=== PATIENT | male | born 1985 | race Caucasian/White ===

== ENCOUNTER → 2017-02-15 17:05 | Emergency (ER) | payer SELFPAY ==
[~2017-02-15] VITALS: Ht 180.3 cm; Wt 103.0 kg
[~2017-02-15 17:05] MED LIST: CLIN-44 PO; CLIN30GE3 TP; OXYC-323 PO
[2017-02-15 17:09] VITALS: BP 146/97
--- NOTE | 2017-02-15 17:44 | PHYS DOC ---
Past Medical History Past Medical History: Other Additional Past Medical Histor: hidradenitis suppurativa Past Surgical History: Other Additional Past Surgical Histo: sx for hidradenitis suppurativa to L groin Smoking: Less than 1pk/day Alcohol Use: None Drug Use: None Adult General Chief Complaint Chief Complaint: GROIN PAIN HPI HPI Patient is a 31 year old male with history of hidradenitis suppurativa of the groin who presents with increased pain in the left groin for 5 days. He denies any fever. He had surgery on the left groin in September of last year for his hidradenitis. [facility]. He followed up with his surgeon last month and was told that it is normal for him to continue to have drainage from the wound. He was prescribed Bactrim at that time. He continues to have purulent drainage. He denies any fevers. His PCP is Dr. Juanita Parker. Review of Systems Review of Systems Constitutional: Denies fever or chills. [] Musculoskeletal: Denies back pain or joint pain. [] Integument: Denies rash or skin lesions. Reports abscess of left groin. Allergies Allergies Allergies Coded Allergies Type Severity Reaction Last Updated Verified ketorolac Allergy Intermediate 02/15/17 Yes naproxen Allergy Intermediate 02/15/17 Yes Physical Exam Physical Exam Constitutional: Well developed, well nourished, no acute distress, non-toxic appearance. [] HENT: Normocephalic, atraumatic, oropharynx moist. [] Eyes: PERRLA, EOMI, conjunctiva normal, no discharge. [] Skin: Warm, dry, no erythema, no rash. There is scar tissue in the left groin along the inferior margin of the scrotum. There appear to be tracts within the scar tissue, but there is no spontaneous purulent drainage and no drainage is expressed with palpation. There is no drainable abscess. There is a 2 cm area of induration at the most medial aspect of the scar tissue. There is no perirectal involvement. Extremities: No tenderness, ROM intact, no edema. Distal pulses equal bilaterally. [] Neurologic: Alert and oriented X 3, normal motor function, normal sensory function, no focal deficits noted. [] Psychologic: Affect normal, judgement normal, mood normal. [] Current Patient Data Vital Signs Vital Signs Date Time Temp Pulse Resp B/P Pulse Ox O2 Delivery O2 Flow Rate FiO2 02/15/17 17:09 98.1 97 18 97 Room Air 98.1 EKG EKG [] Radiology/Procedures Radiology/Procedures [] Course & Med Decision Making Course & Med Decision Making Pertinent Labs and Imaging studies reviewed. (See chart for details) [] Dragon Disclaimer Dragon Disclaimer This electronic medical record was generated, in whole or in part, using a voice recognition dictation system. Departure Departure Impression: Primary Impression: Hidradenitis suppurativa Disposition: HOME, SELF-CARE Condition: STABLE Patient Instructions: Hidradenitis Suppurativa, Sweat Gland Abscess Additional Instructions: Please complete all the prescribed antibiotic pills, even if you are feeling better. Please apply the prescribed antibiotic ointment to the affected area to help prevent infection from developing. Please take the prescribed pain medication as directed. Do not drive or operate heavy machinery while taking pain medication. Please follow-up with your surgeon as soon as possible. Return to the emergency department if you have any new or concerning symptoms. Scripts Oxycodone/Apap 5-325 (Percocet 5-325 Mg Tablet)1 Each Tablet1 Tab PO PRN Q6HRS PRN PAIN #20 TAB Ref 0 Prov:ABIODUN WEBB 02/15/17 Clindamycin Phosphate 30 Gm Gel..gram.1 Mirian TP BID #60 GM Prov:ABIODUN WEBB 02/15/17 Clindamycin Hcl 150 Mg Capsule2 Cap PO QID 10 Days Prov:ABIODUN WEBB 02/15/17 ABIODUN WEBB Feb 15, 2017 17:44
== END | disposition home or self-care (01) ==
LOC: ER 17:05
DX: L73.2 Hidradenitis suppurativa (principal); F17.200 Nicotine dependence, unspecified, uncomplicated
CPT/HCPCS: 99283

== ENCOUNTER 2017-02-23 17:48 | Emergency (ER) | payer SELFPAY ==
[~2017-02-23] VITALS: Ht 180.3 cm; Wt 103.0 kg
[2017-02-23] MEDS ORDERED: MORPHINE SULFATE 4 MG/ML DISP.SYRIN. IM ONE ×2 (19:00→20:45)
--- NOTE | 2017-02-23 19:29 | PHYS DOC ---
Past Medical History Past Medical History: Other Additional Past Medical Histor: hidradenitis suppurativa Past Surgical History: Other Additional Past Surgical Histo: sx for hidradenitis suppurativa to L groin Additional Information: 0.5 PPD Alcohol Use: None Drug Use: None Adult General Chief Complaint Chief Complaint: POST-OP PROBLEM HPI HPI Patient is a 31 year old male who presents with L groin pain. Patient reports h /o hidradenitis suppurativa for which he had surgery on his L groin this past September at . Since then he has had pain in the same location in his L groin. Patient presents tonight with c/o pain. He was seen at this hospital just over a week ago for same at which time he was prescribed abx and pain meds. Patient says he has taken ibuprofen and hydrocodone at home with insufficient pain relief. No fever, no drainage from site. He does have appt with the surgeon but not until March 07. Review of Systems Review of Systems Constitutional: Denies fever or chills Respiratory: Denies cough or shortness of breath Cardiovascular: Denies chest pain GI: Denies abdominal pain, nausea, vomiting, or diarrhea : L groin pain Musculoskeletal: Denies back pain or joint pain Neurologic: Denies headache, focal weakness or sensory changes Current Medications Current Medications Current Medications Medications (Trade) Dose Ordered Sig/Vanessa Start Time Stop Time Status Last Admin Dose Admin Morphine Sulfate 4 mg 1X ONCE 02/23/17 20:45 02/23/17 20:46 DC 02/23/17 20:45 4 MG Allergies Allergies Allergies Coded Allergies Type Severity Reaction Last Updated Verified ketorolac Allergy Intermediate 02/15/17 Yes naproxen Allergy Intermediate 02/15/17 Yes Physical Exam Physical Exam Constitutional: Well developed, well nourished, no acute distress, non-toxic appearance HENT: Normocephalic, atraumatic, bilateral external ears normal Eyes: EOMI, conjunctiva normal, no discharge Neck: Normal range of motion, no stridor Cardiovascular: Heart rate normal, regular rhythm, no murmur Lungs & Thorax: Bilateral breath sounds clear to auscultation Abdomen: Bowel sounds normal, soft, non-distended, no TTP : Scar tissue L groin from prior surgery c/d/i; no significant fluid collections, erythema, warmth to touch, or other acute abnormality noted; generally TTP along scar Skin: Warm, dry, no erythema, no rash Extremities: No obvious deformity, no edema Neurologic: Alert and oriented X 3, no gross deficits noted Current Patient Data Vital Signs Vital Signs Date Time Temp Pulse Resp B/P Pulse Ox O2 Delivery O2 Flow Rate FiO2 02/23/17 20:30 84 18 144/88 99 Room Air 02/23/17 17:54 98.1 98.1 Lab Values Laboratory Tests Test 02/23/17 19:24 White Blood Count 10.1x10^3/uL (4.0-11.0) Red Blood Count 4.95x10^6/uL (4.30-5.70) Hemoglobin 14.7g/dL (13.0-17.5) Hematocrit 44.4% (39.0-53.0) Mean Corpuscular Volume 90fL (79-100) Mean Corpuscular Hemoglobin 30pg (25-35) Mean Corpuscular Hemoglobin Concent 33g/dL (31-37) Red Cell Distribution Width 12.7% (11.5-14.5) Platelet Count 239x10^3/uL (140-400) Neutrophils (%) (Auto) 65% (31-73) Lymphocytes (%) (Auto) 29% (24-48) Monocytes (%) (Auto) 5% (0-9) Eosinophils (%) (Auto) 1% (0-3) Basophils (%) (Auto) 1% (0-3) Neutrophils # (Auto) 6.5x10^3uL (1.8-7.7) Lymphocytes # (Auto) 2.9x10^3/uL (1.0-4.8) Monocytes # (Auto) 0.5x10^3/uL (0.0-1.1) Eosinophils # (Auto) 0.1x10^3/uL (0.0-0.7) Basophils # (Auto) 0.1x10^3/uL (0.0-0.2) Sodium Level 138mmol/L (136-145) Potassium Level 4.5mmol/L (3.5-5.1) Chloride Level 102mmol/L (98-107) Carbon Dioxide Level 27mmol/L (21-32) Anion Gap 9 (6-14) Blood Urea Nitrogen 9mg/dL (8-26) Creatinine 0.9mg/dL (0.7-1.3) Estimated GFR (Cockcroft-Gault) 97.2 Glucose Level 90mg/dL (70-99) Calcium Level 9.3mg/dL (8.5-10.1) Laboratory Tests 02/23/17 19:24 Laboratory Tests 02/23/17 19:24 EKG EKG [] Radiology/Procedures Radiology/Procedures [] Course & Med Decision Making Course & Med Decision Making Pertinent Labs and Imaging studies reviewed. (See chart for details) Patient is 31 year old male who presents with L groin pain at site of prior surgery for hidradenitis. No concerning findings on physical exam. Will check basic labs to ensure no marked leukocytosis or other abnormality. IM pain meds for patient comfort. Blood work unremarkable. Discussed results with patient, who is feeling better. Will discharge with rx for pain meds, instructions for close follow up with surgeon, return precautions. Dragon Disclaimer Dragon Disclaimer This electronic medical record was generated, in whole or in part, using a voice recognition dictation system. Departure Departure Impression: Primary Impression: Hidradenitis suppurativa Disposition: HOME, SELF-CARE Condition: IMPROVED Referrals: UNKNOWN PCP NAME (PCP) Patient Instructions: Hidradenitis Suppurativa, Sweat Gland Abscess Additional Instructions: Thank you for allowing us to provide care today in the Emergency Department. Take the provided medication as directed. Use caution when taking this medication as it can make you drowsy. Schedule a follow up appointment with your surgeon as soon as possible. Return promptly to the Emergency Department if you develop any new or concerning symptoms. Scripts Oxycodone/Apap 5-325 (Percocet 5-325 Mg Tablet)1 Each Tablet1 Tab PO PRN Q6HRS PRN PAIN #20 TAB Ref 0 Prov:AINSLEY PARK MD 02/23/17 AINSLEY PARK MD Feb 23, 2017 19:28
[2017-02-23 19:46] LABS: BASO # 0.1 x10^3/uL (0.0-0.2); BASO % 1 % (0-3); EOS % 1 % (0-3); HEMATOCRIT 44.4 % (39.0-53.0); HEMOGLOBIN 14.7 g/dL (13.0-17.5); LYMPH # 2.9 x10^3/uL (1.0-4.8); LYMPH % 29 % (24-48); MEAN CORPUSCULAR HEMOGLOBIN 30 pg (25-35); MEAN CORPUSCULAR HGB CONC 33 g/dL (31-37); MEAN CORPUSCULAR VOLUME 90 fL (79-100); MONO % 5 % (0-9); NEUT % 65 % (31-73); PLATELET COUNT 239 x10^3/uL (140-400); RED BLOOD COUNT 4.95 x10^6/uL (4.30-5.70); RED CELL DISTRIBUTION WIDTH 12.7 % (11.5-14.5); WHITE BLOOD COUNT 10.1 x10^3/uL (4.0-11.0)
[2017-02-23 19:59] LABS: CALCIUM 9.3 mg/dL (8.5-10.1); CREATININE 0.9 mg/dL (0.7-1.3); GFR 97.2; POTASSIUM 4.5 mmol/L (3.5-5.1)
[2017-02-23 20:30] VITALS: BP 144/88
[2017-02-23] MEDS ORDERED: OXYC-323 PO (20:33)
== END 2017-02-23 21:00 | disposition home or self-care (01) ==
LOC: ER 17:48
DX: L73.2 Hidradenitis suppurativa (principal); F17.200 Nicotine dependence, unspecified, uncomplicated; Z88.6 Allergy status to analgesic agent
CPT/HCPCS: 36415; 80048; 85027; 96372; 99284; J2270

== ENCOUNTER 2017-03-22 12:14 | Emergency (ER) | payer SELFPAY ==
[2017-03-22] MEDS ORDERED: IV NORMAL SALINE 1000ML BAG 1,000 ML IV SCH (13:07)
--- NOTE | 2017-03-22 13:11 | PHYS DOC ---
Past Medical History Past Medical History: Other Additional Past Medical Histor: hidradenitis suppurativa Past Surgical History: Other Additional Past Surgical Histo: sx for hidradenitis suppurativa to L groin Alcohol Use: None Drug Use: None Adult General Chief Complaint Chief Complaint: FEVER HPI HPI Patient is a 31 year old male who presents with history of fever 2 days ago with worsening pain around his rectum. He states he's had a history of abscesses and has had surgery for these before. His last surgery was back in September and he states ever since September he's been having this area flareup he 's been on numerous antibiotics numerous times since September and 2 days ago his pain got a lot worse. He states it hurts when he has a bowel movement. He denies any nausea vomiting diarrhea. He's been taking tramadol for discomfort. He states he didn't know his fever 2 days ago at that time. He states his tetanus shot is up-to-date. Review of Systems Review of Systems Constitutional: Denies fever or chills [] Eyes: Denies change in visual acuity, redness, or eye pain [] HENT: Denies nasal congestion or sore throat [] Respiratory: Denies cough or shortness of breath [] Cardiovascular: No additional information not addressed in HPI [] GI: Denies abdominal pain, nausea, vomiting, bloody stools or diarrhea [] : Denies dysuria or hematuria [] Musculoskeletal: Denies back pain or joint pain [] Integument: Denies rash or skin lesions [] Neurologic: Denies headache, focal weakness or sensory changes [] Endocrine: Denies polyuria or polydipsia [] Current Medications Current Medications Current Medications Medications (Trade) Dose Ordered Sig/Vanessa Start Time Stop Time Status Last Admin Dose Admin Hydromorphone HCl 1 mg 1 mg PRN Q15MIN PRN 03/22/17 13:15 03/23/17 13:14 03/22/17 14:53 1 MG Info (Do NOT chart on this entry -- for MONITORING) 1 each PRN DAILY PRN 03/22/17 13:30 03/24/17 13:29 Iohexol (Omnipaque 300 Mg/ml) 75 ml 1X ONCE 03/22/17 13:30 03/22/17 13:31 DC 03/22/17 14:27 75 ML Ondansetron HCl (Zofran) 4 mg 1X ONCE 03/22/17 15:15 03/22/17 15:16 DC Sodium Chloride (Iv Sodium Chloride 0.9% 1000ml Bag) 1,000 ml @ 1,000 mls/hr Q1H 03/22/17 13:07 03/22/17 14:06 DC 03/22/17 13:35 1,000 MLS/HR Allergies Allergies Allergies Coded Allergies Type Severity Reaction Last Updated Verified morphine Allergy Severe RASH 03/22/17 Yes ketorolac Allergy Intermediate 02/15/17 Yes naproxen Allergy Intermediate 02/15/17 Yes Physical Exam Physical Exam Constitutional: Well developed, well nourished, no acute distress, non-toxic appearance. [] HENT: Normocephalic, atraumatic, bilateral external ears normal, oropharynx moist, no oral exudates, nose normal. [] Eyes: PERRLA, EOMI, conjunctiva normal, no discharge. [] Neck: Normal range of motion, no tenderness, supple, no stridor. [] Cardiovascular:Heart rate regular rhythm, no murmur [] Lungs & Thorax: Bilateral breath sounds clear to auscultation [] Abdomen/pelvis: Bowel sounds normal, soft, no tenderness throughout his abdomen , he is tender between his scrotum and anus without any obvious masses or fluctuance, he does have minimal erythema, no masses, no pulsatile masses. [] Skin: Warm, dry, no erythema, no rash. [] Back: No tenderness, no CVA tenderness. [] Extremities: No tenderness, no cyanosis, no clubbing, ROM intact, no edema. [] Neurologic: Alert and oriented X 3, normal motor function, normal sensory function, no focal deficits noted. [] Psychologic: Affect normal, judgement normal, mood normal. [] Current Patient Data Vital Signs Vital Signs Date Time Temp Pulse Resp B/P Pulse Ox O2 Delivery O2 Flow Rate FiO2 03/22/17 14:53 Room Air 03/22/17 12:45 97.7 87 18 142/83 98 97.7 Lab Values Laboratory Tests Test 03/22/17 13:40 03/22/17 14:55 White Blood Count 7.1x10^3/uL (4.0-11.0) Red Blood Count 4.83x10^6/uL (4.30-5.70) Hemoglobin 14.8g/dL (13.0-17.5) Hematocrit 43.4% (39.0-53.0) Mean Corpuscular Volume 90fL (79-100) Mean Corpuscular Hemoglobin 31pg (25-35) Mean Corpuscular Hemoglobin Concent 34g/dL (31-37) Red Cell Distribution Width 13.0% (11.5-14.5) Platelet Count 214x10^3/uL (140-400) Neutrophils (%) (Auto) 61% (31-73) Lymphocytes (%) (Auto) 30% (24-48) Monocytes (%) (Auto) 7% (0-9) Eosinophils (%) (Auto) 1% (0-3) Basophils (%) (Auto) 1% (0-3) Neutrophils # (Auto) 4.4x10^3uL (1.8-7.7) Lymphocytes # (Auto) 2.1x10^3/uL (1.0-4.8) Monocytes # (Auto) 0.5x10^3/uL (0.0-1.1) Eosinophils # (Auto) 0.1x10^3/uL (0.0-0.7) Basophils # (Auto) 0.1x10^3/uL (0.0-0.2) Prothrombin Time 12.6SEC (11.7-14.0) Prothrombin Time INR 1.0 (0.8-1.1) PTT 34SEC (24-38) Sodium Level 137mmol/L (136-145) Potassium Level 3.9mmol/L (3.5-5.1) Chloride Level 104mmol/L (98-107) Carbon Dioxide Level 29mmol/L (21-32) Anion Gap 4 (6-14) L Blood Urea Nitrogen 9mg/dL (8-26) Creatinine 0.9mg/dL (0.7-1.3) Estimated GFR (Cockcroft-Gault) 97.2 BUN/Creatinine Ratio 10 (6-20) Glucose Level 99mg/dL (70-99) Calcium Level 8.9mg/dL (8.5-10.1) Total Bilirubin 0.2mg/dL (0.2-1.0) Aspartate Amino Transferase (AST) 16U/L (15-37) Alanine Aminotransferase (ALT) 26U/L (16-63) Alkaline Phosphatase 113U/L (46-116) Total Protein 7.0g/dL (6.4-8.2) Albumin 3.4g/dL (3.4-5.0) Albumin/Globulin Ratio 0.9 (1.0-1.7) L Urine Collection Type Void Urine Color Yellow Urine Clarity Cloudy Urine pH 8.0 Urine Specific Mathews 1.025 Urine Protein Negativemg/dL (NEG-TRACE) Urine Glucose (UA) Negativemg/dL (NEG) Urine Ketones (Stick) Negativemg/dL (NEG) Urine Blood Negative (NEG) Urine Nitrite Negative (NEG) Urine Bilirubin Negative (NEG) Urine Urobilinogen Dipstick 0.2mg/dL (0.2 mg/dL) Urine Leukocyte Esterase Negative (NEG) Urine RBC 0/HPF (0-2) Urine WBC 0/HPF (0-4) Urine Squamous Epithelial Cells Occ/LPF Urine Amorphous Sediment Present/HPF Urine Bacteria 0/HPF (0-FEW) Urine Mucus Slight/LPF Laboratory Tests 03/22/17 13:40 Laboratory Tests 03/22/17 13:40 EKG EKG [] Radiology/Procedures Radiology/Procedures [facility] [address] [place], [place] [id number] IMAGING REPORT Signed PATIENT: ARIES CRUZ ACCOUNT: [id number] : 1985 LOCATION: ER AGE: 31 SEX: M EXAM STATUS: REG ER ORD. PHYSICIAN: GIULIA RODAS MD REASON: rectal abscess PROCEDURE: CT ABD PELV W/ IV CONTRST ONLY CT of the abdomen and pelvis with contrast, 03/22/2017: History: Rectal abscess, fever, pain Multidetector CT imaging was performed following an IV bolus injection of iodinated contrast material. No oral contrast material was administered for this study. No hepatic abnormality is detected. The gallbladder is unremarkable. The pancreas shows no abnormality. The spleen is of normal size. No renal or adrenal abnormality is detected. The abdominal aorta is unremarkable. No abdominal or pelvic adenopathy is seen. The bladder is unremarkable The bowel loops are not dilated. No rectal or perirectal abnormality no rectal abnormality is detected. No abnormal perirectal fluid collection or significant inflammatory process is seen. The bowel loops are not dilated. The appendix shows no abnormality. No free fluid or free air is evident in the abdomen or pelvis. IMPRESSION: No acute abdominal or pelvic abnormality is detected. PQRS Compliance Statement: One or more of the following individualized dose reduction techniques were utilized for this examination: 1. Automated exposure control 2. Adjustment of the mA and/or kV according to patient size 3. Use of iterative reconstruction technique DICTATED and SIGNED BY: MALIA JONES MD DATE: 03/22/17 1440 CC: GIULIA RODAS MD; UNKNOWN PCP NAME ~ Impressions: Cellulitis Course & Med Decision Making Course & Med Decision Making Pertinent Labs and Imaging studies reviewed. (See chart for details) Labs, CT scan abdomen pelvis did not show any acute abnormalities. I will discharge him with Bactrim and Percocet. He does have a follow-up appointment in [address] his surgeon Dr. Grimm at . He and his mom's agreeable Plan B discharged in stable condition at this time. I did offer him a rectal exam and he deferred it at this time since it would not change the outcome. He is instructed return back to ER if worsening pain, fevers or other concerns. He is on a stool softener every day and states his stools are formed and soft. Dragon Disclaimer Dragon Disclaimer This electronic medical record was generated, in whole or in part, using a voice recognition dictation system. Departure Departure Impression: Primary Impression: Cellulitis Disposition: 01 HOME, SELF-CARE Condition: STABLE Referrals: UNKNOWN PCP NAME (PCP) Patient Instructions: Cellulitis Additional Instructions: You did not have a fever while in the emergency department. Your labs do not show any elevation of the white blood cell count and her CAT scan did not show any abscesses or masses. Your being discharged home with 10 days of Bactrim please follow the instructions on the bottle. He also can take Percocet one to 2 tablets every 6 hours as needed for pain. Please continue your stool softeners. You'll need to follow-up with Dr. Grimm. Return ER for worsening pain , fevers, confusion, or any other concerns. Scripts Oxycodone/Apap 5-325 (Percocet 5-325 Mg Tablet)1 Each Tablet1-2 Tab PO Q6HRS # 20 TAB Prov:GIULIA RODAS MD 03/22/17 Sulfamethoxazole/Trimethoprim (Bactrim Ds Tablet)1 Each Tablet1 Tab PO BID #20 TAB Prov:GIULIA RODAS MD 03/22/17 Problem Qualifiers Primary Impression: Cellulitis Site of cellulitis: buttock Qualified Code: L03.317 - Cellulitis of buttock GIULIA RODAS MD Mar 22, 2017 13:11
[2017-03-22] MEDS ORDERED: IOHEXOL 300 MG/ML 75 ML VIAL IV ONE (13:30)
[2017-03-22] MEDS ORDERED: CONTRAST GIVEN MC PRN (13:30)
[2017-03-22] MEDS: HYDROmorphone 2 MG/ML VIAL IV/SQ PRN ×2 (13:44→14:53)
[2017-03-22 13:49] LABS: BASO # 0.1 x10^3/uL (0.0-0.2); BASO % 1 % (0-3); EOS % 1 % (0-3); HEMATOCRIT 43.4 % (39.0-53.0); HEMOGLOBIN 14.8 g/dL (13.0-17.5); LYMPH # 2.1 x10^3/uL (1.0-4.8); LYMPH % 30 % (24-48); MEAN CORPUSCULAR HEMOGLOBIN 31 pg (25-35); MEAN CORPUSCULAR HGB CONC 34 g/dL (31-37); MEAN CORPUSCULAR VOLUME 90 fL (79-100); MONO % 7 % (0-9); NEUT % 61 % (31-73); PLATELET COUNT 214 x10^3/uL (140-400); RED BLOOD COUNT 4.83 x10^6/uL (4.30-5.70); WHITE BLOOD COUNT 7.1 x10^3/uL (4.0-11.0)
[2017-03-22 13:59] LABS: PROTHROMBIN TIME PATIENT 12.6 SEC (11.7-14.0)
[2017-03-22 14:01] LABS: CALCIUM 8.9 mg/dL (8.5-10.1); CREATININE 0.9 mg/dL (0.7-1.3); GFR 97.2; POTASSIUM 3.9 mmol/L (3.5-5.1)
[2017-03-22 14:07] LABS: ALBUMIN 3.4 g/dL (3.4-5.0); ALBUMIN/GLOBULIN RATIO 0.9 (1.0-1.7); TOTAL BILIRUBIN 0.2 mg/dL (0.2-1.0)
--- NOTE | 2017-03-22 14:49 | RAD ---
CT of the abdomen and pelvis with contrast, 03/22/2017: History: Rectal abscess, fever, pain Multidetector CT imaging was performed following an IV bolus injection of iodinated contrast material. No oral contrast material was administered for this study. No hepatic abnormality is detected. The gallbladder is unremarkable. The pancreas shows no abnormality. The spleen is of normal size. No renal or adrenal abnormality is detected. The abdominal aorta is unremarkable. No abdominal or pelvic adenopathy is seen. The bladder is unremarkable The bowel loops are not dilated. No rectal or perirectal abnormality no rectal abnormality is detected. No abnormal perirectal fluid collection or significant inflammatory process is seen. The bowel loops are not dilated. The appendix shows no abnormality. No free fluid or free air is evident in the abdomen or pelvis. IMPRESSION: No acute abdominal or pelvic abnormality is detected. PQRS Compliance Statement: One or more of the following individualized dose reduction techniques were utilized for this examination: 1. Automated exposure control 2. Adjustment of the mA and/or kV according to patient size 3. Use of iterative reconstruction technique
[2017-03-22 15:01] LABS: BILIRUBIN,URINE NEGATIVE (NEG); GLUCOSE,URINE NEGATIVE (NEG); NITRITE,URINE NEGATIVE (NEG); PROTEIN,URINE NEGATIVE (NEG-TRACE); UROBILINOGEN,URINE 0.2 mg/dL (0.2 mg/dL)
[2017-03-22 15:07] LABS: BACTERIA,URINE 0 /HPF (0-FEW); RBC,URINE 0 /HPF (0-2); SQUAMOUS EPITHELIAL CELL,UR OCC /LPF; WBC,URINE 0 /HPF (0-4)
[2017-03-22] MEDS ORDERED: ONDANSETRON PF 4 MG/2 ML VIAL. IV ONE (15:15)
[2017-03-22 15:30] VITALS: BP 136/77
[2017-03-22] MEDS ORDERED: SULF1TAB24 PO (16:04)
[2017-03-22] MEDS ORDERED: OXYC-323 PO (16:04)
== END 2017-03-22 16:10 | disposition home or self-care (01) ==
LOC: ER 12:14
DX: K61.1 Rectal abscess (principal); R50.9 Fever, unspecified; Z88.5 Allergy status to narcotic agent; Z88.8 Allergy status to other drugs, medicaments and biological substances
CPT/HCPCS: 36415; 74177; 80053; 81001; 85027; 85610; 85730; 87040; 96361; 96374; 96376; 99285; J1170; J7030; Q9967

== ENCOUNTER 2017-04-15 13:58 | Emergency (ER) | payer SELFPAY ==
[~2017-04-15] VITALS: Ht 180.3 cm; Wt 107.5 kg
[~2017-04-15 13:58] MED LIST changes: +SULF1TAB24 PO
[2017-04-15] MEDS ORDERED: SULF1TAB24 PO (15:18)
--- NOTE | 2017-04-15 15:18 | PHYS DOC ---
Past Medical History Past Medical History: Other Additional Past Medical Histor: hidradenitis suppurativa in axilla and groin Past Surgical History: Other Additional Past Surgical Histo: sx for hidradenitis suppurativa to L groin Alcohol Use: Rarely Drug Use: None Adult General Chief Complaint Chief Complaint: GROIN PAIN HPI HPI Patient is a 31 year old male who presents with left groin pain and swelling typical of hidradenitis symptoms. States he is placed on Bactrim, as this is most affordable antibiotic. He is frequently on antibiotics. He follows with general surgeon at [facility]. He has plans to have procedure performed on right axilla seen. Notes his pain is achy, constant, severe. He denies discharge, fever or chills, testicular pain, scrotal pain, rectal pain, pain with bowel movements, penile discharge, dysuria. Review of Systems Review of Systems Constitutional: Denies fever or chills [] Eyes: Denies change in visual acuity, redness, or eye pain [] HENT: Denies nasal congestion or sore throat [] Respiratory: Denies cough or shortness of breath [] Cardiovascular: No additional information not addressed in HPI [] GI: Denies abdominal pain, nausea, vomiting, bloody stools or diarrhea [] : Denies dysuria or hematuria [] Musculoskeletal: Denies back pain or joint pain [] Integument: Denies rash [] Neurologic: Denies headache, focal weakness or sensory changes [] Endocrine: Denies polyuria or polydipsia [] Allergies Allergies Allergies Coded Allergies Type Severity Reaction Last Updated Verified morphine Allergy Severe RASH 03/22/17 Yes ketorolac Allergy Intermediate 02/15/17 Yes naproxen Allergy Intermediate 02/15/17 Yes Physical Exam Physical Exam Constitutional: Well developed, well nourished, no acute distress, non-toxic appearance. [] HENT: Normocephalic, atraumatic, bilateral external ears normal, oropharynx moist, nose normal. [] Eyes: PERRLA, EOMI. [] Neck: Normal range of motion, supple. [] Cardiovascular:Heart rate regular rhythm [] Lungs & Thorax: Bilateral breath sounds clear to auscultation [] Abdomen: Bowel sounds normal, soft, no tenderness. [] Genitourinary: No penile lesions or drip, scrotal nontender with no visual or palpable abnormality, has tender scarring to bilateral groin folds with few thickened areas suggestive of scarring versus cysts with minimal overlying rubor , no induration/crepitance/fluctuance, no perineal tenderness Skin: Warm, dry, no rash. [] Back: Normal range of motion. [] Extremities: No tenderness, ROM intact, no edema. [] Neurologic: Alert and oriented X 3, normal motor function, normal sensory function, no focal deficits noted. [] Psychologic: Affect normal, judgement normal, mood normal. [] Current Patient Data Vital Signs Vital Signs Date Time Temp Pulse Resp B/P (MAP) Pulse Ox O2 Delivery O2 Flow Rate FiO2 04/15/17 14:30 97.9 75 18 157/97 (117) 100 Room Air 97.9 Course & Med Decision Making Course & Med Decision Making Will place him on Bactrim for likely reactive hidradenitis. Discussed he should follow-up with his surgeon and primary care doctor. Return precautions given. He understands and agrees with plan. Dragon Disclaimer Dragon Disclaimer This electronic medical record was generated, in whole or in part, using a voice recognition dictation system. Departure Departure Impression: Primary Impression: Hidradenitis suppurativa Disposition: HOME, SELF-CARE Condition: STABLE Referrals: UNKNOWN PCP NAME (PCP) Patient Instructions: Hidradenitis Suppurativa, Sweat Gland Abscess Additional Instructions: Follow up with your surgeon and primary care doctor. Return for any concerns. Scripts Sulfamethoxazole/Trimethoprim (BACTRIM DS TABLET) 1 Each Tablet 1 TAB PO BID, #20 TAB Prov: Jc KING MD 04/15/17 Jc KING MD April 15, 2017 15:18
[2017-04-15 15:32] VITALS: BP 140/84
== END 2017-04-15 15:36 | disposition home or self-care (01) ==
LOC: ER 15:06
DX: L73.2 Hidradenitis suppurativa (principal); Z98.890 Other specified postprocedural states; Z88.6 Allergy status to analgesic agent
CPT/HCPCS: 99283

== ENCOUNTER 2017-05-16 16:51 | Emergency (ER) | payer SELFPAY ==
[~2017-05-16] VITALS: Ht 180.3 cm; Wt 107.5 kg
[~2017-05-16 16:51] MED LIST changes: -CLIN-44 PO; +CLIN150C14 PO
[2017-05-16] MEDS ORDERED: ONDANSETRON PF 4 MG/2 ML VIAL. IV ONE (17:30)
[2017-05-16] MEDS ORDERED: IV NORMAL SALINE 1000ML BAG 1,000 ML IV ONE (17:30)
[2017-05-16 17:58] LABS: BASO # 0.1 x10^3/uL (0.0-0.2); BASO % 1 % (0-3); EOS % 1 % (0-3); HEMATOCRIT 41.8 % (39.0-53.0); HEMOGLOBIN 14.1 g/dL (13.0-17.5); LYMPH # 2.8 x10^3/uL (1.0-4.8); LYMPH % 24 % (24-48); MEAN CORPUSCULAR HEMOGLOBIN 31 pg (25-35); MEAN CORPUSCULAR HGB CONC 34 g/dL (31-37); MEAN CORPUSCULAR VOLUME 91 fL (79-100); MONO % 4 % (0-9); NEUT % 69 % (31-73); PLATELET COUNT 230 x10^3/uL (140-400); RED BLOOD COUNT 4.57 x10^6/uL (4.30-5.70); RED CELL DISTRIBUTION WIDTH 14.2 % (11.5-14.5); WHITE BLOOD COUNT 11.6 x10^3/uL (4.0-11.0)
[2017-05-16 18:00] LABS: BILIRUBIN,URINE NEGATIVE (NEG); GLUCOSE,URINE NEGATIVE (NEG); NITRITE,URINE NEGATIVE (NEG); PROTEIN,URINE NEGATIVE (NEG-TRACE); UROBILINOGEN,URINE 0.2 mg/dL (0.2 mg/dL)
[2017-05-16 18:06] LABS: CALCIUM 9.1 mg/dL (8.5-10.1); CREATININE 0.8 mg/dL (0.7-1.3); GFR 111.3; POTASSIUM 3.9 mmol/L (3.5-5.1)
[2017-05-16 18:08] LABS: BACTERIA,URINE 0 /HPF (0-FEW); WBC,URINE 0 /HPF (0-4)
[2017-05-16 18:12] LABS: ALBUMIN 3.3 g/dL (3.4-5.0); ALBUMIN/GLOBULIN RATIO 0.9 (1.0-1.7); TOTAL BILIRUBIN 0.2 mg/dL (0.2-1.0); TOTAL PROTEIN 6.9 g/dL (6.4-8.2)
[2017-05-16 18:50] VITALS: BP 141/89
--- NOTE | 2017-05-16 19:14 | PHYS DOC ---
Past Medical History Past Medical History: Arthritis, Fibromyalgia, Other Additional Past Medical Histor: hidradenitis suppurativa in axilla and groin Past Surgical History: Other Additional Past Surgical Histo: sx for hidradenitis suppurativa to L groin Alcohol Use: Rarely Drug Use: None Adult General Chief Complaint Chief Complaint: POST-OP PROBLEM HPI HPI Patient is a 31 year old gentleman who presents here today complaining of postop pain. Patient reports he is status post a Hume adenitis severity of his surgery approximately one half weeks ago. Patient reports she was doing okay with the pain up until approximately 4-5 days ago and the pain started to increase. Patient reports that this morning he had episodes of nausea vomiting and diarrhea. Patient denies any fevers shakes chills. Patient has any cough or URI symptoms. Patient has any sore throat. Patient has a dysuria frequency or urgency. Patient reports his last by mouth intake was last night he ate fettuccine Kayden. He of hypertension or diabetes. Patient has no liver longer kidney problems. Patient does smoke he drinks no drugs. Patient is not allergic to anything. Patient has a history of febrile myalgia rheumatica, DJD, Patient's physical exam was significant for an abdominal exam is soft nondistended no rebound or guarding. Patient has mild tenderness diffusely to palpation. Patient has normal active bowel sounds. Patient does not present with any signs or symptoms of be consistent with an acute surgical abdomen. Patient's right axilla was clean and dry. The incision site was clean and dry no erythema and no purulence no fullness. There was some mild tenderness to palpation to the incision site but other than that there was no abnormality that I could detect. Patient's x-ray was obstruction series was unremarkable. Review of systems Constitutional: Denies fever or chills [] Eyes: Denies change in visual acuity, redness, or eye pain [] All other review systems are negative except as documented in the history of present illness portion. Physical exam Constitutional: Well developed, well nourished, no acute distress, non-toxic appearance. [] HENT: Normocephalic, atraumatic, bilateral external ears normal, oropharynx moist, no oral exudates, nose normal. [] Eyes: conjunctiva normal, no discharge. [] Neck: Normal range of motion, no tenderness, supple, no stridor. [] Cardiovascular:Heart rate regular rhythm, Lungs & Thorax: Bilateral breath sounds clear to auscultation [] Abdomen: Bowel sounds normal, soft, no tenderness, no masses, no pulsatile masses. [] Skin: Warm, dry, Back: No tenderness, Extremities: No tenderness, no cyanosis, Neurologic: Alert and oriented X 3, normal motor function, normal sensory function, no focal deficits noted. [] Psychologic: Affect normal, judgement normal, mood normal. [] Assessment and plan 31-year-old gentleman who presents here today with postop pain. Patient's clinically and hemodynamically stable. Patient's labs were unremarkable. Patient 's white count was not markedly elevated. I do not believe that the patient has a postop wound infection. Patient be discharged home with instructions to follow -up with his primary care surgeon in the morning for further evaluation. Patient reports that Dr. Grimm at [facility] is his surgeon is the procedure. Bowel pain: Patient is moving his bowels. Patient's abdomen is soft nontender no rebound or guarding. Patient does not have a surgical abdomen at this point. Patient is to follow-up with his primary care physician. Patient did eat out fishing [place] yesterday with and was tolerating it well. Current Medications Current Medications Current Medications Medications (Trade) Dose Ordered Sig/Vanessa Start Time Stop Time Status Last Admin Dose Admin Ondansetron HCl (Zofran) 4 mg 1X ONCE 05/16/17 17:30 05/16/17 17:33 DC 05/16/17 17:57 4 MG Sodium Chloride 1,000 ml @ 1,000 mls/hr 1X ONCE 05/16/17 17:30 05/16/17 18:29 DC 05/16/17 17:57 1,000 MLS/HR Allergies Allergies Allergies Coded Allergies Type Severity Reaction Last Updated Verified morphine Allergy Severe RASH 03/22/17 Yes fentanyl Allergy Intermediate Rash 05/16/17 Yes ketorolac Allergy Intermediate 02/15/17 Yes naproxen Allergy Intermediate 02/15/17 Yes Current Patient Data Vital Signs Vital Signs Date Time Temp Pulse Resp B/P (MAP) Pulse Ox O2 Delivery O2 Flow Rate FiO2 05/16/17 18:50 73 18 141/89 (106) 97 Room Air 05/16/17 17:00 98.6 98.6 Lab Values Laboratory Tests Test 05/16/17 17:45 05/16/17 17:50 Urine Collection Type Unknown Urine Color Yellow Urine Clarity Clear Urine pH 8.0 Urine Specific [place] 1.015 Urine Protein Negative mg/dL (NEG-TRACE) Urine Glucose (UA) Negative mg/dL (NEG) Urine Ketones (Stick) Negative mg/dL (NEG) Urine Blood Negative (NEG) Urine Nitrite Negative (NEG) Urine Bilirubin Negative (NEG) Urine Urobilinogen Dipstick 0.2 mg/dL (0.2 mg/dL) Urine Leukocyte Esterase Negative (NEG) Urine RBC 1-2 /HPF (0-2) Urine WBC 0 /HPF (0-4) Urine Bacteria 0 /HPF (0-FEW) Urine Mucus Slight /LPF White Blood Count 11.6 x10^3/uL (4.0-11.0) H Red Blood Count 4.57 x10^6/uL (4.30-5.70) Hemoglobin 14.1 g/dL (13.0-17.5) Hematocrit 41.8 % (39.0-53.0) Mean Corpuscular Volume 91 fL (79-100) Mean Corpuscular Hemoglobin 31 pg (25-35) Mean Corpuscular Hemoglobin Concent 34 g/dL (31-37) Red Cell Distribution Width 14.2 % (11.5-14.5) Platelet Count 230 x10^3/uL (140-400) Neutrophils (%) (Auto) 69 % (31-73) Lymphocytes (%) (Auto) 24 % (24-48) Monocytes (%) (Auto) 4 % (0-9) Eosinophils (%) (Auto) 1 % (0-3) Basophils (%) (Auto) 1 % (0-3) Neutrophils # (Auto) 8.0 x10^3uL (1.8-7.7) H Lymphocytes # (Auto) 2.8 x10^3/uL (1.0-4.8) Monocytes # (Auto) 0.5 x10^3/uL (0.0-1.1) Eosinophils # (Auto) 0.1 x10^3/uL (0.0-0.7) Basophils # (Auto) 0.1 x10^3/uL (0.0-0.2) Sodium Level 140 mmol/L (136-145) Potassium Level 3.9 mmol/L (3.5-5.1) Chloride Level 105 mmol/L (98-107) Carbon Dioxide Level 28 mmol/L (21-32) Anion Gap 7 (6-14) Blood Urea Nitrogen 10 mg/dL (8-26) Creatinine 0.8 mg/dL (0.7-1.3) Estimated GFR (Cockcroft-Gault) 111.3 BUN/Creatinine Ratio 13 (6-20) Glucose Level 94 mg/dL (70-99) Calcium Level 9.1 mg/dL (8.5-10.1) Total Bilirubin 0.2 mg/dL (0.2-1.0) Aspartate Amino Transferase (AST) 16 U/L (15-37) Alanine Aminotransferase (ALT) 24 U/L (16-63) Alkaline Phosphatase 113 U/L (46-116) Total Protein 6.9 g/dL (6.4-8.2) Albumin 3.3 g/dL (3.4-5.0) L Albumin/Globulin Ratio 0.9 (1.0-1.7) L Laboratory Tests 05/16/17 17:50 Laboratory Tests 05/16/17 17:50 EKG EKG [] Radiology/Procedures Radiology/Procedures [] Course & Med Decision Making Course & Med Decision Making Pertinent Labs and Imaging studies reviewed. (See chart for details) [] Dragon Disclaimer Dragon Disclaimer This electronic medical record was generated, in whole or in part, using a voice recognition dictation system. Departure Departure Impression: Primary Impression: Postoperative pain Additional Impression: Abdominal pain Disposition: 01 HOME, SELF-CARE Condition: IMPROVED Referrals: AR SALAMANCA (PCP) Patient Instructions: Abdominal Pain (Nonspecific), Wound Care, [id number] Additional Instructions: Follow-up with your doctor in the next 1-2 days for reevaluation of your wound your pain. Problem Qualifiers EDWARD VELASQUEZ MD May 16, 2017 19:14
--- NOTE | 2017-05-17 08:41 | RAD ---
Acute abdomen series with chest, 05/16/2017: History: Abdominal pain There is a small amount of gas in the GI tract in a nonspecific pattern. No free air is seen in the abdomen. There is no evidence of organomegaly or significant abnormal abdominal calcification. The heart size is normal. The lungs are clear. There is no evidence of pleural fluid. IMPRESSION: No acute abdominal abnormality is detected.
== END 2017-05-16 19:30 | disposition home or self-care (01) ==
LOC: ER 16:51
DX: G89.18 Other acute postprocedural pain (principal); R11.2 Nausea with vomiting, unspecified; R19.7 Diarrhea, unspecified; R10.9 Unspecified abdominal pain; M19.90 Unspecified osteoarthritis, unspecified site; M79.7 Fibromyalgia; Z88.5 Allergy status to narcotic agent; Z88.6 Allergy status to analgesic agent; Z88.4 Allergy status to anesthetic agent
CPT/HCPCS: 36415; 74022; 80053; 81001; 85027; 96361; 96374; 99285; J2405; J7030

== ENCOUNTER 2017-07-22 19:16 | Emergency (ER) | payer SELFPAY ==
[~2017-07-22] VITALS: Ht 180.3 cm; Wt 107.5 kg
[2017-07-22 19:26] VITALS: BP 166/118
--- NOTE | 2017-07-22 20:12 | PHYS DOC ---
Past Medical History Past Medical History: Arthritis, Fibromyalgia, Other Additional Past Medical Histor: hidradenitis suppurativa in axilla and groin Past Surgical History: Other Additional Past Surgical Histo: sx for hidradenitis suppurativa to L groin Alcohol Use: Rarely Drug Use: None Adult General Chief Complaint Chief Complaint: RECTAL BLEED [facility] HPI Patient is a 31 year old male who presents with [recurrent pain in the buttocks started 2 days ago no fever, bowel movements are normal, no explicit rectal pain, no rectal bleeding per the patient. Patient has a complex history of hydradenitis supportiva with multiple surgeries particularly in the rectal area and cleft of the buttocks and is currently scheduled for plastic surgery to definitively fix this problem. He frequently is placed on antibiotics including Bactrim, doxycycline, and clindamycin.] Review of Systems Review of Systems Constitutional: Denies fever or chills [] Eyes: Denies change in visual acuity, redness, or eye pain [] HENT: Denies nasal congestion or sore throat [] Respiratory: Denies cough or shortness of breath [] Cardiovascular: No additional information not addressed in HPI [] GI: Denies abdominal pain, nausea, vomiting, bloody stools or diarrhea [] : Denies dysuria or hematuria [] Musculoskeletal: Denies back pain or joint pain [] Integument: Denies rash or skin lesions [] Neurologic: Denies headache, focal weakness or sensory changes [] Endocrine: Denies polyuria or polydipsia [] Allergies Allergies Allergies Coded Allergies Type Severity Reaction Last Updated Verified morphine Allergy Severe RASH 03/22/17 Yes fentanyl Allergy Intermediate Rash 05/16/17 Yes ketorolac Allergy Intermediate 02/15/17 Yes naproxen Allergy Intermediate 02/15/17 Yes Physical Exam Physical Exam Constitutional: Well developed, well nourished, no acute distress, non-toxic appearance. [] HENT: Normocephalic, atraumatic, bilateral external ears normal, oropharynx moist, no oral exudates, nose normal. [] Eyes: PERRLA, EOMI, conjunctiva normal, no discharge. [] Neck: Normal range of motion, no tenderness, supple, no stridor. [] Cardiovascular:Heart rate regular rhythm, no murmur [] Lungs & Thorax: Bilateral breath sounds clear to auscultation [] Abdomen: Bowel sounds normal, soft, no tenderness, no masses, no pulsatile masses. [] Skin: Warm, dry, no erythema, no rash. [] Back: No tenderness, no CVA tenderness. Examination of buttocks reveals 2 small discreet areas of induration that are about 1 cm in diameter in the cleft of the buttocks inferiorly and in the right medial buttocks with no perirectal involvement. [] Extremities: No tenderness, no cyanosis, no clubbing, ROM intact, no edema. [] Neurologic: Alert and oriented X 3, normal motor function, normal sensory function, no focal deficits noted. [] Psychologic: Affect normal, judgement normal, mood normal. [] Current Patient Data Vital Signs Vital Signs Date Time Temp Pulse Resp B/P (MAP) Pulse Ox O2 Delivery O2 Flow Rate FiO2 07/22/17 19:26 98.2 116 20 166/118 (134) 97 Room Air 98.2 EKG EKG [] Radiology/Procedures Radiology/Procedures [] Course & Med Decision Making Course & Med Decision Making Pertinent Labs and Imaging studies reviewed. (See chart for details) Nodules are essentially 2 small related to be incised and drained at this point and I will recommend warm sitz baths and we'll start on antibiotics and recommended follow-up with plastic surgery this week. Dragon Disclaimer Dragon Disclaimer This electronic medical record was generated, in whole or in part, using a voice recognition dictation system. Departure Departure Impression: Primary Impression: Hidradenitis suppurativa Additional Impression: Cyst of buttocks Disposition: 01 HOME, SELF-CARE Condition: STABLE Referrals: AR SALAMANCA (PCP) Patient Instructions: Hidradenitis Suppurativa, Sweat Gland Abscess Scripts Clindamycin Hcl (CLINDAMYCIN HCL) 150 Mg Capsule 2 CAP PO QID for 7 Days, #56 CAP Prov: CHARITO MONSALVE MD 07/22/17 Oxycodone/Apap 5-325 (PERCOCET 5-325 MG TABLET) 1 Each Tablet 1 TAB PO PRN Q6HRS Y for PAIN, #14 TAB 0 Refills Prov: CHARITO MONSALVE MD 07/22/17 Problem Qualifiers CHARITO MONSALVE MD Jul 22, 2017 20:12
[2017-07-22] MEDS ORDERED: OXYC-323 PO (20:13)
[2017-07-22] MEDS ORDERED: CLIN150C14 PO (20:13)
== END 2017-07-22 20:20 | disposition home or self-care (01) ==
LOC: ER 19:16
DX: L73.2 Hidradenitis suppurativa (principal); L72.8 Other follicular cysts of the skin and subcutaneous tissue; M19.90 Unspecified osteoarthritis, unspecified site; M79.7 Fibromyalgia; Z88.5 Allergy status to narcotic agent; Z88.4 Allergy status to anesthetic agent; Z88.6 Allergy status to analgesic agent
CPT/HCPCS: 99283

== ENCOUNTER 2017-08-05 17:43 | Emergency (ER) | payer SELFPAY ==
[~2017-08-05] VITALS: Ht 180.3 cm; Wt 107.5 kg
[2017-08-05] MEDS ORDERED: CLIN150C14 PO (18:02)
[2017-08-05] MEDS ORDERED: OXYC-323 PO (18:02)
[2017-08-05 18:04] VITALS: BP 100/54
--- NOTE | 2017-08-05 18:04 | PHYS DOC ---
Past Medical History Past Medical History: Arthritis, Fibromyalgia, Other Additional Past Medical Histor: hidradenitis suppurativa in axilla and groin Past Surgical History: Other Additional Past Surgical Histo: sx for hidradenitis suppurativa to L groin Alcohol Use: Rarely Drug Use: None Adult General Chief Complaint Chief Complaint: ABSCESS HPI HPI Patient is a 31 year old male presents to the emergency department with recurrent abscess in the right axillary and buttock region. He has a complex history of Suppurative hydradenitis. She was evaluated July 22 in the emergency department for same complaint. He is percent clindamycin and hydrocodone. He states that he got better. He states he feels that these abscesses are beginning to redevelop and is here seeking a refill on his hydrocodone and clindamycin. Patient had an appointment with the plastic surgeon but had to reschedule for September 26 as he was abusing tobacco. The plastic surgeon recommended that he quit smoking prior to having surgery And has been tobacco free for 5 days. Review of Systems Review of Systems Constitutional: Denies fever or chills [] Eyes: Denies change in visual acuity, redness, or eye pain [] HENT: Denies nasal congestion or sore throat [] Respiratory: Denies cough or shortness of breath [] Cardiovascular: No additional information not addressed in HPI [] GI: Denies abdominal pain, nausea, vomiting, bloody stools or diarrhea [] : Denies dysuria or hematuria [] Musculoskeletal: Denies back pain or joint pain [] Integument: Abscess Neurologic: Denies headache, focal weakness or sensory changes [] Endocrine: Denies polyuria or polydipsia [] Allergies Allergies Allergies Coded Allergies Type Severity Reaction Last Updated Verified morphine Allergy Severe RASH 03/22/17 Yes fentanyl Allergy Intermediate Rash 05/16/17 Yes ketorolac Allergy Intermediate 02/15/17 Yes naproxen Allergy Intermediate 02/15/17 Yes Physical Exam Physical Exam Constitutional: Well developed, well nourished, no acute distress, non-toxic appearance. [] HENT: Normocephalic, atraumatic, bilateral external ears normal, oropharynx moist, no oral exudates, nose normal. [] Eyes: PERRLA, EOMI, conjunctiva normal, no discharge. [] Neck: Normal range of motion, no tenderness, supple, no stridor. [] Cardiovascular:Heart rate regular rhythm, no murmur [] Lungs & Thorax: Bilateral breath sounds clear to auscultation [] Abdomen: Bowel sounds normal, soft, no tenderness, no masses, no pulsatile masses. [] Skin: Warm, dry, right axillary region with chronic skin changes secondary to previous abscesses. He has a less than 1 cm single firm area beneath the skin, there is no surrounding erythema, no induration. It is mildly tender to palpate. He shouldn't has a single 1 cm indurated area at the cleft of the buttock without surrounding erythema. Mild tenderness. Back: No tenderness, no CVA tenderness. [] Extremities: No tenderness, no cyanosis, no clubbing, ROM intact, no edema. [] Neurologic: Alert and oriented X 3, normal motor function, normal sensory function, no focal deficits noted. [] Psychologic: Affect normal, judgement normal, mood normal. [] EKG EKG [] Radiology/Procedures Radiology/Procedures [] Course & Med Decision Making Course & Med Decision Making Pertinent Labs and Imaging studies reviewed. (See chart for details) [] Dragon Disclaimer Dragon Disclaimer This electronic medical record was generated, in whole or in part, using a voice recognition dictation system. Departure Departure Impression: Primary Impression: Hidradenitis suppurativa Disposition: 01 HOME, SELF-CARE Condition: STABLE Referrals: AR SALAMANCA (PCP) Patient Instructions: Hidradenitis Suppurativa, Sweat Gland Abscess Scripts Oxycodone/Apap 5-325 (PERCOCET 5-325 MG TABLET) 1 Each Tablet 1 TAB PO PRN Q6HRS Y for PAIN, #14 TAB 0 Refills Prov: FRANK GEORGES APRN 08/05/17 Clindamycin Hcl (CLINDAMYCIN HCL) 150 Mg Capsule 2 CAP PO QID for 10 Days, CAP Prov: FRANK GEORGES APRN 08/05/17 FRANK GEORGES APRN Aug 05, 2017 18:03
== END 2017-08-05 18:10 | disposition home or self-care (01) ==
LOC: ER 17:43
DX: L73.2 Hidradenitis suppurativa (principal); M79.7 Fibromyalgia; M19.90 Unspecified osteoarthritis, unspecified site; Z87.891 Personal history of nicotine dependence; Z88.5 Allergy status to narcotic agent; Z88.8 Allergy status to other drugs, medicaments and biological substances; Z88.4 Allergy status to anesthetic agent
CPT/HCPCS: 99283

== ENCOUNTER 2017-08-17 16:42 | Inpatient (IN) | payer SELFPAY ==
[~2017-08-17] VITALS: Ht 180.3 cm; Wt 107.0 kg
[2017-08-17] MEDS ORDERED: ONDANSETRON PF 4 MG/2 ML VIAL. IV ONE (17:15)
[2017-08-17] MEDS ORDERED: VANCOMYCIN 2 GM in IV NORMAL SALINE 500ML BAG 500 ML IV ONE (17:15)
--- NOTE | 2017-08-17 17:20 | PHYS DOC ---
Past Medical History Past Medical History: Arthritis, Fibromyalgia, Other Additional Past Medical Histor: hidradenitis suppurativa in axilla and groin Past Surgical History: Other Additional Past Surgical Histo: sx for hidradenitis suppurativa to L groin Alcohol Use: Rarely Drug Use: None Adult General Chief Complaint Chief Complaint: ABSCESS HPI HPI Patient is a 31 year old female presents emergency department stating that he' s had multiple visits here to the emergency department for what he calls hidradenitis suppurativa. Patient states that he was seen here on 08/05 and was placed on clindamycin and Percocet. He states that he has a few pills left of the clindamycin however the areas fell as though they are starting to come back. He area as he is insinuating as the right axilla area and the buttocks area. Patient states that he has seen a surgeon at in which she is supposed to have surgery on September 26. Patient states that the pain has become increasingly worse and is not taking care of with the Percocet. Patient continues to state he is almost out of the clindamycin. He denies any fever, chills or any nausea or vomiting. Patient states that the pain in the buttocks area has increased much that he is unable to sit down. Review of Systems Review of Systems Constitutional: Denies fever or chills [] Eyes: Denies change in visual acuity, redness, or eye pain [] HENT: Denies nasal congestion or sore throat [] Respiratory: Denies cough or shortness of breath [] Cardiovascular: No additional information not addressed in HPI [] GI: Denies abdominal pain, nausea, vomiting, bloody stools or diarrhea [] : Denies dysuria or hematuria [] Musculoskeletal: Denies back pain or joint pain [] Integument: Denies rash or skin lesions. Complaint of hidradenitis suppurativa in the right axilla, and buttocks Neurologic: Denies headache, focal weakness or sensory changes [] Endocrine: Denies polyuria or polydipsia [] Current Medications Current Medications Current Medications Medications (Trade) Dose Ordered Sig/Vanessa Start Time Stop Time Status Last Admin Dose Admin Acetaminophen (Tylenol) 650 mg PRN Q6HRS PRN 08/17/17 19:15 Docusate Sodium (Colace) 100 mg PRN DAILY PRN 08/17/17 19:15 Hydralazine HCl (Apresoline) 10 mg PRN Q4HRS PRN 08/17/17 19:15 Hydromorphone HCl (Dilaudid) 1 mg 1X ONCE 08/17/17 19:00 08/17/17 19:01 DC Ondansetron HCl (Zofran) 4 mg PRN Q6HRS PRN 08/17/17 19:15 Oxycodone/ Acetaminophen (Percocet 10/325) 1 tab PRN Q4HRS PRN 08/17/17 19:15 Tramadol HCl (Ultram) 50 mg PRN Q6HRS PRN 08/17/17 19:15 Vancomycin HCl (Vanco Per Pharmacy) 1 each PRN DAILY PRN 08/17/17 17:15 08/17/17 19:05 1 EACH Vancomycin HCl 2 gm/Sodium Chloride 500 ml @ 250 mls/hr 1X ONCE 08/17/17 17:15 08/17/17 19:14 DC 08/17/17 17:27 250 MLS/HR Allergies Allergies Allergies Coded Allergies Type Severity Reaction Last Updated Verified morphine Allergy Severe RASH 03/22/17 Yes fentanyl Allergy Intermediate Rash 05/16/17 Yes ketorolac Allergy Intermediate 02/15/17 Yes naproxen Allergy Intermediate 02/15/17 Yes Physical Exam Physical Exam Constitutional: Well developed, well nourished, no acute distress, non-toxic appearance. [] HENT: Normocephalic, atraumatic, bilateral external ears normal, oropharynx moist, no oral exudates, nose normal. [] Eyes: PERRLA, EOMI, conjunctiva normal, no discharge. [] Neck: Normal range of motion, no tenderness, supple, no stridor. [] Cardiovascular: [place] warm and dry Lungs & Thorax: No respiratory distress noted Skin: Warm, dry, no erythema, no rash. Patient with a dime size area on his right axilla that appears to be slightly red very tender to touch. No drainage or discharge noted. Patient also has an area to the buttocks that is very tender to touch with no redness noted. Back: No tenderness Extremities: No tenderness, no cyanosis, no clubbing, ROM intact, no edema. [] Neurologic: Alert and oriented X 3, normal motor function, normal sensory function, no focal deficits noted. [] Psychologic: Affect normal, judgement normal, mood normal. [] Current Patient Data Vital Signs Vital Signs Date Time Temp Pulse Resp B/P (MAP) Pulse Ox O2 Delivery O2 Flow Rate FiO2 08/17/17 19:21 86 18 162/94 (116) 97 Room Air 08/17/17 16:56 97.9 97.9 Lab Values Laboratory Tests Test 08/17/17 17:25 White Blood Count 10.0 x10^3/uL (4.0-11.0) Red Blood Count 5.06 x10^6/uL (4.30-5.70) Hemoglobin 15.8 g/dL (13.0-17.5) Hematocrit 45.3 % (39.0-53.0) Mean Corpuscular Volume 89 fL (79-100) Mean Corpuscular Hemoglobin 31 pg (25-35) Mean Corpuscular Hemoglobin Concent 35 g/dL (31-37) Red Cell Distribution Width 12.7 % (11.5-14.5) Platelet Count 242 x10^3/uL (140-400) Neutrophils (%) (Auto) 63 % (31-73) Lymphocytes (%) (Auto) 28 % (24-48) Monocytes (%) (Auto) 6 % (0-9) Eosinophils (%) (Auto) 2 % (0-3) Basophils (%) (Auto) 1 % (0-3) Neutrophils # (Auto) 6.4 x10^3uL (1.8-7.7) Lymphocytes # (Auto) 2.9 x10^3/uL (1.0-4.8) Monocytes # (Auto) 0.6 x10^3/uL (0.0-1.1) Eosinophils # (Auto) 0.2 x10^3/uL (0.0-0.7) Basophils # (Auto) 0.1 x10^3/uL (0.0-0.2) Sodium Level 141 mmol/L (136-145) Potassium Level 3.9 mmol/L (3.5-5.1) Chloride Level 105 mmol/L (98-107) Carbon Dioxide Level 29 mmol/L (21-32) Anion Gap 7 (6-14) Blood Urea Nitrogen 11 mg/dL (8-26) Creatinine 0.8 mg/dL (0.7-1.3) Estimated GFR (Cockcroft-Gault) 111.3 BUN/Creatinine Ratio 14 (6-20) Glucose Level 107 mg/dL (70-99) H Calcium Level 9.1 mg/dL (8.5-10.1) Total Bilirubin 0.3 mg/dL (0.2-1.0) Aspartate Amino Transferase (AST) 19 U/L (15-37) Alanine Aminotransferase (ALT) 32 U/L (16-63) Alkaline Phosphatase 135 U/L (46-116) H Total Protein 7.3 g/dL (6.4-8.2) Albumin 3.6 g/dL (3.4-5.0) Albumin/Globulin Ratio 1.0 (1.0-1.7) Laboratory Tests 08/17/17 17:25 Laboratory Tests 08/17/17 17:25 EKG EKG [] Radiology/Procedures Radiology/Procedures [] Course & Med Decision Making Course & Med Decision Making Pertinent Labs and Imaging studies reviewed. (See chart for details) Spoke with patient in regards to recently being on antibiotics with the areas coming back with increased pain and discomfort. Spoke with him in regards to being admitted into the hospital as to failure to outpatient antibiotics. Ultrasound is been ordered as well as blood and blood cultures. Patient will be placed on vancomycin here in the emergency department as well as Dilaudid for pain as the patient is allergic to fentanyl and morphine. Spoke with Dr Colón in regards to admission for this patient. She was informed that the patient and provided clindamycin here in the emergency department. Dr. Colón had asked for us to place a consult and for surgery. Patient will be admitted. Orders have been completed and the computer. [] Dragon Disclaimer Dragon Disclaimer This electronic medical record was generated, in whole or in part, using a voice recognition dictation system. Departure Departure Impression: Primary Impression: Abscess Disposition: ADMITTED INPATIENT Admitting Physician: Anthony Colón Condition: STABLE Referrals: AR SALAMANCA (PCP) FABIOLA LUI COMPRESSION MOLDING MACHINE SETTER Aug 17, 2017 17:20
[2017-08-17] MEDS: HYDROmorphone 2 MG/ML VIAL IV/SQ PRN ×4 (17:24→20:02)
[2017-08-17 17:44] LABS: BASO # 0.1 x10^3/uL (0.0-0.2); BASO % 1 % (0-3); EOS % 2 % (0-3); HEMATOCRIT 45.3 % (39.0-53.0); HEMOGLOBIN 15.8 g/dL (13.0-17.5); LYMPH # 2.9 x10^3/uL (1.0-4.8); LYMPH % 28 % (24-48); MEAN CORPUSCULAR HEMOGLOBIN 31 pg (25-35); MEAN CORPUSCULAR HGB CONC 35 g/dL (31-37); MEAN CORPUSCULAR VOLUME 89 fL (79-100); MONO % 6 % (0-9); NEUT % 63 % (31-73); PLATELET COUNT 242 x10^3/uL (140-400); RED BLOOD COUNT 5.06 x10^6/uL (4.30-5.70); RED CELL DISTRIBUTION WIDTH 12.7 % (11.5-14.5)
[2017-08-17 17:54] LABS: CALCIUM 9.1 mg/dL (8.5-10.1); CREATININE 0.8 mg/dL (0.7-1.3); GFR 111.3; POTASSIUM 3.9 mmol/L (3.5-5.1)
[2017-08-17 17:59] LABS: ALBUMIN 3.6 g/dL (3.4-5.0); TOTAL BILIRUBIN 0.3 mg/dL (0.2-1.0); TOTAL PROTEIN 7.3 g/dL (6.4-8.2)
--- NOTE | 2017-08-17 18:26 | RAD ---
Sonography of the buttock and right axilla Indications: Buttock and right axillary pain. Possible abscess. Right axilla: There is a subcutaneous hypoechoic area with sound through-transmission measuring 9 mm x 8 mm x 4 mm in size. No internal color Doppler flow is seen. This is consistent with a small subcutaneous abscess. Buttock: Sonography of the area of concern of the buttock just superior to the gluteal fold was performed. There is a hypoechoic area measuring 15 mm x 5 mm x 5 mm in size. There is some shadowing which may be secondary to air. Therefore, this could represent sinus tract or abscess cavity. Electronically signed by: Hilario Crowley MD (08/17/2017 6:23 PM) [facility]
[2017-08-17] MEDS ORDERED: ONDANSETRON PF 4 MG/2 ML VIAL. IV PRN ×2 (19:00→19:15)
[2017-08-17] MEDS ORDERED: HYDROmorphone 2 MG/ML VIAL IV ONE (19:00)
[2017-08-17] MEDS: VANCOMYCIN PER PHARMACY MC PRN (19:05)
--- NOTE | 2017-08-17 19:13 | PDOC1 ---
History and Physical Date of Admission Date of Admission 08/17/17 Identification/Chief Complaint Chief Complaint pain at right axillary and buttock Problems: Source Source: Chart review, Patient History of Present Illness History of Present Illness Patient is a 31 year old female presents emergency department stating that he' s had multiple visits here to the emergency department for hidradenitis suppurativa. pt started to have this problem a few years ago, originally got a lesion at right thigh post sx removal. He also got left groin lesion and right axillary lesions removed at by sx. He supposed to have a big sx to deep remove these lesions at on 09/26/17. However, the lesions at right axillary and buttock became very painful and he has been to our ER many times and was given clinda with and without bactrium. HE came today since the pain is too severe, 08/05, on percocet 5mg qid and not controlled. Denies fever, chills, N/V, diarrhea, chest pain, cough, sob. Patient states that the pain in the buttocks area has increased much that he is unable to sit down. morphine coz skin rash, ok with benadryl. Fentanyl coz htn. ok taking percocet and dilaudid wo side effects. US: Right axilla: There is a subcutaneous hypoechoic area with sound through- transmission measuring 9 mm x 8 mm x 4 mm in size. No internal color Doppler flow is seen. This is consistent with a small subcutaneous abscess. Buttock: Sonography of the area of concern of the buttock just superior to the gluteal fold was performed. There is a hypoechoic area measuring 15 mm x 5 mm x 5 mm in size. There is some shadowing which may be secondary to air. Therefore, this could represent sinus tract or abscess cavity. Past Medical History Past Medical History hidradenitis suppurativa. fibromyalgia oa spinal stenosis Past Surgical History Past Surgical History sx for hidradenitis suppurativa to L groin Family History Family History: Hypertension Social History Smoke: Quit ALCOHOL: occassional Drugs: None Current Medications Current Medications Current Medications Medications (Trade) Dose Ordered Sig/Vanessa Start Time Stop Time Status Last Admin Dose Admin Hydromorphone HCl (Dilaudid) 0.5 mg PRN Q15MIN PRN 08/17/17 17:15 08/18/17 17:14 08/17/17 18:56 0.5 MG Ondansetron HCl (Zofran) 4 mg 1X ONCE 08/17/17 17:15 08/17/17 17:16 DC 08/17/17 17:23 4 MG Vancomycin HCl (Vanco Per Pharmacy) 1 each PRN DAILY PRN 08/17/17 17:15 Vancomycin HCl 2 gm/Sodium Chloride 500 ml @ 250 mls/hr 1X ONCE 08/17/17 17:15 08/17/17 19:14 08/17/17 17:27 250 MLS/HR Allergies Allergies Allergies Coded Allergies Type Severity Reaction Last Updated Verified morphine Allergy Severe RASH 03/22/17 Yes fentanyl Allergy Intermediate Rash 05/16/17 Yes ketorolac Allergy Intermediate 02/15/17 Yes naproxen Allergy Intermediate 02/15/17 Yes ROS Review of System CONSTITUTIONAL: No fever or chills EYES: No recent changes SKIN: No rash or itching CARDIOVASCULAR: No chest pain, syncope, palpitations, or edema RESPIRATORY: No SOB or cough GASTROINTESTINAL: No nausea, vomiting or abdominal pain NEUROLOGICAL: No headaches or weakness ENDOCRINE: No cold or heat intolerance GENITOURINARY: No urgency or frequency of urination MUSCULOSKELETAL: No back pain or joint pain LYMPHATICS: No enlarged lymph nodes PSYCHIATRIC: No anxiety or depression Physical Exam Physical Exam GEN.: No apparent distress. Alert and oriented. HEENT: Head is normocephalic, atraumatic NECK: Supple. LUNGS: Clear to auscultation. HEART: RRR, S1, S2 present. Peripheral pulses intact ABDOMEN: Soft, nontender. Positive bowel sounds. EXTREMITIES: Without any cyanosis. NEUROLOGIC: Normal speech, normal tone PSYCHIATRIC: Normal affect, normal mood. SKIN: right axillary has 2 small healed wound from sx. 1cm mild erythematous lump, tender, no discharge gluteal fold is mild red, with a small lump, also very tender, no discharge. Vitals Vitals Vital Signs Date Time Temp Pulse Resp B/P (MAP) Pulse Ox O2 Delivery O2 Flow Rate FiO2 08/17/17 18:56 22 98 Room Air 08/17/17 16:56 97.9 115 97.9 Labs Labs Laboratory Tests Test 08/17/17 17:25 White Blood Count 10.0 x10^3/uL (4.0-11.0) Red Blood Count 5.06 x10^6/uL (4.30-5.70) Hemoglobin 15.8 g/dL (13.0-17.5) Hematocrit 45.3 % (39.0-53.0) Mean Corpuscular Volume 89 fL (79-100) Mean Corpuscular Hemoglobin 31 pg (25-35) Mean Corpuscular Hemoglobin Concent 35 g/dL (31-37) Red Cell Distribution Width 12.7 % (11.5-14.5) Platelet Count 242 x10^3/uL (140-400) Neutrophils (%) (Auto) 63 % (31-73) Lymphocytes (%) (Auto) 28 % (24-48) Monocytes (%) (Auto) 6 % (0-9) Eosinophils (%) (Auto) 2 % (0-3) Basophils (%) (Auto) 1 % (0-3) Neutrophils # (Auto) 6.4 x10^3uL (1.8-7.7) Lymphocytes # (Auto) 2.9 x10^3/uL (1.0-4.8) Monocytes # (Auto) 0.6 x10^3/uL (0.0-1.1) Eosinophils # (Auto) 0.2 x10^3/uL (0.0-0.7) Basophils # (Auto) 0.1 x10^3/uL (0.0-0.2) Sodium Level 141 mmol/L (136-145) Potassium Level 3.9 mmol/L (3.5-5.1) Chloride Level 105 mmol/L (98-107) Carbon Dioxide Level 29 mmol/L (21-32) Anion Gap 7 (6-14) Blood Urea Nitrogen 11 mg/dL (8-26) Creatinine 0.8 mg/dL (0.7-1.3) Estimated GFR (Cockcroft-Gault) 111.3 BUN/Creatinine Ratio 14 (6-20) Glucose Level 107 mg/dL (70-99) Calcium Level 9.1 mg/dL (8.5-10.1) Total Bilirubin 0.3 mg/dL (0.2-1.0) Aspartate Amino Transf (AST/SGOT) 19 U/L (15-37) Alanine Aminotransferase (ALT/SGPT) 32 U/L (16-63) Alkaline Phosphatase 135 U/L (46-116) Total Protein 7.3 g/dL (6.4-8.2) Albumin 3.6 g/dL (3.4-5.0) Albumin/Globulin Ratio 1.0 (1.0-1.7) Laboratory Tests Test 08/17/17 17:25 White Blood Count 10.0 x10^3/uL (4.0-11.0) Red Blood Count 5.06 x10^6/uL (4.30-5.70) Hemoglobin 15.8 g/dL (13.0-17.5) Hematocrit 45.3 % (39.0-53.0) Mean Corpuscular Volume 89 fL (79-100) Mean Corpuscular Hemoglobin 31 pg (25-35) Mean Corpuscular Hemoglobin Concent 35 g/dL (31-37) Red Cell Distribution Width 12.7 % (11.5-14.5) Platelet Count 242 x10^3/uL (140-400) Neutrophils (%) (Auto) 63 % (31-73) Lymphocytes (%) (Auto) 28 % (24-48) Monocytes (%) (Auto) 6 % (0-9) Eosinophils (%) (Auto) 2 % (0-3) Basophils (%) (Auto) 1 % (0-3) Neutrophils # (Auto) 6.4 x10^3uL (1.8-7.7) Lymphocytes # (Auto) 2.9 x10^3/uL (1.0-4.8) Monocytes # (Auto) 0.6 x10^3/uL (0.0-1.1) Eosinophils # (Auto) 0.2 x10^3/uL (0.0-0.7) Basophils # (Auto) 0.1 x10^3/uL (0.0-0.2) Sodium Level 141 mmol/L (136-145) Potassium Level 3.9 mmol/L (3.5-5.1) Chloride Level 105 mmol/L (98-107) Carbon Dioxide Level 29 mmol/L (21-32) Anion Gap 7 (6-14) Blood Urea Nitrogen 11 mg/dL (8-26) Creatinine 0.8 mg/dL (0.7-1.3) Estimated GFR (Cockcroft-Gault) 111.3 BUN/Creatinine Ratio 14 (6-20) Glucose Level 107 mg/dL (70-99) Calcium Level 9.1 mg/dL (8.5-10.1) Total Bilirubin 0.3 mg/dL (0.2-1.0) Aspartate Amino Transf (AST/SGOT) 19 U/L (15-37) Alanine Aminotransferase (ALT/SGPT) 32 U/L (16-63) Alkaline Phosphatase 135 U/L (46-116) Total Protein 7.3 g/dL (6.4-8.2) Albumin 3.6 g/dL (3.4-5.0) Albumin/Globulin Ratio 1.0 (1.0-1.7) VTE Prophylaxis Ordered VTE Prophylaxis Devices: Yes VTE Pharmacological Prophylaxi: Yes Assessment/Plan Assessment/Plan hidradenitis suppurativa with possible small abcess at right axillary and gluteal fold fibromyalgia OA spinal stenosis h/o sx for hidradenitis suppurativa morbid obesity plan: id, sx consult vanco for now pain control dvt ppx admit 2 nights SARA ADAMS MD Aug 17, 2017 19:13
[2017-08-17] MEDS ORDERED: ACETAMINOPHEN 325 MG TABLET. PO PRN (19:15)
[2017-08-17] MEDS ORDERED: oxyCODONE/APAP 10/325 1 TAB TABLET PO PRN (19:15)
[2017-08-17] MEDS ORDERED: hydrALAZINE 20 MG/ML VIAL. IVP PRN (19:15)
[2017-08-17] MEDS ORDERED: traMADol 50 MG TABLET PO PRN (19:15)
[2017-08-17] MEDS ORDERED: DOCUSATE SODIUM 100 MG CAPSULE. PO PRN (19:15)
[2017-08-17 20:15] VITALS: BP 149/99
[2017-08-17] MEDS ORDERED: FLUO40CA9 PO (21:16)
[2017-08-17] MEDS ORDERED: SENN1TAB21 PO (21:16)
[2017-08-17] MEDS ORDERED: CETI10TA22 PO (21:16)
[2017-08-17] MEDS ORDERED: TRAM50TA PO (21:16)
[2017-08-17] MEDS ORDERED: GABA-586 PO (21:16)
[2017-08-17] MEDS ORDERED: TRAZ150T49 PO (23:03)
[2017-08-17] MEDS ORDERED: traZODone 50 MG TABLET. PO SCH (23:30)
[2017-08-17 23:31] VITALS: BP 132/86
[2017-08-18] MEDS: VANCOMYCIN 1.5 GM in IV NORMAL SALINE 500ML BAG 500 ML IV SCH ×2 (02:38→09:47)
[2017-08-18] MEDS: HYDROmorphone 2 MG/ML VIAL IV PRN ×6 (02:45→17:24)
[2017-08-18 03:29] VITALS: BP 106/70
[2017-08-18 04:52] LABS: BASO # 0.1 x10^3/uL (0.0-0.2); BASO % 1 % (0-3); EOS % 2 % (0-3); HEMATOCRIT 38.3 % (39.0-53.0); HEMOGLOBIN 13.3 g/dL (13.0-17.5); LYMPH # 3.2 x10^3/uL (1.0-4.8); LYMPH % 39 % (24-48); MEAN CORPUSCULAR HEMOGLOBIN 31 pg (25-35); MEAN CORPUSCULAR HGB CONC 35 g/dL (31-37); MEAN CORPUSCULAR VOLUME 90 fL (79-100); MONO % 6 % (0-9); NEUT % 52 % (31-73); PLATELET COUNT 201 x10^3/uL (140-400); RED BLOOD COUNT 4.27 x10^6/uL (4.30-5.70); WHITE BLOOD COUNT 8.2 x10^3/uL (4.0-11.0)
[2017-08-18 05:19] LABS: CALCIUM 8.1 mg/dL (8.5-10.1); CREATININE 0.8 mg/dL (0.7-1.3); GFR 111.3
[2017-08-18 07:00] VITALS: BP 105/58
--- NOTE | 2017-08-18 08:33 | PDOC2 ---
FROILAN SHIN LURER 08/18/17 0833: CONSULT Date of Consult Date of Consult DATE: 08/18/17 TIME: 08:24 Reason for Consult Reason for Consult: abscess Referring Physician Referring Physician: ER Identification/Chief Complaint Chief Complaint axillary and buttock pain Problems: Source Source: Chart review, Patient History of Present Illness Reason for Visit: Reports ongoing problems with hidradenitis. He has had I&D to buttock and axillary area in past at . In September he is scheduled for surgery with plastics for deep excision of sacral area. 3 days ago developed axillary and buttock pain and erythema. Past Medical History Past Medical History spinal stenosis, fibromyalgia Past Surgical History Past Surgical History: Other (I&Ds) Family History Family History: Hypertension Social History Quit (1 week ago) ALCOHOL: occassional Drugs: None Lives: with Family Current Medications Current Medications Current Medications Vancomycin HCl (Vanco Per Pharmacy) 1 each PRN DAILY PRN MC SEE COMMENTS Last administered on 08/17/17 19:05; Start 08/17/17 at 17:15 Hydromorphone HCl (Dilaudid) 0.5 mg PRN Q15MIN PRN IV/SQ PAIN GREATER THAN 3/ 10 Last administered on 08/17/17 20:02; Start 08/17/17 at 17:15; Stop 08/17/17 at 23:11; Status DC Ondansetron HCl (Zofran) 4 mg 1X ONCE IV Last administered on 08/17/17 17:23 ; Start 08/17/17 at 17:15; Stop 08/17/17 at 17:16; Status DC Vancomycin HCl 2 gm/Sodium Chloride 500 ml @ 250 mls/hr 1X ONCE IV Last administered on 08/17/17 17:27; Start 08/17/17 at 17:15; Stop 08/17/17 at 19:14 ; Status DC Ondansetron HCl (Zofran) 4 mg PRN Q8HRS PRN IV NAUSEA/VOMITING; Start 08/17/17 at 19:00; Stop 08/18/17 at 18:59 Hydromorphone HCl (Dilaudid) 1 mg 1X ONCE IV Last administered on 08/17/17 23 :31; Start 08/17/17 at 19:00; Stop 08/17/17 at 19:01; Status DC Vancomycin HCl 1.5 gm/Sodium Chloride 500 ml @ 250 mls/hr Q8H IV Last administered on 08/18/17 02:38; Start 08/18/17 at 02:00 Vancomycin HCl 1 each 1X ONCE MC ; Start 08/18/17 at 17:30; Stop 08/18/17 at 17 :31 Acetaminophen (Tylenol) 650 mg PRN Q6HRS PRN PO FEVER; Start 08/17/17 at 19:15 Ondansetron HCl (Zofran) 4 mg PRN Q6HRS PRN IV NAUSEA/VOMITING; Start 08/17/17 at 19:15 Tramadol HCl (Ultram) 50 mg PRN Q6HRS PRN PO PAIN; Start 08/17/17 at 19:15 Hydralazine HCl (Apresoline) 10 mg PRN Q4HRS PRN IVP ELEVATED BP, SEE COMMENTS ; Start 08/17/17 at 19:15 Docusate Sodium (Colace) 100 mg PRN DAILY PRN PO CONSTIPATION Last administered on 08/17/17 20:56; Start 08/17/17 at 19:15 Oxycodone/ Acetaminophen (Percocet 10/325) 1 tab PRN Q4HRS PRN PO PAIN Last administered on 08/17/17 20:55; Start 08/17/17 at 19:15 Enoxaparin Sodium (Lovenox 40mg Syringe) 40 mg DAILY SQ ; Start 08/18/17 at 09: 00 Cetirizine HCl (ZyrTEC) 10 mg DAILY PO ; Start 08/18/17 at 09:00 Senna/Docusate Sodium (Senna Plus) 1 tab DAILY PO ; Start 08/18/17 at 09:00 Fluoxetine HCl (PROzac) 40 mg DAILY PO ; Start 08/18/17 at 09:00 Gabapentin (Neurontin) 300 mg BID PO ; Start 08/18/17 at 09:00 Trazodone HCl (Desyrel) 150 mg HS PO ; Start 08/18/17 at 21:00; Stop 08/18/17 at 21:00; Status DC Hydromorphone HCl (Dilaudid) 0.5 mg PRN Q2HR PRN IV PAIN Last administered on 05:58; Start 08/17/17 at 23:15 Trazodone HCl (Desyrel) 150 mg HS PO Last administered on 08/17/17t 23:45; Start 08/17/17 at 23:30 Active Scripts Active Percocet 5-325 Mg Tablet (Oxycodone/Acetaminophen) 1 Each Tablet 1 Tab PO PRN Q6HRS PRN Clindamycin Hcl 150 Mg Capsule 2 Cap PO QID 10 Days Clindamycin Hcl 150 Mg Capsule 2 Cap PO QID 7 Days Bactrim Ds Tablet (Sulfamethoxazole/Trimethoprim) 1 Each Tablet 1 Tab PO BID Percocet 5-325 Mg Tablet (Oxycodone/Acetaminophen) 1 Each Tablet 1-2 Tab PO Q6HRS Percocet 5-325 Mg Tablet (Oxycodone/Acetaminophen) 1 Each Tablet 1 Tab PO PRN Q6HRS PRN Percocet 5-325 Mg Tablet (Oxycodone/Acetaminophen) 1 Each Tablet 1 Tab PO PRN Q6HRS PRN Clindamycin Phosphate 30 Gm Gel..gram. 1 Mirian TP BID Reported Trazodone Hcl 150 Mg Tablet 150 Mg PO HS Gabapentin 300 Mg Capsule 300 Mg PO BID Tramadol Hcl 50 Mg Tablet 50 Mg PO Q6H PRN Zyrtec (Cetirizine Hcl) 10 Mg Tablet 10 Mg PO DAILY Senna Plus Tablet (Sennosides/Docusate Sodium) 1 Each Tablet 1 Each PO DAILY Prozac (Fluoxetine Hcl) 40 Mg Capsule 40 Mg PO DAILY Allergies Allergies: Coded Allergies: morphine (Verified Allergy, Severe, RASH, 03/22/17) fentanyl (Verified Allergy, Intermediate, Rash, 05/16/17) ketorolac (Verified Allergy, Intermediate, 02/15/17) naproxen (Verified Allergy, Intermediate, 02/15/17) ROS General: No: Chills, Other (fevers ) PSYCHOLOGICAL ROS: No: Anxiety, Depression Eyes: No Blurry vision, No Double vision HEENT: No: Heacaches Hematological and Lymphatic: No: Bleeding Problems, Blood Clots Respiratory: No: Cough, Shortness of breath Cardiovascular: No Chest Pain, No Palpitations Gastrointestinal: No Nausea, No Vomiting Genitourinary: No Dysuria, No Hematuria Musculoskeletal: Yes Joint Pain, Yes Muscle Pain Neurological: No Impaired Coord/balance, No Numbness/Tingling Skin: Yes Other (see hpi) Physical Exam General: Alert, Oriented X3, Cooperative, No acute distress HEENT: PERRLA, Mucous membr. moist/pink Lungs: Clear to auscultation, Normal air movement Heart: Regular rate, Normal S1, Normal S2, No murmurs Abdomen: Normal bowel sounds, Soft, No tenderness, No hepatosplenomegaly, No masses Extremities: Other (right axilla, previous scars seen--< 1cm erythema, indurated tender area) Skin: Other (sacral area--previous scar seen, no erythema or induration, moderate tenderness on exam) Vitals VITALS Vital Signs Date Time Temp Pulse Resp B/P (MAP) Pulse Ox O2 Delivery O2 Flow Rate FiO2 08/18/17 07:00 97.5 76 16 105/58 (74) 96 Room Air 97.5 Labs Labs Laboratory Tests Test 08/17/17 17:25 08/18/17 04:21 White Blood Count 10.0 x10^3/uL (4.0-11.0) 8.2 x10^3/uL (4.0-11.0) Red Blood Count 5.06 x10^6/uL (4.30-5.70) 4.27 x10^6/uL (4.30-5.70) Hemoglobin 15.8 g/dL (13.0-17.5) 13.3 g/dL (13.0-17.5) Hematocrit 45.3 % (39.0-53.0) 38.3 % (39.0-53.0) Mean Corpuscular Volume 89 fL (79-100) 90 fL (79-100) Mean Corpuscular Hemoglobin 31 pg (25-35) 31 pg (25-35) Mean Corpuscular Hemoglobin Concent 35 g/dL (31-37) 35 g/dL (31-37) Red Cell Distribution Width 12.7 % (11.5-14.5) 13.0 % (11.5-14.5) Platelet Count 242 x10^3/uL (140-400) 201 x10^3/uL (140-400) Neutrophils (%) (Auto) 63 % (31-73) 52 % (31-73) Lymphocytes (%) (Auto) 28 % (24-48) 39 % (24-48) Monocytes (%) (Auto) 6 % (0-9) 6 % (0-9) Eosinophils (%) (Auto) 2 % (0-3) 2 % (0-3) Basophils (%) (Auto) 1 % (0-3) 1 % (0-3) Neutrophils # (Auto) 6.4 x10^3uL (1.8-7.7) 4.2 x10^3uL (1.8-7.7) Lymphocytes # (Auto) 2.9 x10^3/uL (1.0-4.8) 3.2 x10^3/uL (1.0-4.8) Monocytes # (Auto) 0.6 x10^3/uL (0.0-1.1) 0.5 x10^3/uL (0.0-1.1) Eosinophils # (Auto) 0.2 x10^3/uL (0.0-0.7) 0.2 x10^3/uL (0.0-0.7) Basophils # (Auto) 0.1 x10^3/uL (0.0-0.2) 0.1 x10^3/uL (0.0-0.2) Sodium Level 141 mmol/L (136-145) 140 mmol/L (136-145) Potassium Level 3.9 mmol/L (3.5-5.1) 4.0 mmol/L (3.5-5.1) Chloride Level 105 mmol/L (98-107) 106 mmol/L (98-107) Carbon Dioxide Level 29 mmol/L (21-32) 27 mmol/L (21-32) Anion Gap 7 (6-14) 7 (6-14) Blood Urea Nitrogen 11 mg/dL (8-26) 10 mg/dL (8-26) Creatinine 0.8 mg/dL (0.7-1.3) 0.8 mg/dL (0.7-1.3) Estimated GFR (Cockcroft-Gault) 111.3 111.3 BUN/Creatinine Ratio 14 (6-20) Glucose Level 107 mg/dL (70-99) 102 mg/dL (70-99) Calcium Level 9.1 mg/dL (8.5-10.1) 8.1 mg/dL (8.5-10.1) Total Bilirubin 0.3 mg/dL (0.2-1.0) Aspartate Amino Transf (AST/SGOT) 19 U/L (15-37) Alanine Aminotransferase (ALT/SGPT) 32 U/L (16-63) Alkaline Phosphatase 135 U/L (46-116) Total Protein 7.3 g/dL (6.4-8.2) Albumin 3.6 g/dL (3.4-5.0) Albumin/Globulin Ratio 1.0 (1.0-1.7) Laboratory Tests Test 08/17/17 17:25 08/18/17 04:21 White Blood Count 10.0 x10^3/uL (4.0-11.0) 8.2 x10^3/uL (4.0-11.0) Red Blood Count 5.06 x10^6/uL (4.30-5.70) 4.27 x10^6/uL (4.30-5.70) Hemoglobin 15.8 g/dL (13.0-17.5) 13.3 g/dL (13.0-17.5) Hematocrit 45.3 % (39.0-53.0) 38.3 % (39.0-53.0) Mean Corpuscular Volume 89 fL (79-100) 90 fL (79-100) Mean Corpuscular Hemoglobin 31 pg (25-35) 31 pg (25-35) Mean Corpuscular Hemoglobin Concent 35 g/dL (31-37) 35 g/dL (31-37) Red Cell Distribution Width 12.7 % (11.5-14.5) 13.0 % (11.5-14.5) Platelet Count 242 x10^3/uL (140-400) 201 x10^3/uL (140-400) Neutrophils (%) (Auto) 63 % (31-73) 52 % (31-73) Lymphocytes (%) (Auto) 28 % (24-48) 39 % (24-48) Monocytes (%) (Auto) 6 % (0-9) 6 % (0-9) Eosinophils (%) (Auto) 2 % (0-3) 2 % (0-3) Basophils (%) (Auto) 1 % (0-3) 1 % (0-3) Neutrophils # (Auto) 6.4 x10^3uL (1.8-7.7) 4.2 x10^3uL (1.8-7.7) Lymphocytes # (Auto) 2.9 x10^3/uL (1.0-4.8) 3.2 x10^3/uL (1.0-4.8) Monocytes # (Auto) 0.6 x10^3/uL (0.0-1.1) 0.5 x10^3/uL (0.0-1.1) Eosinophils # (Auto) 0.2 x10^3/uL (0.0-0.7) 0.2 x10^3/uL (0.0-0.7) Basophils # (Auto) 0.1 x10^3/uL (0.0-0.2) 0.1 x10^3/uL (0.0-0.2) Sodium Level 141 mmol/L (136-145) 140 mmol/L (136-145) Potassium Level 3.9 mmol/L (3.5-5.1) 4.0 mmol/L (3.5-5.1) Chloride Level 105 mmol/L (98-107) 106 mmol/L (98-107) Carbon Dioxide Level 29 mmol/L (21-32) 27 mmol/L (21-32) Anion Gap 7 (6-14) 7 (6-14) Blood Urea Nitrogen 11 mg/dL (8-26) 10 mg/dL (8-26) Creatinine 0.8 mg/dL (0.7-1.3) 0.8 mg/dL (0.7-1.3) Estimated GFR (Cockcroft-Gault) 111.3 111.3 BUN/Creatinine Ratio 14 (6-20) Glucose Level 107 mg/dL (70-99) 102 mg/dL (70-99) Calcium Level 9.1 mg/dL (8.5-10.1) 8.1 mg/dL (8.5-10.1) Total Bilirubin 0.3 mg/dL (0.2-1.0) Aspartate Amino Transf (AST/SGOT) 19 U/L (15-37) Alanine Aminotransferase (ALT/SGPT) 32 U/L (16-63) Alkaline Phosphatase 135 U/L (46-116) Total Protein 7.3 g/dL (6.4-8.2) Albumin 3.6 g/dL (3.4-5.0) Albumin/Globulin Ratio 1.0 (1.0-1.7) Images Images Right axilla: There is a subcutaneous hypoechoic area with sound through-transmission measuring 9 mm x 8 mm x 4 mm in size. No internal color Doppler flow is seen. This is consistent with a small subcutaneous abscess. Buttock: Sonography of the area of concern of the buttock just superior to the gluteal fold was performed. There is a hypoechoic area measuring 15 mm x 5 mm x 5 mm in size. There is some shadowing which may be secondary to air. Therefore, this could represent sinus tract or abscess cavity. Assessment/Plan Assessment/Plan very small fluid collections to right axilla and gluteal area---hx of hidradenitis, ?pilonidal cyst IV abx, ID consult areas are small--may be able to treat with abx--if surgery is required he would like to go to where he has previously been MILENA PRESLEY MD 08/18/17 1132: CONSULT Allergies Allergies: Coded Allergies: morphine (Verified Allergy, Severe, RASH, 03/22/17) fentanyl (Verified Allergy, Intermediate, Rash, 05/16/17) ketorolac (Verified Allergy, Intermediate, 02/15/17) naproxen (Verified Allergy, Intermediate, 02/15/17) Assessment/Plan Assessment/Plan Patient seen and examined by me. Patient feeling a little better with less pain. Right axillary tenderness and well healed incision with scar, similar buttock exam. Would favor tx with abx and get him to time of planned surgery at [facility]. Open wounds would likely delay definitive treatment. Agree with Siva's assessment and plan. FROILAN SHIN APRN Aug 18, 2017 08:33 MILENA PRESLEY MD Aug 18, 2017 11:32
[2017-08-18] MEDS ORDERED: FLUoxetine HCL 20 MG CAPSULE PO SCH (09:00)
[2017-08-18] MEDS ORDERED: CETIRIZINE HCL 10 MG TABLET. PO SCH (09:00)
[2017-08-18] MEDS ORDERED: ENOXAPARIN 40 MG/0.4 ML SYRINGE. SQ SCH (09:00)
[2017-08-18] MEDS ORDERED: GABAPENTIN 300 MG CAPSULE. PO SCH (09:00)
[2017-08-18] MEDS ORDERED: SENNOSIDES/DOCUSATE 8.6/50MG TABLET. PO SCH (09:00)
[2017-08-18] MEDS: VANCOMYCIN PER PHARMACY MC PRN (10:45)
[2017-08-18 11:00] VITALS: BP 99/46
--- NOTE | 2017-08-18 13:44 | PDOC ---
PROGRESS NOTES Chief Complaint Chief Complaint hidradenitis suppurativa with possible small abcess at right axillary and gluteal fold fibromyalgia OA spinal stenosis h/o sx for hidradenitis suppurativa morbid obesity plan: id, sx consult vanco for now pain control dvt ppx History of Present Illness History of Present Illness ROS : no fever, chills, sob or chest pain still pain at right axillary and gluteal area, slightly better with pain meds Vitals Vitals Vital Signs Date Time Temp Pulse Resp B/P (MAP) Pulse Ox O2 Delivery O2 Flow Rate FiO2 08/18/17 12:30 95 Room Air 08/18/17 11:00 97.5 66 16 99/46 (63) 97.5 Physical Exam General: Alert, Oriented X3, Cooperative, No acute distress Heart: Regular rate, Normal S1, Normal S2, No murmurs Abdomen: Normal bowel sounds, Soft, No tenderness, No hepatosplenomegaly, No masses Extremities: Other (right axilla, previous scars seen--< 1cm erythema, indurated tender area) Skin: Other (sacral area--previous scar seen, no erythema or induration, moderate tenderness on exam) Labs LABS Laboratory Tests Test 08/17/17 17:25 08/18/17 04:21 White Blood Count 10.0 x10^3/uL (4.0-11.0) 8.2 x10^3/uL (4.0-11.0) Red Blood Count 5.06 x10^6/uL (4.30-5.70) 4.27 x10^6/uL (4.30-5.70) Hemoglobin 15.8 g/dL (13.0-17.5) 13.3 g/dL (13.0-17.5) Hematocrit 45.3 % (39.0-53.0) 38.3 % (39.0-53.0) Mean Corpuscular Volume 89 fL (79-100) 90 fL (79-100) Mean Corpuscular Hemoglobin 31 pg (25-35) 31 pg (25-35) Mean Corpuscular Hemoglobin Concent 35 g/dL (31-37) 35 g/dL (31-37) Red Cell Distribution Width 12.7 % (11.5-14.5) 13.0 % (11.5-14.5) Platelet Count 242 x10^3/uL (140-400) 201 x10^3/uL (140-400) Neutrophils (%) (Auto) 63 % (31-73) 52 % (31-73) Lymphocytes (%) (Auto) 28 % (24-48) 39 % (24-48) Monocytes (%) (Auto) 6 % (0-9) 6 % (0-9) Eosinophils (%) (Auto) 2 % (0-3) 2 % (0-3) Basophils (%) (Auto) 1 % (0-3) 1 % (0-3) Neutrophils # (Auto) 6.4 x10^3uL (1.8-7.7) 4.2 x10^3uL (1.8-7.7) Lymphocytes # (Auto) 2.9 x10^3/uL (1.0-4.8) 3.2 x10^3/uL (1.0-4.8) Monocytes # (Auto) 0.6 x10^3/uL (0.0-1.1) 0.5 x10^3/uL (0.0-1.1) Eosinophils # (Auto) 0.2 x10^3/uL (0.0-0.7) 0.2 x10^3/uL (0.0-0.7) Basophils # (Auto) 0.1 x10^3/uL (0.0-0.2) 0.1 x10^3/uL (0.0-0.2) Sodium Level 141 mmol/L (136-145) 140 mmol/L (136-145) Potassium Level 3.9 mmol/L (3.5-5.1) 4.0 mmol/L (3.5-5.1) Chloride Level 105 mmol/L (98-107) 106 mmol/L (98-107) Carbon Dioxide Level 29 mmol/L (21-32) 27 mmol/L (21-32) Anion Gap 7 (6-14) 7 (6-14) Blood Urea Nitrogen 11 mg/dL (8-26) 10 mg/dL (8-26) Creatinine 0.8 mg/dL (0.7-1.3) 0.8 mg/dL (0.7-1.3) Estimated GFR (Cockcroft-Gault) 111.3 111.3 BUN/Creatinine Ratio 14 (6-20) Glucose Level 107 mg/dL (70-99) 102 mg/dL (70-99) Calcium Level 9.1 mg/dL (8.5-10.1) 8.1 mg/dL (8.5-10.1) Total Bilirubin 0.3 mg/dL (0.2-1.0) Aspartate Amino Transf (AST/SGOT) 19 U/L (15-37) Alanine Aminotransferase (ALT/SGPT) 32 U/L (16-63) Alkaline Phosphatase 135 U/L (46-116) Total Protein 7.3 g/dL (6.4-8.2) Albumin 3.6 g/dL (3.4-5.0) Albumin/Globulin Ratio 1.0 (1.0-1.7) Comment Review of Relevant I have reviewed the following items nehal (where applicable) has been applied. Labs Laboratory Tests Test 08/17/17 17:25 08/18/17 04:21 White Blood Count 10.0 x10^3/uL (4.0-11.0) 8.2 x10^3/uL (4.0-11.0) Red Blood Count 5.06 x10^6/uL (4.30-5.70) 4.27 x10^6/uL (4.30-5.70) Hemoglobin 15.8 g/dL (13.0-17.5) 13.3 g/dL (13.0-17.5) Hematocrit 45.3 % (39.0-53.0) 38.3 % (39.0-53.0) Mean Corpuscular Volume 89 fL (79-100) 90 fL (79-100) Mean Corpuscular Hemoglobin 31 pg (25-35) 31 pg (25-35) Mean Corpuscular Hemoglobin Concent 35 g/dL (31-37) 35 g/dL (31-37) Red Cell Distribution Width 12.7 % (11.5-14.5) 13.0 % (11.5-14.5) Platelet Count 242 x10^3/uL (140-400) 201 x10^3/uL (140-400) Neutrophils (%) (Auto) 63 % (31-73) 52 % (31-73) Lymphocytes (%) (Auto) 28 % (24-48) 39 % (24-48) Monocytes (%) (Auto) 6 % (0-9) 6 % (0-9) Eosinophils (%) (Auto) 2 % (0-3) 2 % (0-3) Basophils (%) (Auto) 1 % (0-3) 1 % (0-3) Neutrophils # (Auto) 6.4 x10^3uL (1.8-7.7) 4.2 x10^3uL (1.8-7.7) Lymphocytes # (Auto) 2.9 x10^3/uL (1.0-4.8) 3.2 x10^3/uL (1.0-4.8) Monocytes # (Auto) 0.6 x10^3/uL (0.0-1.1) 0.5 x10^3/uL (0.0-1.1) Eosinophils # (Auto) 0.2 x10^3/uL (0.0-0.7) 0.2 x10^3/uL (0.0-0.7) Basophils # (Auto) 0.1 x10^3/uL (0.0-0.2) 0.1 x10^3/uL (0.0-0.2) Sodium Level 141 mmol/L (136-145) 140 mmol/L (136-145) Potassium Level 3.9 mmol/L (3.5-5.1) 4.0 mmol/L (3.5-5.1) Chloride Level 105 mmol/L (98-107) 106 mmol/L (98-107) Carbon Dioxide Level 29 mmol/L (21-32) 27 mmol/L (21-32) Anion Gap 7 (6-14) 7 (6-14) Blood Urea Nitrogen 11 mg/dL (8-26) 10 mg/dL (8-26) Creatinine 0.8 mg/dL (0.7-1.3) 0.8 mg/dL (0.7-1.3) Estimated GFR (Cockcroft-Gault) 111.3 111.3 BUN/Creatinine Ratio 14 (6-20) Glucose Level 107 mg/dL (70-99) 102 mg/dL (70-99) Calcium Level 9.1 mg/dL (8.5-10.1) 8.1 mg/dL (8.5-10.1) Total Bilirubin 0.3 mg/dL (0.2-1.0) Aspartate Amino Transf (AST/SGOT) 19 U/L (15-37) Alanine Aminotransferase (ALT/SGPT) 32 U/L (16-63) Alkaline Phosphatase 135 U/L (46-116) Total Protein 7.3 g/dL (6.4-8.2) Albumin 3.6 g/dL (3.4-5.0) Albumin/Globulin Ratio 1.0 (1.0-1.7) Laboratory Tests Test 08/17/17 17:25 08/18/17 04:21 White Blood Count 10.0 x10^3/uL (4.0-11.0) 8.2 x10^3/uL (4.0-11.0) Red Blood Count 5.06 x10^6/uL (4.30-5.70) 4.27 x10^6/uL (4.30-5.70) Hemoglobin 15.8 g/dL (13.0-17.5) 13.3 g/dL (13.0-17.5) Hematocrit 45.3 % (39.0-53.0) 38.3 % (39.0-53.0) Mean Corpuscular Volume 89 fL (79-100) 90 fL (79-100) Mean Corpuscular Hemoglobin 31 pg (25-35) 31 pg (25-35) Mean Corpuscular Hemoglobin Concent 35 g/dL (31-37) 35 g/dL (31-37) Red Cell Distribution Width 12.7 % (11.5-14.5) 13.0 % (11.5-14.5) Platelet Count 242 x10^3/uL (140-400) 201 x10^3/uL (140-400) Neutrophils (%) (Auto) 63 % (31-73) 52 % (31-73) Lymphocytes (%) (Auto) 28 % (24-48) 39 % (24-48) Monocytes (%) (Auto) 6 % (0-9) 6 % (0-9) Eosinophils (%) (Auto) 2 % (0-3) 2 % (0-3) Basophils (%) (Auto) 1 % (0-3) 1 % (0-3) Neutrophils # (Auto) 6.4 x10^3uL (1.8-7.7) 4.2 x10^3uL (1.8-7.7) Lymphocytes # (Auto) 2.9 x10^3/uL (1.0-4.8) 3.2 x10^3/uL (1.0-4.8) Monocytes # (Auto) 0.6 x10^3/uL (0.0-1.1) 0.5 x10^3/uL (0.0-1.1) Eosinophils # (Auto) 0.2 x10^3/uL (0.0-0.7) 0.2 x10^3/uL (0.0-0.7) Basophils # (Auto) 0.1 x10^3/uL (0.0-0.2) 0.1 x10^3/uL (0.0-0.2) Sodium Level 141 mmol/L (136-145) 140 mmol/L (136-145) Potassium Level 3.9 mmol/L (3.5-5.1) 4.0 mmol/L (3.5-5.1) Chloride Level 105 mmol/L (98-107) 106 mmol/L (98-107) Carbon Dioxide Level 29 mmol/L (21-32) 27 mmol/L (21-32) Anion Gap 7 (6-14) 7 (6-14) Blood Urea Nitrogen 11 mg/dL (8-26) 10 mg/dL (8-26) Creatinine 0.8 mg/dL (0.7-1.3) 0.8 mg/dL (0.7-1.3) Estimated GFR (Cockcroft-Gault) 111.3 111.3 BUN/Creatinine Ratio 14 (6-20) Glucose Level 107 mg/dL (70-99) 102 mg/dL (70-99) Calcium Level 9.1 mg/dL (8.5-10.1) 8.1 mg/dL (8.5-10.1) Total Bilirubin 0.3 mg/dL (0.2-1.0) Aspartate Amino Transf (AST/SGOT) 19 U/L (15-37) Alanine Aminotransferase (ALT/SGPT) 32 U/L (16-63) Alkaline Phosphatase 135 U/L (46-116) Total Protein 7.3 g/dL (6.4-8.2) Albumin 3.6 g/dL (3.4-5.0) Albumin/Globulin Ratio 1.0 (1.0-1.7) Medications Current Medications Vancomycin HCl (Vanco Per Pharmacy) 1 each PRN DAILY PRN MC SEE COMMENTS Last administered on 08/18/17 10:45; Start 08/17/17 at 17:15 Hydromorphone HCl (Dilaudid) 0.5 mg PRN Q15MIN PRN IV/SQ PAIN GREATER THAN 3/ 10 Last administered on 08/17/17 20:02; Start 08/17/17 at 17:15; Stop 08/17/17 at 23:11; Status DC Ondansetron HCl (Zofran) 4 mg 1X ONCE IV Last administered on 08/17/17 17:23 ; Start 08/17/17 at 17:15; Stop 08/17/17 at 17:16; Status DC Vancomycin HCl 2 gm/Sodium Chloride 500 ml @ 250 mls/hr 1X ONCE IV Last administered on 08/17/17 17:27; Start 08/17/17 at 17:15; Stop 08/17/17 at 19:14 ; Status DC Ondansetron HCl (Zofran) 4 mg PRN Q8HRS PRN IV NAUSEA/VOMITING; Start 08/17/17 at 19:00; Stop 08/18/17 at 12:38; Status DC Hydromorphone HCl (Dilaudid) 1 mg 1X ONCE IV Last administered on 08/17/17 23 :31; Start 08/17/17 at 19:00; Stop 08/17/17 at 19:01; Status DC Vancomycin HCl 1.5 gm/Sodium Chloride 500 ml @ 250 mls/hr Q8H IV Last administered on 08/18/17 09:47; Start 08/18/17 at 02:00 Vancomycin HCl 1 each 1X ONCE MC ; Start 08/18/17 at 17:30; Stop 08/18/17 at 17 :31 Acetaminophen (Tylenol) 650 mg PRN Q6HRS PRN PO FEVER; Start 08/17/17 at 19:15 Ondansetron HCl (Zofran) 4 mg PRN Q6HRS PRN IV NAUSEA/VOMITING; Start 08/17/17 at 19:15 Tramadol HCl (Ultram) 50 mg PRN Q6HRS PRN PO MILD TO MODERATE PAIN; Start 08/17 at 19:15 Hydralazine HCl (Apresoline) 10 mg PRN Q4HRS PRN IVP ELEVATED BP, SEE COMMENTS ; Start 08/17/17 at 19:15 Docusate Sodium (Colace) 100 mg PRN DAILY PRN PO CONSTIPATION Last administered on 08/17/17 20:56; Start 08/17/17 at 19:15 Oxycodone/ Acetaminophen (Percocet 10/325) 1 tab PRN Q4HRS PRN PO MODERATE TO SEVERE PAIN Last administered on 08/17/17 20:55; Start 08/17/17 at 19:15 Enoxaparin Sodium (Lovenox 40mg Syringe) 40 mg DAILY SQ ; Start 08/18/17 at 09: 00 Cetirizine HCl (ZyrTEC) 10 mg DAILY PO Last administered on 08/18/17 08:41; Start 08/18/17 at 09:00 Senna/Docusate Sodium (Senna Plus) 1 tab DAILY PO Last administered on 08:40; Start 08/18/17 at 09:00 Fluoxetine HCl (PROzac) 40 mg DAILY PO Last administered on 08/18/17 08:41; Start 08/18/17 at 09:00 Gabapentin (Neurontin) 300 mg BID PO Last administered on 08/18/17 08:41; Start 08/18/17 at 09:00 Trazodone HCl (Desyrel) 150 mg HS PO ; Start 08/18/17 at 21:00; Stop 08/18/17 at 21:00; Status DC Hydromorphone HCl (Dilaudid) 0.5 mg PRN Q2HR PRN IV PAIN Last administered on 12:00; Start 08/17/17 at 23:15 Trazodone HCl (Desyrel) 150 mg HS PO Last administered on 08/17/17 23:45; Start 08/17/17 at 23:30 Active Scripts Active Percocet 5-325 Mg Tablet (Oxycodone/Acetaminophen) 1 Each Tablet 1 Tab PO PRN Q6HRS PRN Clindamycin Hcl 150 Mg Capsule 2 Cap PO QID 10 Days Clindamycin Hcl 150 Mg Capsule 2 Cap PO QID 7 Days Bactrim Ds Tablet (Sulfamethoxazole/Trimethoprim) 1 Each Tablet 1 Tab PO BID Percocet 5-325 Mg Tablet (Oxycodone/Acetaminophen) 1 Each Tablet 1-2 Tab PO Q6HRS Percocet 5-325 Mg Tablet (Oxycodone/Acetaminophen) 1 Each Tablet 1 Tab PO PRN Q6HRS PRN Percocet 5-325 Mg Tablet (Oxycodone/Acetaminophen) 1 Each Tablet 1 Tab PO PRN Q6HRS PRN Clindamycin Phosphate 30 Gm Gel..gram. 1 Mirian TP BID Reported Trazodone Hcl 150 Mg Tablet 150 Mg PO HS Gabapentin 300 Mg Capsule 300 Mg PO BID Tramadol Hcl 50 Mg Tablet 50 Mg PO Q6H PRN Zyrtec (Cetirizine Hcl) 10 Mg Tablet 10 Mg PO DAILY Senna Plus Tablet (Sennosides/Docusate Sodium) 1 Each Tablet 1 Each PO DAILY Prozac (Fluoxetine Hcl) 40 Mg Capsule 40 Mg PO DAILY Vitals/I & O Vital Sign - Last 24 Hours 08/17/17 08/17/17 08/17/17 08/17/17 16:56 17:24 18:06 18:16 Temp 97.9 97.9 Pulse 115 70 Resp 20 18 18 B/P (MAP) 142/77 (98) Pulse Ox 96 98 98 O2 Delivery Room Air Room Air Room Air Room Air 08/17/17 08/17/17 08/17/17 08/17/17 18:46 18:56 19:21 19:58 Pulse 68 86 82 Resp 20 22 18 20 B/P (MAP) 139/85 (103) 162/94 (116) 154/92 (112) Pulse Ox 98 98 97 97 O2 Delivery Room Air Room Air Room Air 08/17/17 08/17/17 08/17/17 08/17/17 20:02 20:15 20:30 20:55 Temp 97.9 97.9 Pulse 97 Resp 20 18 16 B/P (MAP) 149/99 (116) Pulse Ox 97 95 O2 Delivery Room Air Room Air Room Air Room Air 08/17/17 08/17/17 08/17/17 08/18/17 21:55 23:31 23:31 00:01 Temp 98.1 98.1 Pulse 80 Resp 16 18 16 16 B/P (MAP) 132/86 (101) Pulse Ox 94 O2 Delivery Room Air Room Air Room Air Room Air 08/18/17 08/18/17 08/18/17 08/18/17 02:45 03:29 05:58 06:33 Temp 97.8 97.8 Pulse 73 Resp 16 18 16 16 B/P (MAP) 106/70 (82) Pulse Ox 94 O2 Delivery Room Air Room Air Room Air 08/18/17 08/18/17 08/18/17 08/18/17 07:00 08:00 08:42 11:00 Temp 97.5 97.5 97.5 97.5 Pulse 76 66 Resp 16 16 B/P (MAP) 105/58 (74) 99/46 (63) Pulse Ox 96 96 95 O2 Delivery Room Air Room Air Room Air Room Air 08/18/17 08/18/17 12:00 12:30 Pulse Ox 95 95 O2 Delivery Room Air Room Air SARA ADAMS MD Aug 18, 2017 13:44
[2017-08-18 15:00] VITALS: BP 113/54
[2017-08-18] MEDS ORDERED: CLIN300C8 PO (18:17)
[2017-08-18] MEDS ORDERED: OXYC-323 PO (18:19)
--- NOTE | 2017-08-18 20:46 | CONS ---
DATE OF CONSULTATION: 08/18/2017 HISTORY OF PRESENT ILLNESS: The patient is a 31-year-old gentleman who presented to the Emergency Room with a recurrent history of pain and swelling as well as drainage under the right axilla. He has a known diagnosis of hidradenitis suppurativa. He is usually treated at [facility]. He has had multiple surgeries and is due to have another excision in September. For that reason, he has been asked to stop smoking and seems to have quit about a month or two ago. He started having this problem in 2012. The one that is paining the most right now is in the right axilla. However, he has other lesions in the left groin, the perianal area and one in the right groin. He has been treated every so often with clindamycin or Bactrim. He has also been prescribed doxycycline, but he cannot afford it with his insurance. Because the pain is severe, he came in today, but he does not have any fever, chills, nausea, vomiting or diarrhea. He wants to be given an antibiotic, so that he can wait until Sunday to call for his appointment in . ID is consulted to assist with antibiotic choice. PAST MEDICAL HISTORY: Significant for hidradenitis suppurativa, fibromyalgia, osteoarthritis and spinal stenosis. PAST SURGICAL HISTORY: Significant for multiple surgeries for excision of hidradenitis. FAMILY HISTORY: Significant for hypertension. SOCIAL HISTORY: He is single. He quit smoking a few weeks ago. He only takes alcohol occasionally and denies any IV or recreational drug use. REVIEW OF SYSTEMS: He denies any fever or chills. He says that the Percocet he was given is controlling his pain quite well and he will be able to wait until he gets to . He has no nausea, vomiting or diarrhea and the 12-point review of system is essentially negative. ALLERGIES: He has known allergies to FENTANYL, KETOROLAC, MORPHINE AND NAPROXEN. CURRENT MEDICATIONS: He has been started on vancomycin IV and seems to be doing well. For the rest of the medications and their dosages, please refer to the patient's Subtextual chart. OBJECTIVE: PHYSICAL EXAMINATION: VITAL SIGNS: Temperature is 97.5, pulse rate 66, respiratory rate 16, blood pressure 99/46. He is saturating 95% on room air. GENERAL: He is a pleasant young gentleman in no apparent distress at rest. HEENT: Normocephalic, atraumatic. Eyes, nose, mouth, and throat are within normal limits. NECK: Supple, with no JVD. LUNGS: Clear to auscultation bilaterally. CARDIAC: Reveals S1 and S2, which are regular. There are no murmurs. EXTREMITIES: Main findings are in the right axilla where he has features of induration. He is extremely tender on palpation. There is no discharge noted. There is also no spreading cellulitis noted. ABDOMEN: His abdomen is otherwise soft, nontender with positive bowel sounds. SKIN: Warm and dry. He also has some induration in the gluteal area and induration in the left inguinal area. These do not appear to be acutely inflamed. Palpation of the nodes is not possible because of the way the patient is tender. EXTREMITIES: Reveal no cyanosis, clubbing, or erythema. NEUROLOGICAL: He is alert, awake, oriented with no other gross focal deficits. LABORATORY DATA: Show hemoglobin of 15.8, hematocrit of 45.3, white cell count of 10.0 and platelet count of 242. He has 63 polys, 28 lymphocytes, and 6 monocytes with 2 eosinophils. Sodium is 140, potassium is 4.0, chloride is 106, CO2 is 27, BUN is 10, creatinine is 0.8 and glucose is 102, AST is 19, ALT is 32, albumin is 3.6, total protein is 7.3, alkaline phosphatase is 135. Imaging shows ultrasound of the right axilla with a subcutaneous hypoechoic area about 1 x 1 cm and 5 mm in size. This shows a small subcutaneous abscess. Ultrasound of the buttock area shows a 15 x 5 x 5 mm small abscess or sinus tract. None of them is big enough for drainage. IMPRESSION: Young man with a diagnosis of hidradenitis suppurativa who has stopped one of the risk factors, which is smoking. ASSESSMENT: 1. Hidradenitis suppurativa with small abscesses in the right axilla and the gluteal fold. 2. The patient is afebrile with no leukocytosis and therefore will be safe to go home. 3. Fibromyalgia. 4. Osteoarthritis. 5. Spinal stenosis. 6. Mild obesity. 7. Tdap is current. 8. No antibiotic allergies. PLAN: I have no objection to the patient being discharged today. I have requested that he receives clindamycin 300 mg p.o. t.i.d. for 10 days with only one refill. He promises to call on Sunday, so that he can go there for followup. Tdap is current and he will not need that any further. He is encouraged to stop smoking and lose weight, which are the most effective ways to control hidradenitis. He is not diabetic to his knowledge. Thank you for consulting and for allowing me to participate in his care. MATTHEW WATKINS MD DR: DAWIT/jarod JOB#: [id number] / [id number]
[2017-08-18] MEDS ORDERED: traZODone 50 MG TABLET. PO SCH (21:00)
--- NOTE | 2017-08-19 20:57 | PDOC3 ---
Discharge Summary [facility] Date of Admission: Aug 17, 2017 Discharge Date: Aug 18, 2017 Admitting Diagnosis hidradenitis suppurativa with possible small abcess at right axillary and gluteal fold fibromyalgia OA spinal stenosis h/o sx for hidradenitis suppurativa morbid obesity Problems: CONSULTS sx id Brief Hospital Course Patient is a 31 year old female presents emergency department stating that he' s had multiple visits here to the emergency department for hidradenitis suppurativa. pt started to have this problem a few years ago, originally got a lesion at right thigh post sx removal. He also got left groin lesion and right axillary lesions removed at by sx. He supposed to have a big sx to deep remove these lesions at on 09/26/17. However, the lesions at right axillary and buttock became very painful and he has been to our ER many times and was given clinda with and without bactrium. HE came today since the pain is too severe, 08/05, on percocet 5mg qid and not controlled. Denies fever, chills, N/V, diarrhea, chest pain, cough, sob. Patient states that the pain in the buttocks area has increased much that he is unable to sit down. morphine coz skin rash, ok with benadryl. Fentanyl coz htn. ok taking percocet and dilaudid wo side effects. US: Right axilla: There is a subcutaneous hypoechoic area with sound through- transmission measuring 9 mm x 8 mm x 4 mm in size. No internal color Doppler flow is seen. This is consistent with a small subcutaneous abscess. Buttock: Sonography of the area of concern of the buttock just superior to the gluteal fold was performed. There is a hypoechoic area measuring 15 mm x 5 mm x 5 mm in size. There is some shadowing which may be secondary to air. Therefore, this could represent sinus tract or abscess cavity. Pt received percocet 10 in hosp and vanco iv. pain is slightly better. no Sx intervention, and pt willing to fu with for sx id consulted, change to clinda. pt dced later sat afternoon with clinda and will fu with on Sunday dc time 30min Problems: Disposition home CONDITION AT DISCHARGE: Improved Diet regular Scheduled Cetirizine Hcl (Zyrtec), 10 MG PO DAILY, (Reported) Clindamycin Hcl (Clindamycin Hcl), 2 CAP PO QID Clindamycin Hcl (Clindamycin Hcl), 2 CAP PO QID Clindamycin Hcl (Clindamycin Hcl), 1 CAP PO TID Clindamycin Phosphate (Clindamycin Phosphate), 1 ANEESH TP BID Fluoxetine Hcl (Prozac), 40 MG PO DAILY, (Reported) Gabapentin (Gabapentin), 300 MG PO BID, (Reported) Oxycodone/Apap 5-325 (Percocet 5-325 Mg Tablet), 1-2 TAB PO Q6HRS Sennosides/Docusate Sodium (Senna Plus Tablet), 1 EACH PO DAILY, (Reported) Sulfamethoxazole/Trimethoprim (Bactrim Ds Tablet), 1 TAB PO BID Trazodone Hcl (Trazodone Hcl), 150 MG PO HS, (Reported) Scheduled PRN Oxycodone/Apap 5-325 (Percocet 5-325 Mg Tablet), 1 TAB PO PRN Q6HRS PRN for PAIN Oxycodone/Apap 5-325 (Percocet 5-325 Mg Tablet), 1 TAB PO PRN Q6HRS PRN for PAIN Oxycodone/Apap 5-325 (Percocet 5-325 Mg Tablet), 1 TAB PO PRN Q6HRS PRN for PAIN Tramadol Hcl (Tramadol Hcl), 50 MG PO Q6H PRN for PAIN, (Reported) Follow Up [facility] next week SARA ADAMS MD Aug 19, 2017 20:57
== END 2017-08-18 19:55 | disposition home or self-care (01) | DRG 603 ==
LOC: ER 16:42 → 4 NORTH 19:32
PROVIDERS: ADMIT Internal Medicine; ATTEND Internal Medicine
DX: L02.411 Cutaneous abscess of right axilla (principal); E66.01 Morbid (severe) obesity due to excess calories; L02.31 Cutaneous abscess of buttock; L73.2 Hidradenitis suppurativa; M79.7 Fibromyalgia; M19.90 Unspecified osteoarthritis, unspecified site; M48.00 Spinal stenosis, site unspecified; Z68.32 Body mass index [BMI] 32.0-32.9, adult; Z88.5 Allergy status to narcotic agent; Z88.8 Allergy status to other drugs, medicaments and biological substances; Z82.49 Family history of ischemic heart disease and other diseases of the circulatory system; Z87.891 Personal history of nicotine dependence
CPT/HCPCS: 36415; 76882; 80048; 80053; 80202; 84145; 85025; 86140; 87040; 96365; 96366; J1170; J2405; J3370; J7040; 99285-25

== ENCOUNTER 2017-09-04 18:17 | Emergency (ER) | payer SELFPAY ==
[~2017-09-04] VITALS: Ht 180.3 cm; Wt 104.3 kg
[~2017-09-04 18:17] MED LIST changes: +CETI10TA22 PO; +CLIN300C8 PO; +FLUO40CA9 PO; +GABA-586 PO; +SENN1TAB21 PO; +TRAM50TA PO; +TRAZ150T49 PO
[2017-09-04 18:40] VITALS: BP 196/117
[2017-09-04] MEDS ORDERED: TRAM50TA PO (18:45)
[2017-09-04] MEDS ORDERED: SULF1TAB24 PO (18:45)
--- NOTE | 2017-09-04 18:45 | PHYS DOC ---
Past Medical History Past Medical History: Arthritis, Fibromyalgia, Other Additional Past Medical Histor: hidradenitis suppurativa in axilla and groin Past Surgical History: Other Additional Past Surgical Histo: sx for hidradenitis suppurativa to L groin Alcohol Use: Rarely Drug Use: None Adult General Chief Complaint Chief Complaint: ABSCESS [facility] HPI Patient is a 31 year old male presents to the emergency department with recurrent abscess. Patient states that he frequently gets abscesses on the lower back. He is scheduled for surgery [facility] in September. Patient states he began having discomfort 2 days ago, notes the skin is not red and there is no drainage. He states he is here "to keep ahead of it". Review of Systems Review of Systems Constitutional: Denies fever or chills [] Eyes: Denies change in visual acuity, redness, or eye pain [] HENT: Denies nasal congestion or sore throat [] Respiratory: Denies cough or shortness of breath [] Cardiovascular: No additional information not addressed in HPI [] GI: Denies abdominal pain, nausea, vomiting, bloody stools or diarrhea [] : Denies dysuria or hematuria [] Musculoskeletal: Denies back pain or joint pain [] Integument: Abscess Neurologic: Denies headache, focal weakness or sensory changes [] Endocrine: Denies polyuria or polydipsia [] Allergies Allergies Allergies Coded Allergies Type Severity Reaction Last Updated Verified morphine Allergy Severe RASH 03/22/17 Yes fentanyl Allergy Intermediate Rash 05/16/17 Yes ketorolac Allergy Intermediate 02/15/17 Yes naproxen Allergy Intermediate 02/15/17 Yes Physical Exam Physical Exam Constitutional: Well developed, well nourished, no acute distress, non-toxic appearance. [] HENT: Normocephalic, atraumatic, bilateral external ears normal, oropharynx moist, no oral exudates, nose normal. [] Eyes: PERRLA, EOMI, conjunctiva normal, no discharge. [] Neck: Normal range of motion, no tenderness, supple, no stridor. [] Cardiovascular:Heart rate regular rhythm, no murmur [] Lungs & Thorax: Bilateral breath sounds clear to auscultation [] Abdomen: Bowel sounds normal, soft, no tenderness, no masses, no pulsatile masses. [] Skin: Lower back without erythema erythema, fluctuance, induration. It is mildly tender to palpate an area that appears to have chronic scarring. Back: No tenderness, no CVA tenderness. [] Extremities: No tenderness, no cyanosis, no clubbing, ROM intact, no edema. [] Neurologic: Alert and oriented X 3, normal motor function, normal sensory function, no focal deficits noted. [] Psychologic: Affect normal, judgement normal, mood normal. [] EKG EKG [] Radiology/Procedures Radiology/Procedures [] Course & Med Decision Making Course & Med Decision Making Pertinent Labs and Imaging studies reviewed. (See chart for details) [] Dragon Disclaimer Dragon Disclaimer This electronic medical record was generated, in whole or in part, using a voice recognition dictation system. Departure Departure Impression: Primary Impression: Hidradenitis suppurativa Disposition: HOME, SELF-CARE Condition: STABLE Referrals: NO PCP (PCP) [facility] Patient Instructions: Hidradenitis Suppurativa, Sweat Gland Abscess Scripts Tramadol Hcl (TRAMADOL HCL) 50 Mg Tablet 50 MG PO Q6H Y for PAIN, #12 TAB 0 Refills Prov: FRANK GEORGES APRN 09/04/17 Sulfamethoxazole/Trimethoprim (BACTRIM DS TABLET) 1 Each Tablet 1 TAB PO BID, #20 TAB Prov: FRANK GEORGES APRN 09/04/17 FRANK GEORGES APRN Sep 04, 2017 18:45
== END 2017-09-04 18:53 | disposition home or self-care (01) ==
LOC: ER 18:17
DX: L73.2 Hidradenitis suppurativa (principal); M79.7 Fibromyalgia; Z88.5 Allergy status to narcotic agent; Z88.4 Allergy status to anesthetic agent; Z88.8 Allergy status to other drugs, medicaments and biological substances
CPT/HCPCS: 99283

== ENCOUNTER 2017-11-10 16:43 | Emergency (ER) | payer SELFPAY ==
[~2017-11-10] VITALS: Ht 180.3 cm; Wt 106.6 kg
[2017-11-10 17:06] VITALS: BP 151/98
[2017-11-10] MEDS ORDERED: HYDR-971 PO (17:11)
[2017-11-10] MEDS ORDERED: AMOX500C PO (17:11)
--- NOTE | 2017-11-10 17:59 | PHYS DOC ---
Past Medical History Past Medical History: Arthritis, Fibromyalgia, Other Additional Past Medical Histor: hidradenitis suppurativa in axilla and groin Past Surgical History: Other Additional Past Surgical Histo: sx for hidradenitis suppurativa to L groin Alcohol Use: Rarely Drug Use: None Adult General Chief Complaint Chief Complaint: DENTAL PROBLEM HPI HPI Patient is a 31 year old male who presents with dental pain to the upper left gum where he has several teeth with extensive dental caries. He had an abscess in that area before but wasn't able to have the tooth pulled because he was waiting for dental insurance. He does have an appointment to see [facility] December 03, 2017 states that the pain is worsening. He also thinks that he is having fevers at home since the past 2 days. He has been taking Tylenol with no pain relief.[] Review of Systems Review of Systems Constitutional: Denies fever or chills [] Eyes: Denies change in visual acuity, redness, or eye pain [] HENT: See history of present illness Respiratory: Denies cough or shortness of breath [] Cardiovascular: No additional information not addressed in HPI [] Neurologic: Denies headache, focal weakness or sensory changes [] Endocrine: Denies polyuria or polydipsia [] All other systems were reviewed and found to be within normal limits, except as documented in this note. Allergies Allergies Allergies Coded Allergies Type Severity Reaction Last Updated Verified ketorolac Allergy Intermediate 02/15/17 Yes naproxen Allergy Intermediate 02/15/17 Yes Physical Exam Physical Exam Constitutional: Well developed, well nourished, no acute distress, non-toxic appearance. [] HENT: Normocephalic, atraumatic, tooth #10 and 11 but had extensive dental caries, the gum is erythematous with no pus pool noted Eyes: PERRLA, EOMI, conjunctiva normal, no discharge. [] Neck: Normal range of motion, no tenderness, supple, no stridor. [] Cardiovascular:Heart rate regular rhythm, no murmur [] Lungs & Thorax: Bilateral breath sounds clear to auscultation [] Neurologic: Alert and oriented X 3, normal motor function, normal sensory function, no focal deficits noted. [] Psychologic: Affect normal, judgement normal, mood normal. [] Current Patient Data Vital Signs Vital Signs Date Time Temp Pulse Resp B/P (MAP) Pulse Ox O2 Delivery O2 Flow Rate FiO2 11/10/17 17:06 98.0 69 16 96 Room Air 98.0 EKG EKG [] Radiology/Procedures Radiology/Procedures [] Course & Med Decision Making Course & Med Decision Making Pertinent Labs and Imaging studies reviewed. (See chart for details) 1. Dental abscess Please take the amoxicillin as directed. Keep your follow-up with [facility]. You're prescribed and amount of narcotic pain medication. Please do not drive or operate heavy machinery while taking this medication. You may use salt water rinses. Return to the ED if worsening. Dragon Disclaimer Dragon Disclaimer This electronic medical record was generated, in whole or in part, using a voice recognition dictation system. Departure Departure Impression: Primary Impression: Dental abscess Disposition: 01 HOME, SELF-CARE Condition: STABLE Patient Instructions: Dental Abscess Additional Instructions: Keep your dental appointment at [facility] for further evaluation and treatment of this abscessed tooth. Please return to the ED if worsening. Scripts Amoxicillin (AMOXICILLIN) 500 Mg Capsule 2 CAP PO BID, #40 CAP Prov: CHAITANYA LYNN APRN 11/10/17 Hydrocodone/Apap 5-325 (NORCO 5-325 TABLET) 1 Each Tablet 1 TAB PO PRN Q6HRS Y for PAIN, #10 TAB 0 Refills Prov: CHAITANYA LYNN APRN 11/10/17 CHAITANYA LYNN APRN Nov 10, 2017 17:59
== END 2017-11-10 17:21 | disposition home or self-care (01) ==
LOC: ER 16:50
DX: K04.7 Periapical abscess without sinus (principal); K02.9 Dental caries, unspecified; M79.7 Fibromyalgia; M19.90 Unspecified osteoarthritis, unspecified site; Z88.6 Allergy status to analgesic agent; Z88.8 Allergy status to other drugs, medicaments and biological substances
CPT/HCPCS: 99283

== ENCOUNTER 2018-01-17 21:36 | Emergency (ER) | payer SELFPAY ==
[2018-01-17 22:22] LABS: BILIRUBIN,URINE SMALL (NEG); CLARITY,URINE CLOUDY; COLOR,URINE AMBER; GLUCOSE,URINE NEGATIVE (NEG); NITRITE,URINE NEGATIVE (NEG); PH,URINE 5.5; PROTEIN,URINE NEGATIVE (NEG-TRACE)
[2018-01-17 22:36] LABS: BACTERIA,URINE 0 /HPF (0-FEW); RBC,URINE OCC /HPF (0-2); WBC,URINE 0 /HPF (0-4)
== END 2018-01-17 23:11 | disposition home or self-care (01) ==
LOC: ER 21:36
DX: L73.2 Hidradenitis suppurativa (principal); L02.214 Cutaneous abscess of groin; M79.7 Fibromyalgia; Z88.6 Allergy status to analgesic agent; Z88.5 Allergy status to narcotic agent
CPT/HCPCS: 81001; 99283

== ENCOUNTER 2018-02-15 20:16 | Emergency (ER) | payer SELFPAY | END 2018-02-15 20:47 | disposition home or self-care (01) | LOC: ER 20:16 | DX: N49.8 Inflammatory disorders of other specified male genital organs (principal); L73.2 Hidradenitis suppurativa; M19.90 Unspecified osteoarthritis, unspecified site; M79.7 Fibromyalgia; Z88.6 Allergy status to analgesic agent; Z88.5 Allergy status to narcotic agent | CPT/HCPCS: 99283 ==

== ENCOUNTER 2018-03-05 16:38 | Emergency (ER) | payer SELFPAY | END 2018-03-05 19:29 | disposition home or self-care (01) | LOC: ER 16:38 | DX: K08.89 Other specified disorders of teeth and supporting structures (principal); M19.90 Unspecified osteoarthritis, unspecified site; M79.7 Fibromyalgia; Z88.6 Allergy status to analgesic agent; Z88.5 Allergy status to narcotic agent | CPT/HCPCS: 99283 ==

== ENCOUNTER 2018-04-02 21:45 | Emergency (ER) | payer SELFPAY ==
[2018-04-02] MEDS: HYDROcodone/APAP 5/325MG 1 TAB TABLET PO (22:51)
[2018-04-02] MEDS: LIDOCAINE 1% PF 2 ML VIAL. INJ (22:52)
== END 2018-04-02 23:34 | disposition home or self-care (01) ==
LOC: ER 21:45
DX: L72.3 Sebaceous cyst (principal); M19.90 Unspecified osteoarthritis, unspecified site; Z88.5 Allergy status to narcotic agent; Z88.8 Allergy status to other drugs, medicaments and biological substances
CPT/HCPCS: 12011; 99283

== ENCOUNTER 2018-04-11 13:46 | Emergency (ER) | payer SELFPAY | END 2018-04-11 14:46 | disposition home or self-care (01) | LOC: ER 13:46 | DX: L72.3 Sebaceous cyst (principal); M79.7 Fibromyalgia; Z88.5 Allergy status to narcotic agent; Z88.6 Allergy status to analgesic agent; Z88.8 Allergy status to other drugs, medicaments and biological substances | CPT/HCPCS: 99283 ==

== ENCOUNTER 2018-05-09 19:35 | Emergency (ER) | payer SELFPAY | END 2018-05-09 20:22 | disposition home or self-care (01) | LOC: ER 19:35 | DX: L73.2 Hidradenitis suppurativa (principal); M19.90 Unspecified osteoarthritis, unspecified site; F17.200 Nicotine dependence, unspecified, uncomplicated; Z88.5 Allergy status to narcotic agent; Z88.8 Allergy status to other drugs, medicaments and biological substances | CPT/HCPCS: 99283 ==

== ENCOUNTER 2018-05-15 18:48 | Emergency (ER) | payer SELFPAY | END 2018-05-15 19:43 | disposition home or self-care (01) | LOC: ER 19:43 | DX: L73.2 Hidradenitis suppurativa (principal); R19.7 Diarrhea, unspecified; M79.7 Fibromyalgia; Z88.5 Allergy status to narcotic agent; Z88.6 Allergy status to analgesic agent | CPT/HCPCS: 99283 ==

== ENCOUNTER 2018-06-09 11:02 | Emergency (ER) | payer SELFPAY | END 2018-06-09 13:06 | disposition home or self-care (01) | LOC: ER 11:02 | DX: L73.2 Hidradenitis suppurativa (principal); M19.90 Unspecified osteoarthritis, unspecified site; Z88.5 Allergy status to narcotic agent; Z88.6 Allergy status to analgesic agent | CPT/HCPCS: 99283 ==

== ENCOUNTER 2018-06-22 21:33 | Emergency (ER) | payer SELFPAY | END 2018-06-22 21:48 | disposition home or self-care (01) | LOC: ER 21:48 | DX: L03.317 Cellulitis of buttock (principal); K61.1 Rectal abscess; L73.2 Hidradenitis suppurativa; M19.90 Unspecified osteoarthritis, unspecified site; M79.7 Fibromyalgia; Z88.5 Allergy status to narcotic agent; Z88.6 Allergy status to analgesic agent | CPT/HCPCS: 99283 ==

== ENCOUNTER 2018-07-19 20:10 | Emergency (ER) | payer SELFPAY ==
[~2018-07-19] VITALS: Ht 180.3 cm; Wt 100.2 kg
[~2018-07-19 20:10] MED LIST changes: +AMOX500C PO; +CEPH-264 PO; +CEPH500T PO; +DOXY100T9 PO; +HYDR-971 PO
[2018-07-19 20:25] VITALS: BP 146/100
--- NOTE | 2018-07-19 20:37 | PHYS DOC ---
Past Medical History Past Medical History: Arthritis, Fibromyalgia, Other Additional Past Medical Histor: Hidradenitis suppurativa in axilla and groin Past Surgical History: Other Additional Past Surgical Histo: I&D for hidradenitis suppurativa to L and R groin Alcohol Use: Occasionally Drug Use: None Adult General Chief Complaint Chief Complaint: WOUND CHECK HPI HPI Patient is a 32 year old male with history of hidradenitis suppurative, sebaceous cyst, fibromyalgia, who presents today complaining of infection on his neck where his own doctor removed a sebaceous cyst on 26 June 2018. Patient states he called his doctor who requested him to come to the emergency room to be given antibiotics and pain medicine. Patient denies any fever. Patient states he is currently taking hydrocodone 5/325 mg with no relief. Review of Systems Review of Systems Constitutional: Denies fever or chills [] Musculoskeletal: Denies back pain or joint pain [] Integument: wound infection Neurologic: Denies headache, focal weakness or sensory changes [] All other systems were reviewed and found to be within normal limits, except as documented in this note. Allergies Allergies Allergies Coded Allergies Type Severity Reaction Last Updated Verified morphine Allergy Intermediate hallucinations 06/09/18 Yes naproxen Allergy Intermediate 02/15/17 Yes Physical Exam Physical Exam Constitutional: Well developed, well nourished, no acute distress, non-toxic appearance. [] Skin: Warm, dry, left posterior cervical spine with an open wound approximately 2 x 1 cm. There is trace yellow drainage around the wound. Slight erythema, no warmth. Back: No tenderness, no CVA tenderness. [] Extremities: No tenderness, no cyanosis, no clubbing, ROM intact, no edema. [] Neurologic: Alert and oriented X 3, normal motor function, normal sensory function, no focal deficits noted. [] Psychologic: Affect normal, judgement normal, mood normal. [] EKG EKG [] Radiology/Procedures Radiology/Procedures [] Course & Med Decision Making Course & Med Decision Making Pertinent Labs and Imaging studies reviewed. (See chart for details) This is a 32-year-old male patient well known to this ED presenting today with infected area on his neck after having a sebaceous cyst removed on June 26, 2018. Was sent to the ED to get antibiotics and pain medicine by his own doctor per his own statement. Tetanus up-to-date. Given prescription for clindamycin. Given prescription for hydrocodone 7.5/325, 10 tablets, follow-up with his own doctor as soon as he can Toy Disclaimer Toy Disclaimer This electronic medical record was generated, in whole or in part, using a voice recognition dictation system. Departure Departure Impression: Primary Impression: Infected sebaceous cyst Disposition: HOME, SELF-CARE Condition: STABLE Referrals: UNKNOWN PCP NAME (PCP) Follow-up with your doctor next week Patient Instructions: Skin Infections Additional Instructions: You were evaluated in the emergency room for an infected sebaceous cyst. Take the prescribed antibiotics as ordered ensure you complete them. Take the pain medicine as needed for pain. Scripts Clindamycin Hcl (CLINDAMYCIN HCL) 150 Mg Capsule 3 CAP PO TID, #90 CAP Prov: ROULA HUMMEL APRN 07/19/18 Hydrocodone Bit/Acetaminophen (HYDROCODONE-APAP 7.5-325 ) 1 Each Tablet 1 TAB PO PRN Q6HRS PRN for PAIN, #10 TAB 0 Refills Prov: ROULA HUMMEL APRN 07/19/18 ROULA HUMMEL APRN Jul 19, 2018 20:37
[2018-07-19] MEDS ORDERED: CLIN150C14 PO (20:45)
[2018-07-19] MEDS ORDERED: HYDR-2762 PO (20:45)
== END 2018-07-19 20:56 | disposition home or self-care (01) ==
LOC: ER 20:10
DX: T81.4XXA Infection following a procedure, initial encounter (principal); B99.8 Other infectious disease; L72.3 Sebaceous cyst; M19.90 Unspecified osteoarthritis, unspecified site; Z88.5 Allergy status to narcotic agent
CPT/HCPCS: 99283

== ENCOUNTER 2018-09-16 17:55 | Emergency (ER) | payer SELFPAY ==
[~2018-09-16 17:55] MED LIST changes: +HYDR-2762 PO
== END 2018-09-16 19:18 | disposition left against medical advice (07) ==
LOC: ER 17:55
DX: L02.818 Cutaneous abscess of other sites (principal); Z53.21 Procedure and treatment not carried out due to patient leaving prior to being seen by health care provider

== ENCOUNTER 2018-11-03 11:31 | Emergency (ER) | payer SELFPAY ==
[~2018-11-03] VITALS: Ht 177.8 cm; Wt 101.2 kg
[~2018-11-03 11:31] MED LIST changes: -GABA-586 PO; +GABA300C18 PO; -HYDR-2762 PO; +HYDR-2765 PO; +HYDR-3164 PO; -HYDR-971 PO; -OXYC-323 PO; +OXYC1TAB15 PO
[2018-11-03 11:42] VITALS: BP 130/65
[2018-11-03] MEDS ORDERED: CEPHALEXIN 250 MG CAPSULE. PO STA (12:46)
[2018-11-03] MEDS ORDERED: SMZ/TMP 800/160MG TABLET. PO ONE (13:00)
[2018-11-03] MEDS ORDERED: HYDROcodone/APAP 5/325MG 1 TAB TABLET PO ONE (13:00)
[2018-11-03] MEDS ORDERED: CEPH500T PO (13:03)
[2018-11-03] MEDS ORDERED: HYDR-3164 PO (13:03)
[2018-11-03] MEDS ORDERED: SULF1TAB24 PO (13:03)
--- NOTE | 2018-11-03 13:04 | PHYS DOC ---
Past Medical History Past Medical History: Arthritis, Fibromyalgia, Other Additional Past Medical Histor: Hidradenitis suppurativa in axilla and groin Past Surgical History: Other Additional Past Surgical Histo: I&D for hidradenitis suppurativa to L and R groin Alcohol Use: Occasionally Drug Use: None Adult General Chief Complaint Chief Complaint: ABSCESS HPI HPI Patient is a 32 year old male who presents to the ED to be evaluated due for left groin abscess. Patient has history of hydradenitis supra. He has an appointment with his surgeon on Sunday. Is requesting antibiotics. His tetanus is up-to-date. Review of Systems Review of Systems Constitutional: Denies fever or chills [] Musculoskeletal: Denies back pain or joint pain [] Integument: Reports left groin abscess Neurologic: Denies headache, focal weakness or sensory changes [] All other systems were reviewed and found to be within normal limits, except as documented in this note. Current Medications Current Medications Current Medications Medications (Trade) Dose Ordered Sig/Vanessa Start Time Stop Time Status Last Admin Dose Admin Acetaminophen/ Hydrocodone Bitart (Lortab 5/325) 2 tab 1X ONCE 11/03/18 13:00 11/03/18 13:01 DC 11/03/18 13:10 2 TAB Cephalexin HCl (Keflex) 500 mg 1X STAT 11/03/18 12:46 11/03/18 12:54 DC 11/03/18 13:09 500 MG Trimethoprim/ Sulfamethoxazole (Bactrim Ds) 1 tab 1X ONCE 11/03/18 13:00 11/03/18 13:01 DC 11/03/18 13:10 1 TAB Allergies Allergies Allergies Coded Allergies Type Severity Reaction Last Updated Verified morphine Allergy Intermediate hallucinations 06/09/18 Yes naproxen Allergy Intermediate 02/15/17 Yes Physical Exam Physical Exam Constitutional: Well developed, well nourished, no acute distress, non-toxic appearance. [] Skin: Left groin with a none indurated area approximately 2 x 2 centimeters. The area is erythematous warm and tender to touch. No fluctuance. Back: No tenderness, no CVA tenderness. [] Extremities: No tenderness, no cyanosis, no clubbing, ROM intact, no edema. [] Neurologic: Alert and oriented X 3, normal motor function, normal sensory function, no focal deficits noted. [] Psychologic: Affect normal, judgement normal, mood normal. [] Current Patient Data Vital Signs Vital Signs Date Time Temp Pulse Resp B/P (MAP) Pulse Ox O2 Delivery O2 Flow Rate FiO2 11/03/18 11:42 98.6 76 18 130/65 (86) 99 Room Air 98.6 EKG EKG [] Radiology/Procedures Radiology/Procedures [] Course & Med Decision Making Course & Med Decision Making Pertinent Labs and Imaging studies reviewed. (See chart for details) This is a 32-year-old male patient with history of hidradenitis supra-presented to the ED today with left groin abscess. Patient is well known to this ED for his disease. He has an appointment with the surgeon on Sunday. The area does not have any fluctuance. He'll be discharged with cephalexin, Bactrim.instructed to follow-up with his surgeon. Tetanus is up-to-date. Dragon Disclaimer Dragon Disclaimer This electronic medical record was generated, in whole or in part, using a voice recognition dictation system. Departure Departure Impression: Primary Impression: Hidradenitis suppurativa Additional Impression: Abscess or cellulitis of groin Disposition: HOME, SELF-CARE Condition: STABLE Referrals: NO PCP (PCP) Follow-up with your surgeon on Sunday as scheduled Patient Instructions: Abscess, Cellulitis, [id number], Hidradenitis Suppurativa, Sweat Gland Abscess Additional Instructions: You were evaluated in the emergency room for left groin abscess/cellulitis from hidradenitis supra. Take the prescribed medications as ordered. Follow-up with your surgeon on Sunday as scheduled. Scripts Cephalexin (CEPHALEXIN) 500 Mg Tablet 1 TAB PO QID, #40 TAB Prov: ROULA HUMMEL APRN 11/03/18 Sulfamethoxazole/Trimethoprim (BACTRIM DS TABLET) 1 Each Tablet 1 TAB PO BID, #20 TAB Prov: ROULA HUMMEL APRN 11/03/18 Hydrocodone/Apap 5-325 (NORCO 5-325 TABLET) 1 Each Tablet 1 TAB PO Q6HRS, #14 TAB Prov: ROULA HUMMEL APRN 11/03/18 Attending Signature Attending Signature I have reviewed the PA/ASSOCIATE MERCHANDISE PLANNER's note and plan of care. I was available for consultation as needed during the patient's visit in the emergency department. I agree with the clinical impression, plan, and disposition. Problem Qualifiers ROULA HUMMEL APRN Nov 03, 2018 13:04 AZEB CRAFT DO Nov 06, 2018 19:47
== END 2018-11-03 13:22 | disposition home or self-care (01) ==
LOC: ER 11:31
DX: L02.214 Cutaneous abscess of groin (principal); L73.2 Hidradenitis suppurativa; M19.90 Unspecified osteoarthritis, unspecified site; M79.7 Fibromyalgia; Z88.5 Allergy status to narcotic agent; Z88.6 Allergy status to analgesic agent
CPT/HCPCS: 99283; 99284

== ENCOUNTER 2018-12-06 20:00 | Emergency (ER) | payer SELFPAY ==
[~2018-12-06] VITALS: Ht 180.3 cm; Wt 101.2 kg
[2018-12-06 20:23] VITALS: BP 156/92
[2018-12-06] MEDS ORDERED: SULF1TAB24 PO (20:46)
[2018-12-06] MEDS ORDERED: HYDR-3164 PO (20:46)
--- NOTE | 2018-12-06 20:47 | PHYS DOC ---
Past Medical History Past Medical History: Arthritis, Fibromyalgia, Other Additional Past Medical Histor: Hidradenitis suppurativa in axilla and groin Past Surgical History: Other Additional Past Surgical Histo: I&D for hidradenitis suppurativa to L and R groin Alcohol Use: Occasionally Drug Use: None Adult General Chief Complaint Chief Complaint: ABSCESS HPI HPI Patient is a 33 year old male who presents with an abscess to his right thigh x 2-3 days. The patient has a history of hidradenitis suppurativa. He states that he prefers oral antibiotics. He states that he has progressed with his disease process and now develops abscesses throughout his body instead of just his axillas. He has not taken any [id number] medications for this condition. Review of Systems Review of Systems Constitutional: Denies fever or chills [] Eyes: Denies change in visual acuity, redness, or eye pain [] HENT: Denies nasal congestion or sore throat [] Respiratory: Denies cough or shortness of breath [] Cardiovascular: No additional information not addressed in HPI [] GI: Denies abdominal pain, nausea, vomiting, bloody stools or diarrhea [] : Denies dysuria or hematuria [] Musculoskeletal: Denies back pain or joint pain [] Integument: See history of present illness Neurologic: Denies headache, focal weakness or sensory changes [] Endocrine: Denies polyuria or polydipsia [] All other systems were reviewed and found to be within normal limits, except as documented in this note. Allergies Allergies Allergies Coded Allergies Type Severity Reaction Last Updated Verified morphine Allergy Intermediate hallucinations 06/09/18 Yes naproxen Allergy Intermediate 02/15/17 Yes Physical Exam Physical Exam Constitutional: Well developed, well nourished, no acute distress, non-toxic appearance. [] Cardiovascular:Heart rate regular rhythm, no murmur [] Lungs & Thorax: Bilateral breath sounds clear to auscultation [] Abdomen: Bowel sounds normal, soft, no tenderness, no masses, no pulsatile masses. [] Skin: There is a 2 cm in diameter abscess to the right thigh that has pus pockets noted to the surface Neurologic: Alert and oriented X 3, normal motor function, normal sensory function, no focal deficits noted. [] Psychologic: Affect normal, judgement normal, mood normal. [] Current Patient Data Vital Signs Vital Signs Date Time Temp Pulse Resp B/P (MAP) Pulse Ox O2 Delivery O2 Flow Rate FiO2 12/06/18 20:23 98.6 96 18 156/92 (113) 96 Room Air 98.6 EKG EKG [] Radiology/Procedures Radiology/Procedures [] Course & Med Decision Making Course & Med Decision Making Pertinent Labs and Imaging studies reviewed. (See chart for details) []The patient states that he has tried ibuprofen and Tylenol for pain control. Those are not working. He states that he is also taken tramadol in the past and it does not work for his pain. I did agree to give him a small amount of narcotic pain medication. He is to use hot compresses. He is to not drive while taking pain medication. He is in agreement with this plan. Dragon Disclaimer Dragon Disclaimer This electronic medical record was generated, in whole or in part, using a voice recognition dictation system. Departure Departure Impression: Primary Impression: Abscess Disposition: 01 HOME, SELF-CARE Condition: STABLE Referrals: NO PCP (PCP) Patient Instructions: Abscess Additional Instructions: Take the medication as prescribed. Do not drive or operate heavy machinery while taking pain medication. Follow-up with your primary care provider for recheck in 3-4 days if not improving or return to the emergency department if worsening. Scripts Hydrocodone/Apap 5-325 (NORCO 5-325 TABLET) 1 Each Tablet 1 TAB PO PRN Q6HRS PRN for PAIN, #10 TAB 0 Refills Prov: CHAITANYA LYNN APRN 12/06/18 Sulfamethoxazole/Trimethoprim (BACTRIM DS TABLET) 1 Each Tablet 1 TAB PO BID for abscess, #20 TAB Prov: CHAITANYA LYNN APRN 12/06/18 CHAITANYA LYNN APRN Dec 06, 2018 20:47
== END 2018-12-06 21:06 | disposition home or self-care (01) ==
LOC: ER 20:00
DX: L02.415 Cutaneous abscess of right lower limb (principal); Z88.5 Allergy status to narcotic agent
CPT/HCPCS: 99283

== ENCOUNTER 2018-12-25 16:54 | Emergency (ER) | payer SELFPAY ==
[~2018-12-25] VITALS: Ht 177.8 cm; Wt 101.2 kg
[2018-12-25 17:05] VITALS: BP 132/90
--- NOTE | 2018-12-25 17:24 | PHYS DOC ---
Past Medical History Past Medical History: Arthritis, Fibromyalgia, Other Additional Past Medical Histor: Hidradenitis suppurativa in axilla and groin Past Surgical History: Other Additional Past Surgical Histo: I&D for hidradenitis suppurativa to L and R groin Alcohol Use: Occasionally Drug Use: None Adult General Chief Complaint Chief Complaint: ABSCESS HPI HPI Patient is a 33 year old male with history hydradenitis supra presented to the ED to be evaluated for an abscess on in her buttocks that began today. Patient denies any fever. He states he has an appointment coming up with a professor of family medicine. He also follows up with the general surgeon for his hydradenitis supra. He has an appointment with his surgeon on Sunday. He is requesting antibiotics. His tetanus is up-to-date. Review of Systems Review of Systems Constitutional: Denies fever or chills [] Musculoskeletal: Denies back pain or joint pain [] Integument: buttocks abscess Neurologic: Denies headache, focal weakness or sensory changes [] All other systems were reviewed and found to be within normal limits, except as documented in this note. Allergies Allergies Allergies Coded Allergies Type Severity Reaction Last Updated Verified morphine Allergy Intermediate hallucinations 06/09/18 Yes naproxen Allergy Intermediate 02/15/17 Yes Physical Exam Physical Exam Constitutional: Well developed, well nourished, no acute distress, non-toxic appearance. [] Skin: Warm, dry, multiple scar tissues noted to bilateral inner buttocks with mild erythema formation on the inner buttocks. No palpable masses. No drainage. Back: No tenderness, no CVA tenderness. [] Extremities: No tenderness, no cyanosis, no clubbing, ROM intact, no edema. [] Neurologic: Alert and oriented X 3, normal motor function, normal sensory function, no focal deficits noted. [] Psychologic: Affect normal, judgement normal, mood normal. [] EKG EKG [] Radiology/Procedures Radiology/Procedures [] Course & Med Decision Making Course & Med Decision Making Pertinent Labs and Imaging studies reviewed. (See chart for details) This is a 33-year-old male patient with history of hydradenitis supra- presenting today complaining of an abscessed bilateral inner buttocks that began today. Patient typically follows up with a general surgeon. He states he also will be following up with a new professor of family medicine. There is nothing to drain. He is requesting antibiotics. Prescription for Bactrim and cephalexin given. Patient will f/u his general surgeon and professor of family medicine as soon as he can. Toy Disclaimer Toy Disclaimer This electronic medical record was generated, in whole or in part, using a voice recognition dictation system. Departure Departure Impression: Primary Impression: Hidradenitis suppurativa Additional Impression: Cellulitis and abscess of buttock Disposition: 01 HOME, SELF-CARE Condition: STABLE Referrals: NO PCP (PCP) Follow-up with your own doctors in 1-2 weeks Patient Instructions: Abscess, Cellulitis, [id number] Additional Instructions: You were evaluated in the emergency room. Please follow-up with the professor of family medicine and general surgeon as soon as you can. Take the prescribed antibiotics as ordered. Scripts Cephalexin (CEPHALEXIN) 500 Mg Tablet 1 TAB PO QID, #40 TAB Prov: ROULA HUMMEL APRN 12/25/18 Sulfamethoxazole/Trimethoprim (BACTRIM DS TABLET) 1 Each Tablet 1 TAB PO BID, #20 TAB Prov: ORULA HUMMEL APRN 12/25/18 Hydrocodone/Apap 5-325 (NORCO 5-325 TABLET) 1 Each Tablet 1 TAB PO Q6HRS, #12 TAB Prov: ROULA HUMMEL APRN 12/25/18 Problem Qualifiers ROULA HUMMEL APRN Dec 25, 2018 17:23
[2018-12-25] MEDS ORDERED: HYDR-3164 PO (17:40)
[2018-12-25] MEDS ORDERED: SULF1TAB24 PO (17:40)
[2018-12-25] MEDS ORDERED: CEPH500T PO (17:40)
== END 2018-12-25 17:41 | disposition home or self-care (01) ==
LOC: ER 16:54
DX: L02.31 Cutaneous abscess of buttock (principal); L03.317 Cellulitis of buttock; L73.2 Hidradenitis suppurativa; M19.90 Unspecified osteoarthritis, unspecified site; M79.7 Fibromyalgia; Z88.5 Allergy status to narcotic agent; Z88.8 Allergy status to other drugs, medicaments and biological substances
CPT/HCPCS: 99283

== ENCOUNTER 2019-01-30 18:01 | Emergency (ER) | payer OTHER, MEDICAID ==
[~2019-01-30] VITALS: Ht 177.8 cm; Wt 99.8 kg
[~2019-01-30 18:01] MED LIST changes: -SENN1TAB21 PO; +SENN1TAB62 PO
[2019-01-30 18:07] VITALS: BP 167/91
--- NOTE | 2019-01-30 18:30 | PHYS DOC ---
Past Medical History Past Medical History: Arthritis, Fibromyalgia, Other Additional Past Medical Histor: Hidradenitis suppurativa in axilla and groin Past Surgical History: Other Additional Past Surgical Histo: I&D for hidradenitis suppurativa to L and R groin Additional Information: quit today Alcohol Use: Occasionally Drug Use: None Adult General Chief Complaint Chief Complaint: ABSCESS [facility] Patient is 33 yo male w/ hx hydradenitis suppurativa who presents with complaint of abscess below his L testicle. He reports he has had symptoms for a couple of weeks. Describes pain as unbearable pain below L testicle and in left medial aspect of thigh. Also reports he thinks the area has begun to drain as it is often wet and foul smelling. He denies fevers, nausea, vomiting, chills, problems with urination or bowel movements. Reports he has been using 800 mg ibuprofen for pain relief and that his last dose was "a couple of days ago". Denies using any other medication for pain relief. He also reports he has been using warm compresses and sitz baths for symptomatic relief. Reports he completed his latest round of clindamycin last week but feels that bactrim/ keflex are more helpful with infections than Clindamycin. Patient reports he is following with a surgeon at for his HS, however surgeon has been unwilling to complete surgery until patient stopped smoking. Review of Systems Review of Systems Constitutional: Denies fever or chills. Denies weakness. Respiratory: Denies cough or shortness of breath [] Cardiovascular: No additional information not addressed in HPI [] GI: Denies abdominal pain, nausea, vomiting, bloody stools or diarrhea [] : Denies dysuria or hematuria. Musculoskeletal: Denies back pain or joint pain [] Integument: Denies rash or skin lesions. Admits foul smelling discharge from below L testicle. Admits pain, Neurologic: Denies headache, focal weakness or sensory changes [] All other systems were reviewed and found to be within normal limits, except as documented in this note. Allergies Allergies Allergies Coded Allergies Type Severity Reaction Last Updated Verified morphine Allergy Intermediate hallucinations 06/09/18 Yes naproxen Allergy Intermediate 02/15/17 Yes Physical Exam Physical Exam Constitutional: Well developed, well nourished HENT: Normocephalic, atraumatic Eyes: PERRLA, EOMI, conjunctiva normal, no discharge. [] Neck: Normal range of motion Cardiovascular:Heart rate regular rhythm, no murmur [] Lungs & Thorax: Bilateral breath sounds clear to auscultation [] Abdomen: soft, no tenderness Skin: Warm, dry, diffuse erythema present BL inguinal region, diffuse scarring present, possible small area of /induration just behind L scrotum however patient very TTP diffusely no obvious focal fluctaunce Extremities: No tenderness, no cyanosis, no clubbing, Neurologic: Alert and oriented X 3, normal motor function, normal sensory function Psychologic: Affect normal, judgement normal, mood normal. [] Current Patient Data Vital Signs Vital Signs Date Time Temp Pulse Resp B/P (MAP) Pulse Ox O2 Delivery O2 Flow Rate FiO2 01/30/19 18:07 98.4 75 14 167/91 (116) 99 Room Air 98.4 EKG EKG [] Radiology/Procedures Radiology/Procedures [] Course & Med Decision Making Course & Med Decision Making Patient is 33 yo male w/ pmh hydradenitis suppurativa who presents with complaint of pain/possible abscess below L testicle. Patient denies nausea, vomiting, chills, fever. Reports he completed clindamycin treatment for same problem last week without resolution of symptoms. Patient reports he feels he responds better to bactrim/keflex. On physical exam groin is dry with diffuse erythema, very tender to palpation, with possible small area of induration behind L testicle. Denies trouble with urination, fevers, nausea, vomiting, weakness, or chills. Patient prescribed bactrim/keflex and [place] and advised to follow up with his surgeon about HS. Also advised patient to continue with sitz baths and warm compresses. Patient also advised to return to ED if sx continue or worsen. Patient voiced understanding and agreement with plan. Dragon Disclaimer Dragon Disclaimer This electronic medical record was generated, in whole or in part, using a voice recognition dictation system. Departure Departure Impression: Primary Impression: Hidradenitis suppurativa Additional Impression: Elevated blood pressure reading Referrals: NO PCP (PCP) Additional Instructions: follow up with blood pressure check in one shannen. Scripts Hydrocodone/Apap 5-325 (NORCO 5-325 TABLET) 1 Each Tablet 1-2 EACH PO PRN Q6HRS PRN for PAIN, #10 as needed for pain Prov: SARA JUAREZ MD 01/30/19 Cephalexin (CEPHALEXIN) 500 Mg Capsule 1 CAP PO QID, #40 CAP Prov: SARA JUAREZ MD 01/30/19 Sulfamethoxazole/Trimethoprim (BACTRIM DS TABLET) 1 Each Tablet 1 TAB PO BID, #20 TAB Prov: SARA JUAREZ MD 01/30/19 Problem Qualifiers SARA JUAREZ MD Jan 30, 2019 18:30
[2019-01-30] MEDS ORDERED: SULF1TAB24 PO (18:49)
[2019-01-30] MEDS ORDERED: CEPH500C PO (18:49)
[2019-01-30] MEDS ORDERED: HYDR-3164 PO (19:06)
== END 2019-01-30 18:55 | disposition home or self-care (01) ==
LOC: ER 18:01
DX: L73.2 Hidradenitis suppurativa (principal); R03.0 Elevated blood-pressure reading, without diagnosis of hypertension; F17.200 Nicotine dependence, unspecified, uncomplicated; Z88.5 Allergy status to narcotic agent
CPT/HCPCS: 99283

== ENCOUNTER 2019-04-04 20:29 | Emergency (ER) | payer OTHER, MEDICAID ==
[~2019-04-04] VITALS: Ht 177.8 cm; Wt 99.8 kg
[~2019-04-04 20:29] MED LIST changes: +CEPH500C PO
[2019-04-04 20:42] VITALS: BP 148/82
[2019-04-04] MEDS ORDERED: HYDR-3164 PO (21:19)
[2019-04-04] MEDS ORDERED: SULF1TAB23 PO (21:19)
[2019-04-04] MEDS ORDERED: CEPH500T PO (21:19)
--- NOTE | 2019-04-04 21:19 | PHYS DOC ---
Past Medical History Past Medical History: Arthritis, Fibromyalgia, Other Additional Past Medical Histor: Hidradenitis suppurativa in axilla and groin Past Surgical History: Other Additional Past Surgical Histo: I&D for hidradenitis suppurativa to L and R groin Alcohol Use: Rarely Drug Use: None Adult General Chief Complaint Chief Complaint: SKIN RASH/ABSCESS HPI HPI Patient is a 33 year old male with history of hidradenitis supra-who presents to the ED today complaining of infection on the left groin region that began February 05, 2019 he is on surgeon at [facility] did a small procedure to the area, he states the area was healing okay but today he noted there is increased redness to the area and yellow drainage. Denies any fever. Denies any fever nausea vomiting. Denies any difficulty urinating. Review of Systems Review of Systems Constitutional: Denies fever or chills [] GI: Denies abdominal pain, nausea, vomiting, bloody stools or diarrhea [] : Denies dysuria or hematuria [] Musculoskeletal: Denies back pain or joint pain [] Integument: Left groin infection Neurologic: Denies headache, focal weakness or sensory changes [] All other systems were reviewed and found to be within normal limits, except as documented in this note. Allergies Allergies Allergies Coded Allergies Type Severity Reaction Last Updated Verified morphine Allergy Intermediate hallucinations 06/09/18 Yes naproxen Allergy Intermediate 02/15/17 Yes Physical Exam Physical Exam Constitutional: Well developed, well nourished, no acute distress, non-toxic appearance. [] Abdomen: Bowel sounds normal, soft, no tenderness, no masses, no pulsatile mass es. [] Skin: Left groin with with erythema, this tracing yellow drainage to this area. Back: No tenderness, no CVA tenderness. [] Extremities: No tenderness, no cyanosis, no clubbing, ROM intact, no edema. [] Neurologic: Alert and oriented X 3, normal motor function, normal sensory function, no focal deficits noted. [] Psychologic: Affect normal, judgement normal, mood normal. [] Current Patient Data Vital Signs Vital Signs Date Time Temp Pulse Resp B/P (MAP) Pulse Ox O2 Delivery O2 Flow Rate FiO2 04/04/19 20:42 98.4 83 20 148/82 (104) 99 Room Air 98.4 EKG EKG [] Radiology/Procedures Radiology/Procedures [] Course & Med Decision Making Course & Med Decision Making Pertinent Labs and Imaging studies reviewed. (See chart for details) This is a 33-year-old female patient well known to this ED for hydradenitis supra-presenting to the ED today with left groin infection. Patient was put on Bactrim and cephalexin. He has a surgeon he follows up with at [facility], he states he'll follow-up next week. He has no signs of systemic infection. Dragon Disclaimer Dragon Disclaimer This electronic medical record was generated, in whole or in part, using a voice recognition dictation system. Departure Departure Impression: Primary Impression: Hidradenitis suppurativa Additional Impression: Abscess or cellulitis of groin Disposition: 01 HOME, SELF-CARE Condition: STABLE Referrals: NO PCP (PCP) Follow-up with your surgeon at [facility] Patient Instructions: Abscess, Cellulitis, [id number] Additional Instructions: You were seen in the emergency room with infection to the groin. Please continue following up with your surgeon next week. Take the prescribed antibiotics until completed. Come back to the ED at any point symptoms worsen. Scripts Sulfamethoxazole/Trimethoprim (BACTRIM 400-80 MG TABLET) 1 Each Tablet 1 TAB PO BID, #20 TAB Prov: ROULA HUMMEL APRN 04/04/19 Cephalexin (CEPHALEXIN) 500 Mg Tablet 1 TAB PO QID, #40 TAB Prov: ROULA HUMMEL APRN 04/04/19 Hydrocodone/Apap 5-325 (NORCO 5-325 TABLET) 1 Each Tablet 1 TAB PO Q6HRS, #12 TAB Prov: ROULA HUMMEL APRN 04/04/19 Problem Qualifiers ROULA HUMMEL APRN April 04, 2019 21:19
== END 2019-04-04 21:48 | disposition home or self-care (01) ==
LOC: ER 20:29
DX: L73.2 Hidradenitis suppurativa (principal); L08.89 Other specified local infections of the skin and subcutaneous tissue; Z88.5 Allergy status to narcotic agent
CPT/HCPCS: 99283

== ENCOUNTER 2019-06-01 21:53 | Emergency (ER) | payer OTHER, MEDICAID ==
[~2019-06-01] VITALS: Ht 180.3 cm; Wt 99.8 kg
[~2019-06-01 21:53] MED LIST changes: +SULF1TAB23 PO
[2019-06-01 22:15] VITALS: BP 159/86
[2019-06-01] MEDS ORDERED: HYDR-3164 PO (22:23)
[2019-06-01] MEDS ORDERED: CEPH500C PO (22:23)
[2019-06-01] MEDS ORDERED: SULF1TAB24 PO (22:23)
--- NOTE | 2019-06-01 22:24 | PHYS DOC ---
Past Medical History Past Medical History: Arthritis, Fibromyalgia, Other Additional Past Medical Histor: Hidradenitis suppurativa in axilla and groin (ROULA HUMMEL APRN) Past Surgical History: Other Additional Past Surgical Histo: I&D for hidradenitis suppurativa to L and R groin (ROULA HUMMEL APRN) Alcohol Use: Rarely Drug Use: None (ROULA HUMMEL APRN) Adult General Chief Complaint Chief Complaint: ABSCESS HPI HPI Patient is a 33 year old male with history of hydradenitis who presents to the ED today complaining of chronic left groin abscess. Patient states he follows up with a surgeon at [facility] will not do a procedure for this abscesses is until he has three outbreaks within a short time. (ROULA HUMMEL APRN) Review of Systems Review of Systems Constitutional: Denies fever or chills [] Musculoskeletal: Denies back pain or joint pain [] Integument: Reports left groin abscess Neurologic: Denies headache, focal weakness or sensory changes [] All other systems were reviewed and found to be within normal limits, except as documented in this note. (ROULA HUMMEL APRN) Allergies Allergies Allergies Coded Allergies Type Severity Reaction Last Updated Verified morphine Allergy Intermediate hallucinations 06/09/18 Yes naproxen Allergy Intermediate 02/15/17 Yes (SRAA JUAREZ MD) Physical Exam Physical Exam Constitutional: Well developed, well nourished, no acute distress, non-toxic appearance. [] Skin: Warm, dry, left groin region with a weight muscle related region with erythema, trace drainage, multiple scars noted on his groin region bilaterally from previous abscesses. There is no fluctuance to this region. Back: No tenderness, no CVA tenderness. [] Extremities: No tenderness, no cyanosis, no clubbing, ROM intact, no edema. [] Neurologic: Alert and oriented X 3, normal motor function, normal sensory function, no focal deficits noted. [] Psychologic: Affect normal, judgement normal, mood normal. [] (ROULA HUMMEL APRN) Current Patient Data Vital Signs Vital Signs Date Time Temp Pulse Resp B/P (MAP) Pulse Ox O2 Delivery O2 Flow Rate FiO2 06/01/19 22:15 98.2 68 14 159/86 (110) 99 Room Air 98.2 (SARA JUAREZ MD) EKG EKG [] (ROULA HUMMEL APRN) Radiology/Procedures Radiology/Procedures [] (ROULA HUMMEL APRN) Course & Med Decision Making Course & Med Decision Making Pertinent Labs and Imaging studies reviewed. (See chart for details) This is a 33-year-old male patient with history of hydradenitis presenting to the ED today with a chronic left groin abscess. Patient was given prescription for Bactrim and cephalexin. He has follows up with a surgeon at [facility]. He states he s must have 3 outbreaks within a short time before they can do a procedure for his chronic abscess. He has no fluctuance to this abscess on his groin today. His tetanus is up-to-date. Provided return precautions and discharged in stable condition. (ROULA HUMMEL APRN) Course & Med Decision Making Staff Physician Addendum: I was working in the ER during the course of this patient's visit. I was available for consultation as needed, but I was not directly involved in the care of this patient. (SARA JUAREZ MD) Dragon Disclaimer Dragon Disclaimer This electronic medical record was generated, in whole or in part, using a voice recognition dictation system. (ROULA HUMMEL APRN) Departure Departure Impression: Primary Impression: Hidradenitis suppurativa Additional Impression: Abscess or cellulitis of groin Disposition: 01 HOME, SELF-CARE Condition: STABLE Referrals: NO PCP (PCP) follow up with your doctor at [facility] Patient Instructions: Abscess Additional Instructions: You were evaluated in the emergency for chronic abscess. Please follow-up with your surgeon at [facility] as soon as you can. Scripts Hydrocodone/Apap 5-325 (NORCO 5-325 TABLET) 1 Each Tablet 1 TAB PO Q6-8HRS PRN for PAIN, #10 TAB Prov: ROULA HUMMEL APRN 06/01/19 Cephalexin (CEPHALEXIN) 500 Mg Capsule 1 CAP PO QID, #40 CAP Prov: ROULA HUMMEL APRN 06/01/19 Sulfamethoxazole/Trimethoprim (BACTRIM DS TABLET) 1 Each Tablet 1 TAB PO BID, #20 TAB Prov: ROULA HUMMEL APRN 06/01/19 Problem Qualifiers ROULA HUMMEL APRN Jun 01, 2019 22:24 SARA JUAREZ MD Jun 02, 2019 05:02
== END 2019-06-01 22:39 | disposition home or self-care (01) ==
LOC: ER 21:53
DX: L02.214 Cutaneous abscess of groin (principal); L73.2 Hidradenitis suppurativa; M79.7 Fibromyalgia; Z88.5 Allergy status to narcotic agent; Z88.8 Allergy status to other drugs, medicaments and biological substances
CPT/HCPCS: 99283

== ENCOUNTER 2019-08-04 18:24 | Emergency (ER) | payer OTHER, MEDICAID ==
[~2019-08-04] VITALS: Ht 177.8 cm; Wt 99.8 kg
[2019-08-04] MEDS ORDERED: CLIN150C14 PO (19:40)
[2019-08-04] MEDS ORDERED: OXYC-325 PO (19:40)
--- NOTE | 2019-08-04 19:40 | PHYS DOC ---
Past Medical History Past Medical History: Abscess, Arthritis, Fibromyalgia, Other Additional Past Medical Histor: Hidradenitis suppurativa in axilla and groin Past Surgical History: Other Additional Past Surgical Histo: I&D for hidradenitis suppurativa to L and R groin Alcohol Use: Rarely Drug Use: None Adult General Chief Complaint Chief Complaint: TESTICULAR PAIN OR INJURY HPI HPI Patient is a 33 year old [f__sex] who presents with [] Review of Systems Review of Systems Constitutional: Denies fever or chills [] Eyes: Denies change in visual acuity, redness, or eye pain [] HENT: Denies nasal congestion or sore throat [] Respiratory: Denies cough or shortness of breath [] Cardiovascular: No additional information not addressed in HPI [] GI: Denies abdominal pain, nausea, vomiting, bloody stools or diarrhea [] : Denies dysuria or hematuria [] Musculoskeletal: Denies back pain or joint pain [] Integument: Denies rash or skin lesions [] Neurologic: Denies headache, focal weakness or sensory changes [] Endocrine: Denies polyuria or polydipsia [] All other systems were reviewed and found to be within normal limits, except as documented in this note. Allergies Allergies Allergies Coded Allergies Type Severity Reaction Last Updated Verified morphine Allergy Intermediate hallucinations 06/09/18 Yes naproxen Allergy Intermediate 02/15/17 Yes Physical Exam Physical Exam Constitutional: Well developed, well nourished, no acute distress, non-toxic appearance. [] HENT: Normocephalic, atraumatic, bilateral external ears normal, oropharynx moist, no oral exudates, nose normal. [] Eyes: PERRLA, EOMI, conjunctiva normal, no discharge. [] Neck: Normal range of motion, no tenderness, supple, no stridor. [] Cardiovascular:Heart rate regular rhythm, no murmur [] Lungs & Thorax: Bilateral breath sounds clear to auscultation [] Abdomen: Bowel sounds normal, soft, no tenderness, no masses, no pulsatile masses. [] Skin: Warm, dry, no erythema, no rash. [] Back: No tenderness, no CVA tenderness. [] Extremities: No tenderness, no cyanosis, no clubbing, ROM intact, no edema. [] Neurologic: Alert and oriented X 3, normal motor function, normal sensory function, no focal deficits noted. [] Psychologic: Affect normal, judgement normal, mood normal. [] EKG EKG [] Radiology/Procedures Radiology/Procedures [] Course & Med Decision Making Course & Med Decision Making Pertinent Labs and Imaging studies reviewed. (See chart for details) [] Dragon Disclaimer Dragon Disclaimer This electronic medical record was generated, in whole or in part, using a voice recognition dictation system. Departure Departure Impression: Primary Impression: Hidradenitis suppurativa Disposition: HOME, SELF-CARE Condition: STABLE Referrals: NO PCP (PCP) Patient Instructions: Hidradenitis Suppurativa, Sweat Gland Abscess Scripts Oxycodone HCl/Acetaminophen (Percocet 5-325 mg Tablet) 1 Each Tablet 0.5-1 EACH PO Q6HRS PRN for PAIN, #10 TAB Prov: AZEB CRAFT DO 08/04/19 Clindamycin Hcl (CLINDAMYCIN HCL) 150 Mg Capsule 3 CAP PO TID for 7 Days, #63 CAP Prov: AZEB CRAFT DO 08/04/19 AZEB CRAFT DO Aug 04, 2019 19:40
[2019-08-04] MEDS ORDERED: CLINDAMYCIN HCL 150 MG CAPSULE. PO ONE (19:45)
[2019-08-04 19:53] VITALS: BP 127/76
== END 2019-08-04 20:15 | disposition home or self-care (01) ==
LOC: ER 18:24
DX: L73.2 Hidradenitis suppurativa (principal); M19.90 Unspecified osteoarthritis, unspecified site; M79.7 Fibromyalgia; Z88.5 Allergy status to narcotic agent; Z88.8 Allergy status to other drugs, medicaments and biological substances
CPT/HCPCS: 99283

== ENCOUNTER 2019-10-01 16:27 | Inpatient (IN) | payer OTHER, MEDICAID ==
[~2019-10-01] VITALS: Ht 177.8 cm; Wt 99.8 kg
[~2019-10-01 16:27] MED LIST changes: +DOXY-96 PO; -DOXY100T9 PO; +OXYC-325 PO
[2019-10-01] MEDS ORDERED: VANCOMYCIN PER PHARMACY MC ONE (17:30)
[2019-10-01] MEDS ORDERED: ONDANSETRON PF 4 MG/2 ML VIAL. ONE (17:49)
[2019-10-01] MEDS: IV NORMAL SALINE 1000ML BAG 1,000 ML IV SCH ×2 (17:54→21:10)
[2019-10-01] MEDS: fentaNYL PF VIAL 100 MCG/2 ML VIAL IV PRN ×2 (17:55→18:32)
[2019-10-01 17:56] LABS: BASO # 0.1 x10^3/uL (0.0-0.2); BASO % 1 % (0-3); EOS # 0.2 x10^3/uL (0.0-0.7); EOS % 3 % (0-3); HEMATOCRIT 43.4 % (39.0-53.0); HEMOGLOBIN 14.8 g/dL (13.0-17.5); LYMPH # 2.9 x10^3/uL (1.0-4.8); LYMPH % 31 % (24-48); MEAN CORPUSCULAR HEMOGLOBIN 31 pg (25-35); MEAN CORPUSCULAR HGB CONC 34 g/dL (31-37); MEAN CORPUSCULAR VOLUME 91 fL (79-100); MONO # 0.4 x10^3/uL (0.0-1.1); MONO % 5 % (0-9); NEUT # 5.7 x10^3/uL (1.8-7.7); NEUT % 61 % (31-73); PLATELET COUNT 283 x10^3/uL (140-400); RED BLOOD COUNT 4.79 x10^6/uL (4.30-5.70); RED CELL DISTRIBUTION WIDTH 13.2 % (11.5-14.5); WHITE BLOOD COUNT 9.4 x10^3/uL (4.0-11.0)
[2019-10-01] MEDS ORDERED: VANCOMYCIN 2 GM in IV NORMAL SALINE 500ML BAG 500 ML IV ONE (18:00)
[2019-10-01] MEDS ORDERED: ONDANSETRON PF 4 MG/2 ML VIAL. IV ONE (18:00)
[2019-10-01 18:14] LABS: CALCIUM 8.8 mg/dL (8.5-10.1); CREATININE 0.8 mg/dL (0.7-1.3)
[2019-10-01 18:20] LABS: ALBUMIN 3.5 g/dL (3.4-5.0); ALBUMIN/GLOBULIN RATIO 0.9 (1.0-1.7); C-REACTIVE PROTEIN 15.5 mg/L (0-3.3); TOTAL BILIRUBIN 0.2 mg/dL (0.2-1.0); TOTAL PROTEIN 7.2 g/dL (6.4-8.2)
--- NOTE | 2019-10-01 19:05 | PHYS DOC ---
Past Medical History Past Medical History: Abscess, Arthritis, Fibromyalgia, Other Additional Past Medical Histor: Hidradenitis suppurativa in axilla and groin (ROULA HUMMEL APRN) Past Surgical History: Other Additional Past Surgical Histo: I&D for hidradenitis suppurativa to L and R josh in (ROULA HUMMEL APRN) Alcohol Use: Rarely Drug Use: None (ROULA HUMMEL APRN) Adult General Chief Complaint Chief Complaint: ABSCESS HPI HPI Patient is a 33 year old male with history of hidradenitis supra-around his groin region who presents to the ED today stating his own PCP sent him to the ED to be admitted for IV antibiotics. Patient also reports his been running fevers since yesterday, he states he took Tylenol prior to coming to the ED. Patient states they have tried him on Bactrim and cephalexin which did not clear the infection, he states he was told he is resistant to this to drugs. He states he was put on clindamycin which she completed a week ago but the infection has not cleared all the way. He states his PCP requested he comes the ED to be admitted. He reports he see's a special surgeon at [facility] but states he does not have an appointment until next month. (ROULA HUMMEL APRN) Review of Systems Review of Systems Constitutional: Reports fever Eyes: Denies change in visual acuity, redness, or eye pain [] HENT: Denies nasal congestion or sore throat [] Respiratory: Denies cough or shortness of breath [] Cardiovascular: No additional information not addressed in HPI [] GI: Denies abdominal pain, nausea, vomiting, bloody stools or diarrhea [] : Denies dysuria or hematuria [] Musculoskeletal: Denies back pain or joint pain [] Integument: Reports hydradenitis supra-infection around the groin region Neurologic: Denies headache, focal weakness or sensory changes [] All other systems were reviewed and found to be within normal limits, except as documented in this note. (ROULA HUMMEL APRN) Current Medications Current Medications Current Medications Medications (Trade) Dose Ordered Sig/Vanessa Start Time Stop Time Status Last Admin Dose Admin Fentanyl Citrate (Fentanyl 2ml Vial) 50 mcg PRN Q15MIN PRN 10/01/19 17:30 10/02/19 17:29 10/01/19 18:32 50 MCG Levofloxacin/ Dextrose 150 ml @ 100 mls/hr 1X ONCE 10/01/19 17:30 10/01/19 18:59 DC 10/01/19 17:56 100 MLS/HR Ondansetron HCl (Zofran) 4 mg 1X ONCE 10/01/19 18:00 10/01/19 18:01 DC 10/01/19 17:55 4 MG Sodium Chloride 1,000 ml @ 2,190 mls/hr Q28M 10/01/19 17:27 10/01/19 18:21 DC 10/01/19 21:10 2,190 MLS/HR Vancomycin HCl (Vanco Per Pharmacy) 1 each 1X ONCE 10/01/19 17:30 10/01/19 18:54 DC 10/01/19 21:00 1 EACH Vancomycin HCl 2 gm/Sodium Chloride 500 ml @ 250 mls/hr 1X ONCE 10/01/19 18:00 10/01/19 19:59 DC 10/01/19 21:10 250 MLS/HR (AZEB CRAFT DO) Allergies Allergies Allergies Coded Allergies Type Severity Reaction Last Updated Verified morphine Allergy Intermediate hallucinations 06/09/18 Yes naproxen Allergy Intermediate 02/15/17 Yes (AZEB CRAFT DO) Physical Exam Physical Exam Constitutional: Well developed, well nourished, no acute distress, non-toxic appearance. [] HENT: Normocephalic, atraumatic, bilateral external ears normal, oropharynx moist, no oral exudates, nose normal. [] Eyes: PERRLA, EOMI, conjunctiva normal, no discharge. [] Neck: Normal range of motion, no tenderness, supple, no stridor. [] Cardiovascular:Heart rate regular rhythm, no murmur [] Lungs & Thorax: Bilateral breath sounds clear to auscultation [] Abdomen: Bowel sounds normal, soft, no tenderness, no masses, no pulsatile masses. [] Skin: Right groin region with lesions consistent with hydradenitis supra-with slight cellulitis, no obvious drainage noted Back: No tenderness, no CVA tenderness. [] Extremities: No tenderness, no cyanosis, no clubbing, ROM intact, no edema. [] Neurologic: Alert and oriented X 3, normal motor function, normal sensory function, no focal deficits noted. [] Psychologic: Affect normal, judgement normal, mood normal. [] (KIANAROULA Vargas APRN) Current Patient Data Vital Signs Vital Signs Date Time Temp Pulse Resp B/P (MAP) Pulse Ox O2 Delivery O2 Flow Rate FiO2 10/01/19 17:46 72 16 128/74 (92) 99 Room Air 10/01/19 17:08 98.4 98.4 (CRAFT,AZEB R DO) Lab Values Laboratory Tests Test 10/01/19 17:44 White Blood Count 9.4 x10^3/uL (4.0-11.0) Red Blood Count 4.79 x10^6/uL (4.30-5.70) Hemoglobin 14.8 g/dL (13.0-17.5) Hematocrit 43.4 % (39.0-53.0) Mean Corpuscular Volume 91 fL (79-100) Mean Corpuscular Hemoglobin 31 pg (25-35) Mean Corpuscular Hemoglobin Concent 34 g/dL (31-37) Red Cell Distribution Width 13.2 % (11.5-14.5) Platelet Count 283 x10^3/uL (140-400) Neutrophils (%) (Auto) 61 % (31-73) Lymphocytes (%) (Auto) 31 % (24-48) Monocytes (%) (Auto) 5 % (0-9) Eosinophils (%) (Auto) 3 % (0-3) Basophils (%) (Auto) 1 % (0-3) Neutrophils # (Auto) 5.7 x10^3/uL (1.8-7.7) Lymphocytes # (Auto) 2.9 x10^3/uL (1.0-4.8) Monocytes # (Auto) 0.4 x10^3/uL (0.0-1.1) Eosinophils # (Auto) 0.2 x10^3/uL (0.0-0.7) Basophils # (Auto) 0.1 x10^3/uL (0.0-0.2) Erythrocyte Sedimentation Rate 7 (0-15) Sodium Level 141 mmol/L (136-145) Potassium Level 4.0 mmol/L (3.5-5.1) Chloride Level 106 mmol/L (98-107) Carbon Dioxide Level 23 mmol/L (21-32) Anion Gap 12 (6-14) Blood Urea Nitrogen 11 mg/dL (8-26) Creatinine 0.8 mg/dL (0.7-1.3) Estimated GFR (Cockcroft-Gault) 110.0 BUN/Creatinine Ratio 14 (6-20) Glucose Level 95 mg/dL (70-99) Lactic Acid Level 0.8 mmol/L (0.4-2.0) Calcium Level 8.8 mg/dL (8.5-10.1) Total Bilirubin 0.2 mg/dL (0.2-1.0) Aspartate Amino Transferase (AST) 14 U/L (15-37) L Alanine Aminotransferase (ALT) 19 U/L (16-63) Alkaline Phosphatase 135 U/L (46-116) H C-Reactive Protein, Quantitative 15.5 mg/L (0-3.3) H Total Protein 7.2 g/dL (6.4-8.2) Albumin 3.5 g/dL (3.4-5.0) Albumin/Globulin Ratio 0.9 (1.0-1.7) L Procalcitonin < 0.10 ng/mL (0.00-0.10) Laboratory Tests 10/01/19 17:44 Laboratory Tests 10/01/19 17:44 (AZEB CRAFT DO) EKG EKG [] (ROULA HUMMEL APRN) Radiology/Procedures Radiology/Procedures [] (ROUAL HUMMEL APRN) Course & Med Decision Making Course & Med Decision Making Pertinent Labs and Imaging studies reviewed. (See chart for details) This is a 33-year-old male patient well known to this ED for hydradenitis supra infection around his groin region presenting today complaining of fever and worsening hydradenitis supra and stating his PCP sent him to the ED to be admitted for IV antibiotics. Patient reports she just completed a round of clindamycin last week. CBC with a normal WBC. Lactic is normal, C-reactive 15.5. Spoke with Dr. Downing who accepted patient for admission (ROULA HUMMEL APRN) Dragon Disclaimer Dragon Disclaimer This electronic medical record was generated, in whole or in part, using a voice recognition dictation system. (ROULA HUMMEL APRN) Departure Departure Impression: Primary Impression: Hidradenitis suppurativa Additional Impression: Fever Disposition: 09 ADMITTED INPATIENT Condition: STABLE Referrals: NO PCP (PCP) Attending Signature Attending Signature I have reviewed the PA/LIFE TEACHER's note and plan of care. I was available for consultation as needed during the patient's visit in the emergency department. I agree with the clinical impression, plan, and disposition. (AZEB CRAFT DO) Problem Qualifiers Additional Impression: Fever Fever type: unspecified Qualified Codes: R50.9 - Fever, unspecified MUTUNGA,ROULA COST ACCOUNTING CLERK Oct 01, 2019 19:05 AZEB CRAFT DO Oct 02, 2019 02:54
[2019-10-01] MEDS ORDERED: ACETAMINOPHEN 325 MG TABLET. PO PRN (19:15)
[2019-10-01] MEDS ORDERED: ONDANSETRON PF 4 MG/2 ML VIAL. IV PRN (19:15)
[2019-10-01] MEDS ORDERED: fentaNYL PF VIAL 100 MCG/2 ML VIAL IV PRN (19:15)
[2019-10-01 19:30] VITALS: BP 130/73
[2019-10-01] MEDS ORDERED: IV NORMAL SALINE 1000ML BAG 1,000 ML IV SCH (21:45)
[2019-10-01] MEDS ORDERED: HYDROcodone/APAP 7.5/325MG 1 TAB TABLET PO PRN (21:45)
[2019-10-01] MEDS: HYDROcodone/APAP 7.5/325MG 1 TAB TABLET PO PRN (21:59)
--- NOTE | 2019-10-01 22:10 | PDOC1 ---
History and Physical Date of Admission Date of Admission DATE: 10/01/19 TIME: 22:09 History of Present Illness History of Present Illness Albert is a 33 year old male with history of hidradenitis supprativa admit with rash, groin pain, redness and wetness. Sent to the ED today by his PCP for IV antibiotics. recent fever today, he had been on Bactrim and cephalexin which did not clear the infection, he states he was told he is resistant to this to drugs. Completed clindamycin course a week ago without resolution. He has been following Dr. Bocanegra at for surg revision, planned with plastics also, has appt in 2 days Past Medical History Cardiovascular: No pertinent hx GI: No pertinent hx Heme/Onc: No pertinent hx Psych: No pertinent hx Renal/: No pertinent hx Endocrine: No pertinent hx Dermatology: Rash Past Surgical History Past Surgical History: Other Family History Family History: Hypertension Social History Smoke: <1 pack per day ALCOHOL: occassional Drugs: None Current Problem List Problem List Problems Medical Problems: (1) Fever Status: Acute (2) Hidradenitis suppurativa Status: Acute Current Medications Current Medications Current Medications Sodium Chloride 1,000 ml @ 2,190 mls/hr Q28M IV Last administered on 10/01/19at 21:10; Start 10/01/19 at 17:27; Stop 10/01/19 at 18:21; Status DC Vancomycin HCl (Vanco Per Pharmacy) 1 each 1X ONCE MC Last administered on 10/01/19at 21:00; Start 10/01/19 at 17:30; Stop 10/01/19 at 18:54; Status DC Levofloxacin/ Dextrose 150 ml @ 100 mls/hr 1X ONCE IV Last administered on 10/01/19at 17:56; Start 10/01/19 at 17:30; Stop 10/01/19 at 18:59; Status DC Fentanyl Citrate (Fentanyl 2ml Vial) 50 mcg PRN Q15MIN PRN IV PAIN GREATER THAN 3/10 Last administered on 10/01/19at 18:32; Start 10/01/19 at 17:30; Stop 10/02/19 at 17:29 Vancomycin HCl 2 gm/Sodium Chloride 500 ml @ 250 mls/hr 1X ONCE IV Last administered on 10/01/19at 21:10; Start 10/01/19 at 18:00; Stop 10/01/19 at 19:59; Status DC Ondansetron HCl (Zofran) 4 mg STK-MED ONCE .ROUTE ; Start 10/01/19 at 17:49; Stop 10/01/19 at 17:50; Status DC Ondansetron HCl (Zofran) 4 mg 1X ONCE IV Last administered on 10/01/19at 17:55; Start 10/01/19 at 18:00; Stop 10/01/19 at 18:01; Status DC Ondansetron HCl (Zofran) 4 mg PRN Q8HRS PRN IV NAUSEA/VOMITING; Start 10/01/19 at 19:15; Stop 10/02/19 at 19:14 Fentanyl Citrate (Fentanyl 2ml Vial) 50 mcg PRN Q1HR PRN IV PAIN Last administered on 10/01/19at 20:06; Start 10/01/19 at 19:15; Stop 10/02/19 at 19:14 Acetaminophen (Tylenol) 650 mg PRN Q4HRS PRN PO FEVER; Start 10/01/19 at 19:15; Stop 10/02/19 at 19:14 Acetaminophen/ Hydrocodone Bitart (Lortab 7.5/325) 1 tab PRN Q4HRS PRN PO MODERATE PAIN 4-6; Start 10/01/19 at 21:45 Acetaminophen/ Hydrocodone Bitart (Lortab 7.5/325) 2 tab PRN Q4HRS PRN PO SEVERE PAIN 7-10 Last administered on 10/01/19at 21:59; Start 10/01/19 at 21:45 Sodium Chloride 1,000 ml @ 75 mls/hr [id number] IV Last administered on 10/01/19at 21:45; Start 10/01/19 at 21:45 Active Scripts Active Percocet 5-325 mg Tablet (Oxycodone HCl/Acetaminophen) 1 Each Tablet 0.5-1 Each PO Q6HRS PRN Clindamycin Hcl 150 Mg Capsule 3 Cap PO TID 7 Days Savery 5-325 Tablet (Acetaminophen/Hydrocodone Bitart) 1 Each Tablet 1 Tab PO Q6- 8HRS PRN Cephalexin 500 Mg Capsule 1 Cap PO QID Bactrim Ds Tablet (Sulfamethoxazole/Trimethoprim) 1 Each Tablet 1 Tab PO BID Bactrim 400-80 Mg Tablet (Sulfamethoxazole/Trimethoprim) 1 Each Tablet 1 Tab PO BID Cephalexin 500 Mg Tablet 1 Tab PO QID Savery 5-325 Tablet (Acetaminophen/Hydrocodone Bitart) 1 Each Tablet 1 Tab PO Q6HRS Savery 5-325 Tablet (Acetaminophen/Hydrocodone Bitart) 1 Each Tablet 1-2 Each PO PRN Q6HRS PRN as needed for pain Cephalexin 500 Mg Capsule 1 Cap PO QID Bactrim Ds Tablet (Sulfamethoxazole/Trimethoprim) 1 Each Tablet 1 Tab PO BID Cephalexin 500 Mg Tablet 1 Tab PO QID Bactrim Ds Tablet (Sulfamethoxazole/Trimethoprim) 1 Each Tablet 1 Tab PO BID Savery 5-325 Tablet (Acetaminophen/Hydrocodone Bitart) 1 Each Tablet 1 Tab PO Q6HRS Savery 5-325 Tablet (Acetaminophen/Hydrocodone Bitart) 1 Each Tablet 1 Tab PO PRN Q6HRS PRN Bactrim Ds Tablet (Sulfamethoxazole/Trimethoprim) 1 Each Tablet 1 Tab PO BID Cephalexin 500 Mg Tablet 1 Tab PO QID Bactrim Ds Tablet (Sulfamethoxazole/Trimethoprim) 1 Each Tablet 1 Tab PO BID Sa[place] 5-325 Tablet (Acetaminophen/Hydrocodone Bitart) 1 Each Tablet 1 Tab PO Q6HRS Clindamycin Hcl 150 Mg Capsule 3 Cap PO TID Hydrocodone-Apap 7.5-325 (Hydrocodone Bit/Acetaminophen) 1 Each Tablet 1 Tab PO PRN Q6HRS PRN Doxycycline Hyclate 100 Mg Tablet.dr 1 Tab PO BID 10 Days Clindamycin Hcl 300 Mg Capsule 300 Mg PO QID 10 Days Savery 5-325 Tablet (Acetaminophen/Hydrocodone Bitart) 1 Each Tablet 1-2 Tab PO Q4-6HRS Savery 5-325 Tablet (Acetaminophen/Hydrocodone Bitart) 1 Each Tablet 1 Tab PO BID 4 Days Bactrim Ds Tablet (Sulfamethoxazole/Trimethoprim) 1 Each Tablet 1 Tab PO BID 10 Days Savery 5-325 Tablet (Acetaminophen/Hydrocodone Bitart) 1 Each Tablet 1 Tab PO Q6HRS Clindamycin Hcl 150 Mg Capsule 2 Cap PO TID Savery 5-325 Tablet (Acetaminophen/Hydrocodone Bitart) 1 Each Tablet 1 Tab PO PRN Q6HRS PRN Bactrim Ds Tablet (Sulfamethoxazole/Trimethoprim) 1 Each Tablet 1 Tab PO BID Savery 5-325 Tablet (Acetaminophen/Hydrocodone Bitart) 1 Each Tablet 1 Tab PO Q6- 8HRS PRN Percocet 5-325 Mg Tablet (Oxycodone/Acetaminophen) 1 Each Tablet 1 Tab PO BID 4 Days Cephalexin 500 Mg Tablet 1 Tab PO TID 7 Days Bactrim Ds Tablet (Sulfamethoxazole/Trimethoprim) 1 Each Tablet 1 Tab PO BID Savery 5-325 Tablet (Acetaminophen/Hydrocodone Bitart) 1 Each Tablet 1-2 Tab PO Q4-6HRS PRN 2 Days Keflex (Cephalexin) 500 Mg Capsule 1 Cap PO TID 10 Days Bactrim Ds Tablet (Sulfamethoxazole/Trimethoprim) 1 Each Tablet 1 Tab PO BID 10 Days Amoxicillin 500 Mg Capsule 2 Cap PO BID Savery 5-325 Tablet (Acetaminophen/Hydrocodone Bitart) 1 Each Tablet 1 Tab PO PRN Q6HRS PRN Tramadol Hcl 50 Mg Tablet 50 Mg PO Q6H PRN Bactrim Ds Tablet (Sulfamethoxazole/Trimethoprim) 1 Each Tablet 1 Tab PO BID Percocet 5-325 Mg Tablet (Oxycodone/Acetaminophen) 1 Each Tablet 1 Tab PO PRN Q6HRS PRN Clindamycin Hcl 300 Mg Capsule 1 Cap PO TID Percocet 5-325 Mg Tablet (Oxycodone/Acetaminophen) 1 Each Tablet 1 Tab PO PRN Q6HRS PRN Clindamycin Hcl 150 Mg Capsule 2 Cap PO QID 10 Days Clindamycin Hcl 150 Mg Capsule 2 Cap PO QID 7 Days Bactrim Ds Tablet (Sulfamethoxazole/Trimethoprim) 1 Each Tablet 1 Tab PO BID Percocet 5-325 Mg Tablet (Oxycodone/Acetaminophen) 1 Each Tablet 1-2 Tab PO Q6HRS Percocet 5-325 Mg Tablet (Oxycodone/Acetaminophen) 1 Each Tablet 1 Tab PO PRN Q6HRS PRN Clindamycin Phosphate 30 Gm Gel..gram. 1 Mirian TP BID Reported Trazodone Hcl 150 Mg Tablet 150 Mg PO HS Gabapentin (Gabapentin) 300 Mg Capsule 300 Mg PO BID Tramadol Hcl 50 Mg Tablet 50 Mg PO Q6H PRN Zyrtec (Cetirizine Hcl) 10 Mg Tablet 10 Mg PO DAILY Senna Plus Tablet (Sennosides/Docusate Sodium) 1 Each Tablet 1 Each PO DAILY Prozac (Fluoxetine Hcl) 40 Mg Capsule 40 Mg PO DAILY Allergies Allergies: Coded Allergies: morphine (Verified Allergy, Intermediate, hallucinations, 06/09/18) naproxen (Verified Allergy, Intermediate, 02/15/17) ROS General: YES: Fatigue, Malaise, Appetite PSYCHOLOGICAL ROS: YES: Sleep disturbances; No: Anxiety, Behavioral Disorder, Concentration difficultie, Decreased libido, Depression, Disorientation, Hallucinations, Hostility, Irritablity, Memory difficulties, Mood Swings, Obsessive thoughts, Physical abuse, Sexual abuse, Suicidal ideation, Other Eyes: No Blurry vision, No Decreased vision, No Double vision, No Dry eyes, No Eye Pain, No Itchy Eyes, No Loss of vision, No Photophobia, No Scotomata, No Uses contacts, No Uses glasses, No Other HEENT: No: Heacaches, Visual Changes, Hearing change, Nasal congestion, Nasal discharge, Oral lesions, Sinus pain, Sore Throat, Epistaxis, Sneezing, Snoring, Tinnitus, Vertigo, Vocal changes, Other Respiratory: No: Cough, Hemoptysis, Orthopnea, Pleuritic Pain, Shortness of breath, SOB with excertion, Sputum Changes, Stridor, Tachypnea, Wheezing, Other Cardiovascular: No Chest Pain, No Palpitations, No Orthopnea, No Paroxysmal Noc. Dyspnea, No Edema, No Lt Headedness, No Other Gastrointestinal: No Nausea, No Vomiting, No Abdominal Pain, No Diarrhea, No Constipation, No Melena, No Hematochezia, No Other Genitourinary: No Dysuria, No Frequency, No Incontinence, No Hematuria, No Retention, No Discharge, No Urgency, No Pain, No Flank Pain, No Other, No , No , No , No , No , No , No Musculoskeletal: No Gait Disturbance, No Joint Pain, No Joint Stiffness, No Joint Swelling, No Muscle Pain, No Muscular Weakness, No Pain In:, No Swelling In:, No Other Neurological: No Behavorial Changes, No Bowel/Bladder ControlChng, No Confusion, No Dizziness, No Gait Disturbance, No Headaches, No Impaired Coord/ balance, No Memory Loss, No Numbness/Tingling, No Seizures, No Speech Problems, No Tremors, No Visual Changes, No Weakness, No Other Skin: Yes Dry Skin, Yes Pruritus (and pain), Yes Rash, Yes Skin Lesion Changes, Yes Other Physical Exam General: Alert, Cooperative, mild distress HEENT: PERRLA, EOMI Lungs: Clear to auscultation, Normal air movement Heart: S1S2, no gallops Abdomen: Normal bowel sounds, Soft Rectal Exam: not examined Extremities: No clubbing Skin: Other (groin inflamed and red, with wetness, prior scars, ) Neuro: Normal speech, Sensation intact Psych/Mental Status: Mental status NL, Mood NL Vitals Vitals Vital Signs Date Time Temp Pulse Resp B/P (MAP) Pulse Ox O2 Delivery O2 Flow Rate FiO2 10/01/19 21:59 98 10/01/19 18:46 68 18 127/80 (96) Room Air 10/01/19 17:08 98.4 98.4 Labs Labs Laboratory Tests Test 10/01/19 17:44 White Blood Count 9.4 x10^3/uL (4.0-11.0) Red Blood Count 4.79 x10^6/uL (4.30-5.70) Hemoglobin 14.8 g/dL (13.0-17.5) Hematocrit 43.4 % (39.0-53.0) Mean Corpuscular Volume 91 fL (79-100) Mean Corpuscular Hemoglobin 31 pg (25-35) Mean Corpuscular Hemoglobin Concent 34 g/dL (31-37) Red Cell Distribution Width 13.2 % (11.5-14.5) Platelet Count 283 x10^3/uL (140-400) Neutrophils (%) (Auto) 61 % (31-73) Lymphocytes (%) (Auto) 31 % (24-48) Monocytes (%) (Auto) 5 % (0-9) Eosinophils (%) (Auto) 3 % (0-3) Basophils (%) (Auto) 1 % (0-3) Neutrophils # (Auto) 5.7 x10^3/uL (1.8-7.7) Lymphocytes # (Auto) 2.9 x10^3/uL (1.0-4.8) Monocytes # (Auto) 0.4 x10^3/uL (0.0-1.1) Eosinophils # (Auto) 0.2 x10^3/uL (0.0-0.7) Basophils # (Auto) 0.1 x10^3/uL (0.0-0.2) Erythrocyte Sedimentation Rate 7 (0-15) Sodium Level 141 mmol/L (136-145) Potassium Level 4.0 mmol/L (3.5-5.1) Chloride Level 106 mmol/L (98-107) Carbon Dioxide Level 23 mmol/L (21-32) Anion Gap 12 (6-14) Blood Urea Nitrogen 11 mg/dL (8-26) Creatinine 0.8 mg/dL (0.7-1.3) Estimated GFR (Cockcroft-Gault) 110.0 BUN/Creatinine Ratio 14 (6-20) Glucose Level 95 mg/dL (70-99) Lactic Acid Level 0.8 mmol/L (0.4-2.0) Calcium Level 8.8 mg/dL (8.5-10.1) Total Bilirubin 0.2 mg/dL (0.2-1.0) Aspartate Amino Transf (AST/SGOT) 14 U/L (15-37) Alanine Aminotransferase (ALT/SGPT) 19 U/L (16-63) Alkaline Phosphatase 135 U/L (46-116) C-Reactive Protein, Quantitative 15.5 mg/L (0-3.3) Total Protein 7.2 g/dL (6.4-8.2) Albumin 3.5 g/dL (3.4-5.0) Albumin/Globulin Ratio 0.9 (1.0-1.7) Procalcitonin < 0.10 ng/mL (0.00-0.10) Laboratory Tests Test 10/01/19 17:44 White Blood Count 9.4 x10^3/uL (4.0-11.0) Red Blood Count 4.79 x10^6/uL (4.30-5.70) Hemoglobin 14.8 g/dL (13.0-17.5) Hematocrit 43.4 % (39.0-53.0) Mean Corpuscular Volume 91 fL (79-100) Mean Corpuscular Hemoglobin 31 pg (25-35) Mean Corpuscular Hemoglobin Concent 34 g/dL (31-37) Red Cell Distribution Width 13.2 % (11.5-14.5) Platelet Count 283 x10^3/uL (140-400) Neutrophils (%) (Auto) 61 % (31-73) Lymphocytes (%) (Auto) 31 % (24-48) Monocytes (%) (Auto) 5 % (0-9) Eosinophils (%) (Auto) 3 % (0-3) Basophils (%) (Auto) 1 % (0-3) Neutrophils # (Auto) 5.7 x10^3/uL (1.8-7.7) Lymphocytes # (Auto) 2.9 x10^3/uL (1.0-4.8) Monocytes # (Auto) 0.4 x10^3/uL (0.0-1.1) Eosinophils # (Auto) 0.2 x10^3/uL (0.0-0.7) Basophils # (Auto) 0.1 x10^3/uL (0.0-0.2) Erythrocyte Sedimentation Rate 7 (0-15) Sodium Level 141 mmol/L (136-145) Potassium Level 4.0 mmol/L (3.5-5.1) Chloride Level 106 mmol/L (98-107) Carbon Dioxide Level 23 mmol/L (21-32) Anion Gap 12 (6-14) Blood Urea Nitrogen 11 mg/dL (8-26) Creatinine 0.8 mg/dL (0.7-1.3) Estimated GFR (Cockcroft-Gault) 110.0 BUN/Creatinine Ratio 14 (6-20) Glucose Level 95 mg/dL (70-99) Lactic Acid Level 0.8 mmol/L (0.4-2.0) Calcium Level 8.8 mg/dL (8.5-10.1) Total Bilirubin 0.2 mg/dL (0.2-1.0) Aspartate Amino Transf (AST/SGOT) 14 U/L (15-37) Alanine Aminotransferase (ALT/SGPT) 19 U/L (16-63) Alkaline Phosphatase 135 U/L (46-116) C-Reactive Protein, Quantitative 15.5 mg/L (0-3.3) Total Protein 7.2 g/dL (6.4-8.2) Albumin 3.5 g/dL (3.4-5.0) Albumin/Globulin Ratio 0.9 (1.0-1.7) Procalcitonin < 0.10 ng/mL (0.00-0.10) VTE Prophylaxis Ordered VTE Prophylaxis Devices: No VTE Pharmacological Prophylaxi: Yes Assessment/Plan Assessment/Plan cellultis hidranitis supprativa obese, BMI 31 tobacco use disorder BOB NEELY MD Oct 01, 2019 22:10
[2019-10-01 23:00] VITALS: BP 118/74
--- NOTE | 2019-10-02 00:05 | NUR ---
Patient arrived to unit at 1938 after this RN received report from Catie HERRING in the emergency room. Patient was complaining of a pain rating of 8 out of 10 in the right inner thigh/groin area. Patient wound was documented and photographed and placed in chart for further review. Patient was orientated to the unit. Patients bed was placed in lowest position and locked. Patient was given his call light. Dr. Downing rounded the unit and verbally placed orders and saw patient in person this evening. This RN will continue to monitor the patient.
[2019-10-02] MEDS ORDERED: VANCOMYCIN PER PHARMACY MC PRN (00:30)
--- NOTE | 2019-10-02 02:09 | NUR ---
Pharmacy Vancomycin Dosing Note S:Consulted to monitor and dose vancomycin started 10/01/19. O:ARIES CRUZ is a 33 year old M with Abscess . Height: 5 feet, 10 inches Weight: 99.767711 kg [place] Body Weight: 73.00 Adjusted Body Weight: 83.72 Dosing Weight: Actual Other Antibiotics: LABS: Last BUN: 11 Last Creatinine: 0.8 Creatinine Clearance: 152 mL/min Last WBC: 9.4 Last Procalcitonin: <0.1 Tmax (past 24 hours): Microbiology: I/O: Drug Levels: Last level: on at Last dose given 10/01/19 at 2100 Vancomycin Dosing: Loading Dose: 2000 mg x1 Dosing Weight: Actual Target Trough: 15-20 A: Based on: WT AND CRCL P: 1. Begin Vancomycin 1500 mg IV q8h 2. Follow up Trough level on 10/02/19 at 2030 3. Pharmacy will continue to monitor, follow and adjust therapy as needed. MONICA TINAJERO RPH, 10/02/19208 Signed: 10/02/19 at 208 by MONICA TINAJERO RPH PHA
[2019-10-02 03:15] VITALS: BP 128/72
[2019-10-02] MEDS ORDERED: VANCOMYCIN 1.5 GM in IV NORMAL SALINE 500ML BAG 500 ML IV SCH (05:00)
[2019-10-02] MEDS: HYDROcodone/APAP 7.5/325MG 1 TAB TABLET PO PRN (05:14)
[2019-10-02 05:47] LABS: BASO # 0.1 x10^3/uL (0.0-0.2); BASO % 1 % (0-3); EOS # 0.3 x10^3/uL (0.0-0.7); EOS % 4 % (0-3); HEMATOCRIT 39.7 % (39.0-53.0); HEMOGLOBIN 13.5 g/dL (13.0-17.5); LYMPH # 3.1 x10^3/uL (1.0-4.8); LYMPH % 40 % (24-48); MEAN CORPUSCULAR HEMOGLOBIN 31 pg (25-35); MEAN CORPUSCULAR HGB CONC 34 g/dL (31-37); MEAN CORPUSCULAR VOLUME 92 fL (79-100); MONO # 0.6 x10^3/uL (0.0-1.1); MONO % 8 % (0-9); NEUT # 3.7 x10^3/uL (1.8-7.7); NEUT % 48 % (31-73); PLATELET COUNT 233 x10^3/uL (140-400); RED BLOOD COUNT 4.34 x10^6/uL (4.30-5.70); RED CELL DISTRIBUTION WIDTH 13.2 % (11.5-14.5); WHITE BLOOD COUNT 7.8 x10^3/uL (4.0-11.0)
[2019-10-02 07:00] VITALS: BP 152/95
--- NOTE | 2019-10-02 09:36 | NUR ---
Patient left AMA. Risks of leaving against medical advice gone over with patient who verbalized understanding. Patient stated he was going to for further treatment. Escorted out by DEPENDENCY COUNSELOR and security.
== END 2019-10-02 09:20 | disposition left against medical advice (07) | DRG 607 ==
LOC: ER 16:27 → 4 NORTH 18:00
PROVIDERS: ADMIT Internal Medicine; ATTEND Internal Medicine
DX: L73.2 Hidradenitis suppurativa (principal); E66.9 Obesity, unspecified; F17.210 Nicotine dependence, cigarettes, uncomplicated; M79.7 Fibromyalgia; Z88.6 Allergy status to analgesic agent; Z88.5 Allergy status to narcotic agent; Z82.49 Family history of ischemic heart disease and other diseases of the circulatory system; Z68.31 Body mass index [BMI] 31.0-31.9, adult; Z53.29 Procedure and treatment not carried out because of patient's decision for other reasons; L03.314 Cellulitis of groin
CPT/HCPCS: 36415; 80053; 83605; 84145; 85025; 85651; 86140; 87040; 87070; 87186; 96365; 96375; J1956; J2405; J3010; J3370; J7030; J7040; 99285-25; G0378

== ENCOUNTER 2020-01-08 20:26 | Emergency (ER) | payer MEDICAID, OTHER ==
[~2020-01-08] VITALS: Ht 177.8 cm; Wt 95.4 kg
[~2020-01-08 20:26] MED LIST changes: -CETI10TA22 PO; +CETI10TA24 PO
--- NOTE | 2020-01-08 21:56 | PHYS DOC ---
Past Medical History Past Medical History: Abscess, Arthritis, Fibromyalgia, Other Additional Past Medical Histor: Hidradenitis suppurativa in axilla and groin Past Surgical History: Other Additional Past Surgical Histo: I&D for hidradenitis suppurativa to L and R groin (MULTIPLE) Smoking Status: Current Every Day Smoker Additional Information: 0.5 PPD Alcohol Use: Rarely Drug Use: None Adult General Chief Complaint Chief Complaint: NAUSEA/VOMITING/DIARRHA HPI HPI Patient is a 34 year old male with past medical history of hidradenitis presents with a chief complaint of fever nausea postoperative right axillary pain and right groin pain 3-4 days. Patient states he has had a fever up to 102.4--- Patient is currently on clindamycin and rifampin Review of Systems Review of Systems Constitutional: Denies fever or chills [] Eyes: Denies change in visual acuity, redness, or eye pain [] HENT: Denies nasal congestion or sore throat [] Respiratory: Denies cough or shortness of breath [] Cardiovascular: No additional information not addressed in HPI [] GI: Denies abdominal pain, nausea, vomiting, bloody stools or diarrhea [] : Denies dysuria or hematuria [] Musculoskeletal: Denies back pain or joint pain [] Integument: Denies rash or skin lesions [] Neurologic: Denies headache, focal weakness or sensory changes [] Endocrine: Denies polyuria or polydipsia [] All other systems were reviewed and found to be within normal limits, except as documented in this note. Current Medications Current Medications Current Medications Medications (Trade) Dose Ordered Sig/[facility] Start Time Stop Time Status Last Admin Dose Admin Acetaminophen/ Hydrocodone Bitart (Lortab 5/325) 1 tab 1X ONCE 01/08/20 22:00 01/08/20 22:01 DC 01/08/20 21:47 1 TAB Fentanyl Citrate (Fentanyl 2ml Vial) 50 mcg 1X ONCE 01/08/20 22:30 01/08/20 22:31 DC 01/08/20 22:20 50 MCG Allergies Allergies Allergies Coded Allergies Type Severity Reaction Last Updated Verified morphine Allergy Intermediate hallucinations 06/09/18 Yes naproxen Allergy Intermediate 02/15/17 Yes NSAIDS (Non-Steroidal Anti-Inflamma Allergy Mild NAUSEA 01/08/20 Yes Physical Exam Physical Exam Constitutional: Well developed, well nourished, no acute distress, non-toxic appearance. [] HENT: Normocephalic, atraumatic, bilateral external ears normal, oropharynx moist, no oral exudates, nose normal. [] Eyes: PERRLA, EOMI, conjunctiva normal, no discharge. [] Neck: Normal range of motion, no tenderness, supple, no stridor. [] Cardiovascular:Heart rate regular rhythm, no murmur [] Lungs & Thorax: Bilateral breath sounds clear to auscultation [] Abdomen: Bowel sounds normal, soft, no tenderness, no masses, no pulsatile masses. [] Skin: Warm, dry, no erythema, no rash. [] Back: No tenderness, no CVA tenderness. [] Extremities: No tenderness, no cyanosis, no clubbing, ROM intact, no edema. [] Neurologic: Alert and oriented X 3, normal motor function, normal sensory function, no focal deficits noted. [] Psychologic: Affect normal, judgement normal, mood normal. [] Current Patient Data Vital Signs Vital Signs Date Time Temp Pulse Resp B/P (MAP) Pulse Ox O2 Delivery O2 Flow Rate FiO2 01/08/20 22:20 18 100 Room Air 01/08/20 20:33 97.8 89 151/84 (106) 97.8 Lab Values Laboratory Tests Test 01/08/20 21:55 White Blood Count 10.1 x10^3/uL (4.0-11.0) Red Blood Count 4.80 x10^6/uL (4.30-5.70) Hemoglobin 14.7 g/dL (13.0-17.5) Hematocrit 42.9 % (39.0-53.0) Mean Corpuscular Volume 89 fL (79-100) Mean Corpuscular Hemoglobin 31 pg (25-35) Mean Corpuscular Hemoglobin Concent 34 g/dL (31-37) Red Cell Distribution Width 13.3 % (11.5-14.5) Platelet Count 293 x10^3/uL (140-400) Neutrophils (%) (Auto) 53 % (31-73) Lymphocytes (%) (Auto) 37 % (24-48) Monocytes (%) (Auto) 6 % (0-9) Eosinophils (%) (Auto) 2 % (0-3) Basophils (%) (Auto) 1 % (0-3) Neutrophils # (Auto) 5.4 x10^3/uL (1.8-7.7) Lymphocytes # (Auto) 3.7 x10^3/uL (1.0-4.8) Monocytes # (Auto) 0.6 x10^3/uL (0.0-1.1) Eosinophils # (Auto) 0.2 x10^3/uL (0.0-0.7) Basophils # (Auto) 0.1 x10^3/uL (0.0-0.2) Sodium Level 141 mmol/L (136-145) Potassium Level 4.0 mmol/L (3.5-5.1) Chloride Level 106 mmol/L (98-107) Carbon Dioxide Level 28 mmol/L (21-32) Anion Gap 7 (6-14) Blood Urea Nitrogen 14 mg/dL (8-26) Creatinine 0.8 mg/dL (0.7-1.3) Estimated GFR (Cockcroft-Gault) 109.4 BUN/Creatinine Ratio 18 (6-20) Glucose Level 99 mg/dL (70-99) Calcium Level 8.7 mg/dL (8.5-10.1) Total Bilirubin 0.2 mg/dL (0.2-1.0) Aspartate Amino Transferase (AST) 15 U/L (15-37) Alanine Aminotransferase (ALT) 19 U/L (16-63) Alkaline Phosphatase 115 U/L (46-116) Total Protein 6.6 g/dL (6.4-8.2) Albumin 3.2 g/dL (3.4-5.0) L Albumin/Globulin Ratio 0.9 (1.0-1.7) L Laboratory Tests 01/08/20 21:55 Laboratory Tests 01/08/20 21:55 EKG EKG [] Radiology/Procedures Radiology/Procedures [] Course & Med Decision Making Course & Med Decision Making Pertinent Labs and Imaging studies reviewed. (See chart for details) [] Dragon Disclaimer Dragon Disclaimer This electronic medical record was generated, in whole or in part, using a voice recognition dictation system. Departure Departure Impression: Primary Impression: Hidradenitis suppurativa Additional Impressions: Fever Nausea Disposition: 01 HOME, SELF-CARE Condition: STABLE Referrals: NO PCP (PCP) Patient Instructions: Fever, Hidradenitis Suppurativa, Sweat Gland Abscess, Nausea, Adult Scripts Ondansetron Hcl (ZOFRAN) 4 Mg Tablet 1 TAB PO Q6HRS, #20 TAB Prov: MABEL GONCALVES DO 01/08/20 Oxycodone HCl/Acetaminophen (Percocet 5-325 mg Tablet) 1 Each Tablet 1 TAB PO PRN TID PRN for SEE COMMENTS MDD 3 Tablet(s) for 5 Days, #15 TAB 0 Refills Prov: MABEL GONCALVES DO 01/08/20 Problem Qualifiers MABEL GONCALVES DO Jan 08, 2020 21:56
[2020-01-08] MEDS ORDERED: HYDROcodone/APAP 5/325MG 1 TAB TABLET PO ONE (22:00)
[2020-01-08 22:01] LABS: BASO # 0.1 x10^3/uL (0.0-0.2); BASO % 1 % (0-3); EOS # 0.2 x10^3/uL (0.0-0.7); EOS % 2 % (0-3); HEMATOCRIT 42.9 % (39.0-53.0); HEMOGLOBIN 14.7 g/dL (13.0-17.5); LYMPH # 3.7 x10^3/uL (1.0-4.8); LYMPH % 37 % (24-48); MEAN CORPUSCULAR HEMOGLOBIN 31 pg (25-35); MEAN CORPUSCULAR HGB CONC 34 g/dL (31-37); MEAN CORPUSCULAR VOLUME 89 fL (79-100); MONO # 0.6 x10^3/uL (0.0-1.1); MONO % 6 % (0-9); NEUT # 5.4 x10^3/uL (1.8-7.7); NEUT % 53 % (31-73); PLATELET COUNT 293 x10^3/uL (140-400); RED CELL DISTRIBUTION WIDTH 13.3 % (11.5-14.5); WHITE BLOOD COUNT 10.1 x10^3/uL (4.0-11.0)
[2020-01-08 22:08] LABS: CALCIUM 8.7 mg/dL (8.5-10.1); CREATININE 0.8 mg/dL (0.7-1.3); GFR 109.4
[2020-01-08 22:14] LABS: ALBUMIN 3.2 g/dL (3.4-5.0); ALBUMIN/GLOBULIN RATIO 0.9 (1.0-1.7); TOTAL BILIRUBIN 0.2 mg/dL (0.2-1.0); TOTAL PROTEIN 6.6 g/dL (6.4-8.2)
[2020-01-08] MEDS ORDERED: fentaNYL PF VIAL 100 MCG/2 ML VIAL IM ONE (22:30)
[2020-01-08 23:38] VITALS: BP 116/71
[2020-01-08] MEDS ORDERED: ONDA4TAB7 PO (23:51)
[2020-01-08] MEDS ORDERED: OXYC-325 PO (23:51)
[2020-01-09] MEDS ORDERED: TRAM-48 PO (00:01)
== END 2020-01-09 | disposition home or self-care (01) ==
LOC: ER 20:26
DX: L73.2 Hidradenitis suppurativa (principal); R50.9 Fever, unspecified; R11.0 Nausea; G89.18 Other acute postprocedural pain; M79.621 Pain in right upper arm; R10.31 Right lower quadrant pain; F17.200 Nicotine dependence, unspecified, uncomplicated; Z88.5 Allergy status to narcotic agent; Z88.8 Allergy status to other drugs, medicaments and biological substances
CPT/HCPCS: 36415; 80053; 85025; 96372; 99283; J3010

== ENCOUNTER 2020-03-06 19:02 | Emergency (ER) | payer MEDICAID, OTHER ==
[~2020-03-06] VITALS: Ht 180.3 cm; Wt 100.0 kg
[~2020-03-06 19:02] MED LIST changes: +ONDA4TAB7 PO; +TRAM-48 PO
--- NOTE | 2020-03-06 19:26 | PHYS DOC ---
Past Medical History Past Medical History: Abscess, Arthritis, Fibromyalgia, Other Additional Past Medical Histor: Hidradenitis suppurativa in axilla and groin Past Surgical History: Other Additional Past Surgical Histo: I&D for hidradenitis suppurativa to L and R groin (MULTIPLE) Smoking Status: Current Every Day Smoker Alcohol Use: Rarely Drug Use: None General Adult EDM: Chief Complaint: GROIN PAIN HPI: HPI: 34-year-old male presents emergency department complaints of right groin pain. Patient is underlying history of hidradenitis. He is concerned he may have a right inguinal hernia. He describes intermittent fevers at times. No obvious drainage appreciated on examination. He denies any chest pain, shortness breath, abdominal pain. He does have some nausea intermittently. He is afebrile at this time nothing makes his symptoms worse, nothing makes his symptoms better. Review of Systems: Review of Systems: Constitutional: Denies fever/ + chills Respiratory: Denies cough or shortness of breath. [] Cardiovascular: Denies chest pain or edema. [] GI: Denies abdominal pain, nausea, vomiting, bloody stools or diarrhea. [] : Denies dysuria. [] Musculoskeletal: Denies back pain or joint pain. [] Neurologic: Denies headache, focal weakness or sensory changes. [] Endocrine: Denies polyuria or polydipsia. [] Lymphatic: right inguinal pain Heart Score: Risk Factors: Risk Factors: DM, Current or recent (<one month) smoker, HTN, HLP, family history of CAD, obesity. Risk Scores: Score 0 - 3: 2.5% MACE over next 6 weeks - Discharge Home Score 4 - 6: 20.3% MACE over next 6 weeks - Admit for Clinical Observation Score 7 - 10: 72.7% MACE over next 6 weeks - Early Invasive Strategies Allergies: Allergies: Allergies Coded Allergies Type Severity Reaction Last Updated Verified morphine Allergy Intermediate hallucinations 06/09/18 Yes naproxen Allergy Intermediate 02/15/17 Yes NSAIDS (Non-Steroidal Anti-Inflamma Allergy Mild NAUSEA 01/08/20 Yes Physical Exam: PE: Constitutional: Well developed, well nourished, no acute distress, non-toxic appearance. [] HENT: Normocephalic, atraumatic, bilateral external ears normal, oropharynx moist, no oral exudates, nose normal. [] Cardiovascular:Heart rate regular rhythm, no murmur [] Lungs & Thorax: Bilateral breath sounds clear to auscultation [] Abdomen: Bowel sounds normal, soft, no tenderness, no masses, no pulsatile masses. [] Skin: Warm, dry, no erythema, no rash. [] Back: No tenderness, no CVA tenderness. [] Extremities: No tenderness, no focal deficits noted. [] Psychologic: Affect normal, judgement normal, mood normal. [] EKG: EKG: [] Radiology/Procedures: Radiology/Procedures: [] Course & Med Decision Making: Course & Med Decision Making Pertinent Labs and Imaging studies reviewed. (See chart for details) []34-year-old male presents emergency department complaints of right groin pain. Patient is underlying history of hidradenitis. He is concerned he may have a right inguinal hernia. He describes intermittent fevers at times. No obvious drainage appreciated on examination. He denies any chest pain, shortness breath, abdominal pain. He does have some nausea intermittently. He is afebrile at this time nothing makes his symptoms worse, nothing makes his symptoms better. US wet read, possible inguinal hernia, no evidence of acute process labs reviewed recommend dc home Follow up with Urology as outpatient Clindamycin 300mg po TID x 10 days Tramadol prn x 3 days Toy Disclaimer: Toy Disclaimer: This electronic medical record was generated, in whole or in part, using a voice recognition dictation system. Departure Departure Impression: Primary Impression: Groin pain Qualified Codes: R10.31 - Right lower quadrant pain Additional Impression: Hydradenitis Disposition: 01 HOME, SELF-CARE Condition: STABLE Referrals: NO PCP (PCP) Patient Instructions: Inguinal Hernia, Adult Additional Instructions: Recommend follow up with Surgery as scheduled Clindamycin rx x 10 days Tramadol x 3 days Imaging with possible inguinal hernia on right Scripts Tramadol Hcl (TRAMADOL HCL) 50 Mg Tablet 50 MG PO Q6HRS PRN for PAIN for 3 Days, #12 TAB 0 Refills Prov: AINSLEY MAURICIO MD 03/06/20 Clindamycin Hcl (CLINDAMYCIN HCL) 300 Mg Capsule 1 CAP PO TID, #30 CAP Prov: AINSLEY MAURICIO MD 03/06/20 AINSLEY MAURICIO MD Mar 06, 2020 19:26
[2020-03-06] MEDS ORDERED: traMADol 50 MG TABLET PO ONE (19:30)
[2020-03-06 19:54] LABS: BASO # 0.1 x10^3/uL (0.0-0.2); BASO % 1 % (0-3); EOS # 0.2 x10^3/uL (0.0-0.7); EOS % 2 % (0-3); HEMATOCRIT 44.1 % (39.0-53.0); HEMOGLOBIN 15.3 g/dL (13.0-17.5); LYMPH # 3.8 x10^3/uL (1.0-4.8); LYMPH % 31 % (24-48); MEAN CORPUSCULAR HEMOGLOBIN 31 pg (25-35); MEAN CORPUSCULAR HGB CONC 35 g/dL (31-37); MEAN CORPUSCULAR VOLUME 88 fL (79-100); MONO # 0.8 x10^3/uL (0.0-1.1); MONO % 6 % (0-9); NEUT # 7.3 x10^3/uL (1.8-7.7); NEUT % 60 % (31-73); PLATELET COUNT 254 x10^3/uL (140-400); RED BLOOD COUNT 4.99 x10^6/uL (4.30-5.70); RED CELL DISTRIBUTION WIDTH 13.2 % (11.5-14.5); WHITE BLOOD COUNT 12.2 x10^3/uL (4.0-11.0)
[2020-03-06 20:03] LABS: CALCIUM 8.9 mg/dL (8.5-10.1); CREATININE 0.8 mg/dL (0.7-1.3); GFR 109.4
[2020-03-06 20:09] LABS: ALBUMIN 3.5 g/dL (3.4-5.0); ALBUMIN/GLOBULIN RATIO 1.1 (1.0-1.7); TOTAL BILIRUBIN 0.2 mg/dL (0.2-1.0); TOTAL PROTEIN 6.8 g/dL (6.4-8.2)
[2020-03-06 20:30] VITALS: BP 120/74
[2020-03-06] MEDS ORDERED: CLIN300C8 PO (20:43)
[2020-03-06] MEDS ORDERED: TRAM50TA PO (20:43)
--- NOTE | 2020-03-06 20:56 | RAD ---
Exam: Ultrasound scrotum Indication: Right groin pain Technique: Real-time grayscale and color Doppler images of the scrotum were obtained by the department machine tool technician instructor. Comparisons: None FINDINGS: Right testicle measures 4.9 x 2.9 x 2.3 cm. Left testicle measures 4.8 x 3.1 x 2.2 cm. There is a heterogenous hypoechoic cyst at the epididymal head bilaterally. No hypervascularity is seen. Symmetric arterial flow identified within the testicles bilaterally. IMPRESSION: No evidence for testicular torsion. Normal sonographic appearance of the testicles. Electronically signed by: Osiel Easley MD (03/06/2020 8:54 PM) [id number]
== END 2020-03-06 20:50 | disposition home or self-care (01) ==
LOC: ER 19:02
DX: R10.31 Right lower quadrant pain (principal); L73.2 Hidradenitis suppurativa; R50.9 Fever, unspecified; R11.0 Nausea; F17.200 Nicotine dependence, unspecified, uncomplicated; Z88.5 Allergy status to narcotic agent; Z88.6 Allergy status to analgesic agent
CPT/HCPCS: 36415; 76870; 80053; 85025; 99284-25

== ENCOUNTER 2020-05-02 22:49 | Emergency (ER) | payer MEDICAID, OTHER ==
[~2020-05-02] VITALS: Ht 177.8 cm; Wt 100.0 kg
[2020-05-02] MEDS ORDERED: HYDR-3164 PO (23:29)
[2020-05-02] MEDS ORDERED: POLY17PO29 PO (23:29)
--- NOTE | 2020-05-02 23:29 | PHYS DOC ---
Past Medical History Past Medical History: Fibromyalgia, Hypertension Past Surgical History: Other Additional Past Surgical Histo: CYST REMOVAL Smoking Status: Current Every Day Smoker Alcohol Use: None Drug Use: None General Adult EDM: Chief Complaint: RECTAL BLEED HPI: HPI: Patient is a 34 year old male presenting to the ED with a chief complaint of rectal pain. Patient states that he has a history of hidradenitis supra to the and has multiple surgeries by his general surgeon. Patient states that he is not able to get him to his surgeon due to the backup caused by the coronavirus pandemic. Patient states that the pain was worse tonight and so he came into e ER. Patient states that he takes stool softener and is having difficulty having a bowel movement as he is scared of the pain. Patient denies fever, chills, nausea, vomiting, chest pain, shortness of breath. Review of Systems: Review of Systems: Constitutional: Denies fever or chills. [] Eyes: Denies change in visual acuity. [] HENT: Denies nasal congestion or sore throat. [] Respiratory: Denies cough or shortness of breath. [] Cardiovascular: Denies chest pain or edema. [] GI: Denies abdominal pain, nausea, vomiting, bloody stools or diarrhea. [] : Complains of rectal pain [] Musculoskeletal: Denies back pain or joint pain. [] Integument: Denies rash. [] Neurologic: Denies headache, focal weakness or sensory changes. [] Heart Score: Risk Factors: Risk Factors: DM, Current or recent (<one month) smoker, HTN, HLP, family history of CAD, obesity. Risk Scores: Score 0 - 3: 2.5% MACE over next 6 weeks - Discharge Home Score 4 - 6: 20.3% MACE over next 6 weeks - Admit for Clinical Observation Score 7 - 10: 72.7% MACE over next 6 weeks - Early Invasive Strategies Allergies: Allergies: Allergies Coded Allergies Type Severity Reaction Last Updated Verified morphine Allergy Intermediate hallucinations 06/09/18 Yes naproxen Allergy Intermediate 02/15/17 Yes NSAIDS (Non-Steroidal Anti-Inflamma Allergy Mild NAUSEA 01/08/20 Yes Physical Exam: PE: Constitutional: Well developed, well nourished, no acute distress, non-toxic appearance. [] HENT: Normocephalic, atraumatic Eyes: EOMI Neck: Normal range of motion, Supple Respiratory: No respiratory distress Abdomen: Bowel sounds normal, soft, no tenderness Digital rectal exam: No obvious mass felt in the rectum. Extremities: No tenderness, ROM intact Neurologic: Alert and oriented X 3 Current Patient Data: Vital Signs: Vital Signs Date Time Temp Pulse Resp B/P (MAP) Pulse Ox O2 Delivery O2 Flow Rate FiO2 05/02/20 22:58 98.4 92 18 172/88 (116) 99 Room Air 98.4 EKG: EKG: [] Radiology/Procedures: Radiology/Procedures: [] Course & Med Decision Making: Course & Med Decision Making No need for imaging or blood work tonight. Patient be treated with oral pain medication and MiraLAX. Patient to follow-up with colorectal surgeon. We do not have a colorectal surgeon corporate travel consultant at [facility] so I have instructed patient to contact [facility] or [facility]. Discussed plan of care with patient. Patient is instructed to follow up with PCP in one to 2 days. Appropriate discharge instructions given to patient to return to the ED or to seek immediate medical evaluation. Patient is instructed to return to the ED if symptoms worsen or if any concerns. Dragon Disclaimer: Dragon Disclaimer: This electronic medical record was generated, in whole or in part, using a voice recognition dictation system. Departure Departure Impression: Primary Impression: Rectal pain Disposition: 01 HOME, SELF-CARE Condition: STABLE Referrals: NO PCP (PCP) Patient Instructions: Hidradenitis Suppurativa, Sweat Gland Abscess Additional Instructions: Please contact [facility] system or [facility] system for colorectal surgeon. Please return to the ED if symptoms worsen or if any concerns. Please follow-up with PCP in 1 to 2 days. Scripts Hydrocodone/Apap 5-325 (NORCO 5-325 TABLET) 1 Each Tablet 1 EACH PO PRN Q6HRS PRN for PAIN, #15 as needed for pain Prov: JUNIOR COELI E DO 05/02/20 Polyethylene Glycol 3350 (MIRALAX) 17 Gm Powd.pack 1 PACKET PO DAILY for constipation, #14 PACKET 0 Refills dissolve in water Prov: GOLLAPALLI,AUDREY E DO 05/02/20 Justicifation of Admission Dx: Justifications for Admission: Justification of Admission Dx: No SARAVANAN,AUDREY E DO May 02, 2020 23:29
[2020-05-02 23:40] VITALS: BP 157/85
== END 2020-05-02 23:45 | disposition home or self-care (01) ==
LOC: ER 22:49
DX: K62.89 Other specified diseases of anus and rectum (principal); I10 Essential (primary) hypertension; F17.200 Nicotine dependence, unspecified, uncomplicated; Z88.5 Allergy status to narcotic agent; Z88.6 Allergy status to analgesic agent
CPT/HCPCS: 99283

== ENCOUNTER 2020-05-27 12:06 | Inpatient (IN) | payer MEDICAID, OTHER ==
[~2020-05-27] VITALS: Ht 177.8 cm; Wt 98.6 kg
[~2020-05-27 12:06] MED LIST changes: -CETI10TA24 PO; +CETI10TA74 PO; +POLY17PO29 PO
[2020-05-27] MEDS ORDERED: fentaNYL PF VIAL 100 MCG/2 ML VIAL IVP ONE ×3 (13:15→15:15)
--- NOTE | 2020-05-27 13:16 | PHYS DOC ---
Past Medical History Past Medical History: Fibromyalgia, Hypertension, Other Additional Past Medical Histor: Hidradenitis suppurativa in axilla and groin, rectum Past Surgical History: Other Additional Past Surgical Histo: CYST REMOVAL X9 Smoking Status: Current Every Day Smoker Additional Information: 0.5 PPD Alcohol Use: Rarely Drug Use: None General Adult EDM: Chief Complaint: ABSCESS HPI: HPI: Patient is a 34 year old male who presents with has hydradenitis suppurativa and usually sees a doctor at and a surgeon at to have them removed. He states his been doxycycline clindamycin for the last 3 months. He states that he has a left upper inner thigh abscess for the last 3 days is just getting worse and worse. He states he called his doctor and they stated to come in and maybe get some IV antibiotics because is not getting better. Patient also has a history of fibromyalgia and he is a smoker. He states he is on Humira. He states he is running a fever yesterday of 101. States he has body aches and nausea. Patient is refusing to let me open the abscess to drain it and I have educated the patient that that is the standard of care. He states he knows but he rather have his surgeon at open and drain it and take it out. The abscess itself is quarter sized, tender and fluctuant but nondraining. Patient has associated cellulitis with this that extends out around circular to be baseball sized. Patient is afebrile here in the ED. Review of Systems: Review of Systems: Constitutional: Denies fever or chills. [] Eyes: Denies change in visual acuity. [] HENT: Denies nasal congestion or sore throat. [] Respiratory: Denies cough or shortness of breath. [] Cardiovascular: Denies chest pain or edema. [] GI: Denies abdominal pain, nausea, vomiting, bloody stools or diarrhea. [] : Denies dysuria. [] Musculoskeletal: Denies back pain or joint pain. [] Integument: Denies rash. Abscess with associated cellulitis to the left upper thigh [] Neurologic: Denies headache, focal weakness or sensory changes. [] Endocrine: Denies polyuria or polydipsia. [] Lymphatic: Denies swollen glands. [] Psychiatric: Denies depression or anxiety. [] Heart Score: Risk Factors: Risk Factors: DM, Current or recent (<one month) smoker, HTN, HLP, family history of CAD, obesity. Risk Scores: Score 0 - 3: 2.5% MACE over next 6 weeks - Discharge Home Score 4 - 6: 20.3% MACE over next 6 weeks - Admit for Clinical Observation Score 7 - 10: 72.7% MACE over next 6 weeks - Early Invasive Strategies Current Medications: Current Medications Medications (Trade) Dose Ordered Sig/Vanessa Start Time Stop Time Status Last Admin Dose Admin Fentanyl Citrate (Fentanyl 2ml Vial) 50 mcg 1X ONCE 05/27/20 13:15 05/27/20 13:16 UNV Allergies: Allergies: Allergies Coded Allergies Type Severity Reaction Last Updated Verified morphine Allergy Intermediate hallucinations 06/09/18 Yes naproxen Allergy Intermediate 02/15/17 Yes NSAIDS (Non-Steroidal Anti-Inflamma Allergy Mild NAUSEA 01/08/20 Yes Physical Exam: PE: Constitutional: Well developed, well nourished, no acute distress, non-toxic appearance. [] HENT: Normocephalic, atraumatic, bilateral external ears normal, oropharynx moist, no oral exudates, nose normal. [] Eyes: PERRLA, EOMI, conjunctiva normal, no discharge. [] Neck: Normal range of motion, no tenderness, supple, no stridor. [] Cardiovascular:Heart rate regular rhythm, no murmur [] Lungs & Thorax: Bilateral breath sounds clear to auscultation [] Abdomen: Bowel sounds normal, soft, no tenderness, no masses, no pulsatile masses. [] Skin: Warm, dry, left upper inner thigh abscess with cellulitis erythema, no rash. [] Back: No tenderness, no CVA tenderness. [] Extremities: No tenderness, no cyanosis, no clubbing, ROM intact, no edema. [] Neurologic: Alert and oriented X 3, normal motor function, normal sensory function, no focal deficits noted. [] Psychologic: Affect normal, judgement normal, mood normal. [] Current Patient Data: Vital Signs: Vital Signs Date Time Temp Pulse Resp B/P (MAP) Pulse Ox O2 Delivery O2 Flow Rate FiO2 05/27/20 12:13 98.9 86 19 149/83 (105) 97 Room Air 98.9 EKG: EKG: [] Radiology/Procedures: Radiology/Procedures: [] Course & Med Decision Making: Course & Med Decision Making Pertinent Labs and Imaging studies reviewed. (See chart for details) Alert and oriented. Ambulatory with a steady gait. Skin pink warm and dry otherwise. See HPI. Vital signs within normal limits. Patient is rating his pain as a burning aching pain at a 10 out of 10. I have spoken to Dr. Wise for admission. Patient's pain is uncontrolled. Patient has failed outpatient therapy. We will give him vancomycin through his IV. Hemodynamically stable. [] Toy Disclaimer: Toy Disclaimer: This electronic medical record was generated, in whole or in part, using a voice recognition dictation system. Departure Departure Impression: Primary Impression: Cellulitis and abscess of left leg Additional Impression: Intractable pain Disposition: ADMITTED INPATIENT Admitting Physician: MEDARDO Condition: STABLE Referrals: NO PCP (PCP) Justicifation of Admission Dx: Justifications for Admission: Justification of Admission Dx: Yes Comments: Cellulitis and abscess FABIOLA MCINTOSH [employer]HALT SPREADER May 27, 2020 13:16
[2020-05-27 13:47] LABS: BASO # 0.1 x10^3/uL (0.0-0.2); BASO % 1 % (0-3); EOS # 0.1 x10^3/uL (0.0-0.7); EOS % 1 % (0-3); HEMATOCRIT 45.8 % (39.0-53.0); HEMOGLOBIN 15.9 g/dL (13.0-17.5); LYMPH # 2.6 x10^3/uL (1.0-4.8); LYMPH % 25 % (24-48); MEAN CORPUSCULAR HEMOGLOBIN 31 pg (25-35); MEAN CORPUSCULAR HGB CONC 35 g/dL (31-37); MEAN CORPUSCULAR VOLUME 90 fL (79-100); MONO # 0.5 x10^3/uL (0.0-1.1); MONO % 5 % (0-9); NEUT % 68 % (31-73); PLATELET COUNT 263 x10^3/uL (140-400); WHITE BLOOD COUNT 10.3 x10^3/uL (4.0-11.0)
[2020-05-27 13:58] LABS: CALCIUM 9.2 mg/dL (8.5-10.1); CREATININE 0.9 mg/dL (0.7-1.3); GFR 95.5; POTASSIUM 4.3 mmol/L (3.5-5.1)
[2020-05-27 14:16] LABS: ALBUMIN 3.9 g/dL (3.4-5.0); ALBUMIN/GLOBULIN RATIO 1.1 (1.0-1.7); TOTAL BILIRUBIN 0.4 mg/dL (0.2-1.0); TOTAL PROTEIN 7.5 g/dL (6.4-8.2)
[2020-05-27] MEDS ORDERED: VANCOMYCIN PER PHARMACY MC PRN (15:15)
[2020-05-27] MEDS ORDERED: VANCOMYCIN 2 GM in IV NORMAL SALINE 500ML BAG 500 ML IV ONE (15:30)
[2020-05-27] MEDS ORDERED: VANCOMYCIN 1.5 GM in IV NORMAL SALINE 500ML BAG 500 ML IV ONE (15:30)
--- NOTE | 2020-05-27 17:53 | HP ---
ADMIT DATE: 05/27/2020 CHIEF COMPLAINT: Left thigh abscess. HISTORY OF PRESENT ILLNESS: The patient is a pleasant 34-year-old male who has a small left thigh abscess. He states he has hidradenitis suppurativa and gets hidradenitis in various areas. Basically, there is a small abscess on the inner thigh. The ER doctor offered to drain, but he would not let them, he wants to see a surgeon. We are going to admit the patient and consult General Surgery. PAST MEDICAL HISTORY: Hidradenitis. ALLERGIES: None. FAMILY HISTORY: Diabetes. SOCIAL HISTORY: He does not drink, smoke or take drugs. MEDICATIONS: Reviewed, please refer to the MRAD. REVIEW OF SYSTEMS: GENERAL: No history of weight change, weakness or fevers. SKIN: No bruising, hair changes or rashes. EYES: No blurred, double or loss of vision. NOSE AND THROAT: No history of nosebleeds, hoarseness or sore throat. HEART: No history of palpitations, chest pain or shortness of breath on exertion. LUNGS: Denies cough, hemoptysis, wheezing or shortness of breath. GASTROINTESTINAL: Denies changes in appetite, nausea, vomiting, diarrhea or constipation. GENITOURINARY: No history of frequency, urgency, hesitancy or nocturia. NEUROLOGIC: Denies history of numbness, tingling, tremor or weakness. PSYCHIATRIC: No history of panic, anxiety or depression. ENDOCRINE: No history of heat or cold intolerance, polyuria or polydipsia. EXTREMITIES: He complains of left thigh abscess. PHYSICAL EXAMINATION: VITALS: Within normal limits and are stable. GENERAL: No apparent distress. Alert and oriented. HEENT: Normal cephalic atraumatic, external auditory canals are patent EYES: Extraocular muscles are intact, pupils are equally round and reactive to light and accommodation MUSCULOSKELETAL: Well developed, well nourished, good range of motion ENDOCRINE: No thyromegaly was palpated LYMPHATICS: No cervical chain or axillary nodes were noted HEMATOPOIETIC: No bruising NECK: Supple, no JVD, no thyromegaly was noted. LUNGS: Clear to auscultation in all lung tyler without rhonchi or wheezing. HEART: RRR, S1, S2 present. Peripheral pulses intact, no obvious murmurs were noted. ABDOMEN: Soft, nontender. Positive bowel sounds no organomegaly, normal bowel sounds. EXTREMITIES: There is a small abscess on the left thigh. NEUROLOGIC: Normal speech, normal tone. A and O x 3, moves all extremities, no obvious focal deficits. PSYCHIATRIC: Normal affect, normal mood. Stable. SKIN: No ulcerations or rashes, good skin turgor, no jaundice. VASCULAR: Good capillary refill, neurovascular bundle appears to be intact. ASSESSMENT AND PLAN: Left thigh abscess. The patient will be admitted. We will start IV antibiotics. Consult Surgery. Home meds. DVT prophylaxis. Full code. GEE LIANG DO DR: ANDREIA/jarod JOB#: [id number] / [id number]
--- NOTE | 2020-05-27 18:15 | NUR ---
Arrived to unit by w/c from ER. A/O x's 4. Oriented to room and controls. Side rail up x's 2 with call light. Discussed plan of care.
--- NOTE | 2020-05-27 19:15 | NUR ---
Surgical consult called and received orders from Dr. Higgins.
--- NOTE | 2020-05-27 19:20 | NUR ---
Pharmacy Vancomycin Dosing Note S: Consulted to monitor and dose vancomycin started 05/27/20. O: ARIES CRUZ is a 34 year old M with Abscess. LABS: Last BUN: 14 Last Creatinine: 0.9 Creatinine Clearance: >100 mL/min Last WBC: 10.3 Tmax (past 24 hours): 98.9 Vancomycin Dosing: Dosing Weight: Adjusted Target Trough: 10-20 A: Based on: VANCO dosing guidelines P: 1. Begin Vancomycin 2000mg LOAD dose, then 1500 mg IV q8h 2. Follow up Trough level on 05/28/20 at 1430 3. Pharmacy will continue to monitor, follow and adjust therapy as needed. CARLOS CARTER [facility], 05/27/20 1920
[2020-05-27] MEDS: fentaNYL PF VIAL 100 MCG/2 ML VIAL IV PRN ×3 (19:29→22:46)
[2020-05-27] MEDS: VANCOMYCIN 1.5 GM in IV NORMAL SALINE 500ML BAG 500 ML IV SCH (22:47)
[2020-05-27 23:04] VITALS: BP 115/58
[2020-05-28] MEDS: fentaNYL PF VIAL 100 MCG/2 ML VIAL IV PRN ×11 (00:02→15:07)
[2020-05-28 07:00] VITALS: BP 123/67
[2020-05-28] MEDS: VANCOMYCIN 1.5 GM in IV NORMAL SALINE 500ML BAG 500 ML IV SCH ×2 (08:33→15:00)
--- NOTE | 2020-05-28 10:07 | PDOC2 ---
CONSULT Date of Consult Date of Consult DATE: 05/28/20 TIME: 10:05 Reason for Consult Reason for Consult: Left thigh abscess Referring Physician Referring Physician: Frandy Identification/Chief Complaint Chief Complaint Painful mass left thigh Source Source: Chart review, Patient History of Present Illness Reason for Visit: 34-year-old male with a history of hidradenitis suppurativa comes in with complaints of a left thigh mass consistent with an abscess Past Medical History Cardiovascular: No pertinent hx GI: No pertinent hx Heme/Onc: No pertinent hx Psych: No pertinent hx Renal/: No pertinent hx Endocrine: No pertinent hx Past Surgical History Past Surgical History: Other Family History Family History: Hypertension Social History ALCOHOL: occassional Drugs: None Lives: with Family Current Problem List Problem List Problems Medical Problems: (1) Cellulitis and abscess of left leg Status: Acute (2) Intractable pain Status: Acute Current Medications Current Medications Current Medications Fentanyl Citrate (Fentanyl 2ml Vial) 50 mcg 1X ONCE IVP Last administered on 05/27/20at 13:48; Start 05/27/20 at 13:15; Stop 05/27/20 at 13:16; Status DC Fentanyl Citrate (Fentanyl 2ml Vial) 50 mcg 1X ONCE IVP Last administered on 05/27/20at 14:15; Start 05/27/20 at 14:15; Stop 05/27/20 at 14:16; Status DC Vancomycin HCl (Vanco Per Pharmacy) 1 each PRN DAILY PRN MC SEE COMMENTS Last administered on 05/27/20at 19:17; Start 05/27/20 at 15:15 Fentanyl Citrate (Fentanyl 2ml Vial) 75 mcg 1X ONCE IVP Last administered on 05/27/20at 15:26; Start 05/27/20 at 15:15; Stop 05/27/20 at 15:16; Status DC Vancomycin HCl 1.5 gm/Sodium Chloride 500 ml @ 250 mls/hr 1X ONCE IV ; Start 05/27/20 at 15:30; Stop 05/27/20 at 17:29; Status Cancel Vancomycin HCl 2 gm/Sodium Chloride 500 ml @ 250 mls/hr 1X ONCE IV Last administered on 05/27/20at 15:27; Start 05/27/20 at 15:30; Stop 05/27/20 at 17:29; Status DC Fentanyl Citrate (Fentanyl 2ml Vial) 50 mcg PRN Q1HR PRN IV PAIN Last administered on 05/28/20at 09:36; Start 05/27/20 at 15:15; Stop 05/28/20 at 15:14 Vancomycin HCl 1.5 gm/Sodium Chloride 500 ml @ 250 mls/hr Q8H IV Last administered on 05/28/20at 08:33; Start 05/27/20 at 23:00 Vancomycin HCl (Vancomycin Trough Level) 1 each 1X ONCE MC ; Start 05/28/20 at 14:30; Stop 05/28/20 at 14:31 Active Scripts Active [place] 5-325 Tablet (Acetaminophen/Hydrocodone Bitart) 1 Each Tablet 1 Each PO PRN Q6HRS PRN as needed for pain Miralax (Polyethylene Glycol 3350) 17 Gm Powd.pack 1 Packet PO DAILY dissolve in water Tramadol Hcl 50 Mg Tablet 50 Mg PO Q6HRS PRN 3 Days Clindamycin Hcl 300 Mg Capsule 1 Cap PO TID Ultram (Tramadol Hcl) 50 Mg Tablet 1 Tab PO PRN Q6HRS PRN MDD 4 Tablet(s) 7 Days Zofran (Ondansetron Hcl) 4 Mg Tablet 1 Tab PO Q6HRS Percocet 5-325 mg Tablet (Oxycodone HCl/Acetaminophen) 1 Each Tablet 1 Tab PO PRN TID PRN MDD 3 Tablet(s) 5 Days Percocet 5-325 mg Tablet (Oxycodone HCl/Acetaminophen) 1 Each Tablet 0.5-1 Each PO Q6HRS PRN Clindamycin Hcl 150 Mg Capsule 3 Cap PO TID 7 Days [place] 5-325 Tablet (Acetaminophen/Hydrocodone Bitart) 1 Each Tablet 1 Tab PO Q6- 8HRS PRN Cephalexin 500 Mg Capsule 1 Cap PO QID Bactrim Ds Tablet (Sulfamethoxazole/Trimethoprim) 1 Each Tablet 1 Tab PO BID Bactrim 400-80 Mg Tablet (Sulfamethoxazole/Trimethoprim) 1 Each Tablet 1 Tab PO BID Cephalexin 500 Mg Tablet 1 Tab PO QID [place] 5-325 Tablet (Acetaminophen/Hydrocodone Bitart) 1 Each Tablet 1 Tab PO Q6HRS [place] 5-325 Tablet (Acetaminophen/Hydrocodone Bitart) 1 Each Tablet 1-2 Each PO PRN Q6HRS PRN as needed for pain Cephalexin 500 Mg Capsule 1 Cap PO QID Bactrim Ds Tablet (Sulfamethoxazole/Trimethoprim) 1 Each Tablet 1 Tab PO BID Cephalexin 500 Mg Tablet 1 Tab PO QID Bactrim Ds Tablet (Sulfamethoxazole/Trimethoprim) 1 Each Tablet 1 Tab PO BID [place] 5-325 Tablet (Acetaminophen/Hydrocodone Bitart) 1 Each Tablet 1 Tab PO Q6HRS [place] 5-325 Tablet (Acetaminophen/Hydrocodone Bitart) 1 Each Tablet 1 Tab PO PRN Q6HRS PRN Bactrim Ds Tablet (Sulfamethoxazole/Trimethoprim) 1 Each Tablet 1 Tab PO BID Cephalexin 500 Mg Tablet 1 Tab PO QID Bactrim Ds Tablet (Sulfamethoxazole/Trimethoprim) 1 Each Tablet 1 Tab PO BID [place] 5-325 Tablet (Acetaminophen/Hydrocodone Bitart) 1 Each Tablet 1 Tab PO Q6HRS Clindamycin Hcl 150 Mg Capsule 3 Cap PO TID Hydrocodone-Apap 7.5-325 (Hydrocodone Bit/Acetaminophen) 1 Each Tablet 1 Tab PO PRN Q6HRS PRN Doxycycline Hyclate 100 Mg Tablet.dr 1 Tab PO BID 10 Days Clindamycin Hcl 300 Mg Capsule 300 Mg PO QID 10 Days [place] 5-325 Tablet (Acetaminophen/Hydrocodone Bitart) 1 Each Tablet 1-2 Tab PO Q4-6HRS [place] 5-325 Tablet (Acetaminophen/Hydrocodone Bitart) 1 Each Tablet 1 Tab PO BID 4 Days Bactrim Ds Tablet (Sulfamethoxazole/Trimethoprim) 1 Each Tablet 1 Tab PO BID 10 Days [place] 5-325 Tablet (Acetaminophen/Hydrocodone Bitart) 1 Each Tablet 1 Tab PO Q6HRS Clindamycin Hcl 150 Mg Capsule 2 Cap PO TID [place] 5-325 Tablet (Acetaminophen/Hydrocodone Bitart) 1 Each Tablet 1 Tab PO PRN Q6HRS PRN Bactrim Ds Tablet (Sulfamethoxazole/Trimethoprim) 1 Each Tablet 1 Tab PO BID [place] 5-325 Tablet (Acetaminophen/Hydrocodone Bitart) 1 Each Tablet 1 Tab PO Q6- 8HRS PRN Percocet 5-325 Mg Tablet (Oxycodone/Acetaminophen) 1 Each Tablet 1 Tab PO BID 4 Days Cephalexin 500 Mg Tablet 1 Tab PO TID 7 Days Bactrim Ds Tablet (Sulfamethoxazole/Trimethoprim) 1 Each Tablet 1 Tab PO BID [place] 5-325 Tablet (Acetaminophen/Hydrocodone Bitart) 1 Each Tablet 1-2 Tab PO Q4-6HRS PRN 2 Days Keflex (Cephalexin) 500 Mg Capsule 1 Cap PO TID 10 Days Bactrim Ds Tablet (Sulfamethoxazole/Trimethoprim) 1 Each Tablet 1 Tab PO BID 10 Days Amoxicillin 500 Mg Capsule 2 Cap PO BID [place] 5-325 Tablet (Acetaminophen/Hydrocodone Bitart) 1 Each Tablet 1 Tab PO PRN Q6HRS PRN Tramadol Hcl 50 Mg Tablet 50 Mg PO Q6H PRN Bactrim Ds Tablet (Sulfamethoxazole/Trimethoprim) 1 Each Tablet 1 Tab PO BID Percocet 5-325 Mg Tablet (Oxycodone/Acetaminophen) 1 Each Tablet 1 Tab PO PRN Q6HRS PRN Clindamycin Hcl 300 Mg Capsule 1 Cap PO TID Percocet 5-325 Mg Tablet (Oxycodone/Acetaminophen) 1 Each Tablet 1 Tab PO PRN Q6HRS PRN Clindamycin Hcl 150 Mg Capsule 2 Cap PO QID 10 Days Clindamycin Hcl 150 Mg Capsule 2 Cap PO QID 7 Days Bactrim Ds Tablet (Sulfamethoxazole/Trimethoprim) 1 Each Tablet 1 Tab PO BID Percocet 5-325 Mg Tablet (Oxycodone/Acetaminophen) 1 Each Tablet 1-2 Tab PO Q6HRS Percocet 5-325 Mg Tablet (Oxycodone/Acetaminophen) 1 Each Tablet 1 Tab PO PRN Q6HRS PRN Clindamycin Phosphate 30 Gm Gel..gram. 1 Mirian TP BID Reported Trazodone Hcl 150 Mg Tablet 150 Mg PO HS Gabapentin (Gabapentin) 300 Mg Capsule 300 Mg PO BID Tramadol Hcl 50 Mg Tablet 50 Mg PO Q6H PRN Zyrtec (Cetirizine Hcl) 10 Mg Tablet 10 Mg PO DAILY Senna Plus Tablet (Sennosides/Docusate Sodium) 1 Each Tablet 1 Each PO DAILY Prozac (Fluoxetine Hcl) 40 Mg Capsule 40 Mg PO DAILY Allergies Allergies: Coded Allergies: morphine (Verified Allergy, Intermediate, hallucinations, 06/09/18) naproxen (Verified Allergy, Intermediate, 02/15/17) NSAIDS (Non-Steroidal Anti-Inflamma (Verified Allergy, Mild, NAUSEA, ) ROS Musculoskeletal: Yes Pain In: (Left thigh) Physical Exam General: Alert, Oriented X3, Cooperative, mild distress HEENT: Atraumatic Lungs: Clear to auscultation, Normal air movement Heart: Regular rate, No murmurs Abdomen: Normal bowel sounds, Soft, No tenderness Extremities: No edema Skin: Other (3 cm area of erythema and tenderness left thigh) Neuro: Normal speech Psych/Mental Status: Mental status NL Vitals VITALS Vital Signs Date Time Temp Pulse Resp B/P (MAP) Pulse Ox O2 Delivery O2 Flow Rate FiO2 05/28/20 09:38 100 Room Air 05/28/20 07:00 98.0 68 18 123/67 (85) 98.0 Labs Labs Laboratory Tests Test 05/27/20 13:35 White Blood Count 10.3 x10^3/uL (4.0-11.0) Red Blood Count 5.10 x10^6/uL (4.30-5.70) Hemoglobin 15.9 g/dL (13.0-17.5) Hematocrit 45.8 % (39.0-53.0) Mean Corpuscular Volume 90 fL (79-100) Mean Corpuscular Hemoglobin 31 pg (25-35) Mean Corpuscular Hemoglobin Concent 35 g/dL (31-37) Red Cell Distribution Width 13.0 % (11.5-14.5) Platelet Count 263 x10^3/uL (140-400) Neutrophils (%) (Auto) 68 % (31-73) Lymphocytes (%) (Auto) 25 % (24-48) Monocytes (%) (Auto) 5 % (0-9) Eosinophils (%) (Auto) 1 % (0-3) Basophils (%) (Auto) 1 % (0-3) Neutrophils # (Auto) 7.0 x10^3/uL (1.8-7.7) Lymphocytes # (Auto) 2.6 x10^3/uL (1.0-4.8) Monocytes # (Auto) 0.5 x10^3/uL (0.0-1.1) Eosinophils # (Auto) 0.1 x10^3/uL (0.0-0.7) Basophils # (Auto) 0.1 x10^3/uL (0.0-0.2) Sodium Level 138 mmol/L (136-145) Potassium Level 4.3 mmol/L (3.5-5.1) Chloride Level 104 mmol/L (98-107) Carbon Dioxide Level 24 mmol/L (21-32) Anion Gap 10 (6-14) Blood Urea Nitrogen 14 mg/dL (8-26) Creatinine 0.9 mg/dL (0.7-1.3) Estimated GFR (Cockcroft-Gault) 95.5 BUN/Creatinine Ratio 16 (6-20) Glucose Level 93 mg/dL (70-99) Lactic Acid Level 0.8 mmol/L (0.4-2.0) Calcium Level 9.2 mg/dL (8.5-10.1) Total Bilirubin 0.4 mg/dL (0.2-1.0) Aspartate Amino Transf (AST/SGOT) 18 U/L (15-37) Alanine Aminotransferase (ALT/SGPT) 23 U/L (16-63) Alkaline Phosphatase 118 U/L (46-116) Total Protein 7.5 g/dL (6.4-8.2) Albumin 3.9 g/dL (3.4-5.0) Albumin/Globulin Ratio 1.1 (1.0-1.7) Laboratory Tests Test 05/27/20 13:35 White Blood Count 10.3 x10^3/uL (4.0-11.0) Red Blood Count 5.10 x10^6/uL (4.30-5.70) Hemoglobin 15.9 g/dL (13.0-17.5) Hematocrit 45.8 % (39.0-53.0) Mean Corpuscular Volume 90 fL (79-100) Mean Corpuscular Hemoglobin 31 pg (25-35) Mean Corpuscular Hemoglobin Concent 35 g/dL (31-37) Red Cell Distribution Width 13.0 % (11.5-14.5) Platelet Count 263 x10^3/uL (140-400) Neutrophils (%) (Auto) 68 % (31-73) Lymphocytes (%) (Auto) 25 % (24-48) Monocytes (%) (Auto) 5 % (0-9) Eosinophils (%) (Auto) 1 % (0-3) Basophils (%) (Auto) 1 % (0-3) Neutrophils # (Auto) 7.0 x10^3/uL (1.8-7.7) Lymphocytes # (Auto) 2.6 x10^3/uL (1.0-4.8) Monocytes # (Auto) 0.5 x10^3/uL (0.0-1.1) Eosinophils # (Auto) 0.1 x10^3/uL (0.0-0.7) Basophils # (Auto) 0.1 x10^3/uL (0.0-0.2) Sodium Level 138 mmol/L (136-145) Potassium Level 4.3 mmol/L (3.5-5.1) Chloride Level 104 mmol/L (98-107) Carbon Dioxide Level 24 mmol/L (21-32) Anion Gap 10 (6-14) Blood Urea Nitrogen 14 mg/dL (8-26) Creatinine 0.9 mg/dL (0.7-1.3) Estimated GFR (Cockcroft-Gault) 95.5 BUN/Creatinine Ratio 16 (6-20) Glucose Level 93 mg/dL (70-99) Lactic Acid Level 0.8 mmol/L (0.4-2.0) Calcium Level 9.2 mg/dL (8.5-10.1) Total Bilirubin 0.4 mg/dL (0.2-1.0) Aspartate Amino Transf (AST/SGOT) 18 U/L (15-37) Alanine Aminotransferase (ALT/SGPT) 23 U/L (16-63) Alkaline Phosphatase 118 U/L (46-116) Total Protein 7.5 g/dL (6.4-8.2) Albumin 3.9 g/dL (3.4-5.0) Albumin/Globulin Ratio 1.1 (1.0-1.7) Assessment/Plan Assessment/Plan Left thigh abscess plan incision and drainage today Should be able to be discharged home after surgery MILENA PRESLEY MD May 28, 2020 10:07
[2020-05-28] MEDS ORDERED: IV RINGERS,LACTATED 1000ML 1,000 ML IV SCH (10:35)
[2020-05-28] MEDS ORDERED: PROCHLORPERAZINE 10 MG/2 ML VIAL. IV PRN (10:45)
[2020-05-28] MEDS ORDERED: HYDROmorphone 2 MG/ML VIAL IV PRN (10:45)
[2020-05-28] MEDS ORDERED: fentaNYL PF VIAL 100 MCG/2 ML VIAL IV PRN (10:45)
[2020-05-28] MEDS ORDERED: ONDANSETRON PF 4 MG/2 ML VIAL. IV PRN (10:45)
[2020-05-28] MEDS ORDERED: MORPHINE SULFATE 2 MG/ML VIAL. IV PRN (10:45)
[2020-05-28 11:00] VITALS: BP 122/77
[2020-05-28] MEDS ORDERED: LANS30TA6 PO (11:28)
[2020-05-28] MEDS ORDERED: ADAL40PE SQ (11:28)
[2020-05-28] MEDS ORDERED: FEXO180T81 PO (11:28)
--- NOTE | 2020-05-28 12:17 | DS ---
DATE OF DISCHARGE: 05/28/2020 ADMISSION DIAGNOSIS: Thigh abscess. DISCHARGE DIAGNOSIS: Postoperative incision and drainage of thigh abscess. HOSPITAL COURSE: The patient is a pleasant 34-year-old male, who presented with a left inner thigh abscess. He was admitted. We gave him IV antibiotics. I consulted General Surgery. I spoke with Dr. Higgins this morning. He plans to take him for surgery briefly this afternoon and then we are going to let him go home. I left prescriptions for Augmentin and Percocet. It should be noted I did see the patient this morning and examined him. PHYSICAL EXAMINATION: HEART: Tones are normal. LUNGS: Clear. ABDOMEN: Soft. DISPOSITION: Home. ACTIVITY: As tolerated. DIET: Low sodium. MEDICATIONS: Please see the MRAD. TOTAL TIME: 32 minutes. GEE LIANG DO DR: ANDREIA/jarod JOB#: [id number] / [id number]
[2020-05-28] MEDS ORDERED: DEXAMETHASONE SOD PHOS 4 MG/ML VIAL ONE (13:56)
[2020-05-28] MEDS ORDERED: PROPOFOL 10 MG/ML (20ML) VIAL. IV ONE (13:56)
[2020-05-28] MEDS ORDERED: ONDANSETRON PF 4 MG/2 ML VIAL. ONE (13:56)
[2020-05-28] MEDS ORDERED: LIDOCAINE 2% PF 5 ML VIAL. ONE (13:56)
[2020-05-28] MEDS ORDERED: ceFAZolin SODIUM IV Push 1 GM VIAL. IVP ONE (14:09)
[2020-05-28] MEDS ORDERED: BUPIVACAINE-EPI 0.5%-1:200000 MPF 30 ML VIAL. ONE (14:25)
[2020-05-28] MEDS ORDERED: SEVOFLURANE 16 TO 30 MINUTES. IH ONE (14:30)
--- NOTE | 2020-05-28 14:35 | PDOC4 ---
Operative Note Operative Note Date: May [id number] at 1433 Preoperative diagnosis: Cellulitis abscess left thigh Postoperative diagnosis: Same Procedure: Incision and drainage left thigh abscess Surgeon: Ronaldo Specimen: Cultures Dictation: Patient is a 34-year-old male whose had episodes of abscesses from hidradenitis. He comes in with complaints of a left thigh mass and pain procedure of incision and drainage of left thigh abscess was explained to the patient detail was benefits were also discussed including bleeding infection. Alternatives to this procedure also discussed with the patient who seemed to understand and gave both verbal and written consent to have the procedure performed. Patient was taken to the operating room placed in supine position general anesthesia was initiated once patient was sleeping intubated his thigh was prepped and draped usual sterile fashion using ChloraPrep. Area around the cellulitis was injected half percent Marcaine with epinephrine an incision was made over the midportion of the abscess there is some purulent material probably 5 mL which was expressed this was cultured wound was then irrigated and suctioned dry and packed with quarter inch iodoform new gauze. Wound was then dressed with 4 x 4's Medipore tape. Patient was awakened and extubated in the operating room taken to recovery in stable condition all sponge instrument needle counts listed as correct estimated blood loss less than 5 cc. MILENA PRESLEY MD May 28, 2020 14:35
--- NOTE | 2020-05-28 14:37 | DISCH ---
DISCHARGE INSTRUCTIONS Condition on Discharge Condition on Discharge: Stable Activity After Discharge Activity Instructions for Disc: No restrictions Other activity instructions: May shower in 24 hours Diet after Discharge Diet after Discharge: Regular Wound Incision Care Other wound/incision instructi: Wound needs to be packed daily Contacting the DRLitzy after DC Call your doctor for: If your condition worsens Follow-Up Follow up with: Dr. Presley in 2 weeks MILENA PRESLEY MD May 28, 2020 14:37
[2020-05-28] MEDS ORDERED: fentaNYL PF VIAL 100 MCG/2 ML VIAL ONE (14:52)
[2020-05-28 15:15] VITALS: BP 124/71
--- NOTE | 2020-05-28 16:06 | NUR ---
Discharge Note: [facility] [place] Discharge instructions and discharge home medications reviewed with Patient and a copy given. All questions have been answered and understanding verbalized. The following instructions and handouts were given: discharge instructions, new prescriptions, education and follow up recommendations. Discontinued lines and drains: Peripheral IV discontinued intact. Patient discharged to Home or Self Care with Significant Other via Ambulated off unit by RN.
== END 2020-05-28 16:08 | disposition home or self-care (01) | DRG 603 ==
LOC: ER 12:06 → ED HOLD 15:12 → 4 NORTH 18:15
PROVIDERS: ADMIT Internal Medicine; ATTEND Internal Medicine
PROC: 0J9P3ZZ Drainage of Left Lower Leg Subcutaneous Tissue and Fascia, Percutaneous Approach (ICD-10-PCS; principal; 2020-05-28 14:00)
DX: L02.416 Cutaneous abscess of left lower limb (principal); L03.116 Cellulitis of left lower limb; L73.2 Hidradenitis suppurativa; M79.7 Fibromyalgia; Z82.49 Family history of ischemic heart disease and other diseases of the circulatory system; I10 Essential (primary) hypertension; Z83.3 Family history of diabetes mellitus; Z87.891 Personal history of nicotine dependence; Z20.828 Contact with and (suspected) exposure to other viral communicable diseases; Z88.8 Allergy status to other drugs, medicaments and biological substances; Z79.899 Other long term (current) drug therapy
CPT/HCPCS: 36415; 80053; 83605; 85025; 87040; 87071; 87075; 96365; 96366; 96375; 96376; 99285; A7015; J0690; J1100; J2405; J2704; J3010; J3370; J7040; J7120; G0378; U0003-CS

== ENCOUNTER 2020-05-30 17:25 | Emergency (ER) | payer OTHER ==
[~2020-05-30] VITALS: Ht 177.8 cm; Wt 98.0 kg
[~2020-05-30 17:25] MED LIST changes: +ADAL40PE SQ; +CETI10TA24 PO; -CETI10TA74 PO; +FEXO180T81 PO; +LANS30TA6 PO
[2020-05-30 17:32] VITALS: BP 151/87
[2020-05-30] MEDS ORDERED: HYDROcodone/APAP 5/325MG 1 TAB TABLET PO ONE (18:15)
[2020-05-30] MEDS ORDERED: ONDANSETRON PF 4 MG/2 ML VIAL. IV ONE (18:15)
[2020-05-30] MEDS ORDERED: HYDR-2761 PO (18:36)
--- NOTE | 2020-05-30 18:37 | PHYS DOC ---
Past Medical History Past Medical History: Fibromyalgia, Hypertension, Other Additional Past Medical Histor: Hidradenitis suppurativa in axilla and groin, rectum Past Surgical History: Other Additional Past Surgical Histo: CYST REMOVAL X9 Smoking Status: Current Every Day Smoker Alcohol Use: None Drug Use: None General Adult EDM: Chief Complaint: NAUSEA/VOMITING/DIARRHA HPI: HPI: Patient is a 34 year old male who presents to the emergency department with complaints of nausea related to the pain medication that was prescribed for a recent surgery had. Patient states that last week he had hidradenitis suppritiva removed from his inner left thigh. He denies any fever, redness, warmth, or drainage from surgical site. Patient states that he was prescribed oxycodone that makes him terribly nauseated and causes him to vomit. Patient states that he called his surgeon who recommended he goes to the emergency department for a prescription for hydrocodone which does not cause the severe nausea and vomiting. Review of Systems: Review of Systems: Complete review of systems is negative unless otherwise documented in the HPI Heart Score: Risk Factors: Risk Factors: DM, Current or recent (<one month) smoker, HTN, HLP, family history of CAD, obesity. Risk Scores: Score 0 - 3: 2.5% MACE over next 6 weeks - Discharge Home Score 4 - 6: 20.3% MACE over next 6 weeks - Admit for Clinical Observation Score 7 - 10: 72.7% MACE over next 6 weeks - Early Invasive Strategies Current Medications: Current Medications Medications (Trade) Dose Ordered Sig/[facility] Start Time Stop Time Status Last Admin Dose Admin Acetaminophen/ Hydrocodone Bitart (Lortab 5/325) 1 tab 1X ONCE 05/30/20 18:15 05/30/20 18:16 DC Ondansetron HCl (Zofran) 4 mg 1X ONCE 05/30/20 18:15 05/30/20 18:10 DC Allergies: Allergies: Allergies Coded Allergies Type Severity Reaction Last Updated Verified morphine Allergy Intermediate hallucinations 06/09/18 Yes naproxen Allergy Intermediate 02/15/17 Yes NSAIDS (Non-Steroidal Anti-Inflamma Adverse Reaction Mild NAUSEA 05/28/20 Yes Physical Exam: PE: Constitutional: Well developed, well nourished, no acute distress, non-toxic appearance. [] HENT: Normocephalic, atraumatic, bilateral external ears normal, nose normal. [] Eyes: PERRLA, EOMI, conjunctiva normal, no discharge. [] Neck: Normal range of motion, no stridor. [] Cardiovascular:Heart rate regular rhythm Lungs & Thorax: Respirations even and unlabored, no retractions, no respiratory distress Abdomen: soft, no tenderness Skin: Warm, dry, no erythema, no rash; healing incision with packing wick noted to the left inner thigh, no surrounding erythema or purulent drainage [] Extremities: No cyanosis, ROM intact, no edema. [] Neurologic: Alert and oriented X 3, no focal deficits noted. [] Psychologic: Affect normal, judgement normal, mood normal. [] Current Patient Data: Vital Signs: Vital Signs Date Time Temp Pulse Resp B/P (MAP) Pulse Ox O2 Delivery O2 Flow Rate FiO2 05/30/20 17:32 97.6 85 20 151/87 (108) 97 Room Air 97.6 EKG: EKG: [] Radiology/Procedures: Radiology/Procedures: [] Course & Med Decision Making: Course & Med Decision Making Pertinent Labs and Imaging studies reviewed. (See chart for details) [] Dragon Disclaimer: Venuetastic Disclaimer: This electronic medical record was generated, in whole or in part, using a voice recognition dictation system. Departure Departure Impression: Primary Impression: Drug therapy changed Additional Impression: Inadequate pain control Disposition: 01 HOME, SELF-CARE Condition: STABLE Referrals: NO PCP (PCP) Patient Instructions: Pain Medicine Instructions, [id number] Additional Instructions: Fill the prescription and use it as directed, follow-up with your surgeon as planned, return to the ER if symptoms worsen or you develop a fever. Scripts Hydrocodone Bit/Acetaminophen (HYDROCODONE-APAP 5-325 ) 1 Tab Tablet 1 TAB PO PRN Q6HRS PRN for PAIN for 3 Days, #10 TAB 0 Refills Prov: FER LEONG PSYCHIATRIC ORDERLY 05/30/20 Justicifation of Admission Dx: Justifications for Admission: Justification of Admission Dx: N/A FER LEONG PSYCHIATRIC ORDERLY May 30, 2020 18:37
== END 2020-05-30 18:36 ==
LOC: ER 17:25
DX: G89.18 Other acute postprocedural pain (principal); R11.2 Nausea with vomiting, unspecified; M79.7 Fibromyalgia; I10 Essential (primary) hypertension; F17.200 Nicotine dependence, unspecified, uncomplicated; Z98.890 Other specified postprocedural states; Z88.6 Allergy status to analgesic agent; Z88.8 Allergy status to other drugs, medicaments and biological substances
CPT/HCPCS: 99283

== ENCOUNTER 2020-06-16 17:17 | Emergency (ER) | payer OTHER, MEDICAID ==
[~2020-06-16] VITALS: Ht 177.8 cm; Wt 105.0 kg
[~2020-06-16 17:17] MED LIST changes: +HYDR-2761 PO
[2020-06-16 17:35] VITALS: BP 157/67
--- NOTE | 2020-06-16 18:16 | PHYS DOC ---
Past Medical History Past Medical History: Fibromyalgia, Hypertension, Other Additional Past Medical Histor: Hidradenitis suppurativa in axilla and groin, rectum Past Surgical History: Other Additional Past Surgical Histo: CYST REMOVAL X10 Smoking Status: Current Every Day Smoker Alcohol Use: None Drug Use: None General Adult EDM: Chief Complaint: ABSCESS HPI: HPI: Patient is a 34 year old male who presents to the emergency department today for an abscess to his right buttock he noticed 2 days ago. Patient reports that he has a history of hidradenitis suppurativa and recently had to have an abscess surgically excised on his left thigh by Dr. Higgins. Patient is requesting an antibiotic before he has to resort to surgery. He just finished a round of Augmentin and reports that he is usually placed on clindamycin or doxycycline. He rates his pain 7 out of 10, no treatment at home, no radiation of pain, no alleviating or aggravating factors. Review of Systems: Review of Systems: Constitutional: Denies fever or chills. [] Integument: See HPI Psychiatric: Denies depression or anxiety. [] Heart Score: Risk Factors: Risk Factors: DM, Current or recent (<one month) smoker, HTN, HLP, family history of CAD, obesity. Risk Scores: Score 0 - 3: 2.5% MACE over next 6 weeks - Discharge Home Score 4 - 6: 20.3% MACE over next 6 weeks - Admit for Clinical Observation Score 7 - 10: 72.7% MACE over next 6 weeks - Early Invasive Strategies Allergies: Allergies: Allergies Coded Allergies Type Severity Reaction Last Updated Verified morphine Allergy Intermediate hallucinations 06/09/18 Yes naproxen Allergy Intermediate 02/15/17 Yes NSAIDS (Non-Steroidal Anti-Inflamma Adverse Reaction Mild NAUSEA 05/28/20 Yes Physical Exam: PE: Constitutional: Well developed, well nourished, no acute distress, non-toxic appearance. [] HENT: Normocephalic, atraumatic, bilateral external ears normal, nose normal. [] Eyes: PERRLA, EOMI, conjunctiva normal, no discharge. [] Neck: Normal range of motion, no stridor. [] Cardiovascular:Heart rate regular rhythm Lungs & Thorax: Respirations even and unlabored, no retractions, no respiratory distress Skin: Warm, dry; right buttock: 2 cm in diameter indurated and tender area with no erythema or warmth consistent with hydradenitis suppurativa noted to the lateral right buttock there is no visible pustule, drainage, or bleeding, non fluctuating and non-moveable [] Extremities: No cyanosis, ROM intact, no edema. [] Neurologic: Alert and oriented X 3, no focal deficits noted. [] Psychologic: Affect normal, judgement normal, mood normal. [] Current Patient Data: Vital Signs: Vital Signs Date Time Temp Pulse Resp B/P (MAP) Pulse Ox O2 Delivery O2 Flow Rate FiO2 06/16/20 17:35 98.0 70 16 157/67 (97) 98 Room Air 98.0 EKG: EKG: [] Radiology/Procedures: Radiology/Procedures: [] Course & Med Decision Making: Course & Med Decision Making Pertinent Labs and Imaging studies reviewed. (See chart for details) [] Dragon Disclaimer: Dragon Disclaimer: This electronic medical record was generated, in whole or in part, using a voice recognition dictation system. Departure Departure Impression: Primary Impression: Abscess Disposition: 01 HOME, SELF-CARE Condition: STABLE Referrals: KAREN LIMON MD (PCP) Patient Instructions: Abscess, [id number] Additional Instructions: Fill the prescription and use it as directed. I recommend that you apply warm moist heat as needed for pain, you can also take Tylenol or ibuprofen as needed for pain. Follow-up with your primary care doctor if symptoms persist, return to the ER symptoms worsen or you develop a fever. Scripts Tramadol Hcl (TRAMADOL HCL) 50 Mg Tablet 50 MG PO Q6HRS PRN for PAIN for 3 Days, #10 TAB 0 Refills Prov: FER LEONG APRN 06/16/20 Clindamycin Hcl (CLINDAMYCIN HCL) 150 Mg Capsule 300 MG PO TID for 7 Days, #42 CAP 0 Refills Prov: FER LEONG APRN 06/16/20 Justicifation of Admission Dx: Justifications for Admission: Justification of Admission Dx: N/A FER LEONG APRN Jun 16, 2020 18:16
[2020-06-16] MEDS ORDERED: CLIN150C14 PO (18:42)
[2020-06-16] MEDS ORDERED: TRAM50TA PO (19:14)
== END 2020-06-16 19:17 | disposition home or self-care (01) ==
LOC: ER 17:17
DX: L02.31 Cutaneous abscess of buttock (principal); M79.7 Fibromyalgia; I10 Essential (primary) hypertension; F17.200 Nicotine dependence, unspecified, uncomplicated; Z98.890 Other specified postprocedural states; Z88.6 Allergy status to analgesic agent; Z88.8 Allergy status to other drugs, medicaments and biological substances
CPT/HCPCS: 99283

== ENCOUNTER 2020-06-26 21:27 | Emergency (ER) | payer OTHER, MEDICAID ==
[~2020-06-26] VITALS: Ht 177.8 cm; Wt 98.6 kg
[2020-06-26 21:55] VITALS: BP 149/88
[2020-06-26] MEDS ORDERED: OXYC1TAB15 PO (22:58)
[2020-06-26] MEDS ORDERED: DOXY100T PO (22:58)
--- NOTE | 2020-06-26 22:58 | PHYS DOC ---
Past Medical History Past Medical History: Fibromyalgia, Hypertension, Other Additional Past Medical Histor: Hidradenitis suppurativa in axilla and groin, rectum (ROULA HUMMEL APRN) Past Surgical History: Other Additional Past Surgical Histo: CYST REMOVAL X10 (ROULA HUMMEL APRN) Smoking Status: Current Every Day Smoker Alcohol Use: None Drug Use: None (ROULA HUMMEL APRN) General Adult EDM: Chief Complaint: OTHER COMPLAINTS HPI: HPI: Patient is a 34 year old male with history of hidradenitis supra who presents to the ED today complaining of lesions around his groin. Patient denies any fever but reports chills. He states his current clindamycin is not working and he would like to be switched to a different antibiotic. (ROULA HUMMEL APRN) Review of Systems: Review of Systems: Constitutional: Denies fever or chills. [] Respiratory: Denies cough or shortness of breath. [] Cardiovascular: Denies chest pain or edema. [] GI: Denies abdominal pain, nausea, vomiting, bloody stools or diarrhea. [] : Denies dysuria. [] Musculoskeletal: Denies back pain or joint pain. [] Integument: Reports hidradenitis supra lesions around the groin region Neurologic: Denies headache, focal weakness or sensory changes. [] Psychiatric: Denies depression or anxiety. [] (ROULA HUMMEL APRN) Heart Score: Risk Factors: Risk Factors: DM, Current or recent (<one month) smoker, HTN, HLP, family history of CAD, obesity. Risk Scores: Score 0 - 3: 2.5% MACE over next 6 weeks - Discharge Home Score 4 - 6: 20.3% MACE over next 6 weeks - Admit for Clinical Observation Score 7 - 10: 72.7% MACE over next 6 weeks - Early Invasive Strategies (ROULA HUMMEL APRN) Allergies: Allergies: Allergies Coded Allergies Type Severity Reaction Last Updated Verified morphine Allergy Intermediate hallucinations 06/09/18 Yes naproxen Allergy Intermediate 02/15/17 Yes NSAIDS (Non-Steroidal Anti-Inflamma Adverse Reaction Mild NAUSEA 05/28/20 Yes (ROULA HUMMEL APRN) Physical Exam: PE: Constitutional: Well developed, well nourished, no acute distress, non-toxic appearance. [] HENT: Normocephalic, atraumatic, bilateral external ears normal, oropharynx moist, no oral exudates, nose normal. [] Eyes: PERRLA, EOMI, conjunctiva normal, no discharge. [] Neck: Normal range of motion, no tenderness, supple, no stridor. [] Cardiovascular:Heart rate regular rhythm, no murmur [] Lungs & Thorax: Bilateral breath sounds clear to auscultation [] Abdomen: Bowel sounds normal, soft, no tenderness, no masses, no pulsatile masses. [] Skin: Warm, dry, groin region with multiple lesions consistent of hidradenitis supra. There is erythema around the groin region and in the buttocks cheeks. There is no drainage. Back: No tenderness, no CVA tenderness. [] Extremities: No tenderness, no cyanosis, no clubbing, ROM intact, no edema. [] Neurologic: Alert and oriented X 3, normal motor function, normal sensory function, no focal deficits noted. [] Psychologic: Affect normal, judgement normal, mood normal. [] (ROULA HUMMEL APRN) Current Patient Data: Vital Signs: Vital Signs Date Time Temp Pulse Resp B/P (MAP) Pulse Ox O2 Delivery O2 Flow Rate FiO2 06/26/20 21:55 98.3 80 19 149/88 (108) 99 98.3 (ROULA HUMMEL APRN) EKG: EKG: [] (ROULA HUMMEL APRN) Radiology/Procedures: Radiology/Procedures: [] (ROULA HUMMEL APRN) Course & Med Decision Making: Course & Med Decision Making Pertinent Labs and Imaging studies reviewed. (See chart for details) This is a 34-year-old male patient well-known to this ED for hidradenitis supra presenting to the ED with similar lesions. Patient is afebrile. Discharged on doxycycline. Follow-up with his own doctor next week (ROULA HUMMEL APRN) Toy Disclaimer: Toy Disclaimer: This electronic medical record was generated, in whole or in part, using a voice recognition dictation system. (ROULA HUMMEL APRN) Departure Departure Impression: Primary Impression: Hidradenitis suppurativa Disposition: 01 HOME, SELF-CARE Condition: STABLE Referrals: AKREN LIMON MD (PCP) follow up next week Patient Instructions: Hidradenitis Suppurativa, Sweat Gland Abscess Additional Instructions: Please take the prescribed antibiotics as ordered until completed. Follow-up with your doctor next week Scripts Oxycodone/Apap 5-325 (PERCOCET 5-325 MG TABLET ) 1 Each Tablet 1 TAB PO PRN Q6HRS PRN for PAIN, #14 TAB 0 Refills Prov: ROULA HUMMEL APRN 06/26/20 Doxycycline Hyclate (DOXYCYCLINE HYCLATE) 100 Mg Tablet 1 TAB PO BID, #20 TAB Prov: ROULA HUMMEL APRN 06/26/20 Justicifation of Admission Dx: Justifications for Admission: Justification of Admission Dx: N/A (ROULA HUMMEL APRN) Attending Signature Attending Signature I have reviewed the PA/WATER SPONGER's note and plan of care. I was available for consultation as needed during the patient's visit in the emergency department. I agree with the clinical impression, plan, and disposition. (AZEB CRAFT DO) ROULA HUMMEL APRN Jun 26, 2020 22:58 AZEB CRAFT DO Jun 26, 2020 23:32
== END 2020-06-26 23:00 | disposition home or self-care (01) ==
LOC: ER 21:27
DX: L73.2 Hidradenitis suppurativa (principal); L53.9 Erythematous condition, unspecified; M79.7 Fibromyalgia; I10 Essential (primary) hypertension; F17.200 Nicotine dependence, unspecified, uncomplicated; Z98.890 Other specified postprocedural states; Z88.6 Allergy status to analgesic agent; Z88.8 Allergy status to other drugs, medicaments and biological substances
CPT/HCPCS: 99283

== ENCOUNTER 2020-07-08 15:57 | Emergency (ER) | payer OTHER, MEDICAID ==
[~2020-07-08] VITALS: Ht 177.8 cm; Wt 100.0 kg
[~2020-07-08 15:57] MED LIST changes: +DOXY100T PO
[2020-07-08 16:13] VITALS: BP 146/89
[2020-07-08] MEDS ORDERED: CLIN300C8 PO (17:12)
[2020-07-08] MEDS ORDERED: OXYC1TAB15 PO (17:12)
--- NOTE | 2020-07-08 17:12 | PHYS DOC ---
Past Medical History Past Medical History: Fibromyalgia, Hypertension, Other Additional Past Medical Histor: Hidradenitis suppurativa in axilla and groin, rectum Past Surgical History: Other Additional Past Surgical Histo: CYST REMOVAL X10 Smoking Status: Current Every Day Smoker Alcohol Use: None Drug Use: None General Adult EDM: Chief Complaint: ABSCESS HPI: HPI: Patient is a 34 year old male with history of hidradenitis supra who presents to the ED today complaining of lesions around his buttocks that are new that the mother noticed today. Patient denies any fever but reports chills. He states he took doxycycline and he feels it is not working. He states he will call Dr. Presley and follow-up. Review of Systems: Review of Systems: Constitutional: Denies fever or chills. [] : Denies dysuria. [] Musculoskeletal: Denies back pain or joint pain. [] Integument: reports lesions to the buttocks Neurologic: Denies headache, focal weakness or sensory changes. [] Psychiatric: Denies depression or anxiety. [] Heart Score: Risk Factors: Risk Factors: DM, Current or recent (<one month) smoker, HTN, HLP, family history of CAD, obesity. Risk Scores: Score 0 - 3: 2.5% MACE over next 6 weeks - Discharge Home Score 4 - 6: 20.3% MACE over next 6 weeks - Admit for Clinical Observation Score 7 - 10: 72.7% MACE over next 6 weeks - Early Invasive Strategies Allergies: Allergies: Allergies Coded Allergies Type Severity Reaction Last Updated Verified morphine Allergy Intermediate hallucinations 06/09/18 Yes naproxen Allergy Intermediate 02/15/17 Yes NSAIDS (Non-Steroidal Anti-Inflamma Adverse Reaction Mild NAUSEA 05/28/20 Yes Physical Exam: PE: Constitutional: Well developed, well nourished, no acute distress, non-toxic appearance. [] Skin: Warm, dry multiple lesions on the groin and inner buttocks cheeks consistent with hidradenitis supra. There is slight erythema between the buttocks. There is no open wounds. Back: No tenderness, no CVA tenderness. [] Extremities: No tenderness, no cyanosis, no clubbing, ROM intact, no edema. [] Neurologic: Alert and oriented X 3, normal motor function, normal sensory funct ion, no focal deficits noted. [] Psychologic: Affect normal, judgement normal, mood normal. [] Current Patient Data: Vital Signs: Vital Signs Date Time Temp Pulse Resp B/P (MAP) Pulse Ox O2 Delivery O2 Flow Rate FiO2 07/08/20 16:13 98.3 86 20 146/89 (108) 94 Room Air 98.3 EKG: EKG: [] Radiology/Procedures: Radiology/Procedures: [] Course & Med Decision Making: Course & Med Decision Making Pertinent Labs and Imaging studies reviewed. (See chart for details) This is a 34-year-old male patient well-known to this ED presenting today for hidradenitis supra ongoing infection. Patient has been seen in our ED multiple times for this. We have discussed with this patient the need to follow-up. He follows promises he will. He states this time he will see Dr. Presley. He requested a prescription of clindamycin which was given. I doubt this patient is taking any of this antibiotics. Dragon Disclaimer: Dragon Disclaimer: This electronic medical record was generated, in whole or in part, using a voice recognition dictation system. Departure Departure Impression: Primary Impression: Hidradenitis suppurativa Disposition: HOME, SELF-CARE Condition: STABLE Referrals: KAREN LIMON MD (PCP) MILENA PRESLEY MD follow up in 1-2 weeks Patient Instructions: Hidradenitis Suppurativa, Sweat Gland Abscess Additional Instructions: Please take the antibiotics as prescribed and follow-up with Dr. Presley as soon as possible Scripts Oxycodone/Apap 5-325 (PERCOCET 5-325 MG TABLET ) 1 Each Tablet 1 TAB PO PRN Q6HRS PRN for PAIN, #12 TAB 0 Refills Prov: ROULA HUMMEL APRN 07/08/20 Clindamycin Hcl (CLINDAMYCIN HCL) 300 Mg Capsule 1 CAP PO TID, #21 CAP Prov: ROULA HUMMEL APRN 07/08/20 Justicifation of Admission Dx: Justifications for Admission: Justification of Admission Dx: N/A ROULA HUMMEL APRN Jul 08, 2020 17:12
== END 2020-07-08 17:18 | disposition home or self-care (01) ==
LOC: ER 15:57
DX: L73.2 Hidradenitis suppurativa (principal); L53.9 Erythematous condition, unspecified; M79.7 Fibromyalgia; I10 Essential (primary) hypertension; F17.200 Nicotine dependence, unspecified, uncomplicated; Z98.890 Other specified postprocedural states; Z88.6 Allergy status to analgesic agent; Z88.8 Allergy status to other drugs, medicaments and biological substances
CPT/HCPCS: 99283

== ENCOUNTER 2020-07-16 20:49 | Emergency (ER) | payer OTHER, MEDICAID ==
[~2020-07-16] VITALS: Ht 175.3 cm; Wt 72.7 kg
[2020-07-16 21:15] VITALS: BP 140/90
[2020-07-16] MEDS ORDERED: HYDROcodone/APAP 5/325MG 1 TAB TABLET PO ONE (21:45)
[2020-07-16] MEDS ORDERED: HYDR-2761 PO (22:00)
--- NOTE | 2020-07-16 22:01 | PHYS DOC ---
Past Medical History Past Medical History: Fibromyalgia, Hypertension, Other Additional Past Medical Histor: Hidradenitis suppurativa in axilla and groin, rectum Past Surgical History: Other Additional Past Surgical Histo: CYST REMOVAL X10 Smoking Status: Current Every Day Smoker Alcohol Use: None Drug Use: None General Adult EDM: Chief Complaint: SKIN PROBLEM HPI: HPI: Patient is a 34 year old male, accompanied by his mother, who presents to the emergency department with complaints of no improvement of the pain between his buttocks after taking clindamycin and Percocet that was prescribed 6 days prior by another practitioner in this emergency department. He denies any fever, drainage, or increase in size of the cyst in his rectal area. Patient reports that he is unable to get into a plastic surgeon for treatment of the condition until July. Patient reports that the Percocet makes him feel sick so he has not been taking it. He requests a prescription for hydrocodone. He denies any rectal itching. He states that the pain is so severe he is not able to sit or apply pressure to his buttocks. He currently rates the discomfort a 10 out of 10 on the pain scale, he denies any radiation of the pain. Review of Systems: Review of Systems: Constitutional: Denies fever or chills. [] GI: Denies abdominal pain, nausea, vomiting, or diarrhea. [] Integument: See HPI Psychiatric: Denies depression or anxiety. [] Heart Score: Risk Factors: Risk Factors: DM, Current or recent (<one month) smoker, HTN, HLP, family history of CAD, obesity. Risk Scores: Score 0 - 3: 2.5% MACE over next 6 weeks - Discharge Home Score 4 - 6: 20.3% MACE over next 6 weeks - Admit for Clinical Observation Score 7 - 10: 72.7% MACE over next 6 weeks - Early Invasive Strategies Current Medications: Current Medications Medications (Trade) Dose Ordered Sig/Vanessa Start Time Stop Time Status Last Admin Dose Admin Acetaminophen/ Hydrocodone Bitart (Lortab 5/325) 1 tab 1X ONCE 07/16/20 21:45 07/16/20 21:49 DC 07/16/20 21:53 1 TAB Allergies: Allergies: Allergies Coded Allergies Type Severity Reaction Last Updated Verified morphine Allergy Intermediate hallucinations 06/09/18 Yes naproxen Allergy Intermediate 3/23/17 Yes NSAIDS (Non-Steroidal Anti-Inflamma Adverse Reaction Mild NAUSEA 05/28/20 Yes Physical Exam: PE: Constitutional: Well developed, well nourished, no acute distress, non-toxic appearance, obese. [] HENT: Normocephalic, atraumatic, bilateral external ears normal, nose normal. [] Eyes: PERRLA, EOMI, conjunctiva normal, no discharge. [] Neck: Normal range of motion, no stridor. [] Cardiovascular:Heart rate regular rhythm Lungs & Thorax: Respirations even and unlabored, no retractions, no respiratory distress Skin: Warm, dry; multiple lesions consistent with perirectal hydradenitis supprativa noted, no fluctuance, drainage, or erythema of these areas; the skin between the buttocks is noted to be erythemic and moist consistent with chafing Extremities: No cyanosis, ROM intact, no edema. [] Neurologic: Alert and oriented X 3, no focal deficits noted. [] Psychologic: Affect normal, judgement normal, mood normal. [] Current Patient Data: Vital Signs: Vital Signs Date Time Temp Pulse Resp B/P (MAP) Pulse Ox O2 Delivery O2 Flow Rate FiO2 07/16/20 21:53 16 100 Room Air EKG: EKG: [] Radiology/Procedures: Radiology/Procedures: [] Course & Med Decision Making: Course & Med Decision Making Pertinent Labs and Imaging studies reviewed. (See chart for details) Patient presented with complaints of continued pain and no improvement in the condition of his chronic hidradenitis supprativa after taking medications that were prescribed during his visit 6 days ago. Advised the patient that unless he had a fever or purulent drainage that I am not comfortable with prescribing another antibiotic. I encouraged the patient to continue taking the antibiotic that was previously prescribed until complete. Patient requested that hydrocodone be prescribed for his pain instead of the Percocet, he reports that the Percocet makes him sick to his stomach. Prescription written for hydrocodone No. 12. Patient was instructed to follow- up with his plastic surgeon at the beginning of July for further resolution of his chronic condition. Patient verbalized an understanding of home care, medications, follow-up, and return to ED instructions and was in agreement with the plan of care. [] Dragon Disclaimer: Dragon Disclaimer: This electronic medical record was generated, in whole or in part, using a voice recognition dictation system. Departure Departure Impression: Primary Impression: Eyalg Additional Impression: Hidradenitis suppurativa of anus Disposition: 01 HOME, SELF-CARE Condition: STABLE Referrals: KAREN LIMON MD (PCP) Patient Instructions: Hidradenitis Suppurativa, Sweat Gland Abscess Additional Instructions: Continue taking the antibiotic that was prescribed during your previous ER visit until it is completed. Fill the prescription for the pain medication and take as directed. Follow-up with the plastic surgeon next month as scheduled. I recommend that you keep your genitalia open to air at night, try to keep the skin between your buttocks as dry as possible. Return to the ER if you develop fever, redness, warmth or drainage from the affected region. Scripts Hydrocodone Bit/Acetaminophen (HYDROCODONE-APAP 5-325 ) 1 Tab Tablet 1 TAB PO PRN Q6HRS PRN for PAIN for 3 Days, #12 TAB 0 Refills Prov: FER LEONG APRN 07/16/20 Justicifation of Admission Dx: Justifications for Admission: Justification of Admission Dx: N/A FER LEONG APRN Jul 16, 2020 22:01
== END 2020-07-16 22:13 | disposition home or self-care (01) ==
LOC: ER 20:49
DX: L73.2 Hidradenitis suppurativa (principal); L30.4 Erythema intertrigo; M79.7 Fibromyalgia; I10 Essential (primary) hypertension; F17.200 Nicotine dependence, unspecified, uncomplicated; Z98.890 Other specified postprocedural states; Z88.6 Allergy status to analgesic agent; Z88.8 Allergy status to other drugs, medicaments and biological substances
CPT/HCPCS: 99283

== ENCOUNTER 2020-07-22 13:24 | Emergency (ER) | payer OTHER, MEDICAID ==
[~2020-07-22] VITALS: Ht 177.8 cm; Wt 100.0 kg
[2020-07-22 13:34] VITALS: BP 129/81
[2020-07-22] MEDS ORDERED: oxyCODONE/APAP 5/325 1 TAB TABLET PO ONE (14:00)
[2020-07-22] MEDS ORDERED: CLINDAMYCIN HCL 150 MG CAPSULE. PO ONE (14:00)
[2020-07-22] MEDS ORDERED: OXYC1TAB15 PO (14:03)
[2020-07-22] MEDS ORDERED: CLIN300C8 PO (14:03)
--- NOTE | 2020-07-22 14:03 | PHYS DOC ---
Past Medical History Past Medical History: Fibromyalgia, Hypertension, Other Additional Past Medical Histor: Hidradenitis suppurativa in axilla and groin, rectum Past Surgical History: Other Additional Past Surgical Histo: CYST REMOVAL X10 Smoking Status: Current Every Day Smoker Alcohol Use: None Drug Use: None General Adult EDM: Chief Complaint: GROIN PAIN HPI: HPI: Patient is a 34 year old [f__sex] who presents with [] Review of Systems: Review of Systems: Constitutional: Denies fever or chills. [] Eyes: Denies change in visual acuity. [] HENT: Denies nasal congestion or sore throat. [] Respiratory: Denies cough or shortness of breath. [] Cardiovascular: Denies chest pain or edema. [] GI: Denies abdominal pain, nausea, vomiting, bloody stools or diarrhea. [] : Denies dysuria. [] Musculoskeletal: Denies back pain or joint pain. [] Integument: Denies rash. [] Neurologic: Denies headache, focal weakness or sensory changes. [] Endocrine: Denies polyuria or polydipsia. [] Lymphatic: Denies swollen glands. [] Psychiatric: Denies depression or anxiety. [] Heart Score: Risk Factors: Risk Factors: DM, Current or recent (<one month) smoker, HTN, HLP, family history of CAD, obesity. Risk Scores: Score 0 - 3: 2.5% MACE over next 6 weeks - Discharge Home Score 4 - 6: 20.3% MACE over next 6 weeks - Admit for Clinical Observation Score 7 - 10: 72.7% MACE over next 6 weeks - Early Invasive Strategies Current Medications: Current Medications Medications (Trade) Dose Ordered Sig/Vanessa Start Time Stop Time Status Last Admin Dose Admin Clindamycin HCl (Cleocin) 300 mg 1X ONCE 07/22/20 14:00 07/22/20 14:01 07/22/20 13:54 300 MG Oxycodone/ Acetaminophen (Percocet 5/325) 1 tab 1X ONCE 07/22/20 14:00 07/22/20 14:01 Allergies: Allergies: Allergies Coded Allergies Type Severity Reaction Last Updated Verified morphine Allergy Intermediate hallucinations 06/09/18 Yes naproxen Allergy Intermediate 02/15/17 Yes NSAIDS (Non-Steroidal Anti-Inflamma Adverse Reaction Mild NAUSEA 7/3/20 Yes Physical Exam: PE: Constitutional: Well developed, well nourished, no acute distress, non-toxic appearance. [] HENT: Normocephalic, atraumatic, bilateral external ears normal, oropharynx moist, no oral exudates, nose normal. [] Eyes: PERRLA, EOMI, conjunctiva normal, no discharge. [] Neck: Normal range of motion, no tenderness, supple, no stridor. [] Cardiovascular:Heart rate regular rhythm, no murmur [] Lungs & Thorax: Bilateral breath sounds clear to auscultation [] Abdomen: Bowel sounds normal, soft, no tenderness, no masses, no pulsatile masses. [] Skin: Warm, dry, no erythema, no rash. [] Back: No tenderness, no CVA tenderness. [] Extremities: No tenderness, no cyanosis, no clubbing, ROM intact, no edema. [] Neurologic: Alert and oriented X 3, normal motor function, normal sensory function, no focal deficits noted. [] Psychologic: Affect normal, judgement normal, mood normal. [] Current Patient Data: Vital Signs: Vital Signs Date Time Temp Pulse Resp B/P (MAP) Pulse Ox O2 Delivery O2 Flow Rate FiO2 07/22/20 13:34 98.4 93 16 129/81 (97) 96 98.4 EKG: EKG: [] Radiology/Procedures: Radiology/Procedures: [] Course & Med Decision Making: Course & Med Decision Making Pertinent Labs and Imaging studies reviewed. (See chart for details) [] Dragon Disclaimer: Dragon Disclaimer: This electronic medical record was generated, in whole or in part, using a voice recognition dictation system. Departure Departure Impression: Primary Impression: Hidradenitis suppurativa Disposition: 01 HOME, SELF-CARE Condition: STABLE Referrals: KAREN LIMON MD (PCP) Patient Instructions: Hidradenitis Suppurativa, Sweat Gland Abscess Additional Instructions: Please follow with your surgeon for further pain management and treatment. Scripts Oxycodone/Apap 5-325 (PERCOCET 5-325 MG TABLET ) 1 Each Tablet 0.5-1 TAB PO PRN Q6HRS PRN for PAIN, #6 TAB 0 Refills Prov: AZEB CRAFT DO 07/22/20 Clindamycin Hcl (CLINDAMYCIN HCL) 300 Mg Capsule 1 CAP PO TID for Infection for 7 Days, #21 CAP Prov: AZEB CRAFT DO 07/22/20 Justicifation of Admission Dx: Justifications for Admission: Justification of Admission Dx: N/A AZEB CRAFT DO Jul 22, 2020 14:03
== END 2020-07-22 14:37 | disposition home or self-care (01) ==
LOC: ER 13:24
DX: L73.2 Hidradenitis suppurativa (principal); R10.30 Lower abdominal pain, unspecified; M79.7 Fibromyalgia; I10 Essential (primary) hypertension; F17.200 Nicotine dependence, unspecified, uncomplicated; Z98.890 Other specified postprocedural states
CPT/HCPCS: 99283

== ENCOUNTER 2020-08-24 00:21 | Emergency (ER) | payer MEDICARE, MEDICAID ==
[~2020-08-24] VITALS: Ht 177.8 cm; Wt 100.0 kg
[~2020-08-24 00:21] MED LIST changes: -CETI10TA24 PO; +CETI10TA74 PO
[2020-08-24] MEDS ORDERED: HYDR-3164 PO (01:08)
[2020-08-24] MEDS ORDERED: DOXY-96 PO (01:08)
--- NOTE | 2020-08-24 01:08 | PHYS DOC ---
Past Medical History Past Medical History: Fibromyalgia, Hypertension, Other Additional Past Medical Histor: Hidradenitis suppurativa in axilla and groin, rectum Past Surgical History: Other Additional Past Surgical Histo: CYST REMOVAL X10 Smoking Status: Current Every Day Smoker Alcohol Use: None Drug Use: None General Adult EDM: Chief Complaint: SKIN PROBLEM HPI: HPI: Patient is a 34 year old male with a past medical history of hidradenitis presents for evaluation of abscess wound right buttocks. Patient states he noticed 3 days ago. Patient states he has associated pain. On exam swelling right buttocks is approximately 1 cm in length. There is no surrounding overlying cellulitis. Area is firm to touch. Patient states in the past he is either placed on clindamycin or doxycycline. Patient states he has been taking Tylenol with no relief of his pain. Review of Systems: Review of Systems: Constitutional: Denies fever or chills. [] Eyes: Denies change in visual acuity. [] HENT: Denies nasal congestion or sore throat. [] Respiratory: Denies cough or shortness of breath. [] Cardiovascular: Denies chest pain or edema. [] GI: Denies abdominal pain, nausea, vomiting, bloody stools or diarrhea. [] : Denies dysuria. [] Musculoskeletal: Denies back pain or joint pain. [] Integument: Denies rash. [Positive abscess] Neurologic: Denies headache, focal weakness or sensory changes. [] Endocrine: Denies polyuria or polydipsia. [] Lymphatic: Denies swollen glands. [] Psychiatric: Denies depression or anxiety. [] Heart Score: Risk Factors: Risk Factors: DM, Current or recent (<one month) smoker, HTN, HLP, family history of CAD, obesity. Risk Scores: Score 0 - 3: 2.5% MACE over next 6 weeks - Discharge Home Score 4 - 6: 20.3% MACE over next 6 weeks - Admit for Clinical Observation Score 7 - 10: 72.7% MACE over next 6 weeks - Early Invasive Strategies Allergies: Allergies: Allergies Coded Allergies Type Severity Reaction Last Updated Verified morphine Allergy Intermediate hallucinations 06/09/18 Yes naproxen Allergy Intermediate 02/15/17 Yes NSAIDS (Non-Steroidal Anti-Inflamma Adverse Reaction Mild NAUSEA 05/28/20 Yes Physical Exam: PE: Constitutional: Well developed, well nourished, no acute distress, non-toxic appearance. [] HENT: Normocephalic, atraumatic, bilateral external ears normal, oropharynx moist, no oral exudates, nose normal. [] Eyes: PERRLA, EOMI, conjunctiva normal, no discharge. [] Neck: Normal range of motion, no tenderness, supple, no stridor. [] Cardiovascular:Heart rate regular rhythm, no murmur [] Lungs & Thorax: Bilateral breath sounds clear to auscultation [] Abdomen: Bowel sounds normal, soft, no tenderness, no masses, no pulsatile masses. [] Skin: Warm, dry, no erythema, no rash. [] 1 cm area tender to palpation right buttocks no overlying cellulitis Back: No tenderness, no CVA tenderness. [] Extremities: No tenderness, no cyanosis, no clubbing, ROM intact, no edema. [] Neurologic: Alert and oriented X 3, normal motor function, normal sensory function, no focal deficits noted. [] Psychologic: Affect normal, judgement normal, mood normal. [] EKG: EKG: [] Radiology/Procedures: Radiology/Procedures: [] Course & Med Decision Making: Course & Med Decision Making Pertinent Labs and Imaging studies reviewed. (See chart for details) [] Dragon Disclaimer: Dragon Disclaimer: This electronic medical record was generated, in whole or in part, using a voice recognition dictation system. Departure Departure Impression: Primary Impression: Abscess Disposition: 01 HOME, SELF-CARE Condition: STABLE Referrals: KAREN LIMON MD (PCP) Patient Instructions: Abscess, Care After Scripts Hydrocodone/Apap 5-325 (NORCO 5-325 TABLET) 1 Each Tablet 1 TAB PO PRN Q6HRS PRN for PAIN, #14 TAB 0 Refills Prov: MABEL GONCALVES I DO 08/24/20 Doxycycline Hyclate (DOXYCYCLINE HYCLATE) 100 Mg Tablet. 1 TAB PO BID, #20 TAB Prov: MABEL GONCLAVES I DO 08/24/20 Justicifation of Admission Dx: Justifications for Admission: Justification of Admission Dx: N/A MABEL GONCALVES I DO Aug 24, 2020 01:08
[2020-08-24 01:15] VITALS: BP 134/72
== END 2020-08-24 01:21 | disposition home or self-care (01) ==
LOC: ER 00:21
DX: L02.31 Cutaneous abscess of buttock (principal); R60.0 Localized edema; M79.7 Fibromyalgia; I10 Essential (primary) hypertension; F17.200 Nicotine dependence, unspecified, uncomplicated; Z98.890 Other specified postprocedural states; Z88.6 Allergy status to analgesic agent; Z88.8 Allergy status to other drugs, medicaments and biological substances
CPT/HCPCS: 99283

== ENCOUNTER 2020-09-14 20:14 | Emergency (ER) | payer MEDICARE, MEDICAID ==
[~2020-09-14] VITALS: Ht 177.8 cm; Wt 101.3 kg
[2020-09-14 20:18] VITALS: BP 135/80
[2020-09-14] MEDS ORDERED: DOXYCYCLINE HYCLATE 100 MG TABLET PO ONE (21:45)
[2020-09-14] MEDS ORDERED: HYDROcodone/APAP 5/325MG 1 TAB TABLET PO ONE (21:45)
[2020-09-14] MEDS ORDERED: DOXY100C2 PO (21:46)
[2020-09-14] MEDS ORDERED: HYDR-3164 PO (21:46)
--- NOTE | 2020-09-14 21:46 | PHYS DOC ---
Past Medical History Past Medical History: Fibromyalgia, Hypertension, Other Additional Past Medical Histor: Hidradenitis suppurativa in axilla and groin, rectum Past Surgical History: Other Additional Past Surgical Histo: CYST REMOVAL X10 Smoking Status: Former Smoker Alcohol Use: None Drug Use: None General Adult EDM: Chief Complaint: ABSCESS HPI: HPI: Patient is a 34-year-old male with a history of hidradenitis presents to the ED with "abscess" on his left upper thigh. States that pain does not radiate anywhere and he was been taking Gabapentin and Toradol without any relief. Patient says he has gotten abscesses like this in the past and he was just here because he wants to get ahead of his issue. Patient also has been given topical clindamycin and applied it without any relief. Denies any drainage, fever, or any other complaints. Patient states he is usually given either Clindamycin or doxycycline for these issues. Denies fever or chills. Denies trauma. Review of Systems: Review of Systems: Constitutional: Denies fever or chills Eyes: Denies redness or eye pain HENT: Denies nasal congestion or sore throat Respiratory: Denies cough or shortness of breath Cardiovascular: Denies chest pain or palpitations GI: Denies abdominal pain, nausea, or vomiting : Denies dysuria or hematuria Musculoskeletal: Denies back pain or joint pain Integument: Reports left leg abscess; Denies rash or skin lesions Neurologic: Denies headache, focal weakness or sensory changes Complete systems were reviewed and found to be within normal limits, except as documented in this note. Allergies: Allergies: Allergies Coded Allergies Type Severity Reaction Last Updated Verified morphine Allergy Intermediate hallucinations 06/09/18 Yes naproxen Allergy Intermediate 02/15/17 Yes NSAIDS (Non-Steroidal Anti-Inflamma Adverse Reaction Mild NAUSEA 05/28/20 Yes Physical Exam: PE: Constitutional: Well developed, well nourished, no acute distress, non-toxic appearance HENT: Normocephalic, atraumatic Eyes: Conjunctiva normal, no discharge Neck: Normal range of motion, no tenderness, supple Lungs & Thorax: No respiratory distress, equal chest rise and fall Abdomen: Soft, no tenderness Skin: Central induration with erythema surrounding located on left inner upper thigh without fluctuance or drainage, warm, dry, no rash Extremities: No tenderness, ROM intact, no edema Neurologic: Alert and oriented X 3, no focal deficits noted Psychologic: Affect normal, judgment normal Current Patient Data: Vital Signs: Vital Signs Date Time Temp Pulse Resp B/P (MAP) Pulse Ox O2 Delivery O2 Flow Rate FiO2 09/14/20 20:18 98.4 91 18 135/80 (98) 98 Room Air 98.4 EKG: EKG: [] Radiology/Procedures: Radiology/Procedures: [] Course & Med Decision Making: Course & Med Decision Making Patient is a 34-year-old with a history of hidradenitis, who presents with a left upper thigh abscess. He has had similar symptoms in the past. Vital signs stable, PE revealed left inner thigh abscess without fluctuance or drainage. Patient states that doxycycline and clindamycin works for this. Patient agreeable for plan for discharge with doxycycline and pain medication. Patient stable for discharge with outpatient follow-up with PCP. Discussed findings and plan with patient, who acknowledges understanding and agreement. Toy Disclaimer: Toy Disclaimer: This electronic medical record was generated, in whole or in part, using a voice recognition dictation system. Departure Departure Impression: Primary Impression: Cellulitis and abscess of left leg Disposition: 01 DC HOME SELF CARE/HOMELESS Condition: STABLE Referrals: NO PCP (PCP) Patient Instructions: Abscess, [id number] Additional Instructions: Please follow closely with plastic surgeon and heel painter for your chronic conditions. Scripts Hydrocodone/Apap 5-325 (NORCO 5-325 TABLET) 1 Each Tablet 0.5-1 TAB PO PRN Q6HRS PRN for PAIN, #10 TAB 0 Refills Prov: AZEB CRAFT DO 09/14/20 Doxycycline Hyclate (DOXYCYCLINE HYCLATE) 100 Mg Capsule 1 CAP PO BID, #14 CAP Prov: AZEB CRAFT DO 09/14/20 AZEB CRAFT DO Sep 14, 2020 21:46
== END 2020-09-14 21:48 | disposition home or self-care (01) ==
LOC: ER 20:14
DX: L03.116 Cellulitis of left lower limb (principal); I10 Essential (primary) hypertension; Z87.891 Personal history of nicotine dependence; Z88.5 Allergy status to narcotic agent; Z88.8 Allergy status to other drugs, medicaments and biological substances
CPT/HCPCS: 99283

== ENCOUNTER 2020-12-20 12:32 | Emergency (ER) | payer MEDICARE, MEDICAID ==
[~2020-12-20] VITALS: Ht 172.7 cm; Wt 79.5 kg
[~2020-12-20 12:32] MED LIST changes: -CLIN150C14 PO; +CLIN150C15 PO; -CLIN300C8 PO; +CLIN300C9 PO; +DOXY100C2 PO
[2020-12-20 12:41] VITALS: BP 126/64
[2020-12-20] MEDS ORDERED: SMZ/TMP 800/160MG TABLET. PO ONE (13:00)
[2020-12-20] MEDS ORDERED: HYDROcodone/APAP 5/325MG 1 TAB TABLET PO ONE (13:00)
[2020-12-20] MEDS ORDERED: CEPHALEXIN 250 MG CAPSULE. PO STA (13:00)
[2020-12-20] MEDS ORDERED: SULF1TAB24 PO (13:35)
[2020-12-20] MEDS ORDERED: CEPH500C PO (13:35)
[2020-12-20] MEDS ORDERED: TRAM-48 PO (13:35)
--- NOTE | 2020-12-20 13:35 | PHYS DOC ---
Past Medical History Past Medical History: Fibromyalgia, Hypertension, Other Additional Past Medical Histor: Hidradenitis suppurativa in axilla and groin, rectum Past Surgical History: Other Additional Past Surgical Histo: CYST REMOVAL X10 Smoking Status: Former Smoker Alcohol Use: None Drug Use: None General Adult EDM: Chief Complaint: ABSCESS HPI: HPI: Patient is a 35 year old male who present to ER for evaluation recurrent skin infection on his buttock area for the last 3 days. Patient denies any fever, no abdominal pain, no nausea vomiting. Patient wanted to come in here and get antibiotic before it gets any worse. Review of Systems: Review of Systems: Constitutional: Denies fever or chills. [] Eyes: Denies change in visual acuity. [] HENT: Denies nasal congestion or sore throat. [] Respiratory: Denies cough or shortness of breath. [] Cardiovascular: Denies chest pain or edema. [] GI: Denies abdominal pain, nausea, vomiting, bloody stools or diarrhea. [] : Denies dysuria. [] Musculoskeletal: Denies back pain or joint pain. [] Integument: positive for skin lesions on buttock area Neurologic: Denies headache, focal weakness or sensory changes. [] Endocrine: Denies polyuria or polydipsia. [] Lymphatic: Denies swollen glands. [] Psychiatric: Denies depression or anxiety. [] Heart Score: Risk Factors: Risk Factors: DM, Current or recent (<one month) smoker, HTN, HLP, family history of CAD, obesity. Risk Scores: Score 0 - 3: 2.5% MACE over next 6 weeks - Discharge Home Score 4 - 6: 20.3% MACE over next 6 weeks - Admit for Clinical Observation Score 7 - 10: 72.7% MACE over next 6 weeks - Early Invasive Strategies Current Medications: Current Medications Medications (Trade) Dose Ordered Sig/Vanessa Start Time Stop Time Status Last Admin Dose Admin Acetaminophen/ Hydrocodone Bitart (Lortab 5/325) 1 tab 1X ONCE 12/20/20 13:00 12/20/20 13:02 DC Cephalexin HCl (Keflex) 500 mg 1X STAT 12/20/20 13:00 12/20/20 13:02 DC Trimethoprim/ Sulfamethoxazole (Bactrim Ds) 1 tab 1X ONCE 12/20/20 13:00 12/20/20 13:02 DC Allergies: Allergies: Allergies Coded Allergies Type Severity Reaction Last Updated Verified morphine Allergy Intermediate hallucinations 06/09/18 Yes naproxen Allergy Intermediate 02/15/17 Yes NSAIDS (Non-Steroidal Anti-Inflamma Adverse Reaction Mild NAUSEA 05/28/20 Yes Physical Exam: PE: Constitutional: Well developed, well nourished, no acute distress, non-toxic appearance. [] HENT: Normocephalic, atraumatic, bilateral external ears normal, oropharynx moist, no oral exudates, nose normal. [] Eyes: PERRLA, EOMI, conjunctiva normal, no discharge. [] Abdomen: Bowel sounds normal, soft, no tenderness, no masses, no pulsatile m asses. [] Skin: there is an tender, erythema lesion on right buttock about 1 cm. There are multiple small lesions on both buttock area. Back: No tenderness, no CVA tenderness. [] Extremities: No tenderness, no cyanosis, no clubbing, ROM intact, no edema. [] Neurologic: Alert and oriented X 3, normal motor function, normal sensory function, no focal deficits noted. [] Psychologic: Affect normal, judgement normal, mood normal. [] Current Patient Data: Vital Signs: Vital Signs Date Time Temp Pulse Resp B/P (MAP) Pulse Ox O2 Delivery O2 Flow Rate FiO2 12/20/20 12:41 98.0 67 20 126/64 (84) 96 Room Air 98.0 EKG: EKG: [] Radiology/Procedures: Radiology/Procedures: [] Course & Med Decision Making: Course & Med Decision Making Pertinent Labs and Imaging studies reviewed. (See chart for details) [] Dragon Disclaimer: Dragon Disclaimer: This electronic medical record was generated, in whole or in part, using a voice recognition dictation system. Departure Departure Impression: Primary Impression: Abscess or cellulitis of groin Additional Impression: Hidradenitis suppurativa Disposition: 01 DC HOME SELF CARE/HOMELESS Condition: STABLE Referrals: NO PCP (PCP) FOLLOW UP WITH YOUR DOCTOR IN 2 DAYS FOR REEVALUATION Patient Instructions: Hidradenitis Suppurativa, Sweat Gland Abscess Additional Instructions: Thank you for visiting our Emergency Department. We appreciate you trusting us with your care. If any additional problems come up don't hesitate to return to visit us. Please follow up with your primary care provider so they can plan additional care if needed and know about the problem that you had. If symptoms worsen come back to the Emergency Department. Any concerning symptoms that start such as chest pain, shortness of air, weakness or numbness on one side of the body, running high fevers or any other concerning symptoms return to the ER. Scripts Tramadol Hcl (ULTRAM) 50 Mg Tablet 50 MG PO Q6HRS PRN for PAIN, #15 TAB 0 Refills Prov: JANIA GARCIA DO 12/20/20 Cephalexin (CEPHALEXIN) 500 Mg Capsule 1 CAP PO QID, #40 CAP Prov: JANIA GARCIA DO 12/20/20 Sulfamethoxazole/Trimethoprim (BACTRIM DS TABLET) 1 Each Tablet 1 TAB PO BID for 10 Days, #20 TAB 0 Refills Prov: JANIA GARCIA DO 12/20/20 JANIA GARCIA DO Dec 20, 2020 13:35
== END 2020-12-20 14:20 | disposition home or self-care (01) ==
LOC: ER 12:32
DX: L03.314 Cellulitis of groin (principal); L73.2 Hidradenitis suppurativa; M79.7 Fibromyalgia; I10 Essential (primary) hypertension; Z87.891 Personal history of nicotine dependence; Z98.890 Other specified postprocedural states; Z88.6 Allergy status to analgesic agent; Z88.8 Allergy status to other drugs, medicaments and biological substances
CPT/HCPCS: 99284

== ENCOUNTER 2021-01-14 17:40 | Emergency (ER) | payer MEDICARE, MEDICAID ==
[~2021-01-14] VITALS: Ht 175.3 cm; Wt 75.0 kg
--- NOTE | 2021-01-14 17:58 | PHYS DOC ---
Past Medical History Past Medical History: Fibromyalgia, Hypertension, Other Additional Past Medical Histor: Hidradenitis suppurativa in axilla and groin, rectum (FABIOLA MCINTOSH LOG DECK TENDER) Past Surgical History: Other Additional Past Surgical Histo: CYST REMOVAL X10 (FABIOLA MCINTOSH LOG DECK TENDER) Smoking Status: Former Smoker Alcohol Use: None Drug Use: None (FABIOLA MCINTOSH APRN) General Adult EDM: Chief Complaint: HIP PAIN HPI: HPI: Patient is a 35 year old male who presents with 2 days of sharp shooting right hip pain that goes down into the leg. He states this causes him to have some weakness in the leg. He is ambulatory but limping on the right leg. Hurts more with movement. He denies injury. He states that he does have a history of spi nal stenosis, fibromyalgia, hydradenitis suppurative, hypertension, cyst removal. He states that he called his pain management doctor who states that if your gabapentin and Percocet do not help your pain you should go to the hospital. He denies loss of bowel bladder, numbness or tingling, injury, fall, swelling or deformity of any joints. He rates his pain a 9 out of 10. He sta amy that he cannot take any muscle relaxers due to it making him twitch and he cannot take NSAIDs or morphine. (FABIOLA MCINTOSH LOG DECK TENDER) Review of Systems: Review of Systems: Constitutional: Denies fever or chills. [] Eyes: Denies change in visual acuity. [] HENT: Denies nasal congestion or sore throat. [] Respiratory: Denies cough or shortness of breath. [] Cardiovascular: Denies chest pain or edema. [] GI: Denies abdominal pain, nausea, vomiting, bloody stools or diarrhea. [] : Denies dysuria. [] Musculoskeletal: Denies back pain or +Right hip joint sharp shooting pain down right leg. [] Integument: Denies rash. [] Neurologic: Denies headache. +Right leg focal weakness. Denies sensory changes. [] Endocrine: Denies polyuria or polydipsia. [] Lymphatic: Denies swollen glands. [] Psychiatric: Denies depression or anxiety. [] (FABIOLA MCINTOSH LOG DECK TENDER) Heart Score: Risk Factors: Risk Factors: DM, Current or recent (<one month) smoker, HTN, HLP, family history of CAD, obesity. Risk Scores: Score 0 - 3: 2.5% MACE over next 6 weeks - Discharge Home Score 4 - 6: 20.3% MACE over next 6 weeks - Admit for Clinical Observation Score 7 - 10: 72.7% MACE over next 6 weeks - Early Invasive Strategies (FABIOLA MCINTOSH APRN) Allergies: Allergies: Allergies Coded Allergies Type Severity Reaction Last Updated Verified morphine Allergy Intermediate hallucinations 06/09/18 Yes naproxen Allergy Intermediate 02/15/17 Yes NSAIDS (Non-Steroidal Anti-Inflamma Adverse Reaction Mild NAUSEA 05/28/20 Yes (FABIOLA MCINTOSH APRN) Physical Exam: PE: Constitutional: Well developed, well nourished, no acute distress, non-toxic appearance. [] HENT: Normocephalic, atraumatic, bilateral external ears normal, oropharynx moist, no oral exudates, nose normal. [] Eyes: PERRLA, EOMI, conjunctiva normal, no discharge. [] Neck: Normal range of motion, no tenderness, supple, no stridor. [] Cardiovascular:Heart rate regular rhythm, no murmur [] Lungs & Thorax: Bilateral breath sounds clear to auscultation [] Abdomen: Bowel sounds normal, soft, no tenderness, no masses, no pulsatile masses. [] Skin: Warm, dry, no erythema, no rash. [] Back: No tenderness, no CVA tenderness. [] Extremities: No tenderness, no cyanosis, no clubbing, limited ROM but intact due to pain, no edema. [] Neurologic: Alert and oriented X 3, normal motor function, normal sensory function, no focal deficits noted. [] Psychologic: Affect normal, judgement normal, mood normal. [] (FABIOLA MCINTOSH APRN) EKG: EKG: [] (FABIOLA MCINTOSH APRN) Radiology/Procedures: Radiology/Procedures: [] Impression: [facility] [address] [place] [address] IMAGING REPORT Signed PATIENT: ARIES CRUZ ACCOUNT: [id number] : 1985 LOCATION: ER AGE: 35 SEX: M EXAM STATUS: REG ER ORD. PHYSICIAN: FABIOLA MCINTOSH APRN REASON: pain with weakness PROCEDURE: HIP RIGHT 2V WITH PELVIS EXAM: XR BILATERAL HIP (WITH OR WITHOUT PELVIS) 2 VIEWS_RIGHT 01/14/2021 6:45 PM CLINICAL INDICATION: Pain with weakness COMPARISON: None TECHNIQUE: AP view the pelvis and AP and frog-leg lateral view of the right hip FINDINGS: No acute fracture. Alignment is normal. Hip joint spaces are maintained. Small labral calcification noted. Sacroiliac joints and pubic symphysis are normal. IMPRESSION: No acute osseous abnormality. Electronically signed by: Fara Aguilera MD (01/14/2021 7:00 PM) [id number] DICTATED and SIGNED BY: FARA AGUILERA MD DATE: 01/14/21 [id number] [facility] [address] [place], [place] [id number] IMAGING REPORT Signed PATIENT: ARIES CRUZ ACCOUNT: [id number] : 1985 LOCATION: ER AGE: 35 SEX: M EXAM STATUS: REG ER ORD. PHYSICIAN: FABIOLA MCINTOSH APRN REASON: sharp shooting pain with weakness PROCEDURE: CT LUMBAR SPINE WO CONTRAST CT LUMBAR SPINE WO History:Reason: sharp shooting pain with weakness / Spl. Instructions: / History: Technique: Noncontrast CT was performed of the lumbar spine. Multiplanar reconstructions were performed. Exposure: One or more of the following individualized dose reduction techniques were utilized for this examination: 1. Automated exposure control 2. Adjustment of the mA and/or kV according to patient size 3. Use of iterative reconstruction technique. Comparison: None Findings: Transitional lumbosacral anatomy with sacralization of L5. L5-S1 disc space is identified on series 2 image 62. Normal vertebral body height and alignment. No fracture. L4 left unilateral spondylolysis. Chronic fragmented inferior facet on the right at L3 and left at L2. T12-L1: No canal or neuroforaminal narrowing. L1-L2: Small disc bulge. No canal or neuroforaminal narrowing. L2-L3: Broad-based disc bulge. Mild facet arthropathy. No canal narrowing. Right foraminal disc protrusion. Minimal right neuroforaminal narrowing. No left neuroforaminal narrowing. L3-L4: Small disc bulge. Mild facet arthropathy. No canal narrowing. Right foraminal disc protrusion. Mild right neuroforaminal narrowing. No left neuroforaminal narrowing. L4-L5: Broad-based disc bulge. Moderate facet arthropathy. No canal narrowing. Mild bilateral neuroforaminal narrowing. L5-S1: Rudimentary disc. No canal or neuroforaminal narrowing. Impression: 1. Transitional lumbosacral anatomy. 2. Mild multilevel lumbar spondylosis. 3. Mild neuroforaminal narrowing, as described. Electronically signed by: Miguelito Larson DO (01/14/2021 7:11 PM) [facility] DICTATED and SIGNED BY: MIGUELITO LARSON DO DATE: 01/14/21 [id number] 0 (FABIOLA MCINTOSH APRN) Course & Med Decision Making: Course & Med Decision Making Pertinent Labs and Imaging studies reviewed. (See chart for details) See HPI. No saddle paresthesia. No extremity edema or deformity of any joints or swelling of any joints. No tenderness to the leg with examination. Patient does have control over the leg. He can bend at all joints. Alert and oriented x4. Speaks in full complete sentences. Skin pink warm and dry. Reflexes intact. Good strengths bilateral lower extremity with the right slightly weaker than the left. Popliteal pulse strong present. Patient is given Valium, fentanyl IM and Solu-Medrol IM. After 1 hour of getting medications, patient states he is still in pain. Patient is given 1mg Dialudid IM per Dr Finn's approval. Patient to follow-up with pain management on Sunday. We will send him home on a Medrol Dosepak and lidocaine patches. [] (FABIOLA MCINTOSH APRN) Dragon Disclaimer: Dragon Disclaimer: This electronic medical record was generated, in whole or in part, using a voice recognition dictation system. (FABIOLA MCINTOSH APRN) Departure Departure Impression: Primary Impression: Sciatica of right side associated with disorder of lumbar spine Disposition: 01 DC HOME SELF CARE/HOMELESS Condition: STABLE Referrals: NO PCP (PCP) BRENDA BARBER MD Patient Instructions: Degenerative Disk Disease, Herniated Disk, Sciatica with Rehab-SportsMed Additional Instructions: Follow-up with pain management on Sunday. Take all medications as prescribed with food. Make sure you take your gabapentin and your Percocet at home. Use a heating pad. If you lose your bowel or bladder, lose function of your extremity return to the emergency room. Scripts Lidocaine (Lidocaine) 1 Each Adh..patch 1 EACH TP DAILY for 10 Days, #10 PATCH 12 HOURS ON AND 12 HOURS OFF Prov: FABIOLA MCINTOSH APRN 01/14/21 Methylprednisolone (MEDROL) 4 Mg Tab.ds.pk 1 PKG PO UD, #1 PKG Prov: FABIOLA MCINTOSH APRN 01/14/21 Attending Signature Attending Signature I have reviewed the PA/HARVEST CONTRACTOR's note and plan of care. I was available for consultation as needed during the patient's visit in the emergency department. I agree with the clinical impression, plan, and disposition. (AZEB CRAFT DO) FABIOLA MCINTOSH APRN Jan 14, 2021 17:58 AZEB CRAFT DO Jan 16, 2021 02:13
[2021-01-14] MEDS ORDERED: diazePAM 2 MG TABLET PO ONE (18:00)
[2021-01-14] MEDS ORDERED: methylPREDNISolone SOD SUCC PF 125 MG/2 ML VIAL. IM ONE (18:00)
[2021-01-14] MEDS ORDERED: fentaNYL PF VIAL 100 MCG/2 ML VIAL IM ONE (18:30)
--- NOTE | 2021-01-14 19:03 | RAD ---
EXAM: XR BILATERAL HIP (WITH OR WITHOUT PELVIS) 2 VIEWS_RIGHT 01/14/2021 6:45 PM CLINICAL INDICATION: Pain with weakness COMPARISON: None TECHNIQUE: AP view the pelvis and AP and frog-leg lateral view of the right hip FINDINGS: No acute fracture. Alignment is normal. Hip joint spaces are maintained. Small labral calc ification noted. Sacroiliac joints and pubic symphysis are normal. IMPRESSION: No acute osseous abnormality. Electronically signed by: Fara Aguilera MD (01/14/2021 7:00 PM) [id number]
--- NOTE | 2021-01-14 19:14 | RAD ---
CT LUMBAR SPINE WO History:Reason: sharp shooting pain with weakness / Spl. Instructions: / History: Technique: Noncontrast CT was performed of the lumbar spine. Multiplanar reconstructions were perform ed. Exposure: One or more of the following individualized dose reduction techniques were utilized for thi s examination: 1. Automated exposure control 2. Adjustment of the mA and/or kV according to patient size 3. Use of iterative reconstruction technique. Comparison: None Findings: Transitional lumbosacral anatomy with sacralization of L5. L5-S1 disc space is identified on series 2 image 62. Normal vertebral body height and alignment. No fracture. L4 left unilateral spondylolysis. Chronic fr agmented inferior facet on the right at L3 and left at L2. T12-L1: No canal or neuroforaminal narrowing. L1-L2: Small disc bulge. No canal or neuroforaminal narrowing. L2-L3: Broad-based disc bulge. Mild facet arthropathy. No canal narrowing. Right foraminal disc prot rusion. Minimal right neuroforaminal narrowing. No left neuroforaminal narrowing. L3-L4: Small disc bulge. Mild facet arthropathy. No canal narrowing. Right foraminal disc protrusion . Mild right neuroforaminal narrowing. No left neuroforaminal narrowing. L4-L5: Broad-based disc bulge. Moderate facet arthropathy. No canal narrowing. Mild bilateral neurof oraminal narrowing. L5-S1: Rudimentary disc. No canal or neuroforaminal narrowing. Impression: 1. Transitional lumbosacral anatomy. 2. Mild multilevel lumbar spondylosis. 3. Mild neuroforaminal narrowing, as described. Electronically signed by: Miguelito Larson DO (01/14/2021 7:11 PM) [facility]
[2021-01-14] MEDS ORDERED: LIDO1ADH63 TP (19:25)
[2021-01-14] MEDS ORDERED: METH4TAB2 PO (19:25)
[2021-01-14] MEDS ORDERED: HYDROmorphone 2 MG/ML VIAL IM ONE (19:45)
[2021-01-14] MEDS ORDERED: HYDROmorphone 2 MG/ML VIAL ONE (19:46)
[2021-01-14 19:53] VITALS: BP 147/83
[2021-01-15] MEDS ORDERED: DIAZ5TAB PO (21:03)
== END 2021-01-14 19:53 | disposition home or self-care (01) ==
LOC: ER 17:40
DX: M54.31 Sciatica, right side (principal); M47.816 Spondylosis without myelopathy or radiculopathy, lumbar region; I10 Essential (primary) hypertension; R53.1 Weakness; Z87.891 Personal history of nicotine dependence; Z88.5 Allergy status to narcotic agent; Z88.6 Allergy status to analgesic agent
CPT/HCPCS: 72131; 73502; 96372; 99284; J1170; J2930; J3010; 99285-25

== ENCOUNTER 2021-01-15 20:19 | Emergency (ER) | payer MEDICARE, MEDICAID ==
[~2021-01-15] VITALS: Ht 177.8 cm; Wt 104.6 kg
[~2021-01-15 20:19] MED LIST changes: +LIDO1ADH63 TP; +METH4TAB2 PO
[2021-01-15 20:53] VITALS: BP 128/64
[2021-01-15] MEDS ORDERED: HYDROmorphone 2 MG/ML VIAL IM ONE (21:00)
[2021-01-15] MEDS ORDERED: diazePAM 5 MG TABLET PO ONE (21:00)
[2021-01-15] MEDS ORDERED: DIAZ5TAB PO (21:03)
--- NOTE | 2021-01-15 21:03 | PHYS DOC ---
Past Medical History Past Medical History: Fibromyalgia, Hypertension, Other Additional Past Medical Histor: Hidradenitis suppurativa in axilla and groin, rectum Past Surgical History: Other Additional Past Surgical Histo: CYST REMOVAL X10 Smoking Status: Former Smoker Alcohol Use: None Drug Use: None General Adult EDM: Chief Complaint: BACK PAIN - NO INJURY HPI: HPI: Patient is a 35 year old [f__sex] who presents with [] Review of Systems: Review of Systems: Constitutional: Denies fever or chills. [] Eyes: Denies change in visual acuity. [] HENT: Denies nasal congestion or sore throat. [] Respiratory: Denies cough or shortness of breath. [] Cardiovascular: Denies chest pain or edema. [] GI: Denies abdominal pain, nausea, vomiting, bloody stools or diarrhea. [] : Denies dysuria. [] Musculoskeletal: Denies back pain or joint pain. [] Integument: Denies rash. [] Neurologic: Denies headache, focal weakness or sensory changes. [] Endocrine: Denies polyuria or polydipsia. [] Lymphatic: Denies swollen glands. [] Psychiatric: Denies depression or anxiety. [] Heart Score: Risk Factors: Risk Factors: DM, Current or recent (<one month) smoker, HTN, HLP, family history of CAD, obesity. Risk Scores: Score 0 - 3: 2.5% MACE over next 6 weeks - Discharge Home Score 4 - 6: 20.3% MACE over next 6 weeks - Admit for Clinical Observation Score 7 - 10: 72.7% MACE over next 6 weeks - Early Invasive Strategies Allergies: Allergies: Allergies Coded Allergies Type Severity Reaction Last Updated Verified naproxen Allergy Intermediate 02/15/17 Yes morphine Adverse Reaction Intermediate hallucinations 01/14/21 Yes NSAIDS (Non-Steroidal Anti-Inflamma Adverse Reaction Mild NAUSEA 05/28/20 Yes Physical Exam: PE: Constitutional: Well developed, well nourished, no acute distress, non-toxic appearance. [] HENT: Normocephalic, atraumatic, bilateral external ears normal, oropharynx moist, no oral exudates, nose normal. [] Eyes: PERRLA, EOMI, conjunctiva normal, no discharge. [] Neck: Normal range of motion, no tenderness, supple, no stridor. [] Cardiovascular:Heart rate regular rhythm, no murmur [] Lungs & Thorax: Bilateral breath sounds clear to auscultation [] Abdomen: Bowel sounds normal, soft, no tenderness, no masses, no pulsatile masses. [] Skin: Warm, dry, no erythema, no rash. [] Back: No tenderness, no CVA tenderness. [] Extremities: No tenderness, no cyanosis, no clubbing, ROM intact, no edema. [] Neurologic: Alert and oriented X 3, normal motor function, normal sensory function, no focal deficits noted. [] Psychologic: Affect normal, judgement normal, mood normal. [] EKG: EKG: [] Radiology/Procedures: Radiology/Procedures: [] Course & Med Decision Making: Course & Med Decision Making Pertinent Labs and Imaging studies reviewed. (See chart for details) [] Dragon Disclaimer: Dragon Disclaimer: This electronic medical record was generated, in whole or in part, using a voice recognition dictation system. Departure Departure Impression: Primary Impression: Chronic back pain Qualified Codes: M54.41 - Lumbago with sciatica, right side; G89.29 - Other chronic pain Additional Impression: Sciatica of right side associated with disorder of lumbar spine Disposition: 01 DC HOME SELF CARE/HOMELESS Condition: STABLE Referrals: GRAYSON CANALES MD (PCP) Patient Instructions: Chronic Back Pain, Chronic Pain Management, Sciatica, [id number] Additional Instructions: Follow up closely with your automobile painter for further evaluation and treatment. Scripts Diazepam (VALIUM) 5 Mg Tablet 0.5-1 TAB PO Q8HRS PRN for MUSCLE PAIN, #6 TAB Prov: AZEB CRAFT DO 01/15/21 AZEB CRAFT DO Jan 15, 2021 21:03
== END 2021-01-15 21:18 | disposition home or self-care (01) ==
LOC: ER 20:19
DX: G89.29 Other chronic pain (principal); M54.41 Lumbago with sciatica, right side; I10 Essential (primary) hypertension; Z87.891 Personal history of nicotine dependence
CPT/HCPCS: 96372; 99283; J1170

== ENCOUNTER 2021-04-14 23:17 | Emergency (ER) | payer MEDICARE, MEDICAID ==
[~2021-04-14] VITALS: Ht 177.8 cm; Wt 107.0 kg
[~2021-04-14 23:17] MED LIST changes: +DIAZ5TAB PO
[2021-04-14 23:35] VITALS: BP 158/106
[2021-04-15] MEDS ORDERED: CEPH500T PO (00:12)
[2021-04-15] MEDS ORDERED: SULF1TAB24 PO (00:12)
[2021-04-15] MEDS ORDERED: HYDR-2761 PO (00:12)
--- NOTE | 2021-04-15 00:14 | PHYS DOC ---
Past Medical History Past Medical History: Hypertension, Other Additional Past Medical Histor: Hidradenitis suppurativa in axilla and groin, rectum, HERNIATED DISC Past Surgical History: Other Additional Past Surgical Histo: CYST REMOVAL X10 Smoking Status: Former Smoker Alcohol Use: Rarely Drug Use: None General Adult EDM: Chief Complaint: ABSCESS HPI: HPI: Patient is a 35 year old male past medical history hidradenitis presents with a chief complaint of abscess left buttock cheek. Patient states abscess has been present for 3 days progressively coming worse. Patient states he is normally treated with Bactrim and Keflex and hydrocodone. Review of Systems: Review of Systems: Review of systems: Constitutional symptoms- No fever, no chills. Eyes- No Discharge, No Visual Loss Respiratory symptoms- No shortness of breath, No wheezing, No Dyspnea on Exertion Cardiovascular Systems; No chest pain, No Palpitations, No syncope Gastrointestinal symptoms: NO abdominal pain, no nausea, no vomiting or diarrhea. Genitourinary symptoms: No dysuria. Musculoskeletal symptoms: No back pain No extremity pain. NEUROLOGICAL Symptoms: No headache, no generalized weakness; No focal Weakness . Skin-abscess Heart Score: C/O Chest Pain: N/A Risk Factors: Risk Factors: DM, Current or recent (<one month) smoker, HTN, HLP, family history of CAD, obesity. Risk Scores: Score 0 - 3: 2.5% MACE over next 6 weeks - Discharge Home Score 4 - 6: 20.3% MACE over next 6 weeks - Admit for Clinical Observation Score 7 - 10: 72.7% MACE over next 6 weeks - Early Invasive Strategies Allergies: Allergies: Allergies Coded Allergies Type Severity Reaction Last Updated Verified naproxen Allergy Intermediate 02/15/17 Yes morphine Adverse Reaction Intermediate hallucinations 01/14/21 Yes NSAIDS (Non-Steroidal Anti-Inflamma Adverse Reaction Mild NAUSEA 05/28/20 Yes Physical Exam: PE: General: alert, no acute distress. Skin: warm, dry and intact. Abscess present left buttocks approximately 2x2 cm fluctant Head:: Normocephalic, atraumatic. Neck: Trachea midline. Eyes: EOMI, Normal conjunctiva, No drainage CARDIOVASCULAR: Regular rate and rhythm RESPIRATORY: No respiratory distress Back: Full range of motion. MUSCULOSKELETAL: Full range of motion of bilateral upper and lower extremities. GASTROINTESTINAL: Abdomen soft without rebound or guarding. NEUROLOGICAL: Alert and noted to person, place and time. No neurological deficits observed Psychiatric: Cooperative. Normal judgment Current Patient Data: Vital Signs: Vital Signs Date Time Temp Pulse Resp B/P (MAP) Pulse Ox O2 Delivery O2 Flow Rate FiO2 04/14/21 23:35 98.8 96 20 158/106 (123) 98 Room Air 98.8 EKG: EKG: [] Radiology/Procedures: Radiology/Procedures: [] Course & Med Decision Making: Course & Med Decision Making Pertinent Labs and Imaging studies reviewed. (See chart for details) [] Discussed I&D. Patient states he would like to try antibiotics at this time. Discharge home on Keflex Bactrim and [place] Dragon Disclaimer: Dragon Disclaimer: This electronic medical record was generated, in whole or in part, using a voice recognition dictation system. Departure Departure Impression: Primary Impression: Abscess Disposition: 01 HOME / SELF CARE / HOMELESS Condition: STABLE Referrals: GRAYSON CANALES MD (PCP) Patient Instructions: Abscess Scripts Hydrocodone Bit/Acetaminophen (HYDROCODONE-APAP 5-325 ) 1 Tab Tablet 1 TAB PO PRN Q6HRS PRN for PAIN, #14 TAB 0 Refills Prov: MABEL GONCALVES I DO 04/15/21 Cephalexin (CEPHALEXIN) 500 Mg Tablet 1 TAB PO BID, #20 TAB Prov: MABEL GONCALVES I DO 04/15/21 Sulfamethoxazole/Trimethoprim (BACTRIM DS TABLET) 1 Each Tablet 1 TAB PO BID for 10 Days, #20 TAB 0 Refills Prov: MABEL GONCALVES I DO 04/15/21 MABEL GONCALVES DO April 15, 2021 00:14
== END 2021-04-15 00:17 | disposition home or self-care (01) ==
LOC: ER 23:17
DX: L02.01 Cutaneous abscess of face (principal); I10 Essential (primary) hypertension; Z88.5 Allergy status to narcotic agent; Z88.6 Allergy status to analgesic agent
CPT/HCPCS: 99283

== ENCOUNTER 2021-05-19 01:03 | Emergency (ER) | payer MEDICARE, MEDICAID ==
[~2021-05-19] VITALS: Ht 180.3 cm; Wt 106.4 kg
[2021-05-19 01:30] VITALS: BP 128/89
[2021-05-19] MEDS ORDERED: BACI1CAP6 PO (02:06)
[2021-05-19] MEDS ORDERED: SULF1TAB24 PO (02:06)
[2021-05-19] MEDS ORDERED: OXYC1TAB15 PO (02:06)
[2021-05-19] MEDS ORDERED: CEPH500C PO (02:06)
--- NOTE | 2021-05-19 02:09 | PHYS DOC ---
Past Medical History Past Medical History: Hypertension, Other Additional Past Medical Histor: Hidradenitis suppurativa in axilla and groin, rectum, HERNIATED DISC Past Surgical History: Other Additional Past Surgical Histo: CYST REMOVAL X10 Smoking Status: Current Every Day Smoker Alcohol Use: Rarely Drug Use: None General Adult EDM: Chief Complaint: SKIN PROBLEM HPI: HPI: 35-year-old male past medical history of hidradenitis suppurativa, presents to the ED with male partner, (patient consents to his/her/their knowledge and involvement in pts' medical care), requesting antibiotics and analgesia. Patient states his routine care is through . Last antibiotics 2 weeks ago and reports Bactrim and Keflex is more efficient than clindamycin and doxycycline. Has pending appointment with plastics in May for sweat gland removal and has a pending appointment with pain management June 06. Review of Systems: Review of Systems: Constitutional: Denies fever or chills. [] Eyes: Denies change in visual acuity. [] HENT: Denies nasal congestion or sore throat. [] Respiratory: Denies cough or shortness of breath. [] Cardiovascular: Denies chest pain or edema. [] GI: Denies nausea, vomiting, Integument: Denies discoloration or erythematous rash Neurologic: Denies focal weakness or sensory changes. [] Psychiatric: Denies depression or anxiety. [] Heart Score: C/O Chest Pain: No Risk Factors: Risk Factors: DM, Current or recent (<one month) smoker, HTN, HLP, family history of CAD, obesity. Risk Scores: Score 0 - 3: 2.5% MACE over next 6 weeks - Discharge Home Score 4 - 6: 20.3% MACE over next 6 weeks - Admit for Clinical Observation Score 7 - 10: 72.7% MACE over next 6 weeks - Early Invasive Strategies Allergies: Allergies: Allergies Coded Allergies Type Severity Reaction Last Updated Verified naproxen Allergy Intermediate 02/15/17 Yes morphine Adverse Reaction Intermediate hallucinations 01/14/21 Yes NSAIDS (Non-Steroidal Anti-Inflamma Adverse Reaction Mild NAUSEA 05/28/20 Yes Physical Exam: PE: Constitutional: Well developed, well nourished, no acute distress, non-toxic appearance. HENT: Normocephalic, atraumatic, Eyes: EOMI, conjunctiva normal, no discharge. Neck: Normal range of motion, supple, Cardiovascular: S1/2 present, regular rhythm Lungs & Thorax: Speaking in full sentences, bilateral equal chest rise, no tachypnea or increased work of breathing Skin: Warm, dry, no erythema, no rash. [] Back: No tenderness, no CVA tenderness. [] Extremities: No tenderness, no cyanosis, Neurologic: Alert and oriented X 3, normal motor function, normal sensory function, no focal deficits noted. [] Psychologic: Affect normal, judgement normal, mood normal. [] , mining helper present: no rash, multiple scars over perineum and buttocks, oozing chronic wound with no obvious focal area of fluctuance, induration or purulent drainage Current Patient Data: Vital Signs: Vital Signs Date Time Temp Pulse Resp B/P (MAP) Pulse Ox O2 Delivery O2 Flow Rate FiO2 05/19/21 01:30 98.0 90 20 128/89 (102) 98 Room Air 98.0 EKG: EKG: [] Radiology/Procedures: Radiology/Procedures: [] Course & Med Decision Making: Course & Med Decision Making Pertinent Labs and Imaging studies reviewed. (See chart for details) Concern for chronic abscesses with no focal fluid collection or signs of necrotizing fasciitis. Prescribe very short dose of analgesia and educated on risk of adverse effects and addiction. Will discharge home with strict ED return precautions were given for necrotizing fasciitis, fever or worsening pain. Encouraged urgent outpatient follow-up with PMD and established care at with plastic surgery and pain management. Life-threatening processes were considered but are low suspicion at this time, given history, physical exam and ED workup. Pt was educated on all prescription medications and adverse effects. All patient's questions were answered and pt was stable at time of discharge. Life/limb-threatening differential includes but is not limited to, erythema multiforme, rizo-perla syndrome, toxic epidermal necrolysis, staphylococcal scalded skin syndrome, necrotizing fasciitis/myositis/cellulitis, purpura fulminans, heparin or warfarin induced skin necrosis, angioedema, anaphylaxis drug rash, disseminated intravascular coagulation, disseminated gonococcal disease, vasculitis, septicemia, petechial disorder or coagulopathy, viral exanthem, Kawasaki's disease or life-threatening burn requiring burn center management or escharotomy. I spoken with the patient and her caregivers. I explained the patient's condition, diagnoses and treatment plan based on the information available to me at this time. I have answered the patient and her caregiver's questions and addressed any concerns. The patient and her caregivers have a good understa nding of patient's diagnosis, condition and treatment plan as can be expected at this point. Vital signs have been stable. Patient's condition is stable and appropriate for discharge from the emergency department. Patient will pursue further outpatient evaluation with primary care physician or other designated or consulting physician as outlined in the discharge instructions. The patient and/or caregivers are agreeable to this plan of care and follow-up instructions have been explained in detail. The patient and/or caregivers have received these instructions in written form and have expressed an understanding of the discharge instructions. The patient and/or caregivers are aware that any significant change of condition or worsening of symptoms should prompt immediate return to this or the closest emergency department or call to 911. Toy Disclaimer: Toy Disclaimer: This electronic medical record was generated, in whole or in part, using a voice recognition dictation system. Departure Departure Impression: Primary Impression: Hidradenitis suppurativa Additional Impression: Encounter for wound re-check Disposition: HOME / SELF CARE / HOMELESS Condition: STABLE Referrals: GRAYSON CANALES MD (PCP) in 3-5 days for re-evaluation Patient Instructions: Abscess, Chronic Pain Management Additional Instructions: EMERGENCY DEPARTMENT GENERAL DISCHARGE INSTRUCTIONS Thank you for coming to [facility] Emergency Department (ED) today and trusting us with you care. We trust that you had a positive experience in our Emergency Department. If you wish to speak to the department management, you may call the Director at [phone]. YOUR FOLLOW UP INSTRUCTIONS ARE FOLLOWS: 1. Do you have a private Doctor? If you do not have a private doctor, please a sk for a resource list of physicians or clinics that may be able to assist you with follow up care. 2. The Emergency Physicain has interpreted your x-rays. The X-Ray specialist will also review them. If there is a change in the findings, you will be notified in 48 hours when at all possible. 3. A lab test or culture has been done, your results will be reviewed and you will be notified if you need a change in treatment. ADDITIONAL INSTRUCTIONS AND INFORMATION: 1. Your care today has been supervised by a physician who is specially trained in emergency care. Many problems require more than one evaluation for a complete diagnosis and treatment. We recommend that you schedule your follow up appointment as recommended to ensure complete treatment of you illness or injury. If you are unable to obtain follow up care and continue to have a problem, or if your condition worsens, we recommend that you return to the ED. 2. We are not able to safely determine your condition over the phone nor are we able to give sound medical advice over the phone. For these safety reasons, if you call for medical advice we will ask you to come to the ED for further evaluation. 3. If you have any questions regarding these discharge instructions please call the ED at [phone]. SAFETY INFORMATION: In the interest of safety, wellness, and injury prevention; we encourage you to wear your sealbelt, if you smoke; quite smoking, and we encourage family to use a protective helmet for bicycling and other sporting events that present an increased risk for head injury. IF YOUR SYMPTOMS WORSEN OR NEW SYMPTOMS DEVELOP, OR YOU HAVE CONCERNS ABOUT YOUR CONDITION; OR IF YOUR CONDITION WORSENS WHILE YOU ARE WAITING FOR YOUR FOLLOW UP APPOINTMENT; EITHER CONTACT YOUR PRIMARY CARE DOCTOR, THE PHYSICIAN WHOSE NAME AND NUMBER YOU WERE GIVEN, OR RETURN TO THE ED IMMEDIATELY. Scripts Bacillus Coagulans (Probiotic) 1 Each Capsule.dr 1 EACH PO DAILY for 14 Days, #14 CAP Prov: GAL LIND DO 05/19/21 Oxycodone/Apap 5-325 (PERCOCET 5-325 MG TABLET ) 1 Each Tablet 1 TAB PO PRN Q6HRS PRN for PAIN for 2 Days, #8 TAB 0 Refills no alcohol or driving with this medication Prov: GAL LIND DO 05/19/21 Cephalexin (CEPHALEXIN) 500 Mg Capsule 2 CAP PO BID for 14 Days, #56 CAP Prov: GAL LIND DO 05/19/21 Sulfamethoxazole/Trimethoprim (BACTRIM DS TABLET) 1 Each Tablet 1 TAB PO BID for infection for 14 Days, #28 TAB Prov: GAL LIND DO 05/19/21 GAL LIND DO May 19, 2021 02:09
== END 2021-05-19 02:23 | disposition home or self-care (01) ==
LOC: ER 01:03
DX: Z48.01 Encounter for change or removal of surgical wound dressing (principal); L73.2 Hidradenitis suppurativa; I10 Essential (primary) hypertension; F17.200 Nicotine dependence, unspecified, uncomplicated; Z88.5 Allergy status to narcotic agent; Z88.6 Allergy status to analgesic agent
CPT/HCPCS: 99283

== ENCOUNTER 2021-06-01 20:52 | Emergency (ER) | payer MEDICARE, MEDICAID ==
[~2021-06-01] VITALS: Ht 177.8 cm; Wt 104.5 kg
[~2021-06-01 20:52] MED LIST changes: +BACI1CAP6 PO
[2021-06-01] MEDS ORDERED: HYDROmorphone 2 MG/ML VIAL IM ONE (22:15)
--- NOTE | 2021-06-01 22:18 | PHYS DOC ---
Past Medical History Past Medical History: Hypertension, Other Additional Past Medical Histor: Hidradenitis suppurativa in axilla and groin, rectum, HERNIATED DISC Past Surgical History: Other Additional Past Surgical Histo: CYST REMOVAL X10 Smoking Status: Current Every Day Smoker Alcohol Use: Rarely Drug Use: None General Adult EDM: Chief Complaint: ABSCESS HPI: HPI: Patient is a 35 year old male patient with known history of hidradenitis supra presenting today complaining of a lesion on the right inner thigh that he has had for a couple days. Patient states he is currently on doxycycline. He states he went to urgent care today but they were not able to prescribe him pain medicine. Patient follows up with [facility] surgeon who has fired him currently because he is a smoker. Review of Systems: Review of Systems: Constitutional: Denies fever or chills. [][] Musculoskeletal: Denies back pain or joint pain. [] Integument: Reports lesion on the right inner thigh from hidradenitis supra Neurologic: Denies headache, focal weakness or sensory changes. [] Psychiatric: Denies depression or anxiety. [] Heart Score: C/O Chest Pain: N/A Risk Factors: Risk Factors: DM, Current or recent (<one month) smoker, HTN, HLP, family history of CAD, obesity. Risk Scores: Score 0 - 3: 2.5% MACE over next 6 weeks - Discharge Home Score 4 - 6: 20.3% MACE over next 6 weeks - Admit for Clinical Observation Score 7 - 10: 72.7% MACE over next 6 weeks - Early Invasive Strategies Current Medications: Current Medications Medications (Trade) Dose Ordered Sig/[facility] Start Time Stop Time Status Last Admin Dose Admin Hydromorphone HCl (Dilaudid) 2 mg 1X ONCE 06/01/21 22:15 06/01/21 22:16 DC Allergies: Allergies: Allergies Coded Allergies Type Severity Reaction Last Updated Verified naproxen Allergy Intermediate 02/15/17 Yes morphine Adverse Reaction Intermediate hallucinations 01/14/21 Yes NSAIDS (Non-Steroidal Anti-Inflamma Adverse Reaction Mild NAUSEA 05/28/20 Yes Physical Exam: PE: Constitutional: Well developed, well nourished, no acute distress, non-toxic appearance. [] Skin: Painful size area of induration roughly 0.5 x 0.5 cm on the right inner thigh with no drainage. Back: No tenderness, no CVA tenderness. [] Extremities: No tenderness, no cyanosis, no clubbing, ROM intact, no edema. [] Neurologic: Alert and oriented X 3, normal motor function, normal sensory function, no focal deficits noted. [] Psychologic: Affect normal, judgement normal, mood normal. [] EKG: EKG: [] Radiology/Procedures: Radiology/Procedures: [] Course & Med Decision Making: Course & Med Decision Making Pertinent Labs and Imaging studies reviewed. (See chart for details) This is a 35-year-old male patient well-known to this ED presenting today complaining of lesion on the right inner thigh from hidradenitis supra. He is currently on doxycycline. He states urgent care was not able to give him pain medicine today and is allergic to NSAIDs. Informed patient I am not able to give him narcotics today because my electronic prescription for narcotics are not going through. Recommended he follows up with his own surgeon or Dr. Presley. Toy Disclaimer: Toy Disclaimer: This electronic medical record was generated, in whole or in part, using a voice recognition dictation system. Departure Departure Impression: Primary Impression: Hidradenitis suppurativa Disposition: HOME / SELF CARE / HOMELESS Condition: STABLE Referrals: GRAYSON CANALES MD (PCP) MILENA PRESLEY MD follow up as soon as possible Patient Instructions: Hidradenitis Suppurativa, Sweat Gland Abscess Additional Instructions: You were evaluated in the emergency room with hidradenitis supra lesion. Please follow-up with Dr. Presley or your primary care doctor as soon as possible. ROULA HUMMEL APRN Jun 01, 2021 22:18
[2021-06-01 23:00] VITALS: BP 146/82
== END 2021-06-01 23:05 | disposition home or self-care (01) ==
LOC: ER 20:52
DX: L73.2 Hidradenitis suppurativa (principal); I10 Essential (primary) hypertension; F17.200 Nicotine dependence, unspecified, uncomplicated; Z88.5 Allergy status to narcotic agent; Z88.8 Allergy status to other drugs, medicaments and biological substances
CPT/HCPCS: 96372; 99283; J1170

== ENCOUNTER 2021-06-11 00:35 | Emergency (ER) | payer MEDICARE, MEDICAID ==
[~2021-06-11] VITALS: Ht 180.3 cm; Wt 104.5 kg
[2021-06-11 02:20] VITALS: BP 146/82
--- NOTE | 2021-06-11 02:37 | PHYS DOC ---
Past Medical History Past Medical History: Hypertension, Other Additional Past Medical Histor: Hidradenitis suppurativa in axilla and groin, rectum, HERNIATED DISC Past Surgical History: Other Additional Past Surgical Histo: CYST REMOVAL X10 Smoking Status: Current Every Day Smoker Alcohol Use: Rarely Drug Use: None General Adult EDM: Chief Complaint: SKIN PROBLEM HPI: HPI: 35 yo M PMH hidradenitis suppurativa in axilla and groin and tobacco use, presents to the ed with mom, (patient consents to his/her/their knowledge and involvement in pts' medical care), "oh you're my favorite doctor," stating he's about to go out of town and is concerned he is having a repeat infection, requesting analgesia. States he cannot have his hydrocodone refilled by pain management at due to tobacco smoking. Is requesting hydrocodone or tramadol. Has not followed up with dermatology. Review of Systems: Review of Systems: Constitutional: Denies fever or chills. [] Eyes: Denies change in visual acuity. [] HENT: Denies nasal congestion or sore throat. [] Respiratory: Denies cough or shortness of breath. [] Cardiovascular: Denies chest pain or edema. [] GI: Denies abdominal pain, nausea, vomiting, : Denies dysuria or new red rash Musculoskeletal: Denies back pain or joint pain. [] Integument: Denies purulent drainage or desquamation Neurologic: Denies headache, focal weakness or sensory changes. [] Endocrine: Denies polyuria or polydipsia. [] Lymphatic: Denies swollen glands. [] Psychiatric: Denies depression or anxiety. [] Heart Score: C/O Chest Pain: No Risk Factors: Risk Factors: DM, Current or recent (<one month) smoker, HTN, HLP, family history of CAD, obesity. Risk Scores: Score 0 - 3: 2.5% MACE over next 6 weeks - Discharge Home Score 4 - 6: 20.3% MACE over next 6 weeks - Admit for Clinical Observation Score 7 - 10: 72.7% MACE over next 6 weeks - Early Invasive Strategies Allergies: Allergies: Allergies Coded Allergies Type Severity Reaction Last Updated Verified naproxen Allergy Intermediate 02/15/17 Yes morphine Adverse Reaction Intermediate hallucinations 01/14/21 Yes NSAIDS (Non-Steroidal Anti-Inflamma Adverse Reaction Mild NAUSEA 05/28/20 Yes Physical Exam: PE: Constitutional: Well developed, well nourished, no acute distress, non-toxic appearance. HENT: Normocephalic, atraumatic, Eyes: EOMI, conjunctiva normal, no discharge. Neck: Normal range of motion, supple, Cardiovascular: S1/2 present, regular rhythm Lungs & Thorax: Speaking in full sentences, bilateral equal chest rise, Abdomen: soft, no tenderness, Skin: Warm, dry, no erythema, no rash. [] Extremities: No tenderness, no cyanosis, Neurologic: Alert and oriented X 3, no focal deficits noted. [] Psychologic: Affect normal, judgement normal, mood normal. [] : multiple scars over perineum, upper thighs-points to region at base of perineum with no fluctuation/erythema/induration/subcutaneous emphysema, no rash EKG: EKG: [] Radiology/Procedures: Radiology/Procedures: [] Course & Med Decision Making: Course & Med Decision Making Pertinent Labs and Imaging studies reviewed. (See chart for details) Concern for encounter for opioid analgesia, physical exam with no signs of current infection, antibiotics not indicated at this time. Educated patient on safety of narcotic use and need for outpatient, routine care regarding this. Will discharge home with strict ED return precautions were given for fever, rash, purulent drainage or severe pain. Encouraged urgent outpatient follow-up with PMD and dermatology/pain management. Life-threatening processes were considered but are low suspicion at this time, given history, physical exam and ED workup. Pt was educated on all prescription medications and adverse effects. All patient's questions were answered and pt was stable at time of discharge. Life/limb-threatening differential includes but is not limited to, erythema multiforme, rizo-perla syndrome, toxic epidermal necrolysis, staphylococcal scalded skin syndrome, necrotizing fasciitis/myositis/cellulitis, purpura fulminans, heparin or warfarin induced skin necrosis, angioedema, anaphylaxis drug rash, disseminated intravascular coagulation, disseminated gonococcal disease, vasculitis, septicemia, petechial disorder or coagulopathy, viral exanthem, Kawasaki's disease or life-threatening burn requiring burn center management or escharotomy. I have spoken with the patient and/or caregivers. I explained the patient's condition, diagnoses and treatment plan based on the information available to me at this time. I have answered the patient and/or caregiver's questions and addressed any concerns. The patient and/or caregivers have a good understanding of patient's diagnosis, condition and treatment plan as can be expected at this point. Vital signs have been stable. Patient's condition is stable and appropriate for discharge from the emergency department. Patient will pursue further outpatient evaluation with primary care physician or other designated or consulting physician as outlined in the discharge instructions. The patient and/or caregivers are agreeable to this plan of care and follow-up instructions have been explained in detail. The patient and/or caregivers have received these instructions in written form and have expressed an understanding of the discharge instructions. The patient and/or caregivers are aware that any significant change of condition or worsening of symptoms should prompt immediate return to this or the closest emergency department or c all to [facility]. Toy Disclaimer: Toy Disclaimer: This electronic medical record was generated, in whole or in part, using a voice recognition dictation system. Departure Departure Impression: Primary Impression: Suppurative hidradenitis Additional Impression: Encounter for long-term opiate analgesic use Disposition: 01 HOME / SELF CARE / HOMELESS Condition: STABLE Referrals: GRAYSON CANALES MD (PCP) for routine care Patient Instructions: Abscess, Chronic Pain Management Additional Instructions: Dermatology: FOR DEFINITIVE MANAGEMENT of [place] [address] [place] [address] FOLLOW UP WITH PAIN MANAGEMENT: FOR DEFINITIVE MANAGEMENT of chronic pain [facility] [address] [address] EMERGENCY DEPARTMENT GENERAL DISCHARGE INSTRUCTIONS Thank you for coming to [facility] Emergency Department (ED) today and trusting us with you care. We trust that you had a positive experience in our Emergency Department. If you wish to speak to the department management, you may call the Director at [phone]. YOUR FOLLOW UP INSTRUCTIONS ARE FOLLOWS: 1. Do you have a private Doctor? If you do not have a private doctor, please ask for a resource list of physicians or clinics that may be able to assist you with follow up care. 2. The Emergency Physicain has interpreted your x-rays. The X-Ray specialist will also review them. If there is a change in the findings, you will be notified in 48 hours when at all possible. 3. A lab test or culture has been done, your results will be reviewed and you will be notified if you need a change in treatment. ADDITIONAL INSTRUCTIONS AND INFORMATION: 1. Your care today has been supervised by a physician who is specially trained in emergency care. Many problems require more than one evaluation for a complete diagnosis and treatment. We recommend that you schedule your follow up appointment as recommended to ensure complete treatment of you illness or injury. If you are unable to obtain follow up care and continue to have a problem, or if your condition worsens, we recommend that you return to the ED. 2. We are not able to safely determine your condition over the phone nor are we able to give sound medical advice over the phone. For these safety reasons, if you call for medical advice we will ask you to come to the ED for further evaluation. 3. If you have any questions regarding these discharge instructions please call the ED at [phone]. SAFETY INFORMATION: In the interest of safety, wellness, and injury prevention; we encourage you to wear your sealbelt, if you smoke; quite smoking, and we encourage family to use a protective helmet for bicycling and other sporting events that present an increased risk for head injury. IF YOUR SYMPTOMS WORSEN OR NEW SYMPTOMS DEVELOP, OR YOU HAVE CONCERNS ABOUT YOUR CONDITION; OR IF YOUR CONDITION WORSENS WHILE YOU ARE WAITING FOR YOUR FOLLOW UP APPOINTMENT; EITHER CONTACT YOUR PRIMARY CARE DOCTOR, THE PHYSICIAN WHOSE NAME AND NUMBER YOU WERE GIVEN, OR RETURN TO THE ED IMMEDIATELY. GAL BATRES DO Jun 11, 2021 02:37
== END 2021-06-11 03:10 | disposition home or self-care (01) ==
LOC: ER 00:35
DX: L73.2 Hidradenitis suppurativa (principal); I10 Essential (primary) hypertension; F17.200 Nicotine dependence, unspecified, uncomplicated; Z79.899 Other long term (current) drug therapy; Z88.5 Allergy status to narcotic agent; Z88.6 Allergy status to analgesic agent
CPT/HCPCS: 99281

== ENCOUNTER 2021-12-15 10:11 | Emergency (ER) | payer MEDICARE, MEDICAID ==
[~2021-12-15] VITALS: Ht 177.8 cm; Wt 111.1 kg
[~2021-12-15 10:11] MED LIST changes: +CLIN-94 PO; -CLIN150C15 PO; +CLIN150C16 PO; -CLIN300C9 PO; -DOXY100C2 PO; +DOXY100C3 PO
[2021-12-15 10:20] VITALS: BP 157/86
[2021-12-15] MEDS ORDERED: HYDR-2761 PO (11:26)
--- NOTE | 2021-12-15 11:27 | PHYS DOC ---
Past Medical History Past Medical History: Arthritis, Fibromyalgia, Hypertension, Other Additional Past Medical Histor: Hidradenitis suppurativ, rectum, chronic back pain Past Surgical History: Other Additional Past Surgical Histo: CYST REMOVAL X10 Smoking Status: Current Every Day Smoker Additional Information: 11/27 ppd Alcohol Use: Occasionally Drug Use: None Social History Narrative: GIBRAN olayinka General Adult EDM: Chief Complaint: ABSCESS HPI: HPI: Patient is a 36 year old male who presents with hydradenitis suppurativa in his groin area. Patient states that he has been on 2 different antibiotics since July which have not seemed to help. Patient states he has an appointment tomorrow with his PCP for further management but was unable to wait due to the pain. Denies taking anything at home for pain. Area is tender to the touch but no signs of swelling or drainage. Patient has history of fibromyalgia. Review of Systems: Review of Systems: ROS At least 10 ROS systems have been reviewed and are negative except as documented in the HPI. General: Negative except as outlined in HPI above. Skin: Negative except as outlined in HPI above. HEENT: Negative except as outlined in HPI above. Neck: Negative except as outlined in HPI above. Respiratory: Negative except as outlined in HPI above.. Cardiovascular: Negative except as outlined in HPI above. Abdomen: Negative except as outlined in HPI above. : Negative except as outlined in HPI above. Back/MSK: Negative except as outlined in HPI above. Neuro: Negative except as outlined in HPI above. Psych: Negative except as outlined in HPI above. Heart Score: C/O Chest Pain: No Risk Factors: Risk Factors: DM, Current or recent (<one month) smoker, HTN, HLP, family history of CAD, obesity. Risk Scores: Score 0 - 3: 2.5% MACE over next 6 weeks - Discharge Home Score 4 - 6: 20.3% MACE over next 6 weeks - Admit for Clinical Observation Score 7 - 10: 72.7% MACE over next 6 weeks - Early Invasive Strategies Allergies: Allergies: Allergies Coded Allergies Type Severity Reaction Last Updated Verified morphine Adverse Reaction Intermediate n/v, rash 12/15/21 Yes naproxen Adverse Reaction Intermediate n/v, rash 12/15/21 Yes NSAIDS (Non-Steroidal Anti-Inflamma Adverse Reaction Mild n/v, rash 12/15/21 Yes Physical Exam: PE: Constitutional: Well developed, well nourished, no acute distress, non-toxic appearance. [] HENT: Normocephalic, atraumatic, bilateral external ears normal, oropharynx moist, no oral exudates, nose normal. [] Eyes: PERRLA, EOMI, conjunctiva normal, no discharge. [] Neck: Normal range of motion, no tenderness, supple, no stridor. [] Cardiovascular:Heart rate regular rhythm, no murmur [] Lungs & Thorax: Bilateral breath sounds clear to auscultation [] Abdomen: Bowel sounds normal, soft, no tenderness, no masses, no pulsatile masses. [] Skin: Warm, dry, no erythema, no rash. [] Back: No tenderness, no CVA tenderness. [] Extremities: No tenderness, no cyanosis, no clubbing, ROM intact, no edema. [] Neurologic: Alert and oriented X 3, normal motor function, normal sensory function, no focal deficits noted. [] Psychologic: Affect normal, judgement normal, mood normal. [] Current Patient Data: Vital Signs: Vital Signs Date Time Temp Pulse Resp B/P (MAP) Pulse Ox O2 Delivery O2 Flow Rate FiO2 12/15/21 10:20 98.3 83 18 157/86 (109) 99 Room Air 98.3 EKG: EKG: [] Radiology/Procedures: Radiology/Procedures: [] Course & Med Decision Making: Course & Med Decision Making Pertinent Labs and Imaging studies reviewed. (See chart for details) [] 28-year-old male presents with pain to groin area. Patient states that he suffers from hydradenitis suppurativa. Patient has been on 2 antibiotics to help with treatment but patient continues to have pain. No signs of infection, swelling, discharge from the area. Patient does report tenderness to the touch on assessment. Patient is afebrile. Patient does have an appointment tomorrow with his PCP but was requesting something for pain control until he can follow- up. Sending patient home with a prescription for hydrocodone until he is seen tomorrow by PCP. Patient given 1 dose of medication while in the ER. Discussed return precautions with patient. Toy Disclaimer: Toy Disclaimer: This electronic medical record was generated, in whole or in part, using a voice recognition dictation system. Incision and Drainage Indication: ABSCESS UNDER RIGHT AXILLA Procedure: The patient was positioned appropriately and the skin over the incision site was cleaned for procedure. Local anesthesia was 2% lidocaine with epi. An incision was then made over the roof of the abscess in axilla and moderate drainage material was expressed. Loculations were broken up with hemostats.The drainage cavity was then packed with 1/4cm packing. The patients tetanus status was up to date. The patient tolerated the procedure well. Complications: na Departure Departure Impression: Primary Impression: Hidradenitis suppurativa Disposition: HOME / SELF CARE / HOMELESS Condition: STABLE Referrals: UNKNOWN PCP NAME (PCP) Patient Instructions: Hidradenitis Suppurativa, Sweat Gland Abscess Additional Instructions: You were seen in the emergency room for tenderness to your groin area. There were no signs of infection or indication you to be started on a antibiotic at this time. Your pain was treated while in the emergency room and I am sending home with a prescription until you can follow-up with your PCP tomorrow. Warm compresses to the area can help with pain. Make sure you are cleaning the area with antibacterial soaps to help avoid infection. Please return to the emergency room if you have worsening symptoms or concerns. EMERGENCY DEPARTMENT GENERAL DISCHARGE INSTRUCTIONS Thank you for coming to [facility] Emergency Department (ED) today and trusting us with you care. We trust that you had a positive experience in our Emergency Department. If you wish to speak to the department management, you may call the Director at [phone]. YOUR FOLLOW UP INSTRUCTIONS ARE FOLLOWS: 1. Do you have a private Doctor? If you do not have a private doctor, please ask for a resource list of physicians or clinics that may be able to assist you with follow up care. 2. The Emergency Physicain has interpreted your x-rays. The X-Ray specialist will also review them. If there is a change in the findings, you will be notified in 48 hours when at all possible. 3. A lab test or culture has been done, your results will be reviewed and you will be notified if you need a change in treatment. ADDITIONAL INSTRUCTIONS AND INFORMATION: 1. Your care today has been supervised by a physician who is specially trained in emergency care. Many problems require more than one evaluation for a complete diagnosis and treatment. We recommend that you schedule your follow up appointment as recommended to ensure complete treatment of you illness or injury. If you are unable to obtain follow up care and continue to have a problem, or if your condition worsens, we recommend that you return to the ED. 2. We are not able to safely determine your condition over the phone nor are we able to give sound medical advice over the phone. For these safety reasons, if you call for medical advice we will ask you to come to the ED for further evaluation. 3. If you have any questions regarding these discharge instructions please call the ED at [phone]. SAFETY INFORMATION: In the interest of safety, wellness, and injury prevention; we encourage you to wear your sealbelt, if you smoke; quite smoking, and we encourage family to use a protective helmet for bicycling and other sporting events that present an increased risk for head injury. IF YOUR SYMPTOMS WORSEN OR NEW SYMPTOMS DEVELOP, OR YOU HAVE CONCERNS ABOUT YOUR CONDITION; OR IF YOUR CONDITION WORSENS WHILE YOU ARE WAITING FOR YOUR FOLLOW UP APPOINTMENT; EITHER CONTACT YOUR PRIMARY CARE DOCTOR, THE PHYSICIAN WHOSE NAME AND NUMBER YOU WERE GIVEN, OR RETURN TO THE ED IMMEDIATELY. Scripts Hydrocodone Bit/Acetaminophen (HYDROCODONE-APAP 5-325 ) 1 Tab Tablet 1 TAB PO PRN Q6HRS PRN for PAIN for 3 Days, #3 TAB 0 Refills Prov: MIGDALIA MELCHOR APRN 12/15/21 MIGDALIA MELCHOR APRN Dec 15, 2021 11:27
[2021-12-15] MEDS ORDERED: HYDROcodone/APAP 5/325MG 1 TAB TABLET PO ONE (11:30)
== END 2021-12-15 11:34 | disposition home or self-care (01) ==
LOC: ER 10:11
DX: L73.2 Hidradenitis suppurativa (principal); F17.200 Nicotine dependence, unspecified, uncomplicated; I10 Essential (primary) hypertension; Z88.5 Allergy status to narcotic agent; Z88.6 Allergy status to analgesic agent
CPT/HCPCS: 10060; 99282; 99283

== ENCOUNTER 2022-03-09 16:03 | Inpatient (IN) | payer MEDICARE, MEDICAID ==
[~2022-03-09] VITALS: Ht 180.3 cm; Wt 114.7 kg
[2022-03-09] MEDS ORDERED: IV NORMAL SALINE 1000ML BAG 1,000 ML IV SCH (16:15)
[2022-03-09] MEDS ORDERED: fentaNYL PF VIAL 100 MCG/2 ML VIAL IVP ONE ×2 (16:15→17:30)
[2022-03-09] MEDS ORDERED: FAMOTIDINE 20 MG/2 ML VIAL IVP ONE (16:15)
[2022-03-09] MEDS ORDERED: ONDANSETRON PF 4 MG/2 ML VIAL. IVP ONE (16:15)
--- NOTE | 2022-03-09 16:37 | PHYS DOC ---
Past Medical History Past Medical History: Arthritis, Fibromyalgia, Hypertension, Other Additional Past Medical Histor: Hidradenitis suppurativ, rectum, chronic back pain Past Surgical History: Other Additional Past Surgical Histo: CYST REMOVAL X10 Smoking Status: Current Every Day Smoker Alcohol Use: Occasionally Drug Use: None General Adult EDM: Chief Complaint: ABDOMINAL PAIN HPI: HPI: Patient is a 36 year old male who presents with left upper intimates sided abdominal pain that gets worse after eating and diarrhea for the last week. He rates his pain a 10 out of 10. Does not radiate. Has a history of GERD, presumed gastric ulcers (patient never went to a GI to follow up), hypertension, fibromyalgia, arthritis,. Heradenitis separative with cyst removal, smoking. Denies chest pain, shortness of air, fever, nausea, vomiting, diarrhea, abdominal pain, numbness or tingling, focal weakness, vision change, headache, dizziness, blood in stool or urine. Review of Systems: Review of Systems: Constitutional: Denies fever or chills. [] Eyes: Denies change in visual acuity. [] HENT: Denies nasal congestion or sore throat. [] Respiratory: Denies cough or shortness of breath. [] Cardiovascular: Denies chest pain or edema. [] GI: +abdominal pain, denies nausea, vomiting, bloody stools or +diarrhea. [] : Denies dysuria. [] Musculoskeletal: Denies back pain or joint pain. [] Integument: Denies rash. [] Neurologic: Denies headache, focal weakness or sensory changes. [] Endocrine: Denies polyuria or polydipsia. [] Lymphatic: Denies swollen glands. [] Psychiatric: Denies depression or anxiety. [] Heart Score: C/O Chest Pain: No HEART Score for Chest Pain: HEART Score for Chest Pain Response (Comments) Value History Slighlty/Non-Suspicious 0 ECG Nonspecific Repolarizatio 1 Age < 45 0 Risk Factors 1 or 2 Risk Factors 1 Troponin < Normal Limit 0 Total 2 Risk Factors: Risk Factors: DM, Current or recent (<one month) smoker, HTN, HLP, family history of CAD, obesity. Risk Scores: Score 0 - 3: 2.5% MACE over next 6 weeks - Discharge Home Score 4 - 6: 20.3% MACE over next 6 weeks - Admit for Clinical Observation Score 7 - 10: 72.7% MACE over next 6 weeks - Early Invasive Strategies Current Medications: Current Medications Medications (Trade) Dose Ordered Sig/Vanessa Start Time Stop Time Status Last Admin Dose Admin Famotidine (Pepcid Vial) 20 mg 1X ONCE 03/09/22 16:15 03/09/22 16:16 UNV Fentanyl Citrate (Fentanyl 2ml Vial) 50 mcg 1X ONCE 03/09/22 16:15 03/09/22 16:16 UNV Ondansetron HCl (Zofran) 4 mg 1X ONCE 03/09/22 16:15 03/09/22 16:16 UNV Sodium Chloride 1,000 ml @ 1,000 mls/hr Q1H 03/09/22 16:15 03/09/22 17:14 UNV Allergies: Allergies: Allergies Coded Allergies Type Severity Reaction Last Updated Verified morphine Adverse Reaction Intermediate n/v, rash 12/15/21 Yes naproxen Adverse Reaction Intermediate n/v, rash 12/15/21 Yes NSAIDS (Non-Steroidal Anti-Inflamma Adverse Reaction Mild n/v, rash 12/15/21 Yes Physical Exam: PE: Constitutional: Well developed, well nourished, no acute distress, non-toxic appearance. [] HENT: Normocephalic, atraumatic, bilateral external ears normal, oropharynx moist, no oral exudates, nose normal. [] Eyes: PERRLA, EOMI, conjunctiva normal, no discharge. [] Neck: Normal range of motion, no tenderness, supple, no stridor. [] Cardiovascular:Heart rate regular rhythm, no murmur [] Lungs & Thorax: Bilateral breath sounds clear to auscultation [] Abdomen: Bowel sounds normal, soft, left upper to left mid side tenderness, no masses, no pulsatile masses. [] Skin: Warm, dry, no erythema, no rash. [] Back: No tenderness, no CVA tenderness. [] Extremities: No tenderness, no cyanosis, no clubbing, ROM intact, no edema. [] Neurologic: Alert and oriented X 3, normal motor function, normal sensory function, no focal deficits noted. [] Psychologic: Affect normal, judgement normal, mood normal. [] EKG: EK and read by Dr. Rubio as sinus rhythm, no reciprocal changes, early repolarization, no STEMI Radiology/Procedures: Radiology/Procedures: [] Impression: [facility] [address] [place], [place] [id number] IMAGING REPORT Signed PATIENT: ARIES CRUZ ACCOUNT: [id number] : 1985 LOCATION: ER AGE: 36 SEX: M EXAM STATUS: REG ER ORD. PHYSICIAN: FABIOLA MCINTOSH APRN REASON: left upper abd pain PROCEDURE: CT ABD PELV W/ IV CONTRST ONLY Exam: CT of abdomen and pelvis with contrast INDICATION: Left upper abdominal pain TECHNIQUE: Sequential axial images through the abdomen and pelvis obtained following the administration of 75 mL of Isovue-370 IV contrast. Sagittal and coronal reformatted images were reconstructed from the axial data and reviewed. Exposure: One or more of the following in the visualized dose reduction techniques were utilized for this examination: 1. Automated exposure control 2. Adjustment of the MA and/or KV according to patient size 3. Use of iterative of reconstructive technique Comparisons: 03/22/2017 FINDINGS: Heart size is normal. No pericardial effusion. Strandy opacities the dependent portion lungs likely representing atelectasis. No pleural effusion. Diffuse hepatic steatosis. Spleen is enlarged measuring up to 14.5 cm in long axis. Pancreas, and adrenals are unremarkable. Gallbladder is decompressed. No perinephric inflammation or hydronephrosis. No renal or ureteral calculi are identified. Bladder is partially distended and not well evaluated. Prostate is not enlarged. Large and small bowel are unremarkable. Appendix is normal. No free intra- abdominal air or fluid. No obstruction. Abdominal aorta has normal course and caliber. Abdominal vasculature is patent. No enlarged intra-abdominal lymph nodes are identified. No suspicious osseous lesions or acute fractures. IMPRESSION: 1. Mild diffuse hepatic steatosis. 2. Mild splenomegaly. Electronically signed by: Osiel Jasso MD (03/09/2022 6:52 PM) [facility] DICTATED and SIGNED BY: OSIEL JASSO MD DATE: 03/09/22 247 Course & Med Decision Making: Course & Med Decision Making Pertinent Labs and Imaging studies reviewed. (See chart for details) See HPI. Alert and Oriented x4. Speaks in full clear sentences. Abdomen and pelvis is soft but very tender to left mid and lower abdomen. Skin pink warm and dry. Vital signs within normal limits. 125 mcg of fentanyl, 80 mg of Protonix, GI cocktail, normal saline. CT shows a enlarged spleen. His mononucleosis came back negative. Pain is intractable. Due to intractable pain, physical exam findings, given presumed gastric ulcers, CT findings patient needs further work-up, GI attention and would benefit from an EGD. I did have Dr Tejeda examine this patient also and he agree's. Patient admitted to hospitalist. [] Toy Disclaimer: Toy Disclaimer: This electronic medical record was generated, in whole or in part, using a voice recognition dictation system. Departure Departure Impression: Primary Impression: Intractable abdominal pain Disposition: ADMITTED INPATIENT Admitting Physician: MEDARDO Condition: STABLE Referrals: UNKNOWN PCP NAME (PCP) FABIOLA MCINTOSH APRN Mar 09, 2022 16:37
[2022-03-09] MEDS ORDERED: POTASSIUM CHLORIDE 10MEQ 100 ML IV SCH (17:00)
[2022-03-09 17:11] LABS: BASO # 0.1 x10^3/uL (0.0-0.2); BASO % 1 % (0-3); EOS # 0.2 x10^3/uL (0.0-0.7); EOS % 2 % (0-3); HEMATOCRIT 41.8 % (39.0-53.0); HEMOGLOBIN 14.4 g/dL (13.0-17.5); LYMPH # 3.4 x10^3/uL (1.0-4.8); LYMPH % 32 % (24-48); MEAN CORPUSCULAR HEMOGLOBIN 31 pg (25-35); MEAN CORPUSCULAR HGB CONC 34 g/dL (31-37); MEAN CORPUSCULAR VOLUME 91 fL (79-100); MONO # 0.6 x10^3/uL (0.0-1.1); MONO % 5 % (0-9); NEUT # 6.4 x10^3/uL (1.8-7.7); NEUT % 60 % (31-73); PLATELET COUNT 256 x10^3/uL (140-400); RED BLOOD COUNT 4.62 x10^6/uL (4.30-5.70); RED CELL DISTRIBUTION WIDTH 13.7 % (11.5-14.5); WHITE BLOOD COUNT 10.7 x10^3/uL (4.0-11.0)
[2022-03-09 17:19] LABS: BACTERIA,URINE 0 /HPF (0-FEW); BARBITURATES NEG (NEG); BENZODIAZEPINES NEG (NEG); CANNABINOIDS POS (NEG); COCAINE NEG (NEG); METHADONE NEG (NEG); OPIATES NEG (NEG); PHENCYCLIDINE NEG (NEG); RBC,URINE 0 /HPF (0-2); WBC,URINE 0 /HPF (0-4)
[2022-03-09 17:21] LABS: AMPHETAMINE/METHAMPHETAMINE NEG (NEG)
[2022-03-09 18:11] LABS: CALCIUM 8.7 mg/dL (8.5-10.1); CREATININE 0.7 mg/dL (0.7-1.3); GFR 126.2; POTASSIUM 4.2 mmol/L (3.5-5.1)
[2022-03-09 18:17] LABS: ALBUMIN 3.1 g/dL (3.4-5.0); ALBUMIN/GLOBULIN RATIO 1.1 (1.0-1.7); MAGNESIUM 1.8 mg/dL (1.8-2.4); TOTAL BILIRUBIN 0.2 mg/dL (0.2-1.0)
[2022-03-09] MEDS ORDERED: IOHEXOL 300 MG/ML 100ML VIAL. IV ONE (18:30)
--- NOTE | 2022-03-09 18:55 | RAD ---
Exam: CT of abdomen and pelvis with contrast INDICATION: Left upper abdominal pain TECHNIQUE: Sequential axial images through the abdomen and pelvis obtained following the administrati on of 75 mL of Isovue-370 IV contrast. Sagittal and coronal reformatted images were reconstructed fro m the axial data and reviewed. Exposure: One or more of the following in the visualized dose reduction techniques were utilized for this examination: 1. Automated exposure control 2. Adjustment of the MA and/or KV according to patient size 3. Use of iterative of reconstructive technique Comparisons: 03/22/2017 FINDINGS: Heart size is normal. No pericardial effusion. Strandy opacities the dependent portion lungs likely r epresenting atelectasis. No pleural effusion. Diffuse hepatic steatosis. Spleen is enlarged measuring up to 14.5 cm in long axis. Pancreas, and adr enals are unremarkable. Gallbladder is decompressed. No perinephric inflammation or hydronephrosis. No renal or ureteral calculi are identified. Bladder is partially distended and not well evaluated. Prostate is not enlarged. Large and small bowel are unremarkable. Appendix is normal. No free intra-abdominal air or fluid. No obstruction. Abdominal aorta has normal course and caliber. Abdominal vasculature is patent. No enlarged intra-abdominal lymph nodes are identified. No suspicious osseous lesions or acute fractures. IMPRESSION: 1. Mild diffuse hepatic steatosis. 2. Mild splenomegaly. Electronically signed by: Osiel Easley MD (03/09/2022 6:52 PM) [facility]
[2022-03-09 19:13] LABS: MONONUCLEOSIS PATIENT NEGATIVE (NEGATIVE)
[2022-03-09] MEDS ORDERED: LIDO:MAALOX 1:1 20 ML SINGLE DOSE. SWSW ONE (19:30)
[2022-03-09] MEDS ORDERED: PANTOPRAZOLE IV PUSH 40 MG VIAL. IVP ONE (20:00)
[2022-03-09] MEDS ORDERED: SUCRALFATE 1 GM TABLET. PO ONE (20:00)
[2022-03-09] MEDS: fentaNYL PF VIAL 100 MCG/2 ML VIAL IVP PRN ×2 (20:06→21:16)
[2022-03-09 21:00] VITALS: BP 125/91
[2022-03-09] MEDS ORDERED: GABA800T5 PO (21:43)
[2022-03-09] MEDS ORDERED: CBD GUMMIES PO (21:43)
[2022-03-09] MEDS ORDERED: FAMO40TA4 PO (21:43)
[2022-03-09] MEDS ORDERED: OMEP40CA7 PO (21:43)
[2022-03-09] MEDS ORDERED: fentaNYL PF VIAL 100 MCG/2 ML VIAL IM PRN (21:45)
[2022-03-09] MEDS ORDERED: MAGNESIUM HYDROXIDE 2,400 MG/30 ML ORAL.SUSP. PO PRN (22:00)
[2022-03-09] MEDS ORDERED: ACETAMINOPHEN 325 MG TABLET. PO PRN (22:00)
[2022-03-09] MEDS ORDERED: ZOLPIDEM 5 MG TABLET. PO PRN (22:00)
[2022-03-09] MEDS ORDERED: MAG HYDROX/ALUMINUM HYD/SIMETH 30 ML ORAL.SUSP PO PRN (22:00)
[2022-03-09] MEDS ORDERED: HYDROmorphone 2 MG/ML INJ. IV PRN (22:00)
[2022-03-09] MEDS ORDERED: ONDANSETRON PF 4 MG/2 ML VIAL. IVP PRN (22:00)
[2022-03-09] MEDS ORDERED: CALCIUM CARBONATE 500 MG TAB.CHEW PO PRN (22:00)
--- NOTE | 2022-03-09 22:03 | PDOC1 ---
History and Physical Date of Admission Date of Admission DATE: 03/09/22 TIME: 21:48 Identification/Chief Complaint Chief Complaint Abdominal pain Source Source: Patient History of Present Illness History of Present Illness Patient is a 36-year-old male with past medical history of ulcers, who presents to the ED with 3 to 4 days of total left lower quadrant abdominal pain. States his pain is worse with eating. Pain is now progressed to stabbing pain. Labs on admission were largely unremarkable. CT abdomen/pelvis showed mild splenomegaly and hepatic steatosis. Due to his medical history and concern for ulcers, will admit patient for further medical management. Past Medical History Past Medical History Ulcers, hidradenitis suppurativa, fibromyalgia, arthritis Cardiovascular: No pertinent hx GI: No pertinent hx Heme/Onc: No pertinent hx Psych: No pertinent hx Renal/: No pertinent hx Endocrine: No pertinent hx Past Surgical History Past Surgical History Hidradenitis suppurativa surgery Past Surgical History: Other Family History Family History: Coronary Artery Disease, Hypertension Social History Smoke: <1 pack per day ALCOHOL: occassional Drugs: Marijuana Current Problem List Problem List Problems Medical Problems: (1) Intractable abdominal pain Status: Acute Current Medications Current Medications Current Medications Sodium Chloride 1,000 ml @ 1,000 mls/hr Q1H IV Last administered on 03/09/22at 16:47; Start 03/09/22 at 16:15; Stop 03/09/22 at 17:14; Status DC Fentanyl Citrate (Fentanyl 2ml Vial) 50 mcg 1X ONCE IVP Last administered on 03/09/22at 16:46; Start 03/09/22 at 16:15; Stop 03/09/22 at 16:22; Status DC Ondansetron HCl (Zofran) 4 mg 1X ONCE IVP Last administered on 03/09/22at 16:43; Start 03/09/22 at 16:15; Stop 03/09/22 at 16:22; Status DC Famotidine (Pepcid Vial) 20 mg 1X ONCE IVP Last administered on 03/09/22at 16:44; Start 03/09/22 at 16:15; Stop 03/09/22 at 16:22; Status DC Potassium Chloride/Water 100 ml @ 100 mls/hr Q1H IV ; Start 03/09/22 at 17:00; Stop 03/09/22 at 20:59; Status Cancel Fentanyl Citrate (Fentanyl 2ml Vial) 75 mcg 1X ONCE IVP Last administered on 03/09/22at 17:42; Start 03/09/22 at 17:30; Stop 03/09/22 at 17:31; Status DC Iohexol (Omnipaque 300 Mg/ml) 75 ml 1X ONCE IV Last administered on 03/09/22at 18:27; Start 03/09/22 at 18:30; Stop 03/09/22 at 18:31; Status DC Sucralfate (Carafate) 1 gm 1X ONCE PO Last administered on 03/09/22at 19:51; Start 03/09/22 at 20:00; Stop 03/09/22 at 20:01; Status DC Pantoprazole Sodium (PROTONIX VIAL for IV PUSH) 80 mg 1X ONCE IVP Last a dministered on 03/09/22at 19:51; Start 03/09/22 at 20:00; Stop 03/09/22 at 20:01; Status DC Multi-Ingredient Mouthwash/Gargle (Gi Cocktail) 20 ml 1X ONCE SWSW Last administered on 03/09/22at 19:51; Start 03/09/22 at 19:30; Stop 03/09/22 at 19:31; Status DC Fentanyl Citrate (Fentanyl 2ml Vial) 50 mcg PRN Q1HR PRN IVP PAIN Last administered on 03/09/22at 21:16; Start 03/09/22 at 19:45; Stop 03/10/22 at 19:44 Fentanyl Citrate (Fentanyl 2ml Vial) 75 mcg PRN Q2HR PRN IM PAIN; Start 03/09/22 at 21:45; Status UNV Active Scripts Active Ultram (Tramadol Hcl) 50 Mg Tablet 50 Mg PO Q6HRS PRN Reported [Cbd Gummies] 25 Mg PO DAILY PRN Gabapentin 800 Mg Tablet 800 Mg PO Q8HRS Famotidine 40 Mg Tablet 40 Mg PO HS Omeprazole 40 Mg Capsule.dr 40 Mg PO DAILY Quin Allergy (Fexofenadine Hcl) 180 Mg Tablet 180 Mg PO DAILY Allergies Allergies: Coded Allergies: morphine (Verified Adverse Reaction, Intermediate, n/v, rash, 12/15/21) naproxen (Verified Adverse Reaction, Intermediate, n/v, rash, 12/15/21) NSAIDS (Non-Steroidal Anti-Inflamma (Verified Adverse Reaction, Mild, n/v, rash, 12/15/21) ROS Review of System GENERAL: No history of weight change, weakness or fevers. SKIN: No bruising, hair changes or rashes. EYES: No blurred, double or loss of vision. NOSE AND THROAT: No history of nosebleeds, hoarseness or sore throat. HEART: Denies chest pain, denies palpitations. LUNGS: Denies cough, hemoptysis, wheezing or shortness of breath. GASTROINTESTINAL: Abdominal pain. Denies nausea, vomiting. GENITOURINARY: Denies dysuria, frequency, urgency, hematuria. NEUROLOGIC: Denies history of numbness, tingling, tremor or weakness. PSYCHIATRIC: Denies anxiety, denies depression. ENDOCRINE: No history of heat or cold intolerance, polyuria or polydipsia. EXTREMITIES: Denies muscle weakness, joint pain, pain on walking or stiffness. Physical Exam Physical Exam General: Alert, Oriented X3, Cooperative, No acute distress HEENT: PERRLA, EOMI Lungs: Clear to auscultation, Normal air movement Heart: RRR, no murmurs Cardiovascular: S1, S2 Abdomen: Left lower quadrant abdominal tenderness. Obese abdomen. Extremities: No clubbing, No cyanosis Skin: No rashes, No significant lesion Neuro: Normal speech, Normal tone, Sensation intact Psych/Mental Status: Mental status NL, Mood NL Vitals Vitals Vital Signs Date Time Temp Pulse Resp B/P (MAP) Pulse Ox O2 Delivery O2 Flow Rate FiO2 03/09/22 20:10 70 20 130/79 (96) 99 Room Air 03/09/22 16:13 98.0 98.0 Labs Labs Laboratory Tests Test 03/09/22 16:48 03/09/22 17:50 White Blood Count 10.7 x10^3/uL (4.0-11.0) Red Blood Count 4.62 x10^6/uL (4.30-5.70) Hemoglobin 14.4 g/dL (13.0-17.5) Hematocrit 41.8 % (39.0-53.0) Mean Corpuscular Volume 91 fL (79-100) Mean Corpuscular Hemoglobin 31 pg (25-35) Mean Corpuscular Hemoglobin Concent 34 g/dL (31-37) Red Cell Distribution Width 13.7 % (11.5-14.5) Platelet Count 256 x10^3/uL (140-400) Neutrophils (%) (Auto) 60 % (31-73) Lymphocytes (%) (Auto) 32 % (24-48) Monocytes (%) (Auto) 5 % (0-9) Eosinophils (%) (Auto) 2 % (0-3) Basophils (%) (Auto) 1 % (0-3) Neutrophils # (Auto) 6.4 x10^3/uL (1.8-7.7) Lymphocytes # (Auto) 3.4 x10^3/uL (1.0-4.8) Monocytes # (Auto) 0.6 x10^3/uL (0.0-1.1) Eosinophils # (Auto) 0.2 x10^3/uL (0.0-0.7) Basophils # (Auto) 0.1 x10^3/uL (0.0-0.2) Urine Collection Type Unknown Urine Color (Auto) Light yellow Urine Turbidity Clear Urine pH (Auto) 6.5 (<5.0-8.0) Urine Specific [place] 1.011 (1.000-1.030) Urine Protein (Auto) Negative mg/dL (Negative) Urine Glucose (Auto)(UA) Negative mg/dL (Negative) Urine Ketones (Auto) Negative mg/dL (Negative) Urine Blood (Auto) Negative (Negative) Urine Nitrite Negative (Negative) Urine Bilirubin (Auto) Negative (Negative) Urine Urobilinogen (Auto) Normal mg/dL (Normal) Urine Leukocyte Esterase (Auto) Negative (Negative) Urine RBC 0 /HPF (0-2) Urine WBC 0 /HPF (0-4) Urine Bacteria 0 /HPF (0-FEW) Urine Opiates Screen Neg (NEG) Urine Methadone Screen Neg (NEG) Urine Barbiturates Neg (NEG) Urine Phencyclidine Screen Neg (NEG) Urine Amphetamine/Methamphetamine Neg (NEG) Urine Benzodiazepines Screen Neg (NEG) Urine Cocaine Screen Neg (NEG) Urine Cannabinoids Screen Pos (NEG) Urine Ethyl Alcohol Neg (NEG) Heterophil Agglutinins Negative (NEGATIVE) Sodium Level 140 mmol/L (136-145) Potassium Level 4.2 mmol/L (3.5-5.1) Chloride Level 107 mmol/L (98-107) Carbon Dioxide Level 25 mmol/L (21-32) Anion Gap 8 (6-14) Blood Urea Nitrogen 10 mg/dL (8-26) Creatinine 0.7 mg/dL (0.7-1.3) Estimated GFR (Cockcroft-Gault) 126.2 BUN/Creatinine Ratio 14 (6-20) Glucose Level 111 mg/dL (70-99) Calcium Level 8.7 mg/dL (8.5-10.1) Magnesium Level 1.8 mg/dL (1.8-2.4) Total Bilirubin 0.2 mg/dL (0.2-1.0) Aspartate Amino Transf (AST/SGOT) 19 U/L (15-37) Alanine Aminotransferase (ALT/SGPT) 42 U/L (16-63) Alkaline Phosphatase 108 U/L (46-116) Troponin I High Sensitivity < 4 ng/L (4-75) Total Protein 6.0 g/dL (6.4-8.2) Albumin 3.1 g/dL (3.4-5.0) Albumin/Globulin Ratio 1.1 (1.0-1.7) Lipase 57 U/L (73-393) Laboratory Tests Test 03/09/22 16:48 03/09/22 17:50 White Blood Count 10.7 x10^3/uL (4.0-11.0) Red Blood Count 4.62 x10^6/uL (4.30-5.70) Hemoglobin 14.4 g/dL (13.0-17.5) Hematocrit 41.8 % (39.0-53.0) Mean Corpuscular Volume 91 fL (79-100) Mean Corpuscular Hemoglobin 31 pg (25-35) Mean Corpuscular Hemoglobin Concent 34 g/dL (31-37) Red Cell Distribution Width 13.7 % (11.5-14.5) Platelet Count 256 x10^3/uL (140-400) Neutrophils (%) (Auto) 60 % (31-73) Lymphocytes (%) (Auto) 32 % (24-48) Monocytes (%) (Auto) 5 % (0-9) Eosinophils (%) (Auto) 2 % (0-3) Basophils (%) (Auto) 1 % (0-3) Neutrophils # (Auto) 6.4 x10^3/uL (1.8-7.7) Lymphocytes # (Auto) 3.4 x10^3/uL (1.0-4.8) Monocytes # (Auto) 0.6 x10^3/uL (0.0-1.1) Eosinophils # (Auto) 0.2 x10^3/uL (0.0-0.7) Basophils # (Auto) 0.1 x10^3/uL (0.0-0.2) Urine Collection Type Unknown Urine Color (Auto) Light yellow Urine Turbidity Clear Urine pH (Auto) 6.5 (<5.0-8.0) Urine Specific [place] 1.011 (1.000-1.030) Urine Protein (Auto) Negative mg/dL (Negative) Urine Glucose (Auto)(UA) Negative mg/dL (Negative) Urine Ketones (Auto) Negative mg/dL (Negative) Urine Blood (Auto) Negative (Negative) Urine Nitrite Negative (Negative) Urine Bilirubin (Auto) Negative (Negative) Urine Urobilinogen (Auto) Normal mg/dL (Normal) Urine Leukocyte Esterase (Auto) Negative (Negative) Urine RBC 0 /HPF (0-2) Urine WBC 0 /HPF (0-4) Urine Bacteria 0 /HPF (0-FEW) Urine Opiates Screen Neg (NEG) Urine Methadone Screen Neg (NEG) Urine Barbiturates Neg (NEG) Urine Phencyclidine Screen Neg (NEG) Urine Amphetamine/Methamphetamine Neg (NEG) Urine Benzodiazepines Screen Neg (NEG) Urine Cocaine Screen Neg (NEG) Urine Cannabinoids Screen Pos (NEG) Urine Ethyl Alcohol Neg (NEG) Heterophil Agglutinins Negative (NEGATIVE) Sodium Level 140 mmol/L (136-145) Potassium Level 4.2 mmol/L (3.5-5.1) Chloride Level 107 mmol/L (98-107) Carbon Dioxide Level 25 mmol/L (21-32) Anion Gap 8 (6-14) Blood Urea Nitrogen 10 mg/dL (8-26) Creatinine 0.7 mg/dL (0.7-1.3) Estimated GFR (Cockcroft-Gault) 126.2 BUN/Creatinine Ratio 14 (6-20) Glucose Level 111 mg/dL (70-99) Calcium Level 8.7 mg/dL (8.5-10.1) Magnesium Level 1.8 mg/dL (1.8-2.4) Total Bilirubin 0.2 mg/dL (0.2-1.0) Aspartate Amino Transf (AST/SGOT) 19 U/L (15-37) Alanine Aminotransferase (ALT/SGPT) 42 U/L (16-63) Alkaline Phosphatase 108 U/L (46-116) Troponin I High Sensitivity < 4 ng/L (4-75) Total Protein 6.0 g/dL (6.4-8.2) Albumin 3.1 g/dL (3.4-5.0) Albumin/Globulin Ratio 1.1 (1.0-1.7) Lipase 57 U/L (73-393) Images Images PATIENT: ARIES CRUZ ACCOUNT: [id number] : 1985 LOCATION: ER AGE: 36 SEX: M EXAM STATUS: REG ER ORD. PHYSICIAN: FABIOLA MCINTOSH APRN REASON: left upper abd pain PROCEDURE: CT ABD PELV W/ IV CONTRST ONLY Exam: CT of abdomen and pelvis with contrast INDICATION: Left upper abdominal pain TECHNIQUE: Sequential axial images through the abdomen and pelvis obtained following the administration of 75 mL of Isovue-370 IV contrast. Sagittal and coronal reformatted images were reconstructed from the axial data and reviewed. Exposure: One or more of the following in the visualized dose reduction techniques were utilized for this examination: 1. Automated exposure control 2. Adjustment of the MA and/or KV according to patient size 3. Use of iterative of reconstructive technique Comparisons: 03/22/2017 FINDINGS: Heart size is normal. No pericardial effusion. Strandy opacities the dependent portion lungs likely representing atelectasis. No pleural effusion. Diffuse hepatic steatosis. Spleen is enlarged measuring up to 14.5 cm in long axis. Pancreas, and adrenals are unremarkable. Gallbladder is decompressed. No perinephric inflammation or hydronephrosis. No renal or ureteral calculi are identified. Bladder is partially distended and not well evaluated. Prostate is not enlarged. Large and small bowel are unremarkable. Appendix is normal. No free intra-ab dominal air or fluid. No obstruction. Abdominal aorta has normal course and caliber. Abdominal vasculature is patent. No enlarged intra-abdominal lymph nodes are identified. No suspicious osseous lesions or acute fractures. IMPRESSION: 1. Mild diffuse hepatic steatosis. 2. Mild splenomegaly. VTE Prophylaxis Ordered VTE Prophylaxis Devices: No VTE Pharmacological Prophylaxi: Yes Assessment/Plan Assessment/Plan Intractable abdominal pain History of ulcers History fibromyalgia Plan: Due to concern for gastric ulcer we will place consult to GI IV PPI N.p.o. after midnight for possible EGD IV fluids Fecal H. pylori antigen FEN - NPO PPX - SCDs FULL CODE/patient names his partner (Donavon Blanchard) as surrogate decision-maker Dispo - inpatient for above Justifications for Admission Other Justification HOSSEIN VARGAS MD Mar 09, 2022 22:03
[2022-03-09] MEDS: HYDROmorphone 2 MG/ML INJ. IVP PRN (22:50)
[2022-03-09 23:00] VITALS: BP 124/80
[2022-03-10] MEDS: HYDROmorphone 2 MG/ML INJ. IVP PRN ×3 (02:08→09:19)
[2022-03-10 03:00] VITALS: BP 118/71
[2022-03-10 07:00] VITALS: BP 110/69
--- NOTE | 2022-03-10 07:28 | EKG ---
[facility] [address] [place] [address] Test Date: 2022-03-09 Test Time: 16:42:35 Pat Name: ARIES CRUZ Department: Room: 206 Gender: M Supervisor [employer]: : 1985 Requested By: FABIOLA MCINTOSH Order Number: [id number] Reading MD: Cordell Chicas Measurements Intervals [place] Rate: 74 P: OK: QRS: 19 QRSD: 86 T: 53 QT: 352 QTc: 391 Interpretive Statements SINUS RHYTHM Electronically Signed On 03-10-2022 13:16:17 CDT by Cordell Chicas
[2022-03-10] MEDS ORDERED: PANTOPRAZOLE IV PUSH 40 MG VIAL. IVP SCH (07:30)
[2022-03-10 08:35] LABS: BASO # 0.1 x10^3/uL (0.0-0.2); BASO % 1 % (0-3); EOS # 0.3 x10^3/uL (0.0-0.7); EOS % 3 % (0-3); HEMATOCRIT 41.9 % (39.0-53.0); HEMOGLOBIN 13.8 g/dL (13.0-17.5); LYMPH # 3.7 x10^3/uL (1.0-4.8); LYMPH % 43 % (24-48); MEAN CORPUSCULAR HEMOGLOBIN 30 pg (25-35); MEAN CORPUSCULAR HGB CONC 33 g/dL (31-37); MEAN CORPUSCULAR VOLUME 91 fL (79-100); MONO # 0.6 x10^3/uL (0.0-1.1); MONO % 7 % (0-9); NEUT % 47 % (31-73); PLATELET COUNT 234 x10^3/uL (140-400); RED BLOOD COUNT 4.61 x10^6/uL (4.30-5.70); RED CELL DISTRIBUTION WIDTH 13.7 % (11.5-14.5); WHITE BLOOD COUNT 8.6 x10^3/uL (4.0-11.0)
[2022-03-10 08:41] LABS: CALCIUM 8.5 mg/dL (8.5-10.1); CREATININE 0.8 mg/dL (0.7-1.3); GFR 108.2; POTASSIUM 4.1 mmol/L (3.5-5.1)
--- NOTE | 2022-03-10 09:53 | PDOC2 ---
GI CONSULT Date of Service: DATE: 03/10/22 TIME: 09:42 Reason For Consult: abdominal pain HPI: HPI: 36 y/o male admitted through ER. Ill x 3-4 days w/ left-sided pain (he says above belly button). Constant stabbing pain, worse after eating and worse when bending over. No precipitating events. Associated w/ diarrhea once daily - first was watery, now mushy. Pain unchanged w/ stooling. Denies hematochezia and melena. Has intermittent central abdominal pain that he says is typical for his "ulcer." This was diagnosed based on symptoms - no previous EGD. He takes famotidine + omeprazole together once daily per the advice of his PCP at . This controls acid reflux symptoms for the most part, but also sometimes he takes Mylanta. Current pain is different from "ulcer pain." No dysphagia, n/v, or constipation. Has gained weight. No previous colonoscopy. No GB, liver, or pancreas history. Takes Tramadol for pain, no NSAIDs. PMH: PMH: allergic rhinitis I&Ds for hidradenitis suppuritiva FH: Family History: No pertinent hx Social History: Smoke: <1 pack per day ALCOHOL: rare Drugs: Marijuana (CBD gummies) ROS: GEN: Denies fevers, chills, sweats HEENT: Denies blurred vision, sore throat CV: Denies chest pain RESP: Denies shortness of air, cough GI: Per HPI : Denies hematuria, dysuria ENDO: +weight gain NEURO: Denies confusion, dizziness MSK: Denies weakness, joint pain/swelling SKIN: Denies jaundice, pruritus Vitals: Vitals: Vital Signs Date Time Temp Pulse Resp B/P (MAP) Pulse Ox O2 Delivery O2 Flow Rate FiO2 03/10/22 09:19 Room Air 03/10/22 07:00 97.8 56 18 110/69 (83) 96 97.8 Labs: Labs: Laboratory Tests Test 03/09/22 16:48 03/09/22 17:50 03/10/22 06:40 White Blood Count 10.7 x10^3/uL (4.0-11.0) 8.6 x10^3/uL (4.0-11.0) Red Blood Count 4.62 x10^6/uL (4.30-5.70) 4.61 x10^6/uL (4.30-5.70) Hemoglobin 14.4 g/dL (13.0-17.5) 13.8 g/dL (13.0-17.5) Hematocrit 41.8 % (39.0-53.0) 41.9 % (39.0-53.0) Mean Corpuscular Volume 91 fL (79-100) 91 fL (79-100) Mean Corpuscular Hemoglobin 31 pg (25-35) 30 pg (25-35) Mean Corpuscular Hemoglobin Concent 34 g/dL (31-37) 33 g/dL (31-37) Red Cell Distribution Width 13.7 % (11.5-14.5) 13.7 % (11.5-14.5) Platelet Count 256 x10^3/uL (140-400) 234 x10^3/uL (140-400) Neutrophils (%) (Auto) 60 % (31-73) 47 % (31-73) Lymphocytes (%) (Auto) 32 % (24-48) 43 % (24-48) Monocytes (%) (Auto) 5 % (0-9) 7 % (0-9) Eosinophils (%) (Auto) 2 % (0-3) 3 % (0-3) Basophils (%) (Auto) 1 % (0-3) 1 % (0-3) Neutrophils # (Auto) 6.4 x10^3/uL (1.8-7.7) 4.0 x10^3/uL (1.8-7.7) Lymphocytes # (Auto) 3.4 x10^3/uL (1.0-4.8) 3.7 x10^3/uL (1.0-4.8) Monocytes # (Auto) 0.6 x10^3/uL (0.0-1.1) 0.6 x10^3/uL (0.0-1.1) Eosinophils # (Auto) 0.2 x10^3/uL (0.0-0.7) 0.3 x10^3/uL (0.0-0.7) Basophils # (Auto) 0.1 x10^3/uL (0.0-0.2) 0.1 x10^3/uL (0.0-0.2) Urine Collection Type Unknown Urine Color (Auto) Light yellow Urine Turbidity Clear Urine pH (Auto) 6.5 (<5.0-8.0) Urine Specific [place] 1.011 (1.000-1.030) Urine Protein (Auto) Negative mg/dL (Negative) Urine Glucose (Auto)(UA) Negative mg/dL (Negative) Urine Ketones (Auto) Negative mg/dL (Negative) Urine Blood (Auto) Negative (Negative) Urine Nitrite Negative (Negative) Urine Bilirubin (Auto) Negative (Negative) Urine Urobilinogen (Auto) Normal mg/dL (Normal) Urine Leukocyte Esterase (Auto) Negative (Negative) Urine RBC 0 /HPF (0-2) Urine WBC 0 /HPF (0-4) Urine Bacteria 0 /HPF (0-FEW) Urine Opiates Screen Neg (NEG) Urine Methadone Screen Neg (NEG) Urine Barbiturates Neg (NEG) Urine Phencyclidine Screen Neg (NEG) Urine Amphetamine/Methamphetamine Neg (NEG) Urine Benzodiazepines Screen Neg (NEG) Urine Cocaine Screen Neg (NEG) Urine Cannabinoids Screen Pos (NEG) Urine Ethyl Alcohol Neg (NEG) Heterophil Agglutinins Negative (NEGATIVE) Sodium Level 140 mmol/L (136-145) 139 mmol/L (136-145) Potassium Level 4.2 mmol/L (3.5-5.1) 4.1 mmol/L (3.5-5.1) Chloride Level 107 mmol/L (98-107) 106 mmol/L (98-107) Carbon Dioxide Level 25 mmol/L (21-32) 26 mmol/L (21-32) Anion Gap 8 (6-14) 7 (6-14) Blood Urea Nitrogen 10 mg/dL (8-26) 9 mg/dL (8-26) Creatinine 0.7 mg/dL (0.7-1.3) 0.8 mg/dL (0.7-1.3) Estimated GFR (Cockcroft-Gault) 126.2 108.2 BUN/Creatinine Ratio 14 (6-20) Glucose Level 111 mg/dL (70-99) 88 mg/dL (70-99) Calcium Level 8.7 mg/dL (8.5-10.1) 8.5 mg/dL (8.5-10.1) Magnesium Level 1.8 mg/dL (1.8-2.4) Total Bilirubin 0.2 mg/dL (0.2-1.0) Aspartate Amino Transf (AST/SGOT) 19 U/L (15-37) Alanine Aminotransferase (ALT/SGPT) 42 U/L (16-63) Alkaline Phosphatase 108 U/L (46-116) Troponin I High Sensitivity < 4 ng/L (4-75) C-Reactive Protein, Quantitative 4.5 mg/L (0-3.3) Total Protein 6.0 g/dL (6.4-8.2) Albumin 3.1 g/dL (3.4-5.0) Albumin/Globulin Ratio 1.1 (1.0-1.7) Lipase 57 U/L (73-393) Allergies: Coded Allergies: morphine (Verified Adverse Reaction, Intermediate, n/v, rash, 12/15/21) naproxen (Verified Adverse Reaction, Intermediate, n/v, rash, 12/15/21) NSAIDS (Non-Steroidal Anti-Inflamma (Verified Adverse Reaction, Mild, n/v, rash, 12/15/21) Medications: Current Medications Medications (Trade) Dose Ordered Sig/Vanessa Route PRN Reason Start Time Stop Time Status Last Admin Dose Admin Sodium Chloride 1,000 ml @ 1,000 mls/hr Q1H IV 03/09/22 16:15 03/09/22 17:14 DC 03/09/22 16:47 Fentanyl Citrate (Fentanyl 2ml Vial) 50 mcg 1X ONCE IVP 03/09/22 16:15 03/09/22 16:22 DC 03/09/22 16:46 Ondansetron HCl (Zofran) 4 mg 1X ONCE IVP 03/09/22 16:15 03/09/22 16:22 DC 03/09/22 16:43 Famotidine (Pepcid Vial) 20 mg 1X ONCE IVP 03/09/22 16:15 03/09/22 16:22 DC 03/09/22 16:44 Fentanyl Citrate (Fentanyl 2ml Vial) 75 mcg 1X ONCE IVP 03/09/22 17:30 03/09/22 17:31 DC 03/09/22 17:42 Iohexol (Omnipaque 300 Mg/ml) 75 ml 1X ONCE IV 03/09/22 18:30 03/09/22 18:31 DC 03/09/22 18:27 Sucralfate (Carafate) 1 gm 1X ONCE PO 03/09/22 20:00 03/09/22 20:01 DC 03/09/22 19:51 Pantoprazole Sodium (PROTONIX VIAL for IV PUSH) 80 mg 1X ONCE IVP 03/09/22 20:00 03/09/22 20:01 DC 03/09/22 19:51 Multi-Ingredient Mouthwash/Gargle (Gi Cocktail) 20 ml 1X ONCE SWSW 03/09/22 19:30 03/09/22 19:31 DC 03/09/22 19:51 Fentanyl Citrate (Fentanyl 2ml Vial) 50 mcg PRN Q1HR PRN IVP PAIN 03/09/22 19:45 03/10/22 09:26 DC 03/09/22 21:16 Hydromorphone HCl (Dilaudid) 1 mg PRN Q3HRS PRN IVP SEVERE PAIN 7-10 03/09/22 22:00 03/10/22 09:19 Pantoprazole Sodium (PROTONIX VIAL for IV PUSH) 40 mg DAILYAC IVP 03/10/22 07:30 03/10/22 09:10 Imaging: Imaging: CT A/P FINDINGS: Heart size is normal. No pericardial effusion. Strandy opacities the dependent portion lungs likely representing atelectasis. No pleural effusion. Diffuse hepatic steatosis. Spleen is enlarged measuring up to 14.5 cm in long axis. Pancreas, and adrenals are unremarkable. Gallbladder is decompressed. No perinephric inflammation or hydronephrosis. No renal or ureteral calculi are identified. Bladder is partially distended and not well evaluated. Prostate is not enlarged. Large and small bowel are unremarkable. Appendix is normal. No free intra- abdominal air or fluid. No obstruction. Abdominal aorta has normal course and caliber. Abdominal vasculature is patent. No enlarged intra-abdominal lymph nodes are identified. No suspicious osseous lesions or acute fractures. IMPRESSION: 1. Mild diffuse hepatic steatosis. 2. Mild splenomegaly. PE: GEN: NAD HEENT: Atraumatic, PERRL - poor dentition LUNGS: CTAB HEART: RRR ABD: quiet BS, soft, left periumbilical and LLQ discomfort to light palpation, less tender LUQ EXTREMITY: No edema SKIN: No rashes, no jaundice NEURO/PSYCH: A & O 3 A/P: A/P: Left-sided abd pain, diarrhea GERD, remote h/o "ulcer" (but never EGD), chronic intermittent mid abdominal pain (different from current pain) CRC screen - average risk Hepatic steatosis, mild splenomegaly - noted on CT -- Unclear source for left-sided abdominal pain - almost in good location for diverticulitis but negative CT and normal labs. will discuss w/ Dr. Connor. Continue PPI w/ GERD history - IV okay for now. Can try some water/ice chips - d/w nurse. BLAIR DUBON Mar 10, 2022 09:53
--- NOTE | 2022-03-10 10:36 | PDOC ---
[employer] PROGRESS NOTE Date of Service DOS: DATE: 03/10/22 TIME: 10:31 Chief Complaint Chief Complaint Intractable abdominal pain History of ulcers History fibromyalgia History of Present Illness History of Present Illness 03/10/2022: Patient seen and evaluated. States pain is improved, request to be discharged home. He has been seen by GI recommending continue PPI and follow-up in outpatient basis. Greater than 30 minutes spent managing the discharge of this patient. Vitals/I&O Vitals/I&O: Vital Signs Date Time Temp Pulse Resp B/P (MAP) Pulse Ox O2 Delivery O2 Flow Rate FiO2 03/10/22 09:19 Room Air 03/10/22 07:00 97.8 56 18 110/69 (83) 96 97.8 I & O 03/09/22 03/09/22 03/10/22 15:00 23:00 07:00 Intake Total 1800 ml 200 ml Balance 1800 ml 200 ml Physical Exam General: Alert, Oriented X3, Cooperative, No acute distress Heart: Regular rate Lungs: Clear Abdomen: No tenderness Extremities: No clubbing, No cyanosis Skin: No rashes, No breakdown Labs Labs: Laboratory Tests Test 03/09/22 16:48 03/09/22 17:50 03/10/22 06:40 White Blood Count 10.7 x10^3/uL (4.0-11.0) 8.6 x10^3/uL (4.0-11.0) Red Blood Count 4.62 x10^6/uL (4.30-5.70) 4.61 x10^6/uL (4.30-5.70) Hemoglobin 14.4 g/dL (13.0-17.5) 13.8 g/dL (13.0-17.5) Hematocrit 41.8 % (39.0-53.0) 41.9 % (39.0-53.0) Mean Corpuscular Volume 91 fL (79-100) 91 fL (79-100) Mean Corpuscular Hemoglobin 31 pg (25-35) 30 pg (25-35) Mean Corpuscular Hemoglobin Concent 34 g/dL (31-37) 33 g/dL (31-37) Red Cell Distribution Width 13.7 % (11.5-14.5) 13.7 % (11.5-14.5) Platelet Count 256 x10^3/uL (140-400) 234 x10^3/uL (140-400) Neutrophils (%) (Auto) 60 % (31-73) 47 % (31-73) Lymphocytes (%) (Auto) 32 % (24-48) 43 % (24-48) Monocytes (%) (Auto) 5 % (0-9) 7 % (0-9) Eosinophils (%) (Auto) 2 % (0-3) 3 % (0-3) Basophils (%) (Auto) 1 % (0-3) 1 % (0-3) Neutrophils # (Auto) 6.4 x10^3/uL (1.8-7.7) 4.0 x10^3/uL (1.8-7.7) Lymphocytes # (Auto) 3.4 x10^3/uL (1.0-4.8) 3.7 x10^3/uL (1.0-4.8) Monocytes # (Auto) 0.6 x10^3/uL (0.0-1.1) 0.6 x10^3/uL (0.0-1.1) Eosinophils # (Auto) 0.2 x10^3/uL (0.0-0.7) 0.3 x10^3/uL (0.0-0.7) Basophils # (Auto) 0.1 x10^3/uL (0.0-0.2) 0.1 x10^3/uL (0.0-0.2) Urine Collection Type Unknown Urine Color (Auto) Light yellow Urine Turbidity Clear Urine pH (Auto) 6.5 (<5.0-8.0) Urine Specific [place] 1.011 (1.000-1.030) Urine Protein (Auto) Negative mg/dL (Negative) Urine Glucose (Auto)(UA) Negative mg/dL (Negative) Urine Ketones (Auto) Negative mg/dL (Negative) Urine Blood (Auto) Negative (Negative) Urine Nitrite Negative (Negative) Urine Bilirubin (Auto) Negative (Negative) Urine Urobilinogen (Auto) Normal mg/dL (Normal) Urine Leukocyte Esterase (Auto) Negative (Negative) Urine RBC 0 /HPF (0-2) Urine WBC 0 /HPF (0-4) Urine Bacteria 0 /HPF (0-FEW) Urine Opiates Screen Neg (NEG) Urine Methadone Screen Neg (NEG) Urine Barbiturates Neg (NEG) Urine Phencyclidine Screen Neg (NEG) Urine Amphetamine/Methamphetamine Neg (NEG) Urine Benzodiazepines Screen Neg (NEG) Urine Cocaine Screen Neg (NEG) Urine Cannabinoids Screen Pos (NEG) Urine Ethyl Alcohol Neg (NEG) Heterophil Agglutinins Negative (NEGATIVE) Sodium Level 140 mmol/L (136-145) 139 mmol/L (136-145) Potassium Level 4.2 mmol/L (3.5-5.1) 4.1 mmol/L (3.5-5.1) Chloride Level 107 mmol/L (98-107) 106 mmol/L (98-107) Carbon Dioxide Level 25 mmol/L (21-32) 26 mmol/L (21-32) Anion Gap 8 (6-14) 7 (6-14) Blood Urea Nitrogen 10 mg/dL (8-26) 9 mg/dL (8-26) Creatinine 0.7 mg/dL (0.7-1.3) 0.8 mg/dL (0.7-1.3) Estimated GFR (Cockcroft-Gault) 126.2 108.2 BUN/Creatinine Ratio 14 (6-20) Glucose Level 111 mg/dL (70-99) 88 mg/dL (70-99) Calcium Level 8.7 mg/dL (8.5-10.1) 8.5 mg/dL (8.5-10.1) Magnesium Level 1.8 mg/dL (1.8-2.4) Total Bilirubin 0.2 mg/dL (0.2-1.0) Aspartate Amino Transf (AST/SGOT) 19 U/L (15-37) Alanine Aminotransferase (ALT/SGPT) 42 U/L (16-63) Alkaline Phosphatase 108 U/L (46-116) Troponin I High Sensitivity < 4 ng/L (4-75) C-Reactive Protein, Quantitative 4.5 mg/L (0-3.3) Total Protein 6.0 g/dL (6.4-8.2) Albumin 3.1 g/dL (3.4-5.0) Albumin/Globulin Ratio 1.1 (1.0-1.7) Lipase 57 U/L (73-393) Assessment and Plan Assessmemt and Plan Problems Medical Problems: (1) Intractable abdominal pain Status: Acute Comment Review of Relevant I have reviewed the following items nehal (where applicable) has been applied. Medications: Current Medications Medications (Trade) Dose Ordered Sig/Vanessa Route PRN Reason Start Time Stop Time Status Last Admin Dose Admin Sodium Chloride 1,000 ml @ 1,000 mls/hr Q1H IV 03/09/22 16:15 03/09/22 17:14 DC 03/09/22 16:47 Fentanyl Citrate (Fentanyl 2ml Vial) 50 mcg 1X ONCE IVP 03/09/22 16:15 03/09/22 16:22 DC 03/09/22 16:46 Ondansetron HCl (Zofran) 4 mg 1X ONCE IVP 03/09/22 16:15 03/09/22 16:22 DC 03/09/22 16:43 Famotidine (Pepcid Vial) 20 mg 1X ONCE IVP 03/09/22 16:15 03/09/22 16:22 DC 03/09/22 16:44 Fentanyl Citrate (Fentanyl 2ml Vial) 75 mcg 1X ONCE IVP 03/09/22 17:30 03/09/22 17:31 DC 03/09/22 17:42 Iohexol (Omnipaque 300 Mg/ml) 75 ml 1X ONCE IV 03/09/22 18:30 03/09/22 18:31 DC 03/09/22 18:27 Sucralfate (Carafate) 1 gm 1X ONCE PO 03/09/22 20:00 03/09/22 20:01 DC 03/09/22 19:51 Pantoprazole Sodium (PROTONIX VIAL for IV PUSH) 80 mg 1X ONCE IVP 03/09/22 20:00 03/09/22 20:01 DC 03/09/22 19:51 Multi-Ingredient Mouthwash/Gargle (Gi Cocktail) 20 ml 1X ONCE SWSW 03/09/22 19:30 03/09/22 19:31 DC 03/09/22 19:51 Fentanyl Citrate (Fentanyl 2ml Vial) 50 mcg PRN Q1HR PRN IVP PAIN 03/09/22 19:45 03/10/22 09:26 DC 03/09/22 21:16 Hydromorphone HCl (Dilaudid) 1 mg PRN Q3HRS PRN IVP SEVERE PAIN 7-10 03/09/22 22:00 03/10/22 09:19 Pantoprazole Sodium (PROTONIX VIAL for IV PUSH) 40 mg DAILYAC IVP 03/10/22 07:30 03/10/22 09:10 Justifications for Admission Other Justification HOSSEIN VARGAS MD Mar 10, 2022 10:36
--- NOTE | 2022-03-10 10:37 | PDOC3 ---
Discharge Summary Visit Information Date of Admission: Mar 09, 2022 Date of Discharge: Mar 10, 2022 Final Diagnosis Problems Medical Problems: (1) Intractable abdominal pain Status: Acute Brief Hospital Course Allergies Allergies Coded Allergies Type Severity Reaction Last Updated Verified morphine Adverse Reaction Intermediate n/v, rash 12/15/21 Yes naproxen Adverse Reaction Intermediate n/v, rash 12/15/21 Yes NSAIDS (Non-Steroidal Anti-Inflamma Adverse Reaction Mild n/v, rash 12/15/21 Yes Vital Signs Vital Signs Date Time Temp Pulse Resp B/P (MAP) Pulse Ox O2 Delivery O2 Flow Rate FiO2 03/10/22 09:19 Room Air 03/10/22 07:00 97.8 56 18 110/69 (83) 96 97.8 Lab Results Laboratory Tests Test 03/09/22 16:48 03/09/22 17:50 03/10/22 06:40 White Blood Count 10.7 x10^3/uL (4.0-11.0) 8.6 x10^3/uL (4.0-11.0) Red Blood Count 4.62 x10^6/uL (4.30-5.70) 4.61 x10^6/uL (4.30-5.70) Hemoglobin 14.4 g/dL (13.0-17.5) 13.8 g/dL (13.0-17.5) Hematocrit 41.8 % (39.0-53.0) 41.9 % (39.0-53.0) Mean Corpuscular Volume 91 fL (79-100) 91 fL (79-100) Mean Corpuscular Hemoglobin 31 pg (25-35) 30 pg (25-35) Mean Corpuscular Hemoglobin Concent 34 g/dL (31-37) 33 g/dL (31-37) Red Cell Distribution Width 13.7 % (11.5-14.5) 13.7 % (11.5-14.5) Platelet Count 256 x10^3/uL (140-400) 234 x10^3/uL (140-400) Neutrophils (%) (Auto) 60 % (31-73) 47 % (31-73) Lymphocytes (%) (Auto) 32 % (24-48) 43 % (24-48) Monocytes (%) (Auto) 5 % (0-9) 7 % (0-9) Eosinophils (%) (Auto) 2 % (0-3) 3 % (0-3) Basophils (%) (Auto) 1 % (0-3) 1 % (0-3) Neutrophils # (Auto) 6.4 x10^3/uL (1.8-7.7) 4.0 x10^3/uL (1.8-7.7) Lymphocytes # (Auto) 3.4 x10^3/uL (1.0-4.8) 3.7 x10^3/uL (1.0-4.8) Monocytes # (Auto) 0.6 x10^3/uL (0.0-1.1) 0.6 x10^3/uL (0.0-1.1) Eosinophils # (Auto) 0.2 x10^3/uL (0.0-0.7) 0.3 x10^3/uL (0.0-0.7) Basophils # (Auto) 0.1 x10^3/uL (0.0-0.2) 0.1 x10^3/uL (0.0-0.2) Urine Collection Type Unknown Urine Color (Auto) Light yellow Urine Turbidity Clear Urine pH (Auto) 6.5 (<5.0-8.0) Urine Specific [place] 1.011 (1.000-1.030) Urine Protein (Auto) Negative mg/dL (Negative) Urine Glucose (Auto)(UA) Negative mg/dL (Negative) Urine Ketones (Auto) Negative mg/dL (Negative) Urine Blood (Auto) Negative (Negative) Urine Nitrite Negative (Negative) Urine Bilirubin (Auto) Negative (Negative) Urine Urobilinogen (Auto) Normal mg/dL (Normal) Urine Leukocyte Esterase (Auto) Negative (Negative) Urine RBC 0 /HPF (0-2) Urine WBC 0 /HPF (0-4) Urine Bacteria 0 /HPF (0-FEW) Urine Opiates Screen Neg (NEG) Urine Methadone Screen Neg (NEG) Urine Barbiturates Neg (NEG) Urine Phencyclidine Screen Neg (NEG) Urine Amphetamine/Methamphetamine Neg (NEG) Urine Benzodiazepines Screen Neg (NEG) Urine Cocaine Screen Neg (NEG) Urine Cannabinoids Screen Pos (NEG) Urine Ethyl Alcohol Neg (NEG) Heterophil Agglutinins Negative (NEGATIVE) Sodium Level 140 mmol/L (136-145) 139 mmol/L (136-145) Potassium Level 4.2 mmol/L (3.5-5.1) 4.1 mmol/L (3.5-5.1) Chloride Level 107 mmol/L (98-107) 106 mmol/L (98-107) Carbon Dioxide Level 25 mmol/L (21-32) 26 mmol/L (21-32) Anion Gap 8 (6-14) 7 (6-14) Blood Urea Nitrogen 10 mg/dL (8-26) 9 mg/dL (8-26) Creatinine 0.7 mg/dL (0.7-1.3) 0.8 mg/dL (0.7-1.3) Estimated GFR (Cockcroft-Gault) 126.2 108.2 BUN/Creatinine Ratio 14 (6-20) Glucose Level 111 mg/dL (70-99) 88 mg/dL (70-99) Calcium Level 8.7 mg/dL (8.5-10.1) 8.5 mg/dL (8.5-10.1) Magnesium Level 1.8 mg/dL (1.8-2.4) Total Bilirubin 0.2 mg/dL (0.2-1.0) Aspartate Amino Transf (AST/SGOT) 19 U/L (15-37) Alanine Aminotransferase (ALT/SGPT) 42 U/L (16-63) Alkaline Phosphatase 108 U/L (46-116) Troponin I High Sensitivity < 4 ng/L (4-75) C-Reactive Protein, Quantitative 4.5 mg/L (0-3.3) Total Protein 6.0 g/dL (6.4-8.2) Albumin 3.1 g/dL (3.4-5.0) Albumin/Globulin Ratio 1.1 (1.0-1.7) Lipase 57 U/L (73-393) Laboratory Tests Test 03/09/22 16:48 03/09/22 17:50 03/10/22 06:40 White Blood Count 10.7 x10^3/uL (4.0-11.0) 8.6 x10^3/uL (4.0-11.0) Red Blood Count 4.62 x10^6/uL (4.30-5.70) 4.61 x10^6/uL (4.30-5.70) Hemoglobin 14.4 g/dL (13.0-17.5) 13.8 g/dL (13.0-17.5) Hematocrit 41.8 % (39.0-53.0) 41.9 % (39.0-53.0) Mean Corpuscular Volume 91 fL (79-100) 91 fL (79-100) Mean Corpuscular Hemoglobin 31 pg (25-35) 30 pg (25-35) Mean Corpuscular Hemoglobin Concent 34 g/dL (31-37) 33 g/dL (31-37) Red Cell Distribution Width 13.7 % (11.5-14.5) 13.7 % (11.5-14.5) Platelet Count 256 x10^3/uL (140-400) 234 x10^3/uL (140-400) Neutrophils (%) (Auto) 60 % (31-73) 47 % (31-73) Lymphocytes (%) (Auto) 32 % (24-48) 43 % (24-48) Monocytes (%) (Auto) 5 % (0-9) 7 % (0-9) Eosinophils (%) (Auto) 2 % (0-3) 3 % (0-3) Basophils (%) (Auto) 1 % (0-3) 1 % (0-3) Neutrophils # (Auto) 6.4 x10^3/uL (1.8-7.7) 4.0 x10^3/uL (1.8-7.7) Lymphocytes # (Auto) 3.4 x10^3/uL (1.0-4.8) 3.7 x10^3/uL (1.0-4.8) Monocytes # (Auto) 0.6 x10^3/uL (0.0-1.1) 0.6 x10^3/uL (0.0-1.1) Eosinophils # (Auto) 0.2 x10^3/uL (0.0-0.7) 0.3 x10^3/uL (0.0-0.7) Basophils # (Auto) 0.1 x10^3/uL (0.0-0.2) 0.1 x10^3/uL (0.0-0.2) Urine Collection Type Unknown Urine Color (Auto) Light yellow Urine Turbidity Clear Urine pH (Auto) 6.5 (<5.0-8.0) Urine Specific [place] 1.011 (1.000-1.030) Urine Protein (Auto) Negative mg/dL (Negative) Urine Glucose (Auto)(UA) Negative mg/dL (Negative) Urine Ketones (Auto) Negative mg/dL (Negative) Urine Blood (Auto) Negative (Negative) Urine Nitrite Negative (Negative) Urine Bilirubin (Auto) Negative (Negative) Urine Urobilinogen (Auto) Normal mg/dL (Normal) Urine Leukocyte Esterase (Auto) Negative (Negative) Urine RBC 0 /HPF (0-2) Urine WBC 0 /HPF (0-4) Urine Bacteria 0 /HPF (0-FEW) Urine Opiates Screen Neg (NEG) Urine Methadone Screen Neg (NEG) Urine Barbiturates Neg (NEG) Urine Phencyclidine Screen Neg (NEG) Urine Amphetamine/Methamphetamine Neg (NEG) Urine Benzodiazepines Screen Neg (NEG) Urine Cocaine Screen Neg (NEG) Urine Cannabinoids Screen Pos (NEG) Urine Ethyl Alcohol Neg (NEG) Heterophil Agglutinins Negative (NEGATIVE) Sodium Level 140 mmol/L (136-145) 139 mmol/L (136-145) Potassium Level 4.2 mmol/L (3.5-5.1) 4.1 mmol/L (3.5-5.1) Chloride Level 107 mmol/L (98-107) 106 mmol/L (98-107) Carbon Dioxide Level 25 mmol/L (21-32) 26 mmol/L (21-32) Anion Gap 8 (6-14) 7 (6-14) Blood Urea Nitrogen 10 mg/dL (8-26) 9 mg/dL (8-26) Creatinine 0.7 mg/dL (0.7-1.3) 0.8 mg/dL (0.7-1.3) Estimated GFR (Cockcroft-Gault) 126.2 108.2 BUN/Creatinine Ratio 14 (6-20) Glucose Level 111 mg/dL (70-99) 88 mg/dL (70-99) Calcium Level 8.7 mg/dL (8.5-10.1) 8.5 mg/dL (8.5-10.1) Magnesium Level 1.8 mg/dL (1.8-2.4) Total Bilirubin 0.2 mg/dL (0.2-1.0) Aspartate Amino Transf (AST/SGOT) 19 U/L (15-37) Alanine Aminotransferase (ALT/SGPT) 42 U/L (16-63) Alkaline Phosphatase 108 U/L (46-116) Troponin I High Sensitivity < 4 ng/L (4-75) C-Reactive Protein, Quantitative 4.5 mg/L (0-3.3) Total Protein 6.0 g/dL (6.4-8.2) Albumin 3.1 g/dL (3.4-5.0) Albumin/Globulin Ratio 1.1 (1.0-1.7) Lipase 57 U/L (73-393) Brief Hospital Course Mr. Mendoza is a 36 old male who presented with intractable abdominal pain. Due to history of gastric ulcers and concerns for repeat ulcer, consult was placed to GI. His pain improved significantly on the next day, and he was recommended by GI to continue PPI and follow-up in outpatient basis. Stable to discharge home with close PCP and GI follow-up. Discharge Information Condition at Discharge: Improved Disposition/Orders: D/C to Home Scheduled Famotidine (Famotidine) 40 Mg Tablet, 40 MG PO HS for GERD, (Reported) Entered as Reported by: LIBRA NOLAN on 03/09/222142 Last Action: New Order on 03/09/222142 by LIBRA NOLAN Fexofenadine Hcl (Quin Allergy) 180 Mg Tablet, 180 MG PO DAILY for allergies, (Reported) Entered as Reported by: JOSE MAN on 05/28/20 112 Last Action: Reviewed on 03/09/222138 by LIBRA NOLAN Gabapentin (Gabapentin) 800 Mg Tablet, 800 MG PO Q8HRS for FIBROMYALGIA, (Reported) Entered as Reported by: LIBRA NOLAN on 03/09/222142 Last Action: New Order on 03/09/222142 by LIBRA NOLAN Omeprazole (Omeprazole) 40 Mg Capsule.dr, 40 MG PO DAILY for GERD, (Reported) Entered as Reported by: LIBRA NOLAN on 03/09/222142 Last Action: New Order on 03/09/222142 by LIBRA NOLAN Scheduled PRN Tramadol Hcl (Ultram) 50 Mg Tablet, 50 MG PO Q6HRS PRN for PAIN, #15 Ref 0 Prescribed by: JANIA GARCIA D.O. on 12/20/20 1335 Last Action: Reviewed on 03/09/222138 by LIBRA NOLAN [Cbd Gummies] , 25 MG PO DAILY PRN for PAIN, (Reported) Entered as Reported by: LIBRA NOLAN on 03/09/222142 Last Action: New Order on 03/09/222142 by LIBRA NOLAN Justicifation of Admission Dx: Justifications for Admission: Justification of Admission Dx: N/A HOSSEIN VARGAS MD Mar 10, 2022 10:37
[2022-03-10] MEDS ORDERED: OMEP40CA7 PO (10:42)
--- NOTE | 2022-03-10 11:30 | NUR ---
Patient educated and informed on awaiting discharge orders, and that his stomach can tolerate GI soft diet. Patient has been anxiously waiting and pacing since approx 0950 and wanting to discharge. Despite repeat education and information, patient was unreceptive to learning and education. Patient insisted on leaving AMA. Paper was signed and escorted out by this RN and security. [facility] vitals were 97.9-oral temp, left arm 145/80, HR 68, O2 98% RA.
[2022-03-13] MEDS ORDERED: PANT40TA77 PO (11:17)
[2022-03-13] MEDS ORDERED: HYDR-2765 PO (11:17)
== END 2022-03-10 11:30 | disposition home or self-care (01) | DRG 392 ==
LOC: ER 16:03 → 2 NORTH 19:41
PROVIDERS: ADMIT Family Medicine; ATTEND Family Medicine
DX: R10.9 Unspecified abdominal pain (principal); R19.7 Diarrhea, unspecified; K21.9 Gastro-esophageal reflux disease without esophagitis; F17.210 Nicotine dependence, cigarettes, uncomplicated; I10 Essential (primary) hypertension; J30.9 Allergic rhinitis, unspecified; K76.0 Fatty (change of) liver, not elsewhere classified; L73.2 Hidradenitis suppurativa; M79.7 Fibromyalgia; Z82.49 Family history of ischemic heart disease and other diseases of the circulatory system; Z87.11 Personal history of peptic ulcer disease; G89.29 Other chronic pain; M19.90 Unspecified osteoarthritis, unspecified site; Z88.8 Allergy status to other drugs, medicaments and biological substances; Z53.29 Procedure and treatment not carried out because of patient's decision for other reasons
CPT/HCPCS: 36415; 74177; 80048; 80053; 80307; 81001; 83690; 83735; 84484; 85025; 86140; 86308; 87505; 93005; 96361; 96374; 96375; 96376; C9113; J1170; J2405; J3010; J3490; J7030; Q9967; 99285-25; G0378

== ENCOUNTER 2022-03-11 18:58 | Inpatient (IN) | payer MEDICARE, MEDICAID ==
[~2022-03-11] VITALS: Ht 180.3 cm; Wt 108.5 kg
[~2022-03-11 18:58] MED LIST changes: +CBD GUMMIES PO; +FAMO40TA4 PO; +GABA800T5 PO; +OMEP40CA7 PO
[2022-03-11] MEDS ORDERED: ACETAMINOPHEN 500 MG TABLET PO ONE (20:00)
[2022-03-11 20:08] LABS: BACTERIA,URINE 0 /HPF (0-FEW); RBC,URINE 0 /HPF (0-2); WBC,URINE 0 /HPF (0-4)
[2022-03-11] MEDS ORDERED: diphenhydrAMINE 50 MG/ML VIAL IVP ONE (20:30)
[2022-03-11] MEDS ORDERED: MORPHINE SULFATE 2 MG/ML INJ. IVP ONE ×2 (20:30→21:15)
[2022-03-11] MEDS ORDERED: ONDANSETRON PF 4 MG/2 ML VIAL. IVP ONE (20:30)
[2022-03-11 20:35] LABS: BASO # 0.2 x10^3/uL (0.0-0.2); BASO % 1 % (0-3); EOS # 0.2 x10^3/uL (0.0-0.7); EOS % 2 % (0-3); HEMOGLOBIN 14.5 g/dL (13.0-17.5); LYMPH # 2.7 x10^3/uL (1.0-4.8); LYMPH % 23 % (24-48); MEAN CORPUSCULAR HEMOGLOBIN 31 pg (25-35); MEAN CORPUSCULAR HGB CONC 35 g/dL (31-37); MEAN CORPUSCULAR VOLUME 89 fL (79-100); MONO # 0.7 x10^3/uL (0.0-1.1); MONO % 6 % (0-9); NEUT # 8.1 x10^3/uL (1.8-7.7); NEUT % 68 % (31-73); PLATELET COUNT 259 x10^3/uL (140-400); RED BLOOD COUNT 4.71 x10^6/uL (4.30-5.70); RED CELL DISTRIBUTION WIDTH 13.3 % (11.5-14.5); WHITE BLOOD COUNT 11.9 x10^3/uL (4.0-11.0)
[2022-03-11 20:50] LABS: CALCIUM 8.8 mg/dL (8.5-10.1); CREATININE 0.9 mg/dL (0.7-1.3); GFR 94.4; POTASSIUM 3.9 mmol/L (3.5-5.1)
[2022-03-11 21:03] LABS: ALBUMIN/GLOBULIN RATIO 0.8 (1.0-1.7); TOTAL BILIRUBIN 0.3 mg/dL (0.2-1.0); TOTAL PROTEIN 6.9 g/dL (6.4-8.2)
--- NOTE | 2022-03-11 21:40 | PHYS DOC ---
Past Medical History Past Medical History: Arthritis, Fibromyalgia, GERD, Hypertension, Other Additional Past Medical Histor: Hidradenitis suppurativa, rectum, chronic back pain Past Surgical History: Other Additional Past Surgical Histo: I&D for hidradenitis suppurativa Smoking Status: Current Every Day Smoker Alcohol Use: None Drug Use: None General Adult EDM: Chief Complaint: GI PROBLEM HPI: HPI: Patient is a 36 year old male who presents with left lower quadrant abdominal pain. Patient was discharged yesterday from the hospital for the same co mplaints. Patient reports he got "freaked out" at the idea of being put under anesthesia for colonoscopy/EGD and asked providers to leave AMA. He has intermittent diarrhea without bloody stool or vomiting. Patient denies all other complaints. Review of Systems: Review of Systems: ROS negative or noncontributory except as mentioned in HPI. Heart Score: C/O Chest Pain: No Current Medications: Current Medications Medications (Trade) Dose Ordered Sig/Vanessa Start Time Stop Time Status Last Admin Dose Admin Acetaminophen (Tylenol) 1,000 mg 1X ONCE 03/11/22 20:00 03/11/22 20:01 DC 03/11/22 20:00 1,000 MG Diphenhydramine HCl (Benadryl) 50 mg 1X ONCE 03/11/22 20:30 03/11/22 20:31 DC 03/11/22 20:30 50 MG Morphine Sulfate (Morphine Sulfate) 2 mg PRN Q2HR PRN 03/11/22 21:15 03/12/22 21:14 Ondansetron HCl (Zofran) 4 mg 1X ONCE 03/11/22 20:30 03/11/22 20:31 DC 03/11/22 20:30 4 MG Allergies: Allergies: Allergies Coded Allergies Type Severity Reaction Last Updated Verified morphine Adverse Reaction Intermediate n/v, rash 12/15/21 Yes naproxen Adverse Reaction Intermediate n/v, rash 12/15/21 Yes NSAIDS (Non-Steroidal Anti-Inflamma Adverse Reaction Mild n/v, rash 12/15/21 Yes Physical Exam: PE: Constitutional: Well developed, well nourished, no acute distress, non-toxic appearance. HENT: Normocephalic, atraumatic, bilateral external ears normal, oropharynx moist, no oral exudates, nose normal. Eyes: EOMI, conjunctiva normal, no discharge. Neck: Normal range of motion, no stridor. Abdomen: Soft, left lower quadrant tenderness without rebound or guarding, no masses, no pulsatile masses. Skin: Warm, dry, no erythema, no rash. Neurologic: Alert and oriented x4, normal motor function, normal sensory function, no focal deficits noted. Current Patient Data: Labs: Laboratory Tests Test 03/11/22 19:36 03/11/22 20:24 Urine Collection Type Unknown Urine Color (Auto) Yellow Urine Turbidity Clear Urine pH (Auto) 6.0 (<5.0-8.0) Urine Specific [place] 1.025 (1.000-1.030) Urine Protein (Auto) Negative mg/dL (Negative) Urine Glucose (Auto)(UA) Negative mg/dL (Negative) Urine Ketones (Auto) Negative mg/dL (Negative) Urine Blood (Auto) Trace (Negative) Urine Nitrite Negative (Negative) Urine Bilirubin (Auto) Negative (Negative) Urine Urobilinogen (Auto) Normal mg/dL (Normal) Urine Leukocyte Esterase (Auto) Negative (Negative) Urine RBC 0 /HPF (0-2) Urine WBC 0 /HPF (0-4) Urine Bacteria 0 /HPF (0-FEW) Urine Mucus Mod /LPF White Blood Count 11.9 x10^3/uL (4.0-11.0) H Red Blood Count 4.71 x10^6/uL (4.30-5.70) Hemoglobin 14.5 g/dL (13.0-17.5) Hematocrit 42.0 % (39.0-53.0) Mean Corpuscular Volume 89 fL (79-100) Mean Corpuscular Hemoglobin 31 pg (25-35) Mean Corpuscular Hemoglobin Concent 35 g/dL (31-37) Red Cell Distribution Width 13.3 % (11.5-14.5) Platelet Count 259 x10^3/uL (140-400) Neutrophils (%) (Auto) 68 % (31-73) Lymphocytes (%) (Auto) 23 % (24-48) L Monocytes (%) (Auto) 6 % (0-9) Eosinophils (%) (Auto) 2 % (0-3) Basophils (%) (Auto) 1 % (0-3) Neutrophils # (Auto) 8.1 x10^3/uL (1.8-7.7) H Lymphocytes # (Auto) 2.7 x10^3/uL (1.0-4.8) Monocytes # (Auto) 0.7 x10^3/uL (0.0-1.1) Eosinophils # (Auto) 0.2 x10^3/uL (0.0-0.7) Basophils # (Auto) 0.2 x10^3/uL (0.0-0.2) Sodium Level 142 mmol/L (136-145) Potassium Level 3.9 mmol/L (3.5-5.1) Chloride Level 107 mmol/L (98-107) Carbon Dioxide Level 25 mmol/L (21-32) Anion Gap 10 (6-14) Blood Urea Nitrogen 10 mg/dL (8-26) Creatinine 0.9 mg/dL (0.7-1.3) Estimated GFR (Cockcroft-Gault) 94.4 BUN/Creatinine Ratio 11 (6-20) Glucose Level 127 mg/dL (70-99) H Lactic Acid Level 0.7 mmol/L (0.4-2.0) Calcium Level 8.8 mg/dL (8.5-10.1) Total Bilirubin 0.3 mg/dL (0.2-1.0) Aspartate Amino Transferase (AST) 16 U/L (15-37) Alanine Aminotransferase (ALT) 36 U/L (16-63) Alkaline Phosphatase 107 U/L (46-116) Total Protein 6.9 g/dL (6.4-8.2) Albumin 3.0 g/dL (3.4-5.0) L Albumin/Globulin Ratio 0.8 (1.0-1.7) L Lipase 48 U/L (73-393) L Laboratory Tests 03/11/22 20:24 Laboratory Tests 03/11/22 20:24 Vital Signs: Vital Signs Date Time Temp Pulse Resp B/P (MAP) Pulse Ox O2 Delivery O2 Flow Rate FiO2 03/11/22 20:31 20 Room Air 03/11/22 19:00 98.7 96 165/82 (109) 97 98.7 Course & Med Decision Making: Course & Med Decision Making Pertinent Labs and Imaging studies reviewed. (See chart for details) Patient is a 36-year-old male who was discharged yesterday regarding admission for intractable abdominal pain (he claims he left AMA). Patient is wishing to be readmitted for the same. Given the fact that his pain in the department is intractable, patient was accepted by Dr. Singletary, hospitalist. GI consult was added to admission order for resumption of care. Toy Disclaimer: Toy Disclaimer: This electronic medical record was generated, in whole or in part, using a voice recognition dictation system. Departure Departure Impression: Primary Impression: Intractable abdominal pain Additional Impression: Leukocytosis, unspecified Disposition: ADMITTED INPATIENT Admitting Physician: MEDARDO (Hayder) Condition: GUARDED Referrals: GRAYSON CANALES MD (PCP) TATIANA JACOBS Mar 11, 2022 21:40
[2022-03-12] MEDS: MORPHINE SULFATE 2 MG/ML INJ. IVP PRN ×5 (00:50→13:01)
[2022-03-12 03:00] VITALS: BP 115/70
[2022-03-12 07:00] VITALS: BP 111/71
[2022-03-12 10:53] VITALS: BP 120/69
--- NOTE | 2022-03-12 10:57 | PDOC2 ---
GI CONSULT HPI: HPI: 36 y/o male admitted through ER afgter he left 03/10/2022 for same symptoms. He was apparently offered an EGD at his last admit but was too scared to be sedated. He now wants to have procedures done Ill x 3-4 days w/ left-sided pain (he says above belly button). Constant stabbing pain, worse after eating and worse when bending over. No precipitating events. Associated w/ diarrhea once daily - first was watery, now mushy. Pain unchanged w/ stooling. Denies hematochezia and melena. Denies NSAID use due to prior PUD Has intermittent central abdominal pain that he says is typical for his "ulcer." This was diagnosed based on symptoms - no previous EGD. He takes famotidine + omeprazole together once daily per the advice of his PCP at . This controls acid reflux symptoms for the most part, but also sometimes he takes Mylanta. Current pain is different from "ulcer pain." No dysphagia, n/v, or constipation. Has gained weight. No previous colonoscopy. No GB, liver, or pancreas history. Takes Tramadol for pain, no NSAIDs. PMH: PMH: PMH: allergic rhinitis I&Ds for hidradenitis suppuritiva Family History: No pertinent hx Social History: Smoke: <1 pack per day ALCOHOL: rare Drugs: Marijuana (CBD gummies) Allergies: Coded Allergies: morphine (Verified Adverse Reaction, Intermediate, n/v, rash, 12/15/21) naproxen (Verified Adverse Reaction, Intermediate, n/v, rash, 12/15/21) NSAIDS (Non-Steroidal Anti-Inflamma (Verified Adverse Reaction, Mild, n/v, rash, 12/15/21) FH: Family History: No pertinent hx Social History: ALCOHOL: rare Drugs: Marijuana ROS: EN: Denies fevers, chills, sweats HEENT: Denies blurred vision, sore throat CV: Denies chest pain RESP: Denies shortness of air, cough GI: Per HPI : Denies hematuria, dysuria ENDO: +weight gain NEURO: Denies confusion, dizziness MSK: Denies weakness, joint pain/swelling SKIN: Denies jaundice, pruritus VItals: Vitals: Vital Signs Date Time Temp Pulse Resp B/P (MAP) Pulse Ox O2 Delivery O2 Flow Rate FiO2 03/12/22 10:18 95 Room Air 03/12/22 07:00 97.6 74 16 111/71 (84) 97.6 Labs: Labs: Laboratory Tests Test 03/11/22 19:36 03/11/22 20:24 Urine Collection Type Unknown Urine Color (Auto) Yellow Urine Turbidity Clear Urine pH (Auto) 6.0 (<5.0-8.0) Urine Specific [place] 1.025 (1.000-1.030) Urine Protein (Auto) Negative mg/dL (Negative) Urine Glucose (Auto)(UA) Negative mg/dL (Negative) Urine Ketones (Auto) Negative mg/dL (Negative) Urine Blood (Auto) Trace (Negative) Urine Nitrite Negative (Negative) Urine Bilirubin (Auto) Negative (Negative) Urine Urobilinogen (Auto) Normal mg/dL (Normal) Urine Leukocyte Esterase (Auto) Negative (Negative) Urine RBC 0 /HPF (0-2) Urine WBC 0 /HPF (0-4) Urine Bacteria 0 /HPF (0-FEW) Urine Mucus Mod /LPF White Blood Count 11.9 x10^3/uL (4.0-11.0) Red Blood Count 4.71 x10^6/uL (4.30-5.70) Hemoglobin 14.5 g/dL (13.0-17.5) Hematocrit 42.0 % (39.0-53.0) Mean Corpuscular Volume 89 fL (79-100) Mean Corpuscular Hemoglobin 31 pg (25-35) Mean Corpuscular Hemoglobin Concent 35 g/dL (31-37) Red Cell Distribution Width 13.3 % (11.5-14.5) Platelet Count 259 x10^3/uL (140-400) Neutrophils (%) (Auto) 68 % (31-73) Lymphocytes (%) (Auto) 23 % (24-48) Monocytes (%) (Auto) 6 % (0-9) Eosinophils (%) (Auto) 2 % (0-3) Basophils (%) (Auto) 1 % (0-3) Neutrophils # (Auto) 8.1 x10^3/uL (1.8-7.7) Lymphocytes # (Auto) 2.7 x10^3/uL (1.0-4.8) Monocytes # (Auto) 0.7 x10^3/uL (0.0-1.1) Eosinophils # (Auto) 0.2 x10^3/uL (0.0-0.7) Basophils # (Auto) 0.2 x10^3/uL (0.0-0.2) Sodium Level 142 mmol/L (136-145) Potassium Level 3.9 mmol/L (3.5-5.1) Chloride Level 107 mmol/L (98-107) Carbon Dioxide Level 25 mmol/L (21-32) Anion Gap 10 (6-14) Blood Urea Nitrogen 10 mg/dL (8-26) Creatinine 0.9 mg/dL (0.7-1.3) Estimated GFR (Cockcroft-Gault) 94.4 BUN/Creatinine Ratio 11 (6-20) Glucose Level 127 mg/dL (70-99) Lactic Acid Level 0.7 mmol/L (0.4-2.0) Calcium Level 8.8 mg/dL (8.5-10.1) Total Bilirubin 0.3 mg/dL (0.2-1.0) Aspartate Amino Transf (AST/SGOT) 16 U/L (15-37) Alanine Aminotransferase (ALT/SGPT) 36 U/L (16-63) Alkaline Phosphatase 107 U/L (46-116) Total Protein 6.9 g/dL (6.4-8.2) Albumin 3.0 g/dL (3.4-5.0) Albumin/Globulin Ratio 0.8 (1.0-1.7) Lipase 48 U/L (73-393) Imaging: Imaging: CT A/P FINDINGS: Heart size is normal. No pericardial effusion. Strandy opacities the dependent portion lungs likely representing atelectasis. No pleural effusion. Diffuse hepatic steatosis. Spleen is enlarged measuring up to 14.5 cm in long axis. Pancreas, and adrenals are unremarkable. Gallbladder is decompressed. No perinephric inflammation or hydronephrosis. No renal or ureteral calculi are identified. Bladder is partially distended and not well evaluated. Prostate is not enlarged. Large and small bowel are unremarkable. Appendix is normal. No free intra- abdominal air or fluid. No obstruction. Abdominal aorta has normal course and caliber. Abdominal vasculature is patent. No enlarged intra-abdominal lymph nodes are identified. No suspicious osseous lesions or acute fractures. IMPRESSION: 1. Mild diffuse hepatic steatosis. 2. Mild splenomegaly. PE: GEN: NAD HEENT: Atraumatic, PERRL - poor dentition LUNGS: CTAB HEART: RRR ABD: quiet BS, soft, left periumbilical and LLQ discomfort to light palpation, less tender LUQ EXTREMITY: No edema SKIN: No rashes, no jaundice NEURO/PSYCH: A & O 3 A/P: A/P: A 1) Left-sided abd pain, diarrhea 2) GERD, remote h/o "ulcer" (but never EGD), chronic intermittent mid abdominal pain (different from current pain) 3) CRC screen - average risk 4) Hepatic steatosis, mild splenomegaly - noted on CT P 1) PPI 2) Monitor sx and consider EGD 3) Clear liquid diet LEOBARDO LITTLE MD Mar 12, 2022 10:57
[2022-03-12] MEDS: PANTOPRAZOLE 40 MG TABLET.DR. PO SCH (11:28)
[2022-03-12] MEDS ORDERED: ONDANSETRON PF 4 MG/2 ML VIAL. IVP PRN (12:15)
[2022-03-12] MEDS ORDERED: CALCIUM CARBONATE 500 MG TAB.CHEW PO PRN (12:15)
[2022-03-12] MEDS ORDERED: MAG HYDROX/ALUMINUM HYD/SIMETH 30 ML ORAL.SUSP PO PRN (12:15)
[2022-03-12] MEDS ORDERED: MAGNESIUM HYDROXIDE 2,400 MG/30 ML ORAL.SUSP. PO PRN (12:15)
[2022-03-12] MEDS ORDERED: ACETAMINOPHEN 325 MG TABLET. PO PRN (12:15)
[2022-03-12] MEDS ORDERED: ZOLPIDEM 5 MG TABLET. PO PRN (12:15)
[2022-03-12] MEDS ORDERED: HYDROcodone/APAP 5/325MG 1 TAB TABLET PO PRN ×2 (12:15)
--- NOTE | 2022-03-12 12:18 | PDOC1 ---
History and Physical Date of Admission Date of Admission DATE: 03/12/22 TIME: 12:17 Identification/Chief Complaint Chief Complaint Abdominal pain Source Source: Patient History of Present Illness History of Present Illness Patient is a 36-year-old male with past medical history of ulcers, who presents to the ED with continued abdominal pain since his recent discharge 2 days ago. States his pain is worse with eating, stabbing in nature, 8/10. Labs on admission showed WBC 11.9. CT abdomen/pelvis from previous admission showed mild splenomegaly and hepatic steatosis. Due to his medical history and concern for ulcers, will admit patient for further medical management. Past Medical History Past Medical History Ulcers, hidradenitis suppurativa, fibromyalgia, arthritis Cardiovascular: No pertinent hx Heme/Onc: No pertinent hx Psych: No pertinent hx Renal/: No pertinent hx Endocrine: No pertinent hx Past Surgical History Past Surgical History Hidradenitis suppurativa surgery Past Surgical History: Other Family History Family History H. pylori Family History: Coronary Artery Disease, Hypertension Social History Smoke: <1 pack per day ALCOHOL: occassional Drugs: Marijuana Current Problem List Problem List Problems Medical Problems: (1) Intractable abdominal pain Status: Acute (2) Leukocytosis, unspecified Status: Acute Current Medications Current Medications Current Medications Acetaminophen (Tylenol) 1,000 mg 1X ONCE PO Last administered on 03/11/22at 20:00; Start 03/11/22 at 20:00; Stop 03/11/22 at 20:01; Status DC Morphine Sulfate (Morphine Sulfate) 2 mg 1X ONCE IVP Last administered on 03/11/22at 20:31; Start 03/11/22 at 20:30; Stop 03/11/22 at 20:31; Status DC Ondansetron HCl (Zofran) 4 mg 1X ONCE IVP Last administered on 03/11/22at 20:30; Start 03/11/22 at 20:30; Stop 03/11/22 at 20:31; Status DC Diphenhydramine HCl (Benadryl) 50 mg 1X ONCE IVP Last administered on 03/11/22at 20:30; Start 03/11/22 at 20:30; Stop 03/11/22 at 20:31; Status DC Morphine Sulfate (Morphine Sulfate) 2 mg 1X ONCE IVP Last administered on 03/11/22at 21:37; Start 03/11/22 at 21:15; Stop 03/11/22 at 21:17; Status DC Morphine Sulfate (Morphine Sulfate) 2 mg PRN Q2HR PRN IVP PAIN Last administered on 03/12/22at 11:03; Start 03/11/22 at 21:15; Stop 03/12/22 at 21:14 Pantoprazole Sodium (Protonix) 40 mg DAILYAC PO Last administered on 03/12/22at 11:28; Start 03/12/22 at 11:30 Ondansetron HCl (Zofran) 4 mg PRN Q6HRS PRN IVP NAUSEA/VOMITING; Start 03/12/22 at 12:15; Status UNV Al Hydroxide/Mg Hydroxide (Mylanta Plus Xs) 30 ml PRN Q3HRS PRN PO HEARTBURN / GAS; Start 03/12/22 at 12:15; Status UNV Calcium Carbonate/ Glycine (Tums) 500 mg PRN Q3HRS PRN PO UPSET STOMACH; Start 03/12/22 at 12:15; Status UNV Zolpidem Tartrate (Ambien) 5 mg PRN QHS PRN PO INSOMNIA, MAY REPEAT IN 1HR; Start 03/12/22 at 12:15; Status UNV Acetaminophen/ Hydrocodone Bitart (Lortab 5/325) 1 tab PRN Q4HRS PRN PO MILD PAIN 1-3; Start 03/12/22 at 12:15; Status UNV Acetaminophen/ Hydrocodone Bitart (Lortab 5/325) 2 tab PRN Q4HRS PRN PO MODERATE PAIN, SEVERE PAIN; Start 03/12/22 at 12:15; Status UNV Acetaminophen (Tylenol) 650 mg PRN Q6HRS PRN PO Headaches, Temp > 101.5F; Start 03/12/22 at 12:15; Status UNV Magnesium Hydroxide (Milk Of Magnesia) 2,400 mg PRN Q12HR PRN PO CONSTIPATION; Start 03/12/22 at 12:15; Status UNV Active Scripts Active Omeprazole 40 Mg Capsule.dr 1 Cap PO DAILY Ultram (Tramadol Hcl) 50 Mg Tablet 50 Mg PO Q6HRS PRN Reported [Cbd Gummies] 25 Mg PO DAILY PRN Gabapentin 800 Mg Tablet 800 Mg PO Q8HRS Famotidine 40 Mg Tablet 40 Mg PO HS Quin Allergy (Fexofenadine Hcl) 180 Mg Tablet 180 Mg PO DAILY Allergies Allergies: Coded Allergies: morphine (Verified Allergy, Intermediate, n/v, rash, 03/12/22) naproxen (Verified Allergy, Intermediate, n/v, rash, 03/12/22) NSAIDS (Non-Steroidal Anti-Inflamma (Verified Allergy, Mild, n/v, rash, 03/12/22) ROS Review of System GENERAL: No history of weight change, weakness or fevers. SKIN: No bruising, hair changes or rashes. EYES: No blurred, double or loss of vision. NOSE AND THROAT: No history of nosebleeds, hoarseness or sore throat. HEART: Denies chest pain, denies palpitations. LUNGS: Denies cough, hemoptysis, wheezing or shortness of breath. GASTROINTESTINAL: Left lower quadrant pain. Denies nausea or vomiting. GENITOURINARY: Denies dysuria, frequency, urgency, hematuria. NEUROLOGIC: Denies history of numbness, tingling, tremor or weakness. PSYCHIATRIC: Denies anxiety, denies depression. ENDOCRINE: No history of heat or cold intolerance, polyuria or polydipsia. EXTREMITIES: Denies muscle weakness, joint pain, pain on walking or stiffness. Physical Exam Physical Exam General: Alert, Oriented X3, Cooperative, moderate distress HEENT: PERRLA, EOMI Lungs: Clear to auscultation, Normal air movement Heart: RRR, no murmurs Cardiovascular: S1, S2 Abdomen: Left lower quadrant tenderness. Normal bowel sounds, Soft. Extremities: No clubbing, No cyanosis Skin: No rashes, No significant lesion Neuro: Normal speech, Normal tone, Sensation intact Psych/Mental Status: Mental status NL, Mood NL Vitals Vitals Vital Signs Date Time Temp Pulse Resp B/P (MAP) Pulse Ox O2 Delivery O2 Flow Rate FiO2 03/12/22 11:39 96 Room Air 03/12/22 10:53 97.7 73 18 120/69 (86) 97.7 Labs Labs Laboratory Tests Test 03/11/22 19:36 03/11/22 20:24 Urine Collection Type Unknown Urine Color (Auto) Yellow Urine Turbidity Clear Urine pH (Auto) 6.0 (<5.0-8.0) Urine Specific [place] 1.025 (1.000-1.030) Urine Protein (Auto) Negative mg/dL (Negative) Urine Glucose (Auto)(UA) Negative mg/dL (Negative) Urine Ketones (Auto) Negative mg/dL (Negative) Urine Blood (Auto) Trace (Negative) Urine Nitrite Negative (Negative) Urine Bilirubin (Auto) Negative (Negative) Urine Urobilinogen (Auto) Normal mg/dL (Normal) Urine Leukocyte Esterase (Auto) Negative (Negative) Urine RBC 0 /HPF (0-2) Urine WBC 0 /HPF (0-4) Urine Bacteria 0 /HPF (0-FEW) Urine Mucus Mod /LPF White Blood Count 11.9 x10^3/uL (4.0-11.0) Red Blood Count 4.71 x10^6/uL (4.30-5.70) Hemoglobin 14.5 g/dL (13.0-17.5) Hematocrit 42.0 % (39.0-53.0) Mean Corpuscular Volume 89 fL (79-100) Mean Corpuscular Hemoglobin 31 pg (25-35) Mean Corpuscular Hemoglobin Concent 35 g/dL (31-37) Red Cell Distribution Width 13.3 % (11.5-14.5) Platelet Count 259 x10^3/uL (140-400) Neutrophils (%) (Auto) 68 % (31-73) Lymphocytes (%) (Auto) 23 % (24-48) Monocytes (%) (Auto) 6 % (0-9) Eosinophils (%) (Auto) 2 % (0-3) Basophils (%) (Auto) 1 % (0-3) Neutrophils # (Auto) 8.1 x10^3/uL (1.8-7.7) Lymphocytes # (Auto) 2.7 x10^3/uL (1.0-4.8) Monocytes # (Auto) 0.7 x10^3/uL (0.0-1.1) Eosinophils # (Auto) 0.2 x10^3/uL (0.0-0.7) Basophils # (Auto) 0.2 x10^3/uL (0.0-0.2) Sodium Level 142 mmol/L (136-145) Potassium Level 3.9 mmol/L (3.5-5.1) Chloride Level 107 mmol/L (98-107) Carbon Dioxide Level 25 mmol/L (21-32) Anion Gap 10 (6-14) Blood Urea Nitrogen 10 mg/dL (8-26) Creatinine 0.9 mg/dL (0.7-1.3) Estimated GFR (Cockcroft-Gault) 94.4 BUN/Creatinine Ratio 11 (6-20) Glucose Level 127 mg/dL (70-99) Lactic Acid Level 0.7 mmol/L (0.4-2.0) Calcium Level 8.8 mg/dL (8.5-10.1) Total Bilirubin 0.3 mg/dL (0.2-1.0) Aspartate Amino Transf (AST/SGOT) 16 U/L (15-37) Alanine Aminotransferase (ALT/SGPT) 36 U/L (16-63) Alkaline Phosphatase 107 U/L (46-116) Total Protein 6.9 g/dL (6.4-8.2) Albumin 3.0 g/dL (3.4-5.0) Albumin/Globulin Ratio 0.8 (1.0-1.7) Lipase 48 U/L (73-393) Laboratory Tests Test 03/11/22 19:36 03/11/22 20:24 Urine Collection Type Unknown Urine Color (Auto) Yellow Urine Turbidity Clear Urine pH (Auto) 6.0 (<5.0-8.0) Urine Specific [place] 1.025 (1.000-1.030) Urine Protein (Auto) Negative mg/dL (Negative) Urine Glucose (Auto)(UA) Negative mg/dL (Negative) Urine Ketones (Auto) Negative mg/dL (Negative) Urine Blood (Auto) Trace (Negative) Urine Nitrite Negative (Negative) Urine Bilirubin (Auto) Negative (Negative) Urine Urobilinogen (Auto) Normal mg/dL (Normal) Urine Leukocyte Esterase (Auto) Negative (Negative) Urine RBC 0 /HPF (0-2) Urine WBC 0 /HPF (0-4) Urine Bacteria 0 /HPF (0-FEW) Urine Mucus Mod /LPF White Blood Count 11.9 x10^3/uL (4.0-11.0) Red Blood Count 4.71 x10^6/uL (4.30-5.70) Hemoglobin 14.5 g/dL (13.0-17.5) Hematocrit 42.0 % (39.0-53.0) Mean Corpuscular Volume 89 fL (79-100) Mean Corpuscular Hemoglobin 31 pg (25-35) Mean Corpuscular Hemoglobin Concent 35 g/dL (31-37) Red Cell Distribution Width 13.3 % (11.5-14.5) Platelet Count 259 x10^3/uL (140-400) Neutrophils (%) (Auto) 68 % (31-73) Lymphocytes (%) (Auto) 23 % (24-48) Monocytes (%) (Auto) 6 % (0-9) Eosinophils (%) (Auto) 2 % (0-3) Basophils (%) (Auto) 1 % (0-3) Neutrophils # (Auto) 8.1 x10^3/uL (1.8-7.7) Lymphocytes # (Auto) 2.7 x10^3/uL (1.0-4.8) Monocytes # (Auto) 0.7 x10^3/uL (0.0-1.1) Eosinophils # (Auto) 0.2 x10^3/uL (0.0-0.7) Basophils # (Auto) 0.2 x10^3/uL (0.0-0.2) Sodium Level 142 mmol/L (136-145) Potassium Level 3.9 mmol/L (3.5-5.1) Chloride Level 107 mmol/L (98-107) Carbon Dioxide Level 25 mmol/L (21-32) Anion Gap 10 (6-14) Blood Urea Nitrogen 10 mg/dL (8-26) Creatinine 0.9 mg/dL (0.7-1.3) Estimated GFR (Cockcroft-Gault) 94.4 BUN/Creatinine Ratio 11 (6-20) Glucose Level 127 mg/dL (70-99) Lactic Acid Level 0.7 mmol/L (0.4-2.0) Calcium Level 8.8 mg/dL (8.5-10.1) Total Bilirubin 0.3 mg/dL (0.2-1.0) Aspartate Amino Transf (AST/SGOT) 16 U/L (15-37) Alanine Aminotransferase (ALT/SGPT) 36 U/L (16-63) Alkaline Phosphatase 107 U/L (46-116) Total Protein 6.9 g/dL (6.4-8.2) Albumin 3.0 g/dL (3.4-5.0) Albumin/Globulin Ratio 0.8 (1.0-1.7) Lipase 48 U/L (73-393) VTE Prophylaxis Ordered VTE Prophylaxis Devices: Yes VTE Pharmacological Prophylaxi: No Assessment/Plan Assessment/Plan Intractable abdominal pain History of ulcers History fibromyalgia Plan: Due to concern for gastric ulcer we will place consult to GI IV PPI Clear liquid diet IV fluids Fecal H. pylori antigen, CRP pending FEN - clears PPX - SCDs FULL CODE/patient names his partner (Donavon Blanchard) as surrogate decision-maker Dispo - inpatient for above Justifications for Admission Other Justification HOSSEIN VARGAS MD Mar 12, 2022 12:18
[2022-03-12] MEDS: fentaNYL PF VIAL 100 MCG/2 ML VIAL IVP PRN ×4 (13:36→20:35)
[2022-03-12 15:18] VITALS: BP 131/81
[2022-03-12 19:00] VITALS: BP 134/85
[2022-03-12] MEDS ORDERED: HYDROcodone/APAP 7.5/325MG 1 TAB TABLET PO PRN (22:30)
[2022-03-12 23:00] VITALS: BP 142/80
[2022-03-12] MEDS: HYDROcodone/APAP 7.5/325MG 1 TAB TABLET PO PRN (23:08)
[2022-03-13] MEDS: HYDROcodone/APAP 7.5/325MG 1 TAB TABLET PO PRN ×3 (00:10→08:22)
[2022-03-13] MEDS: fentaNYL PF VIAL 100 MCG/2 ML VIAL IVP PRN (01:11)
[2022-03-13 07:00] VITALS: BP 128/75
[2022-03-13] MEDS: PANTOPRAZOLE 40 MG TABLET.DR. PO SCH (08:21)
--- NOTE | 2022-03-13 10:16 | PDOC ---
Date of Service: DATE: 03/13/22 TIME: 10:08 Subjective: Subjective: Mid left side pain - was worse with eating greasy foods before admission but now unchanged with liquids. Wants to eat more and if tolerates discharge. Pain pills helped. Still agreeable to outpt scopes. Normal stool - pain unchanged with stooling. Objective: Objective: D/w nurse before I saw pt - on clears and wants to advance, wants to DC, asked for Fentanyl, given hydrocodone 7.5mg x 2. Another nurse present who cared for pt on Sun indicates he left AMA. Vital Signs: Vital Signs Date Time Temp Pulse Resp B/P (MAP) Pulse Ox O2 Delivery O2 Flow Rate FiO2 03/13/22 08:22 Room Air 03/13/22 07:00 97.7 58 18 128/75 (92) 96 97.7 PE: GEN: NAD, up in chair HEENT: poor dentition LUNGS: CTAB HEART: RRR ABD: NABS, S/ND, left lateral pain - ?MSK/nerve SKIN: no rash NEURO/PSYCH: A & O 3, seems anxious A/P: Left-sided pain - recurrent GERD +cannabinoids -- Okay to advance diet as tolerated, consider DC if tolerates. Still asking for pain meds - he indicates to me the pills are working and doesn't need IV now. Continue PPI. We'll plan for outpt scopes as previously discussed. Justicifation of Admission Dx: Justifications for Admission: Justification of Admission Dx: N/A BLAIR DUBON Mar 13, 2022 10:16
[2022-03-13 10:50] VITALS: BP 143/88
--- NOTE | 2022-03-13 11:11 | PDOC ---
[facility] PROGRESS NOTE Date of Service DOS: DATE: 03/13/22 TIME: 11:08 Chief Complaint Chief Complaint Intractable abdominal pain History of ulcers History fibromyalgia History of Present Illness History of Present Illness 03/13/2022: Patient seen and evaluated. His abdominal pain is improved. His pain is controlled better with oral medications and IV. We discussed follow-up with Dr. Nelson or Dr. Su, or patient could establish care with a GI doctor of his choice. He did stool and it was collected for H. pylori antigen testing. He may discharge home with family care. Greater than 30 minutes spent managing the discharge of this patient Vitals/I&O Vitals/I&O: Vital Signs Date Time Temp Pulse Resp B/P (MAP) Pulse Ox O2 Delivery O2 Flow Rate FiO2 03/13/22 10:50 98.5 60 18 143/88 (106) 97 Room Air 98.5 I & O 03/12/22 03/12/22 03/13/22 15:00 23:00 07:00 Intake Total 220 ml Balance 220 ml Physical Exam General: Alert, Oriented X3, Cooperative Heart: Regular rate Lungs: Clear Abdomen: Soft, No tenderness Extremities: No clubbing, No cyanosis Skin: No rashes, No breakdown Assessment and Plan Assessmemt and Plan Problems Medical Problems: (1) Intractable abdominal pain Status: Acute (2) Leukocytosis, unspecified Status: Acute Comment Review of Relevant I have reviewed the following items nehal (where applicable) has been applied. Medications: Current Medications Medications (Trade) Dose Ordered Sig/Vanessa Route PRN Reason Start Time Stop Time Status Last Admin Dose Admin Pantoprazole Sodium (Protonix) 40 mg DAILYAC PO 03/12/22 11:30 03/13/22 08:21 Acetaminophen/ Hydrocodone Bitart (Lortab 5/325) 2 tab PRN Q4HRS PRN PO MODERATE PAIN, SEVERE PAIN 03/12/22 12:15 03/12/22 22:20 DC 03/12/22 19:33 Fentanyl Citrate (Fentanyl 2ml Vial) 50 mcg PRN Q2HR PRN IVP PAIN 03/12/22 13:15 03/13/22 01:11 Acetaminophen/ Hydrocodone Bitart (Lortab 7.5/325) 2 tab PRN Q4HRS PRN PO PAIN SEVERE 03/12/22 22:30 03/13/22 08:22 Justifications for Admission Other Justification HOSSEIN VARGAS MD Mar 13, 2022 11:11
[2022-03-13] MEDS ORDERED: PANT40TA77 PO (11:17)
[2022-03-13] MEDS ORDERED: HYDR-2765 PO (11:17)
--- NOTE | 2022-03-13 11:21 | PDOC3 ---
Discharge Summary Visit Information Date of Admission: Mar 12, 2022 Date of Discharge: Mar 13, 2022 Final Diagnosis Problems Medical Problems: (1) Intractable abdominal pain Status: Acute (2) Leukocytosis, unspecified Status: Acute Brief Hospital Course Allergies Allergies Coded Allergies Type Severity Reaction Last Updated Verified morphine Allergy Intermediate n/v, rash 03/12/22 Yes naproxen Allergy Intermediate n/v, rash 03/12/22 Yes NSAIDS (Non-Steroidal Anti-Inflamma Allergy Mild n/v, rash 03/12/22 Yes Vital Signs Vital Signs Date Time Temp Pulse Resp B/P (MAP) Pulse Ox O2 Delivery O2 Flow Rate FiO2 03/13/22 10:50 98.5 60 18 143/88 (106) 97 Room Air 98.5 Lab Results Laboratory Tests Test 03/11/22 19:36 03/11/22 20:24 Urine Collection Type Unknown Urine Color (Auto) Yellow Urine Turbidity Clear Urine pH (Auto) 6.0 (<5.0-8.0) Urine Specific [place] 1.025 (1.000-1.030) Urine Protein (Auto) Negative mg/dL (Negative) Urine Glucose (Auto)(UA) Negative mg/dL (Negative) Urine Ketones (Auto) Negative mg/dL (Negative) Urine Blood (Auto) Trace (Negative) Urine Nitrite Negative (Negative) Urine Bilirubin (Auto) Negative (Negative) Urine Urobilinogen (Auto) Normal mg/dL (Normal) Urine Leukocyte Esterase (Auto) Negative (Negative) Urine RBC 0 /HPF (0-2) Urine WBC 0 /HPF (0-4) Urine Bacteria 0 /HPF (0-FEW) Urine Mucus Mod /LPF White Blood Count 11.9 x10^3/uL (4.0-11.0) Red Blood Count 4.71 x10^6/uL (4.30-5.70) Hemoglobin 14.5 g/dL (13.0-17.5) Hematocrit 42.0 % (39.0-53.0) Mean Corpuscular Volume 89 fL (79-100) Mean Corpuscular Hemoglobin 31 pg (25-35) Mean Corpuscular Hemoglobin Concent 35 g/dL (31-37) Red Cell Distribution Width 13.3 % (11.5-14.5) Platelet Count 259 x10^3/uL (140-400) Neutrophils (%) (Auto) 68 % (31-73) Lymphocytes (%) (Auto) 23 % (24-48) Monocytes (%) (Auto) 6 % (0-9) Eosinophils (%) (Auto) 2 % (0-3) Basophils (%) (Auto) 1 % (0-3) Neutrophils # (Auto) 8.1 x10^3/uL (1.8-7.7) Lymphocytes # (Auto) 2.7 x10^3/uL (1.0-4.8) Monocytes # (Auto) 0.7 x10^3/uL (0.0-1.1) Eosinophils # (Auto) 0.2 x10^3/uL (0.0-0.7) Basophils # (Auto) 0.2 x10^3/uL (0.0-0.2) Sodium Level 142 mmol/L (136-145) Potassium Level 3.9 mmol/L (3.5-5.1) Chloride Level 107 mmol/L (98-107) Carbon Dioxide Level 25 mmol/L (21-32) Anion Gap 10 (6-14) Blood Urea Nitrogen 10 mg/dL (8-26) Creatinine 0.9 mg/dL (0.7-1.3) Estimated GFR (Cockcroft-Gault) 94.4 BUN/Creatinine Ratio 11 (6-20) Glucose Level 127 mg/dL (70-99) Lactic Acid Level 0.7 mmol/L (0.4-2.0) Calcium Level 8.8 mg/dL (8.5-10.1) Total Bilirubin 0.3 mg/dL (0.2-1.0) Aspartate Amino Transf (AST/SGOT) 16 U/L (15-37) Alanine Aminotransferase (ALT/SGPT) 36 U/L (16-63) Alkaline Phosphatase 107 U/L (46-116) C-Reactive Protein, Quantitative 8.5 mg/L (0-3.3) Total Protein 6.9 g/dL (6.4-8.2) Albumin 3.0 g/dL (3.4-5.0) Albumin/Globulin Ratio 0.8 (1.0-1.7) Lipase 48 U/L (73-393) Brief Hospital Course Mr. Mendoza is a 36 old man who presented with a history of gastric ulcers, who presents with intractable abdominal pain. Consultation was placed to GI. He was placed on liquid diet and treated with pain medications. He had one stool while in hospital, which was sent for H. pylori testing. His pain improved significantly today following admission and he was able to discharge home with self-care with outpatient GI follow-up. Discharge Information Condition at Discharge: Improved Disposition/Orders: D/C to Home Scheduled Famotidine (Famotidine) 40 Mg Tablet, 40 MG PO HS for GERD, (Reported) Entered as Reported by: LIBRA NOLAN on 03/09/222142 Fexofenadine Hcl (Quin Allergy) 180 Mg Tablet, 180 MG PO DAILY for allergies, (Reported) Entered as Reported by: JOSE MAN on 05/28/20 1128 Gabapentin (Gabapentin) 800 Mg Tablet, 800 MG PO Q8HRS for FIBROMYALGIA, (Reported) Entered as Reported by: LIBRA NOLAN on 03/09/222142 Pantoprazole Sodium (Pantoprazole Sodium ) 40 Mg Tablet., 40 MG PO DAILYAC for Hx Ulcers, #60 Ref 2 Prescribed by: HOSSEIN VARGAS MD on 03/13/22 1117 Scheduled PRN Hydrocodone Bit/Acetaminophen (Hydrocodone-Apap 7.5-325 ) 1 Tab Tablet, 1 TAB PO PRN Q6HRS PRN for PAIN MILD/MOD for 7 Days, #28 Ref 0 Prescribed by: HOSSEIN VARGAS MD on 03/13/22 1118 [Cbd Gummies] , 25 MG PO DAILY PRN for PAIN, (Reported) Entered as Reported by: LIBRA NOLAN on 03/09/222142 Discontinued Medications Omeprazole (Omeprazole) 40 Mg Capsule., 40 MG PO DAILY for GERD, (Reported) Entered as Reported by: LIBRA NOLAN on 03/09/222142 Omeprazole (Omeprazole) 40 Mg Capsule., 1 CAP PO DAILY for Hx ulcer, #90 Ref 3 Prescribed by: HOSSEIN VARGAS MD on 03/10/22 1042 Tramadol Hcl (Ultram) 50 Mg Tablet, 50 MG PO Q6HRS PRN for PAIN, #15 Ref 0 Prescribed by: JANIA GARCIA D.O. on 12/20/20 1335 Justicifation of Admission Dx: Justifications for Admission: Justification of Admission Dx: N/A HOSSEIN VARGAS MD Mar 13, 2022 11:21
--- NOTE | 2022-03-13 11:50 | NUR ---
Discharge Note: ARIES CRUZ [address] [place] Discharge instructions and discharge home medications reviewed with Patient and a copy given. All questions have been answered and understanding verbalized. The following instructions and handouts were given: f/u with pcp within two weeks. Discontinued lines and drains: Peripheral IV intact. Patient discharged to Home or Self Care with Family Member via [facility].
== END 2022-03-13 11:50 | disposition home or self-care (01) | DRG 383 ==
LOC: ER 18:58 → 2 NORTH 21:05
PROVIDERS: ADMIT Internal Medicine; ATTEND Internal Medicine
DX: K27.9 Peptic ulcer, site unspecified, unspecified as acute or chronic, without hemorrhage or perforation (principal); E43 Unspecified severe protein-calorie malnutrition; K76.0 Fatty (change of) liver, not elsewhere classified; D72.829 Elevated white blood cell count, unspecified; F17.210 Nicotine dependence, cigarettes, uncomplicated; I10 Essential (primary) hypertension; K21.9 Gastro-esophageal reflux disease without esophagitis; M79.7 Fibromyalgia; Z82.49 Family history of ischemic heart disease and other diseases of the circulatory system; Z87.11 Personal history of peptic ulcer disease; G89.29 Other chronic pain; M19.90 Unspecified osteoarthritis, unspecified site; Z88.8 Allergy status to other drugs, medicaments and biological substances; R19.7 Diarrhea, unspecified; Z79.899 Other long term (current) drug therapy
CPT/HCPCS: 36415; 80053; 81001; 83605; 83690; 85025; 86140; 87338; 96374; 96375; 96376; J1200; J2270; J2405; J3010; 99285-25; G0378